=== PATIENT | female | born 1955 | race Caucasian/White ===

== ENCOUNTER 2016-04-16 09:50 | Emergency (ER) | payer BC ==
[~2016-04-16] VITALS: Ht 172.7 cm; Wt 95.0 kg
[~2016-04-16 09:50] MED LIST: ANT25 PO; GLC/500 PO; INSDGIPEN SQ; KETO10TA PO; MELO15TA4 PO; PANT40TA PO
[2016-04-16 09:58] VITALS: TEMP 36.5; Ht 172.7 cm; Wt 95.0 kg
[2016-04-16] MEDS ORDERED: SODIUM CHLORIDE 0.9% 1000ML 1,000 ML IV STA (10:21)
[2016-04-16] MEDS ORDERED: CEFTRIAXONE SOD INJ 1 GM ADDVIAL IV STA (10:22)
[2016-04-16] MEDS ORDERED: CEPHALEXIN MONOHYDRATE 250 MG CAP PO ONE (10:30)
[2016-04-16] MEDS ORDERED: BND25 PO (10:32)
--- NOTE | 2016-04-16 10:51 | DIAGNOSTIC IMAGING REPORT ---
CHEST ONE VIEW PORTABLE CLINICAL HISTORY: Altered mental status. Weakness. COMPARISON STUDY: Chest radiograph September 16, 2013. FINDINGS: Lung volumes are normal. There is no consolidation. No pneumothorax or pleural effusion is present. Cardiac size is normal. Mediastinal contours are normal. IMPRESSION: No acute cardiopulmonary findings. Electronically signed by: Fredrick Simmons M.D. 04/16/2016 10:49 AM Dictated Date/Time: 04/16/2016 10:46 AM
--- NOTE | 2016-04-16 11:06 | DIAGNOSTIC IMAGING REPORT ---
HEAD CT NONCONTRAST CT DOSE: 537.48 mGy.cm HISTORY: heard pop in back of head TECHNIQUE: Multiaxial CT images of the head were performed without the use of intravenous contrast. Automated exposure control was utilized for this study. Comparison: Head CT 09/16/2013. Findings: The paranasal sinuses and mastoid air cells are clear. The calvarium and skull base are intact. The ventricles and sulci are within normal limits. There is no mass, hematoma, midline shift, or acute infarct. Impression: No acute intracranial abnormality. Electronically signed by: Jostin Torres M.D. 04/16/2016 11:04 AM Dictated Date/Time: 04/16/2016 11:01 AM
[2016-04-16 11:09] LABS: BASO % 1.1 %; BASO ABS # 0.06 K/uL (0-0.2); COMPLETE YES; EOS % 4.1 %; LYMPH % 43.1 %; LYMPH ABS # 2.29 K/uL (1.2-3.4); MEAN CELL VOLUME 83.7 fL (80-100); MEAN CORPUSCULAR HEMOGLOBIN 27.5 pg (25-34); MEAN CORPUSCULAR HGB CONC 32.9 g/dl (32-36); MEAN PLATELET VOLUME 9.7 fL (7.4-10.4); MONO % 7.2 %; NEUT % 44.5 %; PLATELET COUNT 318 K/uL (130-400); RED BLOOD COUNT 4.54 M/uL (4.2-5.4); WHITE BLOOD COUNT 5.31 K/uL (4.8-10.8)
[2016-04-16 11:22] LABS: INR 0.9 (0.9-1.1); PROTHROMBIN TIME (PATIENT) 9.8 SECONDS (9.0-12.0)
[2016-04-16 11:26] LABS: BUN/CREATININE RATIO 14.8 (10-20)
[2016-04-16 11:30] LABS: CKMB/CK RATIO 1.4 (0-3.0)
[2016-04-16] MEDS ORDERED: CEPH500C PO (12:45)
--- NOTE | 2016-04-16 12:45 | EMERGENCY ROOM VISIT NOTE ---
History Report prepared by Deandra: Liliam Yañez Under the Supervision of: Dr. Bryan Hurtado D.O. First contact with patient: 10:12 Chief Complaint: REFERRED BY DOCTOR Stated Complaint: SENT BY SHAHRAM IBRAHIM,FELT POPPING IN EAR/FACE History of Present Illness The patient is a 60 year old female who presents to the Emergency Room with complaints of persistent generalized weakness that began this morning around 0500. The patient states that when she woke this morning she noticed that something popped in the back of her head. She states that she felt fatigued, but started to get up and get ready for work. The patient states that she noticed drooping in her right eye so she went back to bed. She states that she went to her PCP this morning and he referred her to the emergency department for further work up. The patient denies any recent cold, nausea, sore throat, or runny nose. The patient's notes swelling to the patient's right cheek. Source of History: patient Onset: 0500 Position: other (global) Quality: other (weakness) Timing: other (persistent) Associated Symptoms: + fatigue, No nausea, No sorethroat Note: Associated symptoms; right eye drooping, pop in head, swelling to right cheek Review of Systems See HPI for pertinent positives & negatives. A total of 10 systems reviewed and were otherwise negative. Past Medical & Surgical Medical Problems: (1) Breast cancer Surgical Problems: (1) H/O: hysterectomy (2) Hx of appendectomy (3) Hx of cholecystectomy Family History Diabetes mellitus FHx: heart disease Hypertension Social History Smoking Status: Never Smoker Alcohol Use: none Occupation Status: employed Current/Historical Medications Scheduled Cephalexin Monohydrate (Keflex), 500 MG PO QID Diphenhydramine Hcl (Benadryl), 1 CAP PO DAILY Insulin Glargine (Lantus Solostar), 25 UNITS SQ HS Metformin Hcl (Glucophage), 500 MG PO BID Pantoprazole (Protonix), 40 MG PO DAILY Scheduled PRN Meloxicam (Mobic), 15 MG PO DAILY PRN for Arthritis Allergies Coded Allergies: Propoxyphene (Verified Allergy, Unknown, ., 04/16/16) Physical Exam Vital Signs Date Time Temp Pulse Resp B/P Pulse Ox O2 Delivery O2 Flow Rate FiO2 04/16/16 11:07 75 16 153/99 98 Room Air 04/16/16 10:00 76 04/16/16 09:58 36.5 69 17 200/113 98 Room Air Physical Exam VITAL SIGNS: were reviewed as above. GENERAL:Non-toxic in appearance. SKIN: Warm dry and pink. HEAD: Normocephalic and atraumatic. EYES: Mild erythema and edema to the right upper eyelid. Mild edema to the right infraorbital area. EOMI without discomfort. OROPHARYNX: Is clear and moist NECK: Supple without lymphadenopathy or meningismus. LUNGS: clear. HEART: Regular rate and rhythm. ABDOMEN: Soft and nontender. EXTREMITIES: Warm and well perfused. NEUROLOGICALLY: Awake alert and oriented without focal deficit. Cranial nerves 2 -12 are intact. There is no pronator drift. Cerebellar testing is within normal limits. There is no nystagmus. There is no facial droop. Speech is clear. Vision is grossly normal. MUSCULOSKELETAL: Good muscle tone. No evidence of trauma. Medical Decision & Procedures ER Provider Diagnostic Interpretation: X ray results and stated below per my interpretation and radiologist interpretation. Other radiology results and stated below per my review and radiologist interpretation: HEAD CT NONCONTRAST CT DOSE: 537.48 mGy.cm HISTORY: heard pop in back of head TECHNIQUE: Multiaxial CT images of the head were performed without the use of intravenous contrast. Automated exposure control was utilized for this study. Comparison: Head CT 09/16/2013. Findings: The paranasal sinuses and mastoid air cells are clear. The calvarium and skull base are intact. The ventricles and sulci are within normal limits. There is no mass, hematoma, midline shift, or acute infarct. Impression: No acute intracranial abnormality. Electronically signed by: Jostin Torres M.D. 04/16/2016 11:04 AM Dictated Date/Time: 04/16/2016 11:01 AM CHEST ONE VIEW PORTABLE CLINICAL HISTORY: Altered mental status. Weakness. COMPARISON STUDY: Chest radiograph September 16, 2013. FINDINGS: Lung volumes are normal. There is no consolidation. No pneumothorax or pleural effusion is present. Cardiac size is normal. Mediastinal contours are normal. IMPRESSION: No acute cardiopulmonary findings. Electronically signed by: Fredrick Simmons M.D. 04/16/2016 10:49 AM Dictated Date/Time: 04/16/2016 10:46 AM Laboratory Results 04/16/16 10:40 Red Blood Count 4.54, Mean Corpuscular Volume 83.7, Mean Corpuscular Hemoglobin 27.5, Mean Corpuscular Hemoglobin Concent 32.9, Mean Platelet Volume 9.7, Neutrophils (%) (Auto) 44.5, Lymphocytes (%) (Auto) 43.1, Monocytes (%) (Auto) 7.2, Eosinophils (%) (Auto) 4.1, Basophils (%) (Auto) 1.1, Neutrophils # (Auto) 2.36, Lymphocytes # (Auto) 2.29, Monocytes # (Auto) 0.38, Eosinophils # (Auto) 0.22, Basophils # (Auto) 0.06 04/16/16 10:40 Test 04/16/16 10:40 White Blood Count 5.31 K/uL (4.8-10.8) Red Blood Count 4.54 M/uL (4.2-5.4) Hemoglobin 12.5 g/dL (12.0-16.0) Hematocrit 38.0 % (37-47) Mean Corpuscular Volume 83.7 fL (80-100) Mean Corpuscular Hemoglobin 27.5 pg (25-34) Mean Corpuscular Hemoglobin Concent 32.9 g/dl (32-36) Platelet Count 318 K/uL (130-400) Mean Platelet Volume 9.7 fL (7.4-10.4) Neutrophils (%) (Auto) 44.5 % Lymphocytes (%) (Auto) 43.1 % Monocytes (%) (Auto) 7.2 % Eosinophils (%) (Auto) 4.1 % Basophils (%) (Auto) 1.1 % Neutrophils # (Auto) 2.36 K/uL (1.4-6.5) Lymphocytes # (Auto) 2.29 K/uL (1.2-3.4) Monocytes # (Auto) 0.38 K/uL (0.11-0.59) Eosinophils # (Auto) 0.22 K/uL (0-0.5) Basophils # (Auto) 0.06 K/uL (0-0.2) RDW Standard Deviation 42.0 fL (36.4-46.3) RDW Coefficient of Variation 13.9 % (11.5-14.5) Immature Granulocyte % (Auto) 0.0 % Immature Granulocyte # (Auto) 0.00 K/uL (0.00-0.02) Erythrocyte Sedimentation Rate 23 mm/hr (0-21) Prothrombin Time 9.8 SECONDS (9.0-12.0) Prothromb Time International Ratio 0.9 (0.9-1.1) Activated Partial Thromboplast Time 26.4 SECONDS (21.0-31.0) Partial Thromboplastin Ratio 1.0 Anion Gap 9.0 mmol/L (3-11) Est Creatinine Clear Calc Drug Dose 72.1 ml/min Estimated GFR () 70.9 Estimated GFR (Non- 61.2 BUN/Creatinine Ratio 14.8 (10-20) Calcium Level 9.0 mg/dl (8.5-10.1) Total Creatine Kinase 77 U/L (26-192) Creatine Kinase MB 1.1 ng/ml (0.5-3.6) Creatine Kinase MB Ratio 1.4 (0-3.0) Laboratory results as stated above per my review. Medications Administered Medications (Trade) Dose Ordered Sig/Nelson Route Start Time Stop Time Status Last Admin Dose Admin Sodium Chloride (Nss 1000ml) 1,000 ml @ 999 mls/hr Q1H1M STAT IV 04/16/16 10:21 04/16/16 11:21 DC 04/16/16 10:21 999 MLS/HR Cephalexin Monohydrate (Keflex Cap) 500 mg NOW ONCE PO 04/16/16 10:30 04/16/16 10:31 DC 04/16/16 10:45 500 MG Ceftriaxone Sodium (Rocephin Inj) 1 gm NOW STAT IV 04/16/16 10:22 04/16/16 10:23 DC 04/16/16 10:44 1 GM ECG Indication: weakness Rate (beats per minute): 67 Rhythm: normal sinus Findings: no acute ischemic change, no ectopy ED Course 1013: Previous medical records were reviewed. The patient was evaluated in room A11B. A complete history and physical examination was performed. 1021: Ordered Sodium Chloride 1000 ml @ 999 mls/hr IV, Rocephin Inj 1 gm IV. 1030: Ordered Keflex Cap 500 mg PO. 1247: I reevaluated the patient and she is resting comfortably. I discussed the exam findings with her and I discussed the treatment plan. She verbalized complete understanding and agreement. She is ready to go home. Medical Decision Differential includes acute coronary syndrome, myocardial infarction, CVA, TIA, anemia, infection, pneumonia, UTI, pyelonephritis, poor nutrition, dehydration, electrolyte disturbance,hypoglycemia. This is a 66-year-old female who presents to the ED with a chief complaint of having a pop in her head around 5 AM. This was in the back of her head. She also states that she feels "blah". She states that her tongue feels a little weird. The patient was noted to have high blood pressure when she initially got here. She states that she was taken off her blood pressure medications because her blood pressure was going too low. She has a history of diabetes. The patient's physical exam was suggestive of some erythema and edema to the right upper eyelid and some edema inferior to the eye. There is no pain with EOM. This could be an early cellulitis. Her neurological exam was completely normal. She did not have any weakness to her face. EKG shows a sinus rhythm. Chest x-ray and head scan did not show any acute process. CBC was normal. Sedimentation rate was 23. PRP is normal. The patient's blood pressure improved to a reasonable level during her ED stay. She was treated with some IV Rocephin and by mouth Keflex for her right periorbital cellulitis. She is felt to be stable for discharge and outpatient follow-up. Impression Primary Impression: Blepharitis of eyelid of right eye Additional Impression: Periorbital cellulitis of right eye Scribe Attestation The scribe's documentation has been prepared under my direction and personally reviewed by me in its entirety. I confirm that the note above accurately reflects all work, treatment, procedures, and medical decision making performed by me. Departure Information Dispostion Home / Self-Care Prescriptions Cephalexin Monohydrate (Keflex) 500 Mg Cap 500 MG PO QID, #28 CAP Prov: Bryan Hurtado D.O. 04/16/16 Referrals No Doctor, Assigned (PCP) Forms HOME CARE DOCUMENTATION FORM, IMPORTANT VISIT INFORMATION Patient Instructions My [facility] Additional Instructions Keflex as prescribed. Follow-up with your doctor for recheck in 3-5 days. Return for worsening. Problem Qualifiers
[2016-04-16 12:57] VITALS: BP 147/84; PULSE 69; O2SAT 97
== END 2016-04-16 13:03 | disposition home or self-care (01) ==
LOC: C.EDB 09:51 → C.EDA 13:03
DX: H01.003 Unspecified blepharitis right eye, unspecified eyelid (principal); L03.213 Periorbital cellulitis; Z85.3 Personal history of malignant neoplasm of breast

== ENCOUNTER 2017-01-16 19:18 | Emergency (ER) | payer BC ==
[~2017-01-16] VITALS: Ht 172.7 cm; Wt 95.4 kg
[~2017-01-16 19:18] MED LIST changes: -ANT25 PO; +DIPH25CA5 PO; -KETO10TA PO
[2017-01-16 19:33] VITALS: TEMP 36.9; Ht 172.7 cm; Wt 95.4 kg
--- NOTE | 2017-01-16 20:19 | EMERGENCY ROOM VISIT NOTE ---
History Report prepared by Deandra: Britany Gordon Under the Supervision of: Dr. Noam Morel M.D. First contact with patient: 20:11 Chief Complaint: OTHER COMPLAINT Stated Complaint: SWELD RT HAND History of Present Illness The patient is a 61 year old female who presents to the Emergency Room with complaints of constant swelling in right arm that begun this morning. The patient denies hitting her hand, falling or getting bit by anything. She notes that she has two new lumps on her hand. She denies being in any pain. The patient has been sick with bronchitis for 4 months and notes that she just found black mold in her basement. She was told by her PCP to follow up with a lung specialist. The patient is not on any blood thinners and has a history of arthritis and diabetes. Source of History: patient Onset: this morning Position: arm (right) Quality: other (swelling) Timing: constant Modifying Factors (Relieving): other (none) Review of Systems See HPI for pertinent positives and negatives. A total of ten systems were reviewed and were otherwise negative. Past Medical & Surgical Medical Problems: (1) Breast cancer Surgical Problems: (1) H/O: hysterectomy (2) Hx of appendectomy (3) Hx of cholecystectomy Family History Diabetes mellitus FHx: heart disease Hypertension Social History Smoking Status: Never Smoker Alcohol Use: none Occupation Status: employed Current/Historical Medications Scheduled Glipizide (Glipizide Er), 5 MG PO DAILY Insulin Glargine (Lantus Solostar), 25 UNITS SQ HS Naproxen (Naproxen), 500 MG PO BID Pantoprazole Sodium (Protonix), 20 MG PO DAILY Scheduled PRN Meclizine HCl (Meclizine HCl), 12.5 MG PO TID PRN for Dizziness or Vertigo Tramadol HCl (Tramadol HCl), 50 MG PO BID PRN for Severe Pain Allergies Coded Allergies: Propoxyphene (Verified Allergy, Unknown, ., 04/16/16) Physical Exam Vital Signs Date Time Temp Pulse Resp B/P (MAP) Pulse Ox O2 Delivery O2 Flow Rate FiO2 01/16/17 21:51 77 18 149/90 98 01/16/17 19:33 36.9 74 18 148/92 97 Room Air Physical Exam GENERAL: Awake, alert, well-appearing, in no distress HENT: Normocephalic, atraumatic. Oropharynx unremarkable. EYES: Normal conjunctiva. Sclera non-icteric. NECK: Supple. No nuchal rigidity. FROM. No JVD. RESPIRATORY: Clear to auscultation. CARDIAC: Regular rate, normal rhythm. Extremities warm and well perfused. Pulses equal. ABDOMEN: Soft, non-distended. No tenderness to palpation. No rebound or guarding. No masses. RECTAL: Deferred. MUSCULOSKELETAL: Mild swelling with underlying contusion dorsum of right hand. Dorsal second metacarpal with 0.25cm cyst, nontender, mobile. No pain with passive stretch. PMS intact Chest examination reveals no tenderness. The back is symmetrical on inspection without obvious abnormality. There is no CVA tenderness to palpation. No joint edema. LOWER EXTREMITIES: Calves are equal size bilaterally and non-tender. No edema. No discoloration. NEURO: Normal sensorium. No sensory or motor deficits noted. SKIN: warm, dry Medical Decision & Procedures ER Provider Diagnostic Interpretation: Radiology results as stated below per my review and radiologist interpretation: R HAND MIN 3 VIEWS ROUTINE DISCUSSION: The bones are mildly osteopenic. There are no fractures. There is no erosive disease. There is a 3 mm cortical lucency involving the fourth metacarpal the junction of middle distal one third. This is of doubtful acute clinical significance. IMPRESSION: 1. Mild osteopenia 2. Mild soft tissue swelling 3. No acute fractures 4. No erosive disease 5. 3 mm cortical lucency involving the fourth metacarpal. This is of doubtful acute clinical significance. Electronically signed by: Guerrero Davidson M.D. Laboratory Results 01/16/17 20:25 Red Blood Count 4.49, Mean Corpuscular Volume 85.3, Mean Corpuscular Hemoglobin 28.1, Mean Corpuscular Hemoglobin Concent 32.9, Mean Platelet Volume 9.5, Neutrophils (%) (Auto) 42.3, Lymphocytes (%) (Auto) 43.6, Monocytes (%) (Auto) 6.4, Eosinophils (%) (Auto) 6.7, Basophils (%) (Auto) 0.9, Neutrophils # (Auto) 3.34, Lymphocytes # (Auto) 3.45, Monocytes # (Auto) 0.51, Eosinophils # (Auto) 0.53, Basophils # (Auto) 0.07 01/16/17 20:25 Test 01/16/17 20:25 White Blood Count 7.91 K/uL (4.8-10.8) Red Blood Count 4.49 M/uL (4.2-5.4) Hemoglobin 12.6 g/dL (12.0-16.0) Hematocrit 38.3 % (37-47) Mean Corpuscular Volume 85.3 fL (80-100) Mean Corpuscular Hemoglobin 28.1 pg (25-34) Mean Corpuscular Hemoglobin Concent 32.9 g/dl (32-36) Platelet Count 309 K/uL (130-400) Mean Platelet Volume 9.5 fL (7.4-10.4) Neutrophils (%) (Auto) 42.3 % Lymphocytes (%) (Auto) 43.6 % Monocytes (%) (Auto) 6.4 % Eosinophils (%) (Auto) 6.7 % Basophils (%) (Auto) 0.9 % Neutrophils # (Auto) 3.34 K/uL (1.4-6.5) Lymphocytes # (Auto) 3.45 K/uL (1.2-3.4) Monocytes # (Auto) 0.51 K/uL (0.11-0.59) Eosinophils # (Auto) 0.53 K/uL (0-0.5) Basophils # (Auto) 0.07 K/uL (0-0.2) RDW Standard Deviation 44.2 fL (36.4-46.3) RDW Coefficient of Variation 14.2 % (11.5-14.5) Immature Granulocyte % (Auto) 0.1 % Immature Granulocyte # (Auto) 0.01 K/uL (0.00-0.02) Prothrombin Time 9.9 SECONDS (9.0-12.0) Prothromb Time International Ratio 0.9 (0.9-1.1) Anion Gap 6.0 mmol/L (3-11) Est Creatinine Clear Calc Drug Dose 66.7 ml/min Estimated GFR () 64.9 Estimated GFR (Non- 56.0 BUN/Creatinine Ratio 16.7 (10-20) Calcium Level 9.1 mg/dl (8.5-10.1) Laboratory results reviewed by me Medications Administered Medications (Trade) Dose Ordered Sig/Nelson Route Start Time Stop Time Status Last Admin Dose Admin Dexamethasone (Decadron Tab) 10 mg NOW ONCE PO 01/16/17 21:30 01/16/17 21:33 DC 01/16/17 21:47 10 MG ED Course 2011: The patient was evaluated in room C6. A complete history and physical exam was performed. 2119: Bedside ultrasound of right hand: small amount of cobblestoning that is nonspecific and a 2.5 cm cyst without warmth or edema. 0: Decadron 10 mg PO. 2145: I reevaluated the patient. Discussed results and discharge instructions: She verbalized understanding and agreement. The patient is ready for discharge. Medical Decision I reviewed the patient's past medical history, medications, and the nursing notes as described above. Differential diagnoses: contusion, hematoma, localized allergic reaction, insect bite, tenosynovitis. The patient is a 61 y/o woman with pmhx of DM and arthritis who presents to the ED with right hand swelling per HPI. On arrival the patient is well appearing, in NAD, AFVSS. On exam has mild swelling with underlying contusion on dorsum of right hand. No warmth or erythema. No pain with passive stretch. Xray negative for fx. "3 mm cortical lucency involving the fourth metacarpal...doubtful acute clinical significance". WBC, platelets, INR wnl. Not on any AC or antiplatelet therapy. Bedside US of dorsal cyst shows 0.25cm cystic structure with thickened wall and adjacent to tendon making most c/w ganglion cyst. No FB appreciate. Given localized edema in setting of possible bite given dose of dexamethasone. No signs of infection at this time thus no indication for abx. GUANAKO bandage for compression. Plan for hand f/u with patient's hand surgeon who repaired her trigger finger on the same hand an happens to be the patient's cousin. Findings and plan for follow-up reviewed with patient. Patient agreeable and d/c'd per discharge instructions. Medication Reconcilliation Current Medication List: was personally reviewed by me Blood Pressure Screening Patient's blood pressure: Elevated blood pressure Blood pressure disposition: Referred to PCP Impression Primary Impression: Hand swelling Additional Impression: Ganglion cyst Scribe Attestation The scribe's documentation has been prepared under my direction and personally reviewed by me in its entirety. I confirm that the note above accurately reflects all work, treatment, procedures, and medical decision making performed by me. Departure Information Dispostion Home / Self-Care Referrals No Doctor, Assigned (PCP) Forms HOME CARE DOCUMENTATION FORM, IMPORTANT VISIT INFORMATION, WORK / SCHOOL INSTRUCTIONS Patient Instructions Cyst Ganglion Hand, ED Contusion Hand, My [facility] Additional Instructions Please follow up with your hand surgeon next week for re-evaluation. Guanako bandage to minimize swelling. Keep elevated. Otherwise, your exam, xray, ultrasound, and lab results did not show signs of an emergent condition at this time. Acetaminophen for pain as needed. Return to the emergency department for worsening symptoms as described in the accompanying instructions. Problem Qualifiers
[2017-01-16 20:35] LABS: BASO % 0.9 %; BASO ABS # 0.07 K/uL (0-0.2); COMPLETE YES; EOS % 6.7 %; HEMATOCRIT 38.3 % (37-47); IG% 0.1 %; LYMPH % 43.6 %; LYMPH ABS # 3.45 K/uL (1.2-3.4); MEAN CELL VOLUME 85.3 fL (80-100); MEAN CORPUSCULAR HEMOGLOBIN 28.1 pg (25-34); MEAN CORPUSCULAR HGB CONC 32.9 g/dl (32-36); MEAN PLATELET VOLUME 9.5 fL (7.4-10.4); MONO % 6.4 %; NEUT % 42.3 %; PLATELET COUNT 309 K/uL (130-400); RED BLOOD COUNT 4.49 M/uL (4.2-5.4); WHITE BLOOD COUNT 7.91 K/uL (4.8-10.8)
[2017-01-16 20:47] LABS: INR 0.9 (0.9-1.1); PROTHROMBIN TIME (PATIENT) 9.9 SECONDS (9.0-12.0)
--- NOTE | 2017-01-16 20:47 | DIAGNOSTIC IMAGING REPORT ---
R HAND MIN 3 VIEWS ROUTINE CLINICAL HISTORY: Soft tissue swelling COMPARISON: None. DISCUSSION: The bones are mildly osteopenic. There are no fractures. There is no erosive disease. There is a 3 mm cortical lucency involving the fourth metacarpal the junction of middle distal one third. This is of doubtful acute clinical significance. IMPRESSION: 1. Mild osteopenia 2. Mild soft tissue swelling 3. No acute fractures 4. No erosive disease 5. 3 mm cortical lucency involving the fourth metacarpal. This is of doubtful acute clinical significance. Electronically signed by: Guerrero Davidson M.D. 01/16/2017 8:45 PM Dictated Date/Time: 01/16/2017 8:43 PM
[2017-01-16 20:51] LABS: BUN/CREATININE RATIO 16.7 (10-20); CALCIUM 9.1 mg/dl (8.5-10.1); CREATININE 1.07 mg/dl (0.60-1.20); POTASSIUM 4.3 mmol/L (3.5-5.1)
[2017-01-16] MEDS ORDERED: ULT50 PO (21:15)
[2017-01-16] MEDS ORDERED: NAPR500T3 PO (21:15)
[2017-01-16] MEDS ORDERED: MECL1TAB40 PO (21:15)
[2017-01-16] MEDS ORDERED: GLIP-197 PO (21:15)
[2017-01-16] MEDS ORDERED: PANT20TA2 PO (21:15)
[2017-01-16] MEDS ORDERED: DEXAMETHASONE 4 MG TAB PO ONE (21:30)
[2017-01-16 21:51] VITALS: BP 149/90; PULSE 77; O2SAT 98
== END 2017-01-16 21:51 | disposition home or self-care (01) ==
LOC: C.EDB 19:20 → C.EDC 21:51
DX: M79.89 Other specified soft tissue disorders (principal); M67.40 Ganglion, unspecified site; Z83.3 Family history of diabetes mellitus; Z82.49 Family history of ischemic heart disease and other diseases of the circulatory system; Z79.4 Long term (current) use of insulin

== ENCOUNTER → 2017-05-31 | Outpatient (CLI) | payer OTHER, BC ==
[~2017-05-31] MED LIST changes: +CLR10 PO; -DIPH25CA5 PO; -GLC/500 PO; +GLIP-197 PO; +MECL1TAB40 PO; -MELO15TA4 PO; +NAPR500T3 PO; +PANT20TA2 PO; -PANT40TA PO; +ULT50 PO
--- NOTE | 2017-05-31 14:02 | DIAGNOSTIC IMAGING REPORT ---
ULTRASOUND L VENOUS DOPP LOWER EXT UNILAT CLINICAL HISTORY: I82.402 LEFT LEG SWELLING COMPARISON STUDY: No previous studies for comparison. FINDINGS: Real-time and color flow Doppler imaging were performed. Flow was seen within the femoral, popliteal and calf veins with no intraluminal thrombus demonstrated. The saphenous vein is patent. IMPRESSION: No evidence of left lower extremity DVT. Electronically signed by: Guerrero Davidson M.D. 05/31/2017 2:01 PM Dictated Date/Time: 05/31/2017 2:00 PM
== END | disposition home or self-care (01) ==
LOC: C.ULTR 12:58
PROVIDERS: ATTEND Orthopaedic Surgery Orthopaedic Surgery of the Spine
DX: I82.402 Acute embolism and thrombosis of unspecified deep veins of left lower extremity (principal)

== ENCOUNTER 2017-07-27 08:52 | Day surgery (SDC) | payer BC, OTHER ==
[2017-05-31 10:40] VITALS: BMI 32.0
[2017-05-31 10:57] VITALS: BMI 32.0
--- NOTE | 2017-05-31 11:11 | PAT Medication Instructions ---
Service Date May 31, 2017. Current Home Medication List Glipizide (Glipizide Er), 5 MG PO QPM Insulin Glargine (Lantus Solostar), 25 UNITS SQ QPM Loratadine (Claritin), 20 MG PO QAM Meclizine HCl (Meclizine HCl), 12.5 MG PO TID PRN for Dizziness or Vertigo Naproxen (Naproxen), 500 MG PO BID Pantoprazole Sodium (Protonix), 20 MG PO QAM Tramadol HCl (Tramadol HCl), 50 MG PO BID PRN for Severe Pain Medication Instructions For Your Scheduled Surgery - Check with surgeon for instructions: Naproxen (Naproxen), 500 MG PO BID - Hold the following medications the morning of surgery: Loratadine (Claritin), 20 MG PO QAM - Take the following medications the morning of surgery with a sip of water: Meclizine HCl (Meclizine HCl), 12.5 MG PO TID PRN for Dizziness or Vertigo (if needed) Pantoprazole Sodium (Protonix), 20 MG PO QAM Tramadol HCl (Tramadol HCl), 50 MG PO BID PRN for Severe Pain (okay to take up to 4 hours prior to surgery if needed) - Take the following medications as scheduled the night before surgery: Tramadol HCl (Tramadol HCl), 50 MG PO BID PRN for Severe Pain (if needed) Meclizine HCl (Meclizine HCl), 12.5 MG PO TID PRN for Dizziness or Vertigo (if needed) Insulin Glargine (Lantus Solostar), 25 UNITS SQ QPM Glipizide (Glipizide Er), 5 MG PO QPM If you have any questions please call us at [phone] or [phone] or [phone]
[2017-05-31 13:08] LABS: BASO % 1.1 %; BASO ABS # 0.08 K/uL (0-0.2); EOS % 5.5 %; HEMATOCRIT 36.6 % (37-47); HEMOGLOBIN 12.1 g/dL (12.0-16.0); IG# 0.02 K/uL (0.00-0.02); LYMPH % 38.7 %; LYMPH ABS # 2.81 K/uL (1.2-3.4); MEAN CELL VOLUME 83.2 fL (80-100); MEAN CORPUSCULAR HEMOGLOBIN 27.5 pg (25-34); MEAN CORPUSCULAR HGB CONC 33.1 g/dl (32-36); MEAN PLATELET VOLUME 9.5 fL (7.4-10.4); MONO % 6.5 %; MONO ABS # 0.47 K/uL (0.11-0.59); NEUT % 47.9 %; NEUT ABS # 3.49 K/uL (1.4-6.5); PLATELET COUNT 335 K/uL (130-400); RED CELL DISTRIBUTION WIDTH SD 42.7 fL (36.4-46.3); WHITE BLOOD COUNT 7.27 K/uL (4.8-10.8)
[2017-05-31 13:31] LABS: CALCIUM 9.4 mg/dl (8.5-10.1); CREATININE 0.88 mg/dl (0.60-1.20); POTASSIUM 4.8 mmol/L (3.5-5.1)
[2017-05-31 13:55] LABS: HEMOGLOBIN A1C 9.2 % (4.5-5.6)
[~2017-07-27] VITALS: Ht 172.7 cm; Wt 96.0 kg
[~2017-07-27 08:52] MED LIST changes: +ACETAMINOPHEN 500 MG TAB PO SCH; +CEFAZOLIN 2000MG IV PUSH 15 ML IV SCH; +CeleBREX 200 MG CAP PO SCH; +GABAPENTIN 600 MG PO SCH; +LACTATED RINGER'S 1000ML 1,000 ML IV SCH; +NAPR-1231 PO; -NAPR500T3 PO
[2017-07-27 09:20] VITALS: Ht 172.7 cm; Wt 96.0 kg
[2017-07-27] MEDS ORDERED: ONDANSETRON INJ 2 MG/ML 2 ML VIAL IV PRN (09:45)
[2017-07-27] MEDS ORDERED: ATROPINE SULFATE 0.1 MG/ML 5ML SYR IV PRN (09:45)
[2017-07-27] MEDS ORDERED: EpHEDrine SULFATE INJ 50 MG/ML AMP IV PRN (09:45)
[2017-07-27] MEDS ORDERED: HYDROmorphone INJ 2 MG/ML SYR/VIAL IV PRN ×2 (09:45→12:15)
[2017-07-27] MEDS ORDERED: FENTANYL CITRATE INJ 50 MCG/1 ML 2 ML VIAL IV PRN (09:45)
[2017-07-27] MEDS ORDERED: FENTANYL CITRATE INJ 50 MCG/1 ML 2 ML VIAL ONE ×2 (10:36→11:38)
[2017-07-27] MEDS ORDERED: MIDAZOLAM HCL 1 MG/ML 2ML VIAL ONE (10:36)
--- NOTE | 2017-07-27 10:49 | History & Physical Bridge Note ---
H&P Re-Evaluation Bridge Note: I have examined the patient, reviewed the History & Physical and in the interval since the performance of the History & Physical I have noted the following changes of clinical significance: No changes noted
--- NOTE | 2017-07-27 10:50 | History and Physical ---
History & Physical Date July 27, 2017. Chief Complaint Back and leg pain History of Present Illness The patient is a 61 year old female with complaints of back and leg pain Past Medical/Surgical History Medical Problems: (1) Breast cancer Surgical Problems: (1) H/O: hysterectomy (2) Hx of appendectomy (3) Hx of cholecystectomy Additional History Hepatic Disease: No Endocrine Disorder: No Kidney Disease: No Hypertension: No Heart Disease: No Bleeding Tendencies: No Infectious Diseases: No Other: Diabetes Allergies Coded Allergies: Propoxyphene (Verified Adverse Reaction, Unknown, GI UPSET, 07/27/17) Home Medications Scheduled Glipizide (Glipizide Er), 5 MG PO QPM Insulin Glargine (Lantus Solostar), 25 UNITS SQ QPM Loratadine (Claritin), 20 MG PO QAM Naproxen (Naproxen), 500 MG PO BID Pantoprazole Sodium (Protonix), 20 MG PO QAM Scheduled PRN Meclizine HCl (Meclizine HCl), 12.5 MG PO TID PRN for Dizziness or Vertigo Tramadol HCl (Tramadol HCl), 50 MG PO BID PRN for Severe Pain Physical Examination Skin: warm/dry, no rash Eyes: normal inspection, EOMI, sclerae normal ENT: normal ENT inspection, pharynx normal Head: normocephalic, atraumatic Neck: supple, no adenopathy, trachea midline Respiratory/Chest: lungs clear, normal breath sounds, no respiratory distress Cardiovascular: regular rate, rhythm, no edema, no murmur Abdomen / GI: normal bowel sounds, non tender Back: normal inspection Extremities: normal inspection, normal range of motion Neurologic/Psych: no motor/sensory deficits, alert, normal reflexes, oriented x 3 Diagnosis Lumbar spinal stenosis Plan of Treatment L4-5 laminectomy
[2017-07-27] MEDS ORDERED: NovoLIN-R INSULIN PER UNIT CHARGE ONE (10:58)
[2017-07-27] MEDS ORDERED: NURSING VERBAL MED ORDER ONE (11:00)
[2017-07-27] MEDS ORDERED: BACITRACIN 50000 UNIT VIAL ONE (11:09)
[2017-07-27] MEDS ORDERED: BUPIVACAINE/EPINEPHRINE 0.5% MPF 1:200,000 30 ML VIAL ONE (11:09)
[2017-07-27] MEDS ORDERED: HYDROmorphone INJ 2 MG/ML SYR/VIAL ONE (11:38)
[2017-07-27] MEDS ORDERED: PROPOFOL IV EMULSION 10 MG/ML 20 ML VIAL ONE (12:01)
[2017-07-27] MEDS ORDERED: DEXAMETHASONE SOD INJ 4 MG/ML VIAL ONE (12:01)
[2017-07-27] MEDS ORDERED: EpHEDrine SULFATE 50MG/5ML SYR ONE (12:01)
[2017-07-27] MEDS ORDERED: ONDANSETRON INJ 2 MG/ML 2 ML VIAL ONE (12:01)
[2017-07-27] MEDS ORDERED: LIDOCAINE HCL 2% 2 ML VIAL (20MG/ML) ONE (12:01)
[2017-07-27] MEDS ORDERED: LARYING-O-JET KIT (LTA) ONE (12:01)
[2017-07-27] MEDS ORDERED: FLOSEAL HEMOSTATIC MATRIX 5ML TOP ONE (12:06)
--- NOTE | 2017-07-27 12:11 | [facility] Operative Report ---
Operative Report Operative Date July 27, 2017. Pre-Operative Diagnosis Lumbar spinal stenosis Post-Operative Diagnosis Lumbar spinal stenosis Procedure(s) Performed L4-L5 Laminectomy with medial facetectomy on the left Surgeon Dr. Yves Pillai Window Display Designer Surgeon(s) Shamika Domingo PA-C Estimated Blood Loss 5ml Specimens None per surgeon Anesthesia Type General Description of Procedure Patient was met with preoperatively case discussed all questions addressed. After informed consent obtained patient was taken to the operative suite underwent intubation and placed in the prone position on the Margarito table on top of the Jose Elias frame. All bony prominences well-padded eyes inspected to ensure no external pressure placed upon them. This point the lumbar spine was prepped and draped in the normal sterile fashion. With the assistance of fluoroscopy identified the L4-5 disc space and midline incision was created overlying this region. Sharp dissection with the assistance of Bovie cautery was performed down to and exposing the interlaminar space at L4-5 and left. He suffered retractors placed. Then performed a laminotomy and medial facetectomy and was as well as excising the lateral portion of the ligamentum flavum to decompress the traversing L5 nerve root. At this complete the area was copiously irrigated and closed with 1 Vicryl fascia 2-0 Vicryl subtenons in 4 Monocryl for fashion closure Steri-Strips sterile dressings placed. Patient will continue PACU stable discrete please note Shamika Baldwin present throughout the entire procedure involved the patient positioning complex portions of the surgery and fashion closure. I attest to the content of the Intraoperative Record and any orders documented therein. Any exceptions are noted below.
[2017-07-27] MEDS ORDERED: ULT50 PO (12:13)
--- NOTE | 2017-07-27 12:14 | Discharge Instructions ---
Discharge Instructions Date of Service July 27, 2017. Admission Reason for Admission: Spinal Stenosis Discharge Discharge Diagnosis / Problem: lumbars stenosis Discharge Goals Goal(s): Improve function Activity Recommendations Activity Limitations: per Instructions/Follow-up section . Instructions / Follow-Up Instructions / Follow-Up ACTIVITY RECOMMENDATIONS: SELF CARE INSTRUCTIONS AFTER A LAMINECTOMY 1. No prolonged sitting (less than 30 minutes for the first 3 weeks after surgery). 2. No bending, lifting more than 5 pounds, or twisting (roll like a log when turning in bed). 3. You may shower 3 days after surgery if no drainage from wound. Thoroughly dry wound. Do not soak in the tub. 4. Please walk as much as you can for exercise. Gradually increase the distance that you walk as your endurance increases. 5. You may drive in 7-10 days if you are comfortable and no longer requiring pain medications. SPECIAL CARE INSTRUCTIONS: VERY IMPORTANT TO READ AND REVIEW A. Your surgical incision has been closed with a cosmetic suture under the skin that will dissolve in about 6 weeks. In 14 days, you can use a pair of clean scissors and cut the suture that is left outside of the skin at the ends of your incision. B. Complications are uncommon, but please contact us if you have any signs or symptoms of: 1. wound infection (fever higher than 102.5 degrees F, redness, separation of wound, drainage, or increasing pain from the incision) 2. blood clots in legs (pain, swelling, redness and warmth in legs) 3. urinary tract infection (fever higher than 102.5 degrees, burning upon urination or increased frequency of urination) 4. nerve problems (inability to walk on your toes or heels, numbness, loss of bowel or bladder control) 5. any other symptoms that concern you. C. Please call the office at if you have any concerns or questions about your operation or recovery. MANAGING PAIN AFTER SPINAL SURGERY 1. Narcotic medication is intended for short-term use and will be provided for surgical pain. Surgical pain usually lasts for a period of 4-6 weeks. Narcotic medication includes Percocet, Vicodin, Darvocet, Tylenol #3 or Lortab. 2. Longer-term pain is more appropriately treated with non-narcotic medication such as Tylenol ES. 3. Muscle spasm is not appropriately treated with narcotics. Muscle relaxers such as Soma, Flexeril or Skelaxin can be used along with Tylenol ES. 4. Remember that we all live with some "aches and pains". This is not unusual or uncommon after an injury or as we get older. 5. We will provide appropriate medication within the normal guidelines of their prescribed use. We will also be very cautious and aware of potential abuse and extended duration of patients' medication needs. 6. Please allow 2-3 days to process refills. Prescriptions will not be mailed but must be picked up at the office. FOLLOW UP VISIT: Keep your scheduled follow-up appointment. Any questions, please call the office at . Current Hospital Diet Patient's current hospital diet: Discharge Diet Recommended Diet: Regular Diet Procedures Procedures Performed: L4-L5 Laminectomy with medial facetectomy on the left Pending Studies Studies pending at discharge: no Laboratory Results Hemoglobin A1c Test 05/31/17 11:20 Range/Units Estimated Average Glucose 217 mg/dl Hemoglobin A1c 9.2 H 4.5-5.6 % Medical Emergencies . Who to Call and When: Medical Emergencies: If at any time you feel your situation is an emergency, please call 911 immediately. . Non-Emergent Contact Non-Emergency issues call your: Primary Care Provider . "Provider Documentation" section prepared by Yves Pillai. .
[2017-07-27] MEDS ORDERED: ACETAMINOPHEN 325 MG TAB PO PRN (12:15)
[2017-07-27] MEDS ORDERED: KETOROLAC TROMETHAMINE 30 MG/ML VIAL IV. PRN (12:15)
[2017-07-27] MEDS ORDERED: OXYCODONE HCL IR 5 MG TAB (IMMEDIATE RELEASE) PO PRN (12:15)
[2017-07-27] MEDS ORDERED: METOCLOPRAMIDE HCL INJ 5 MG/ML 2 ML VIAL ONE (12:20)
[2017-07-27] MEDS ORDERED: RANITIDINE HCL 25 MG/ML INJ ONE (12:20)
--- NOTE | 2017-07-27 13:48 | Anesthesiology Progress Note ---
Anesthesia Post Op Note Date & Time July 27, 2017 at 13:47 Vital Signs Pain Intensity: 0 Vital Signs Past 12 Hours Date Time Temp Pulse Resp B/P (MAP) Pulse Ox O2 Delivery O2 Flow Rate FiO2 07/27/17 13:44 90 18 151/72 96 Room Air 07/27/17 13:15 36.6 82 16 119/59 95 Room Air 07/27/17 13:05 79 19 145/80 94 Room Air 07/27/17 12:55 36.4 73 14 152/84 94 Room Air 07/27/17 12:45 72 22 153/76 100 Oxymask 10 07/27/17 12:35 76 16 152/72 100 Oxymask 10 07/27/17 12:25 36.1 85 25 159/81 99 Oxymask 10 Notes Mental Status: alert / awake / arousable, participated in evaluation Pt Amnestic to Procedure: Yes Nausea / Vomiting: adequately controlled Pain: adequately controlled Airway Patency, RR, SpO2: stable & adequate BP & HR: stable & adequate Hydration State: stable & adequate Anesthetic Complications: no major complications apparent
[2017-07-27 14:21] VITALS: BP 133/74; PULSE 82; TEMP 36.6; O2SAT 94
[2017-07-27 15:05] VITALS: BP 131/65; PULSE 73
[2017-07-27 15:45] VITALS: O2SAT 95
== END 2017-07-27 15:53 | disposition home or self-care (01) ==
LOC: C.ACU 08:52
PROVIDERS: ATTEND Orthopaedic Surgery Orthopaedic Surgery of the Spine
DX: M48.061 Spinal stenosis, lumbar region without neurogenic claudication (principal); G47.33 Obstructive sleep apnea (adult) (pediatric); E11.9 Type 2 diabetes mellitus without complications; Z90.710 Acquired absence of both cervix and uterus; Z90.89 Acquired absence of other organs; Z90.49 Acquired absence of other specified parts of digestive tract; Z79.4 Long term (current) use of insulin; Z79.899 Other long term (current) drug therapy; E66.9 Obesity, unspecified; Z68.32 Body mass index [BMI] 32.0-32.9, adult

== ENCOUNTER 2018-08-28 12:00 | Inpatient (IN) ==
[2018-08-28 12:42] LABS: Basophils # (auto) 0.03 K/uL (0-0.2); Basophils % (auto) 0.5 %; Eosinophils # (auto) 0.22 K/uL (0-0.5); Eosinophils % (auto) 3.6 %; Hemoglobin 11.8 g/dL (12.0-16.0); Lymphocytes # (auto) 2.51 K/uL (1.2-3.4); Lymphocytes % (auto) 40.9 %; Mean Corpuscular Hgb Conc 33.7 g/dL (32-36); Mean Corpuscular Volume 82.5 fL (80-100); Mean Platelet Volume 9.8 fL (7.4-10.4); Monocytes # (auto) 0.43 K/uL (0.11-0.59); Neutrophils # (auto) 2.95 K/uL (1.4-6.5); Platelet Count 288 K/uL (130-400); RDW Coefficient of Variation 15.1 % (11.5-14.5); RDW Standard Deviation 45.6 fL (36.4-46.3); Red Blood Count 4.24 M/uL (4.2-5.4); White Blood Count 6.14 K/uL (4.8-10.8)
[2018-08-28 12:50] LABS: Alanine Aminotransferase 18 U/L (12-78); Albumin Level 3.6 gm/dl (3.4-5.0); Aspartate Aminotransferase 14 U/L (15-37); Blood Urea Nitrogen 10 mg/dl (7-18); Calcium 9.5 mg/dl (8.5-10.1); Carbon Dioxide 25 mmol/L (21-32); Chloride 109 mmol/L (98-107); Creatinine Clr Calc Pharmacy 69.7 ml/min; Est GFR (African American) 74.8; Est GFR (Non-African American) 64.6; Glucose 187 mg/dl (70-99); Potassium 4.2 mmol/L (3.5-5.1); Sodium 142 mmol/L (136-145)
[2018-08-28 12:54] LABS: Alkaline Phosphatase 79 U/L (45-117); Bilirubin,Total 0.4 mg/dl (0.2-1); Globulin 3.7 gm/dl (2.5-4.0); Total Protein 7.3 gm/dl (6.4-8.2); Troponin I < 0.015 ng/ml (0-0.045)
--- NOTE | 2018-08-28 13:07 | XRay Report ---
XR chest 1V portable HISTORY: 63 years-old Female Chest Pain acute atypical chest pain COMPARISON: Chest radiograph 04/16/2016, CT abdomen and pelvis 07/21/2018. TECHNIQUE: Portable AP view of the chest FINDINGS: Eventration of the right hemidiaphragm. Cardiomediastinal and hilar silhouettes are unchanged. There is no pneumothorax, pleural effusion, focal airspace consolidation or overt pulmonary edema. Degenera tive changes of the shoulders and spine. IMPRESSION: No acute process. The above report was generated using voice recognition software. It may contain grammatical, syntax o r spelling errors. Electronically signed by: eHnok Lopes M.D. 08/28/2018 1:06 PM
[2018-08-28 13:08] LABS: Appearance Urine Cloudy (Clear); Bacteria Urine Automated 4+ (Negative); Bilirubin Urine Negative (Negative); Blood Urine Negative (Negative); Color Urine Yellow; Epithelial Cell Urine Auto >30 /lpf (0-5); Glucose Urine UA Negative (Negative); Ketones Urine Negative (Negative); Leukocyte Esterase Urine Negative (Negative); Nitrite Urine Positive (Negative); Protein Urine Negative (Negative); RBC Urine Automated 0-4 /hpf (0-4); Specific Gravity Urine 1.022 (1.000-1.030); Urobilinogen Urine Negative (Negative)
--- NOTE | 2018-08-28 13:15 | CT Scan Report ---
CT OF THE HEAD WITHOUT CONTRAST CLINICAL HISTORY: Left arm weakness. COMPARISON STUDY: MRI of the brain March 13, 2018. Head CT March 15, 2018. CT DOSE: 537.48 mGy.cm TECHNIQUE: Helical axial images of the head were obtained without IV contrast. Automated exposure con trol was utilized for the study. A dose lowering technique was utilized adhering to the principles o f ALARA. FINDINGS: No acute intracranial hemorrhage, midline shift or mass effect is present. Ventricular syst em is normal. The basilar cisterns are patent. There are no extra-axial collections. Old infarct with in the right thalamus is noted. There is equivocal loss of martinez-white differentiation within the righ t frontotemporal region. IMPRESSION: 1. No acute intracranial hemorrhage or mass effect. 2. Equivocal loss of martinez-white differentiation within the right frontotemporal region. This is likel y artifactual however an acute infarct could have this imaging appearance. Electronically signed by: Fredrick Simmons M.D. 08/28/2018 1:14 PM
[2018-08-28 13:21] LABS: Renal Epithelial Cells Urine 0-5 /lpf (0-5)
[2018-08-28] MEDS ORDERED: ASPIRIN CHEW 324 MG PO STA (14:42)
--- NOTE | 2018-08-28 15:04 | History & Physical Report ---
Date of Service August 28, 2018 Assessment & Plan (1) Paresthesia: Patient presents with reported increased left hand paresthesias over the last couple of days. Patient with history of left thalamic infarct in 02/2018 with residual left hand/left foot/perioral paresthesias Today in ER afebrile, P:81, R: 20, BP: 143/93, 100% on RA. Today CT head: No acute intracranial hemorrhage or mass effect. Equivocal loss of martinez-white differentiation within the right frontotemporal region. This is likely artifactual however an acute infarct could have this imaging appearance. H/O carotid Doppler 02/2018: No significant stenosis H/O echo 02/2018: Small PFO R/O acute stroke -Tele to monitor for arrhythmias -trend troponin -tox screen pending -lipids, A1C in AM -pending TSH, B12 -MRI brain -aspiration precautions -PT/OT consult -continue statin, Plavix, ASA -neurology consult (2) Possible urinary tract infection: UA: +nitrite, >30 epithelial, 4+ bacteria Denies urinary symptoms, fever/chills -pending urine culture -pending blood culture -Levaquin IV x 1 dose pending urine culture (3) CVA (cerebral vascular accident): H/O left thalamic infarct in 02/2018 with residual left hand/left foot/perioral paresthesias -Continue aspirin, Plavix, statin (4) Depression: H/O depression. Was started on duloxetine during admission 02/2018. Was taken off fluoxetine 3 weeks ago ago secondary to reported constipation. Past week patient reports increased depression, anger outbursts, daily episodes of crying and auditory hallucinations -Restart duloxetine -Psych consult (5) Diabetes mellitus: A1c: 10.3 in 02/2018 -Hold home metformin, Levemir -Lantus, NovoLog sliding scale per protocol -A1c in a.m. (6) HTN (hypertension): Stable -Not on BP meds at home (7) Hyperlipidemia: -Continue statin DVT Prophylaxis -Heparin SQ Full Code as per discussion with pt Follows with Dr Renteria for routine care Pt was seen with Dr Grover. See addendum History of Present Illness Chief Complaint: Increased L hand paresthesias Primary Care Provider: Praveen Renteria Pt is 63 y/o F with PMH CVA, DM II, HTN, HLD, CKD III, depression presented to ER with complaint of increased left hand paresthesias. Patient with history of left thalamic infarct in 02/2018 and was hospitalized at [facility] and was discharged to rehab. Patient reports residual left hand and foot paresthesias and mouth paresthesias. Patient states will have left hand weakness with prolonged use of hand. States past several days has noticed increased left hand paresthesias. She reports chronic blurry vision is unsure if this is increased, however denies other visual disturbance. During hospitalization in 02/2018 patient was started on duloxetine for depression. Patient states her moods had been stable. Pt reports 3 weeks ago was taken off duloxetine secondary to constipation. States for the past week has been feeling sad, increased anger, crying multiple times a day and having auditory hallucinations described as "pounding music sounds in head". Patient reports chronic intermittent neck pain and left shoulder pain which has continued. Had CT C-spine on 02/2018 which showed degenerative disc disease. Since in ER patient feels that she is having a headache but feels that she is getting herself "worked up". Reports chronic intermittent dizziness and uses meclizine. Denies fever/chills, diaphoresis, N/V/D, syncope, CP, SOB, orthopnea, palpitations, cough, sore throat, choking, otalgia, rhinorrhea, ab dominal pain, other extremity weakness, extremity edema, rashes, dysuria, hematuria, urinary frequency. Allergies Allergy/AdvReac Type Severity Reaction Status Date / Time propoxyphene AdvReac Unknown GI UPSET Verified 08/28/18 12:37 Home Medications Home Medications Medication Instructions Recorded Confirmed Type acetaminophen [Tylenol Arthritis 650 mg PO QAM PRN 07/21/18 08/28/18 History Pain] aspirin 81 mg PO QAM 07/21/18 08/28/18 History clopidogrel 75 mg PO QAM 07/21/18 08/28/18 History fluticasone propionate 2 spray INTRANASAL QAM PRN 07/21/18 08/28/18 History insulin detemir U-100 [Levemir 34 unit SUBCUT QAM 07/21/18 08/28/18 History FlexTouch U-100 Insuln] rosuvastatin 40 mg PO QAM 07/21/18 08/28/18 History meclizine 12.5 mg PO TID PRN 08/28/18 08/28/18 History metformin 1,000 mg PO BID 08/28/18 08/28/18 History pantoprazole 20 mg PO DAILY 08/28/18 08/28/18 History Past Med/Surg History Medical History CVA (cerebral vascular accident) (Chronic) Depression (Chronic) Hyperlipidemia (Chronic) HTN (hypertension) (Chronic) Diabetes mellitus (Chronic) Breast cancer (Chronic) Dizziness (Chronic) Vertigo (Chronic) No pertinent family history Surgical History Hx of cholecystectomy (Chronic) H/O: hysterectomy (Chronic) Hx of appendectomy (Chronic) Family History Other Coronary heart disease Diabetes Hypertension Social History Preferred Language: Polish Communication Ability: Effective Janitor And Cleaner Required: No Beliefs That Will Affect Care: None Current Living Situation: Family Current Living Situation Comment: grandson lives w/ pt Other Information That Helps Us Care for You: No Feels Safe at Home: Yes Safety Concerns: Feels Safe At This Time Smoking Status: Never smoker Hx Alcohol Use: No Hx Substance Use: No Review of Systems Review of Systems: All systems reviewed & are unremarkable except as noted in HPI & below Physical Exam Physical Exam: General: no acute distress, WDWN Head: normocephalic, atraumatic Eyes: PERRL, EOM's intact, conjunctiva non-injected, anicteric ENT: normal inspection external ears, nose, mucous membranes moist Neck: supple, trachea midline, ROM intact, mild tenderness Lungs: clear, no respiratory distress, no wheezing/rhonchi/rales CV: RRR, no murmur, no pretibial edema Abd: normal BS, soft, non-tender Ext: no cyanosis, no calf tenderness Neuro: A&O x 3, no facial drooping, tongue midline, inspector balance wheel motion strength equal bilaterally, strength 5/5 upper and lower extremities, no other deficits noted, somewhat flat affect Skin: warm, dry Results & Data Vital Signs (Past 12 Hours) Vital Signs Temp Pulse Pulse Resp BP BP Pulse Ox 08/28/18 14:09 77 22 132/90 99 08/28/18 13:28 76 20 123/72 96 08/28/18 12:53 98 08/28/18 12:03 36.5 C 81 20 143/93 H 100 Laboratory Results Short CBC 08/28/18 Range/Units 12:17 WBC 6.14 (4.8-10.8) K/uL Hgb 11.8 L (12.0-16.0) g/dL Hct 35.0 L (37-47) % Plt Count 288 (130-400) K/uL BMP 08/28/18 12:17 Sodium 142 Potassium 4.2 Chloride 109 H Carbon Dioxide 25 BUN 10 Creatinine 0.94 Glucose 187 H Calcium 9.5 Cardiac Enzymes 08/28/18 Range/Units 12:17 Troponin I < 0.015 (0-0.045) ng/ml Liver Function 08/28/18 Range/Units 12:17 Total Bilirubin 0.4 (0.2-1) mg/dl AST 14 L (15-37) U/L ALT 18 (12-78) U/L Alkaline Phosphatase 79 (45-117) U/L Albumin 3.6 (3.4-5.0) gm/dl Urine 08/28/18 Range/Units 12:55 Urine Color Yellow Urine Appearance Cloudy A (Clear) Urine pH 5.0 (4.5-7.5) Ur Specific [place] 1.022 (1.000-1.030) Urine Protein Negative (Negative) Urine Glucose (UA) Negative (Negative) Diagnostic Findings CT HEAD: IMPRESSION: 1. No acute intracranial hemorrhage or mass effect. 2. Equivocal loss of martinez-white differentiation within the right frontotemporal region. This is likely artifactual however an acute infarct could have this imaging appearance. CXR: IMPRESSION: No acute process. ECG Rate (beats per minute): 73 Rhythm: normal sinus Supervising Physician Co-Signing Physician Notes I saw this patient after the physician assistant foreman, I took my own history, physical, review of systems, and physical exam. I reviewed the medications with the patient and the physician assistant foreman and helped reconcile the medications. I took my own detailed family and social history as well. I formulated the assessment and plan personally with the physician assistant foreman and went over it with the patient. ROS-No Headache, No Visual Changes, No Nausea, No Vomiting, No Fever, No Chills, No Neck Pain or Stiffness, No Chest Pain, No Palpitations, No SOB, No BENSON, No Cough, No Sputum, No Wheezing, No Abdominal Pain, No Diarrhea, No Hematemesis, No Hemoptysis, No Unexpected Weight Loss, No Flank pain, No Melena, No Hematochezia, No Frequency, No Urgency, No Burning, No Hematuria, No Rashes, No Diaphoresis. Appetite is Normal, c/o tingling and paresthesias Physical Exam Gen-AAO x 3, NAD, Afebrile, Obese Head-NCAT, EOMI, PERRLA, Anicteric Sclera, No Posterior Pharyngeal Erythema Neck-Supple, No JVD, No Thyromegaly, No Masses, No LAD, No Bruits Lungs-Clear to Auscultation Bilaterally, No Rales, No Rhonchi, No Wheezing, No Crepitus Chest-No S4, +S1, +S2, No S3, No Murmurs, No Rubs, No Gallops, No Ectopy Abdomen-Soft, Bowel Sounds Present, Non Tender, Non Distended, No Hepatomegaly, No Splenomegaly, No Palpable Masses, No Rebound, No Rigidity, No Guarding Musculoskeletal-Full Range of Motion Bilaterally, No CVAT Extremities-No Cyanosis, No Clubbing, No Edema Nuero-Cranial Nerves II-XII grossly intact, Motor WNL, DTRs WNL, Strength WNL, Non Focal Psych-Normal Mood (1) CVA (cerebral vascular accident) CVA mechanism: unspecified Qualified Code(s): I63.9 - Cerebral infarction, unspecified
[2018-08-28] MEDS ORDERED: GLUCOSE 10 TABS/TUBE PO PRN (16:38)
[2018-08-28] MEDS ORDERED: CARBOHYDRATES FOR HYPOGLYCEMIA PO PRN (16:38)
[2018-08-28] MEDS ORDERED: DEXTROSE 50% 50 ML SYRINGE IV PRN (16:38)
[2018-08-28] MEDS ORDERED: FLUTICASONE PROPIONATE NA SPR 16 GM BTL NAE PRN (16:38)
[2018-08-28] MEDS ORDERED: GLUCOSE 40% GEL 15 GM TUBE PO PRN (16:38)
[2018-08-28] MEDS ORDERED: GLUCAGON FOR INJ 1 MG VIAL SQ PRN (16:38)
[2018-08-28] MEDS ORDERED: PHARMACIST DISCHARGE MED REC CONSULT PRN (16:38)
[2018-08-28] MEDS ORDERED: LEVOFLOXACIN/D5W 750 MG/150 ML BAG IV ONE (17:30)
[2018-08-28] MEDS: ACETAMINOPHEN 325 MG TAB PO PRN ×2 (17:39→22:27)
[2018-08-28] MEDS ORDERED: LORazepam 0.5 MG TAB PO ONE ×2 (17:41→20:45)
[2018-08-28] MEDS: INSULIN ASPART 100 UNITS/ML 3 ML PEN SC SCH ×2 (17:50→21:54)
[2018-08-28 18:20] LABS: Amphetamines+Metham, Urine Neg (Neg); Barbiturates, Urine Neg (Neg); Benzodiazepine, Urine Neg (Neg); Cocaine, Urine Neg (Neg); MDMA (Ecstacy), Urine Neg (Neg); Methadone, Urine Neg (Neg); Opiate, Urine Neg (Neg); Phencyclidine, Urine Neg (Neg)
--- NOTE | 2018-08-28 18:49 | Emergency Department Note ---
Entered by Lisa Poole acting as a scribe for History of Present Illness General Chief complaint: Cardiac Assessment Stated complaint: HEADACHE,EAR PAIN, POSSIBLE STROKE Source: patient Mode of arrival: ambulatory Limitations: no limitations History of Present Illness Onset (ago): week(s) 1 Location: head and chest Pain Consistency: + other (episode) Exacerbated By: + movement (She states that she has neck pain that is worsened with movement.) Associated symptoms: + confusion, + headaches (intermittent), + weakness (She notes that she has worsening left sided hand weakness of both sides of her hand that goes from her fingers to the base of her hand. She notes that her left hand is colder than normal. ) and + other (The patient complains of ear pain. She states that she has neck pain that is worsened with movement. The patient denies diarrhea and urinary symptoms. ); no chest pain, no nausea/vomiting and no shortness of breath The patient is a 63 year old female with a history of hyperlipidemia, hypertension, diabetes, CVA in 02/2019, breast cancer, appendectomy, h ysterectomy, cholecystectomy, and trigger finger who presents to the ED with complaints of an episode of a cardiac assessment that onset 1 week ago. The patient states that she has a colonoscopy 3 weeks ago for difficulty with bowel movements. Per family, the patient was taken off a medication for depression and her nerves afterwards. The patient complains of an intermittent headache for 1 week, ear pain, and confusion. She states that she has neck pain that is worsened with movement. She notes that she has worsening left sided hand weakness of both sides of her hand that goes from her fingers to the base of her hand. She notes that her left hand is colder than normal. She states that her hand has been weak with picking things up for 2 days. The patient notes that she is not steady with walking. She states that she is crying often and there is constant noise in her head. The patient denies chest pain, shortness of breath, nausea, vomiting, diarrhea, and urinary symptoms. She denies recent falls and trauma. Per prior note, the patient was on 20 mg of Duloxetine and had a right acute lacunar infarct of the left thalamus. Home Medications Home Medications Medication Instructions Recorded Confirmed Type acetaminophen [Tylenol Arthritis 650 mg PO QAM PRN 07/21/18 08/28/18 History Pain] aspirin 81 mg PO QAM 07/21/18 08/28/18 History clopidogrel 75 mg PO QAM 07/21/18 08/28/18 History fluticasone propionate 2 spray INTRANASAL QAM PRN 07/21/18 08/28/18 History insulin detemir U-100 [Levemir 34 unit SUBCUT QAM 07/21/18 08/28/18 History FlexTouch U-100 Insuln] rosuvastatin 40 mg PO QAM 07/21/18 08/28/18 History meclizine 12.5 mg PO TID PRN 08/28/18 08/28/18 History metformin 1,000 mg PO BID 08/28/18 08/28/18 History pantoprazole 20 mg PO DAILY 08/28/18 08/28/18 History Allergies Allergy/AdvReac Type Severity Reaction Status Date / Time propoxyphene AdvReac Unknown GI UPSET Verified 08/28/18 12:37 Past Med/Surg History Medical History CVA (cerebral vascular accident) (Chronic) Depression (Chronic) Hyperlipidemia (Chronic) HTN (hypertension) (Chronic) Diabetes mellitus (Chronic) Breast cancer (Chronic) Dizziness (Chronic) Vertigo (Chronic) No pertinent family history Surgical History Hx of cholecystectomy (Chronic) H/O: hysterectomy (Chronic) Hx of appendectomy (Chronic) Family History Other Coronary heart disease Diabetes Hypertension Social History Preferred Language: Portuguese Communication Ability: Effective Beliefs That Will Affect Care: Synagogue (Taoist, non-practicing) Current Living Situation: Family Current Living Situation Comment: grandson lives w/ pt Feels Safe at Home: Yes Smoking Status: Never smoker Hx Alcohol Use: No Hx Substance Use: No Review of Systems See HPI for pertinent positives & negatives. and A total of 10 systems reviewed and were otherwise negative Physical Exam Vital Signs Vital Signs - 24 hr 08/28/18 12:03 08/28/18 12:53 08/28/18 13:28 Temperature 36.5 C Temperature Source Oral Sepsis Recent Fever Within 48 Hours No Sepsis New/Unexplained Change in Mental Status No Sepsis Action Taken by Nursing No Action Required Pulse Rate 81 Pulse Rate [Left Finger] 76 Respiratory Rate 20 20 Blood Pressure 143/93 H Blood Pressure [Left Arm] 123/72 Blood Pressure Mean 109 Blood Pressure Mean [Left Arm] 89 Pulse Oximetry 100 98 96 Oxygen Delivery Method Room Air Room Air Room Air 08/28/18 14:09 Temperature Temperature Source Sepsis Recent Fever Within 48 Hours Sepsis New/Unexplained Change in Mental Status Sepsis Action Taken by Nursing Pulse Rate Pulse Rate [Left Finger] 77 Respiratory Rate 22 Blood Pressure Blood Pressure [Left Arm] 132/90 Blood Pressure Mean Blood Pressure Mean [Left Arm] 104 Pulse Oximetry 99 Oxygen Delivery Method Room Air GENERAL: Sitting up in bed. Tearful, disheveled, no distress, non-toxic. EYE EXAM: Normal conjunctiva. OROPHARYNX: no exudate, no erythema, lips, buccal mucosa, and tongue normal and mucous membranes are moist NECK: supple, no nuchal rigidity, no adenopathy, acute reproducible tenderness at the base of the left occiput. LUNGS: Clear to auscultation. Normal chest wall mechanics HEART: no murmurs, S1 normal and S2 normal ABDOMEN: abdomen soft, non-tender, normo-active bowel sounds, no masses, no rebound or guarding. BACK: Back is symmetrical on inspection and there is no deformity, no midline tenderness, no CVA tenderness. SKIN: no rashes and no bruising UPPER EXTREMITIES: upper extremities are grossly normal. LOWER EXTREMITIES: No pitting edema. NEURO EXAM: Normal sensorium, cranial nerves II-XII intact, normal speech, no gross weakness of arms, no gross weakness of legs. Residual left sided deficit in the left upper and lower extremities. Left upper extremity: 4/5 strength, slightly weak with grasp flexion extension of the UE at the shoulder and elbow all which is old with exception of grasp. Left lower extremity: slightly weak with flexion an extension of the hip, knee, and ankle. Right side: 5/5. No drift. [id number] intact. Course 1237: Past medical records reviewed. The patient was evaluated in room A10. A complete history and physical examination was performed. 1249: Per prior note, the patient was on 20 mg of Duloxetine and had a right acute lacunar infarct of the left thalamus. 1339: I updated the patient on the results of her scans. 1340: I reviewed the patient's case with Simran Adams for Dr. Grover She will evaluate the patient for further management. Consultations Consultation #1: [id number]: I reviewed the patient's case with Simran Adams for Dr. Grover She will evaluate the patient for further management. Time: 13:40 Administered Medications Acetaminophen (Tylenol) 650 mg PO Q4H PRN PRN Reason: Pain or Fever Stop: 09/27/18 16:37 Last Admin: 08/28/18 17:39 Dose: 650 mg Documented by: [id number] Levofloxacin/Dextrose (Levaquin/D5w) 750 mg in 150 mls @ 100 mls/hr IV ONE ONE Stop: 08/28/18 18:59 Last Admin: 08/28/18 17:40 Dose: 100 mls/hr Documented by: [id number] Insulin Aspart (Novolog Flexpen) 0 units SC ACHS JESUS Stop: 09/27/18 16:37 Last Admin: 08/28/18 17:50 Dose: Not Given Documented by: [id number] Cosigned by: [id number] Discontinued Medications Aspirin (Aspirin) 324 mg PO NOW STA Stop: 08/28/18 14:43 Last Admin: 08/28/18 15:03 Dose: 324 mg Documented by: [id number] Medical Decision Making Differential Diagnosis Differential diagnoses: Ischemic Stroke, hemorrhagic stroke, bells palsy, mass, neoplasm, migraine headache, seizure, subarachnoid hemorrhage, TIA, and transient global amnesia. Medical Records Attestation: I reviewed the patient's medical records. Home Medications Current Medication List: was personally reviewed by me Laboratory Data Attestation: I reviewed the patient's lab results. Result diagrams: 08/28/18 12:17 08/28/18 12:17 Lab Results 08/28/18 08/28/18 08/28/18 Range/Units 12:17 12:17 12:55 WBC 6.14 (4.8-10.8) K/uL RBC 4.24 (4.2-5.4) M/uL Hgb 11.8 L (12.0-16.0) g/dL Hct 35.0 L (37-47) % MCV 82.5 (80-100) fL MCH 27.8 (25-34) pg MCHC 33.7 (32-36) g/dL RDW Std Deviation 45.6 (36.4-46.3) fL RDW Coeff of Supriya 15.1 H (11.5-14.5) % Plt Count 288 (130-400) K/uL MPV 9.8 (7.4-10.4) fL Immature Gran % (Auto) 0.0 % Neut % (Auto) 48.0 % Lymph % (Auto) 40.9 % [place] % (Auto) 7.0 % Eos % (Auto) 3.6 % Baso % (Auto) 0.5 % Immature Gran # (Auto) 0.00 (0.00-0.02) K/uL Neut # (Auto) 2.95 (1.4-6.5) K/uL Lymph # (Auto) 2.51 (1.2-3.4) K/uL [place] # (Auto) 0.43 (0.11-0.59) K/uL Eos # (Auto) 0.22 (0-0.5) K/uL Baso # (Auto) 0.03 (0-0.2) K/uL Sodium 142 (136-145) mmol/L Potassium 4.2 (3.5-5.1) mmol/L Chloride 109 H (98-107) mmol/L Carbon Dioxide 25 (21-32) mmol/L Anion Gap 8.0 (3-11) BUN 10 (7-18) mg/dl Creatinine 0.94 (0.6-1.2) mg/dl Est Cr Clr Drug Dosing 69.7 ml/min Est GFR ( Amer) 74.8 Est GFR (Non-Af Amer) 64.6 BUN/Creatinine Ratio 11.0 (10-20) Glucose 187 H (70-99) mg/dl Calcium 9.5 (8.5-10.1) mg/dl Total Bilirubin 0.4 (0.2-1) mg/dl AST 14 L (15-37) U/L ALT 18 (12-78) U/L Alkaline Phosphatase 79 (45-117) U/L Troponin I < 0.015 (0-0.045) ng/ml Total Protein 7.3 (6.4-8.2) gm/dl Albumin 3.6 (3.4-5.0) gm/dl Globulin 3.7 (2.5-4.0) gm/dl Albumin/Globulin Ratio 1.0 (0.9-2) Lipase 114 (73-393) U/L Urine Color Yellow Urine Appearance Cloudy A (Clear) Urine pH 5.0 (4.5-7.5) Ur Specific [place] 1.022 (1.000-1.030) Urine Protein Negative (Negative) Urine Glucose (UA) Negative (Negative) Urine Ketones Negative (Negative) Urine Blood Negative (Negative) Urine Nitrite Positive A (Negative) Urine Bilirubin Negative (Negative) Urine Urobilinogen Negative (Negative) Ur Leukocyte Esterase Negative (Negative) Urine WBC (Auto) 1-5 (0-5) /hpf Urine RBC (Auto) 0-4 (0-4) /hpf U Hyaline Cast (Auto) 5-10 H (0-5) /lpf U Epithel Cells (Auto) >30 H (0-5) /lpf Urine Bacteria (Auto) 4+ H (Negative) Ur Renal Epithelial Cell 0-5 (0-5) /lpf Imaging Data Radiologist's Impression: Radiology results as stated below per my review and the radiologist's interpretation: CT OF THE HEAD WITHOUT CONTRAST CLINICAL HISTORY: Left arm weakness. COMPARISON STUDY: MRI of the brain March 13, 2018. Head CT March 15, 2018. CT DOSE: 537.48 mGy.cm TECHNIQUE: Helical axial images of the head were obtained without IV contrast. Automated exposure control was utilized for the study. A dose lowering technique was utilized adhering to the principles of ALARA. FINDINGS: No acute intracranial hemorrhage, midline shift or mass effect is pres ent. Ventricular system is normal. The basilar cisterns are patent. There are no extra-axial collections. Old infarct within the right thalamus is noted. There is equivocal loss of martinez-white differentiation within the right frontotemporal region. IMPRESSION: 1. No acute intracranial hemorrhage or mass effect. 2. Equivocal loss of martinez-white differentiation within the right frontotemporal region. This is likely artifactual however an acute infarct could have this imaging appearance. Electronically signed by: Fredrick Simmons M.D. 08/28/2018 1:14 PM Dictated: 08/28/18 1301 Transcribed: 08/28/18 1306 XR chest 1V portable HISTORY: 63 years-old Female Chest Pain acute atypical chest pain COMPARISON: Chest radiograph 04/16/2016, CT abdomen and pelvis 07/21/2018. TECHNIQUE: Portable AP view of the chest FINDINGS: Eventration of the right hemidiaphragm. Cardiomediastinal and hilar silhouettes are unchanged. There is no pneumothorax, pleural effusion, focal airspace consolidation or overt pulmonary edema. Degenerative changes of the shoulders and spine. IMPRESSION: No acute process. The above report was generated using voice recognition software. It may contain grammatical, syntax or spelling errors. Electronically signed by: Henok Lopes M.D. 08/28/2018 1:06 PM Dictated: 08/28/18 1255 Transcribed: 08/28/18 1255 ECG Data Attestation: I personally reviewed and interpreted this ECG as follows: Indication: other (cadiac assessment) Rate (beats per minute): 73 Rhythm: sinus rhythm Findings: + other (normal axis); no PVC Blood Pressure Blood Pressure Findings: Normal blood pressure MDM Narrative Patient is a 63-year-old female who presents the ER for feeling emotional and crying and tearful for the past 3 weeks after he stopped her depression medication. She also notes that in the past 24 hours she has noticed some we akness with grasp in her left wrist as well as paresthesias. She notes that it cuts off at her wrist and otherwise she has old left-sided deficit in her upper extremity and lower extremity. No other complaints from that standpoint. She is otherwise neurologically at her baseline with the exception of a faint weakness with grasp. Stroke alert not called due to timing. Labs were obtained and showed no significant leukocytosis or anemia. BMP with LFTs bilirubin and troponin was unremarkable. Lipase was normal. UA with large amount of epithelial cells suggesting contamination. CT of the head questioned a remote frontal infarct. Based on this I discussed case with the hospitalist. EKG was unremarkable. Patient and family were updated at bedside. Patient will be observed overnight. Discussed with Pt concerning signs and symptoms to watch out for. Pt was instructed to follow up with their PCP and discussed with the patient their option to return to the ED at anytime for persistent or worsening symptoms. The appropriate anticipatory guidance and out-patient management, including indications for return to the emergency department, were explained at length to the patient and understood. Impression & Plan CVA (cerebral vascular accident), Depression, Paresthesia, Possible urinary tract infection Discharge Plan Visit Data *Final* Discharge Date/Time: 08/28/18 16:11 Chief Complaint: Cardiac Assessment Stated Complaint: HEADACHE,EAR PAIN, POSSIBLE STROKE ED Provider: Reji Martinez Discharge Problem: CVA (cerebral vascular accident), Depression, Paresthesia, Possible urinary tract infection Patient Disposition: Admitted As Inpatient Discharge Instructions Interventions: ED Discharge Assessment Last Done: 08/28/18 16:11 The scribe's documentation has been prepared under my direction and personally reviewed by me in its entirety. I confirm that the note above accurately ref lects all work, treatment, procedures, and medical decision making performed by me.
[2018-08-28 19:16] LABS: INR 1.1 (0.9-1.1); Prothrombin Time 10.8 Seconds (9.0-12.0)
[2018-08-28] MEDS: INSULIN GLARGINE SOLOSTAR 100 UNITS/ML 3 ML PEN SC SCH (21:54)
[2018-08-28] MEDS ORDERED: GADOBUTROL 65ML VIAL IV PRN (21:56)
[2018-08-28] MEDS: HEPARIN SOD 5,000 UNIT/0.5 ML VIAL SQ SCH (22:26)
--- NOTE | 2018-08-28 22:33 | Magnetic Resonance Report ---
Brain MRI WITH AND WITHOUT CONTRAST HISTORY: r/o stroke; left hand paresthesias TECHNIQUE: Multiplanar multisequence MRI of the brain was performed both before and after the intrave nous administration of contrast. COMPARISON STUDY: Brain MRI 03/13/2018. FINDINGS: There is an old lacunar infarct within the right thalamus. There is also a small focus of e ncephalomalacia within the right lateral temporal lobe best seen on coronal image 15. This measures 1 3 mm and demonstrates minimal surrounding T2 signal. This is also consistent with an old infarct. Thi s remains unchanged. There is no mass, hematoma, midline shift, acute infarct. The ventricles and sul ci remain stable. The major vascular flow-voids at the skull base are well-maintained. No abnormal en hancement. The paranasal sinuses and mastoid air cells are clear. IMPRESSION: 1. No acute infarct. 2. Old right-sided small infarcts as described above. Electronically signed by: Jostin Torres M.D. 08/28/2018 10:32 PM
[2018-08-29 05:53] LABS: Basophils # (auto) 0.04 K/uL (0-0.2); Basophils % (auto) 0.7 %; Eosinophils # (auto) 0.23 K/uL (0-0.5); Eosinophils % (auto) 3.8 %; Hematocrit (blood only) 34.9 % (37-47); Hemoglobin 11.5 g/dL (12.0-16.0); Immature Granulocytes # (auto) 0.01 K/uL (0.00-0.02); Immature Granulocytes % (auto) 0.2 %; Lymphocytes # (auto) 2.96 K/uL (1.2-3.4); Lymphocytes % (auto) 48.9 %; Mean Corpuscular Volume 81.9 fL (80-100); Mean Platelet Volume 9.8 fL (7.4-10.4); Monocytes # (auto) 0.42 K/uL (0.11-0.59); Monocytes % (auto) 6.9 %; Neutrophils # (auto) 2.39 K/uL (1.4-6.5); Neutrophils % (auto) 39.5 %; Platelet Count 261 K/uL (130-400); RDW Standard Deviation 44.7 fL (36.4-46.3); Red Blood Count 4.26 M/uL (4.2-5.4); White Blood Count 6.05 K/uL (4.8-10.8)
[2018-08-29] MEDS: HEPARIN SOD 5,000 UNIT/0.5 ML VIAL SQ SCH (05:59)
[2018-08-29 06:34] LABS: BUN Creatinine Ratio 15.8 (10-20); Creatinine Clr Calc Pharmacy 76.2 ml/min; Est GFR (African American) 83.3; Est GFR (Non-African American) 71.9; Potassium 3.6 mmol/L (3.5-5.1)
[2018-08-29 06:35] LABS: Estimated Average Glucose 177 mg/dl; Hemoglobin A1C 7.8 % (4.5-5.6)
--- NOTE | 2018-08-29 07:07 | Hospitalist Progress Note ---
Date of Service August 29, 2018 Assessment & Plan (1) Paresthesia: Patient presents with reported increased left hand paresthesias over the last couple of days. Patient with history of left thalamic infarct in 02/2018 with residual left hand/left foot/perioral paresthesias Today in ER afebrile, P:81, R: 20, BP: 143/93, 100% on RA. Today CT head: No acute intracranial hemorrhage or mass effect. Equivocal loss of martinez-white differentiation within the right frontotemporal region. This is likely artifactual however an acute infarct could have this imaging appearance. H/O carotid Doppler 02/2018: No significant stenosis H/O echo 02/2018: Small PFO R/O acute stroke -Tele to monitor for arrhythmias -trend troponin -tox screen pending -lipids, A1C in AM -TSH, B12 are normal -MRI brain negative, all CTs negative -aspiration precautions -PT/OT consult -continue statin, Plavix, ASA -neurology consult (2) Possible urinary tract infection: UA: +nitrite, >30 epithelial, 4+ bacteria Denies urinary symptoms, fever/chills -urine culture gram neg bacilli -blood culture neg -Levaquin IV x 1 dose given (3) CVA (cerebral vascular accident): H/O left thalamic infarct in 02/2018 with residual left hand/left foot/perioral paresthesias -Continue aspirin, Plavix, statin -No new stroke on w/u (4) Depression: H/O depression. Wants to Start Zoloft c PCP -Psych consult done, agree c our plan (5) Diabetes mellitus: A1c: 10.3 in 02/2018 -Hold home metformin, Levemir -Lantus, NovoLog sliding scale per protocol -A1c in a.m. (6) HTN (hypertension): Stable -Not on BP meds at home (7) Hyperlipidemia: -Continue statin DVT Prophylaxis -Heparin SQ Full Code as per discussion with pt Follows with Dr Renteria for routine care ROS-No Headache, No Visual Changes, No Nausea, No Vomiting, No Fever, No Chills, No Neck Pain or Stiffness, No Chest Pain, No Palpitations, No SOB, No BENSON, No Cough, No Sputum, No Wheezing, No Abdominal Pain, No Diarrhea, No Hematemesis, No Hemoptysis, No Unexpected Weight Loss, No Flank pain, No Melena, No Hematochezia, No Frequency, No Urgency, No Burning, No Hematuria, No Rashes, No Diaphoresis. Appetite is Normal Physical Exam Gen-AAO x 3, NAD, Afebrile Head-NCAT, EOMI, PERRLA, Anicteric Sclera, No Posterior Pharyngeal Erythema Neck-Supple, No JVD, No Thyromegaly, No Masses, No LAD, No Bruits Lungs-Clear to Auscultation Bilaterally, No Rales, No Rhonchi, No Wheezing, No Crepitus Chest-No S4, +S1, +S2, No S3, No Murmurs, No Rubs, No Gallops, No Ectopy Abdomen-Soft, Bowel Sounds Present, Non Tender, Non Distended, No Hepatomegaly, No Splenomegaly, No Palpable Masses, No Rebound, No Rigidity, No Guarding Musculoskeletal-Full Range of Motion Bilaterally, No CVAT Extremities-No Cyanosis, No Clubbing, No Edema Nuero-Cranial Nerves II-XII grossly intact, Motor WNL, DTRs WNL, Strength WNL, Non Focal Psych-Normal Mood Results & Data Vital Signs (Past 12 Hours) Vital Signs Temp Pulse Pulse Resp BP Pulse Ox 08/29/18 04:29 36.3 C L 75 16 105/65 100 08/29/18 00:00 72 08/28/18 23:09 36.4 C L 83 18 109/69 94 08/28/18 19:09 36.3 C L 80 20 125/85 99 Labs checked (1) Depression Depression Type: unspecified Qualified Code(s): F32.9 - Major depressive disorder, single episode, unspecified (2) CVA (cerebral vascular accident) CVA mechanism: unspecified Qualified Code(s): I63.9 - Cerebral infarction, unspecified
[2018-08-29] MEDS: INSULIN GLARGINE SOLOSTAR 100 UNITS/ML 3 ML PEN SC SCH (08:06)
[2018-08-29] MEDS: INSULIN ASPART 100 UNITS/ML 3 ML PEN SC SCH (08:06)
[2018-08-29] MEDS ORDERED: SERTRALINE HCL 50 MG TABLET PO SCH (09:00)
[2018-08-29] MEDS ORDERED: ROSUVASTATIN CALCIUM 20 MG TAB PO SCH (09:00)
[2018-08-29] MEDS ORDERED: CLOPIDOGREL BISULFATE 75 MG TAB PO SCH (09:00)
[2018-08-29] MEDS ORDERED: ASPIRIN 81 MG ECTAB PO SCH (09:00)
[2018-08-29] MEDS ORDERED: PANTOprazole 40 MG TAB PO SCH (09:00)
[2018-08-29] MEDS ORDERED: DULOXETINE HCL 20 MG CAP PO SCH (09:00)
--- NOTE | 2018-08-29 10:16 | Psychiatric Consultation ---
Date of Consultation August 29, 2018 Impression / Recommendations Impression Pt is 63 y/o F with PMH CVA, DM II, HTN, HLD, CKD III, depression presented to ER with complaint of increased left hand paresthesias. She was also noted to have worsening depression symptoms since stopping her duloxetine 3 weeks ago. We were asked to see her in consultation. It sounds like the duloxetine was helping with her depression but she was having side effects from the medication. We agree with the primary teams decision to start zoloft at 50mg daily and to follow up with her PCP for further monitoring and prescribing of medication. Does not sound like the patient needs further counselling or therapy and should do well on this new regimen. Psych History Chief Complaint "I had just been crying all the time". History of Present Illness Pt is 63 y/o F with PMH CVA, DM II, HTN, HLD, CKD III, depression presented to ER with complaint of increased left hand paresthesias. She was started on duloxetine in February 2018 when she was admitted for a stroke. During that admission she was seen by Psychiatry and noted to have a low mood and decrease energy from baseline that had been ongoing for 7 months after she was put on disability from her [employer] job where she had worked for twenty years. She was started on duloxetine due to her depressive symptoms and was instructed to follow up with her PCP. She had been on 20mg of duloxetine; however 3 weeks ago she was weaned off of the duloxetine as the patient had noticed that she was very constipated since starting the medication. Within a few days of stopping duloxetine her constipation resolved; however, one week after stopping the duloxetine she noticed that her mood was very low, she was crying all time, had low energy and had a ringing in her ears. She had been planning to follow up with her PCP to start a new medication. Here in the hospital she has already been started on zoloft 50mg by the primary team. Patient notes she already feels better. She still feels tired but notes her mood is improved and she is no longer crying. She denies any other psychiatric symptoms. She denies any manic symptoms, hallucinations, insomnia, weight changes, SI or thoughts of self harm. Before being diagnosed with depression in February 2018 she had no hx of mental health problems prior to this. She has never seen a counsellor or a psychiatrist. She has never had any suicide attempts or psychiatric hospitalizations. She has no family hx of psychiatric illness or suicide. She is a non smoker, non drinker and does not use any illicit substances. She is and lives with her grandson. She has close to her siblings and notes she has very good family support. She plans on finding a new PCP in the next few months. Allergies Allergy/AdvReac Type Severity Reaction Status Date / Time propoxyphene AdvReac Unknown GI UPSET Verified 08/28/18 12:37 Home Medications Home Medications Medication Instructions Recorded Confirmed Type acetaminophen [Tylenol Arthritis 650 mg PO QAM PRN 07/21/18 08/28/18 History Pain] aspirin 81 mg PO QAM 07/21/18 08/28/18 History clopidogrel 75 mg PO QAM 07/21/18 08/28/18 History fluticasone propionate 2 spray INTRANASAL QAM PRN 07/21/18 08/28/18 History insulin detemir U-100 [Levemir 34 unit SUBCUT QAM 07/21/18 08/28/18 History FlexTouch U-100 Insuln] rosuvastatin 40 mg PO QAM 07/21/18 08/28/18 History meclizine 12.5 mg PO TID PRN 08/28/18 08/28/18 History metformin 1,000 mg PO BID 08/28/18 08/28/18 History pantoprazole 20 mg PO DAILY 08/28/18 08/28/18 History Personal History Born In: [place] Beliefs That Will Affect Care: None Patient History Medical History CVA (cerebral vascular accident) (Chronic) Depression (Chronic) Hyperlipidemia (Chronic) HTN (hypertension) (Chronic) Diabetes mellitus (Chronic) Breast cancer (Chronic) Dizziness (Chronic) Vertigo (Chronic) No pertinent family history Surgical History Hx of cholecystectomy (Chronic) H/O: hysterectomy (Chronic) Hx of appendectomy (Chronic) Family History Other Coronary heart disease Diabetes Hypertension Social History Preferred Language: Turkmen Communication Ability: Effective Blind Hooker Required: No Beliefs That Will Affect Care: None Current Living Situation: Family Current Living Situation Comment: grandson lives w/ pt Other Information That Helps Us Care for You: No Feels Safe at Home: Yes Safety Concerns: Feels Safe At This Time Smoking Status: Never smoker Hx Alcohol Use: No Hx Substance Use: No Physical Exam Mental Examination: Appearance: Well Groomed Eye Contact: Maintains Eye Contact Motor Behavior: Unremarkable Speech: Normal Mood: Euthymic and Calm Affect: Appropriate Thought Process: Intact Thought Content: Intact Hallucinations: None Insight: Good Judgement: Good Vital Signs (Past 24 Hours): Last Vital Signs Temp 36.8 C 08/29/18 08:09 Pulse 82 08/29/18 08:09 Resp 18 08/29/18 08:09 BP 125/73 08/29/18 08:09 Pulse Ox 97 08/29/18 08:09 Review of Systems All systems reviewed & are unremarkable except as noted in HPI & below Results & Data Medications Administered Acetaminophen (Tylenol) 650 mg PO Q4H PRN PRN Reason: Pain or Fever Stop: 09/27/18 16:37 Last Admin: 08/28/18 22:27 Dose: 650 mg Documented by: [id number] Admin: 08/28/18 17:39 Dose: 650 mg Documented by: [id number] Aspirin (Ecotrin Ectab) 81 mg PO [facility] Stop: 09/28/18 08:59 Last Admin: 08/29/18 08:05 Dose: 81 mg Documented by: [id number] Clopidogrel Bisulfate (Plavix) 75 mg PO [facility] Stop: 09/28/18 08:59 Last Admin: 08/29/18 08:05 Dose: 75 mg Documented by: [id number] Gadobutrol (Gadavist 65ml) 8 ml IV ONCE PRN PRN Reason: Interaction Checking Stop: 09/01/18 21:55 Last Admin: 08/28/18 21:57 Dose: 8 ml Documented by: [id number] Heparin Sodium (Porcine) (Heparin Sodium (Porcine)) 5,000 units SQ Q8 [facility] Stop: 09/27/18 21:59 Last Admin: 08/29/18 05:59 Dose: Not Given Documented by: [id number] Admin: 08/28/18 22:26 Dose: 5,000 units Documented by: [id number] Cosigned by: [id number] Insulin Aspart (Novolog Flexpen) 0 units SC ACHS [facility] Stop: 09/27/18 16:37 Last Admin: 08/29/18 08:06 Dose: 4 units Documented by: [id number] Cosigned by: [id number] Admin: 08/28/18 21:54 Dose: Not Given Documented by: [id number] Cosigned by: [id number] Admin: 08/28/18 17:50 Dose: Not Given Documented by: [id number] Cosigned by: [id number] Insulin Glargine (Lantus Solostar Pen) 0 - 17 units SC BID [facility] Stop: 09/27/18 20:59 Last Admin: 08/29/18 08:06 Dose: 8 units Documented by: [id number] Cosigned by: [id number] Admin: 08/28/18 21:54 Dose: Not Given Documented by: [id number] Cosigned by: [id number] Pantoprazole Sodium (Protonix) 40 mg PO DAILY [facility] Stop: 09/28/18 08:59 Last Admin: 08/29/18 08:05 Dose: 40 mg Documented by: [id number] Rosuvastatin Calcium (Crestor) [facility] [place]: 09/28/18 08:59 Last Admin: 08/29/18 08:05 Dose: 40 mg Documented by: [id number] Sertraline HCl (Zoloft) 50 mg PO QAM [facility] Stop: 09/28/18 08:59 Last Admin: 08/29/18 08:18 Dose: 50 mg Documented by: [id number]
--- NOTE | 2018-08-29 11:02 | Discharge Summary ---
Date of Service August 29, 2018 Admission HPI Per Admitting Provider Pt is 63 y/o F with PMH CVA, DM II, HTN, HLD, CKD III, depression presented to ER with complaint of increased left hand paresthesias. She was started on duloxetine in February 2018 when she was admitted for a stroke. During that admission she was seen by Psychiatry and noted to have a low mood and decrease energy from baseline that had been ongoing for 7 months after she was put on disability from her [employer] job where she had worked for twenty years. She was started on duloxetine due to her depressive symptoms and was instructed to follow up with her PCP. She had been on 20mg of duloxetine; however 3 weeks ago she was weaned off of the duloxetine as the patient had noticed that she was very constipated since starting the medication. Within a few days of stopping duloxetine her constipation resolved; however, one week after stopping the duloxetine she noticed that her mood was very low, she was crying all time, had low energy and had a ringing in her ears. She had been planning to follow up with her PCP to start a new medication. Here in the hospital she has already been started on zoloft 50mg by the primary team. Patient notes she already feels better. She still feels tired but notes her mood is improved and she is no longer crying. She denies any other psychiatric symptoms. She denies any manic symptoms, hallucinations, insomnia, weight changes, SI or thoughts of self harm. Before being diagnosed with depression in February 2018 she had no hx of mental health problems prior to this. She has never seen a counsellor or a psychiatrist. She has never had any suicide attempts or psychiatric hospitalizations. She has no family hx of psychiatric illness or suicide. She is a non smoker, non drinker and does not use any illicit substances. She is and lives with her grandson. She has close to her siblings and notes she has very good family support. She plans on finding a new PCP in the next few months. 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 Appetite is Normal Physical Exam Gen-AAO x 3, NAD, Afebrile Head-NCAT, EOMI, PERRLA, Anicteric Sclera, No Posterior Pharyngeal Erythema Neck-Supple, No JVD, No Thyromegaly, No Masses, No LAD, No Bruits Lungs-Clear to Auscultation Bilaterally, No Rales, No Rhonchi, No Wheezing, No Crepitus Chest-No S4, +S1, +S2, No S3, No Murmurs, No Rubs, No Gallops, No Ectopy Abdomen-Soft, Bowel Sounds Present, Non Tender, Non Distended, No Hepatomegaly, No Splenomegaly, No Palpable Masses, No Rebound, No Rigidity, No Guarding Musculoskeletal-Full Range of Motion Bilaterally, No CVAT Extremities-No Cyanosis, No Clubbing, No Edema Nuero-Cranial Nerves II-XII grossly intact, Motor WNL, DTRs WNL, Strength WNL, Non Focal Psych-Normal Mood Discharge Data Allergies Allergy/AdvReac Type Severity Reaction Status Date / Time propoxyphene AdvReac Unknown GI UPSET Verified 08/28/18 12:37 Consultations 08/28/18 13:41 ED Decision to Admit Stat 08/28/18 16:38 Consult Case Management - Discharge Planning Routine Consult Neurology Routine Consult Psychiatry Routine Ordered Studies 08/28/18 12:49 CT head/brain wo con Stat Negative 08/28/18 16:38 MR brain wo/w con Routine negative Labs checked TSH and B12 normal Hospital Course (1) Paresthesia: Patient presents with reported increased left hand paresthesias over the last couple of days. Patient with history of left thalamic infarct in 02/2018 with residual left hand/left foot/perioral paresthesias Today in ER afebrile, P:81, R: 20, BP: 143/93, 100% on RA. Today CT head: No acute intracranial hemorrhage or mass effect. Equivocal loss of martinez-white differentiation within the right frontotemporal region. This is likely artifactual however an acute infarct could have this imaging appearance. H/O carotid Doppler 02/2018: No significant stenosis H/O echo 02/2018: Small PFO Negative CVA -Tele to monitor for arrhythmias -Troponins negative DC home today and f/u c Dr Renteria (2) Possible urinary tract infection: UA: +nitrite, >30 epithelial, 4+ bacteria Denies urinary symptoms, fever/chills -urine culture gram neg bacilli only 60,000 CFU -blood culture neg -Levaquin IV x 1 dose given (3) CVA (cerebral vascular accident): H/O left thalamic infarct in 02/2018 with residual left hand/left foot/perioral paresthesias -Continue aspirin, Plavix, statin -No new stroke on w/u (4) Depression: H/O depression. Wants to Start Zoloft c PCP -Psych consult done, agree c our plan (5) Diabetes mellitus: A1c: 10.3 in 02/2018 -Hold home metformin, Levemir -Lantus, NovoLog sliding scale per protocol -A1c in a.m. (6) HTN (hypertension): Stable -Not on BP meds at home (7) Hyperlipidemia: -Continue statin DVT Prophylaxis -Heparin SQ Follows with Dr Renteria for routine care ROS-No Headache, No Visual Changes, No Nausea, No Vomiting, No Fever, No Chills, No Neck Pain or Stiffness, No Chest Pain, No Palpitations, No SOB, No BENSON, No Cough, No Sputum, No Wheezing, No Abdominal Pain, No Diarrhea, No Hematemesis, No Hemoptysis, No Unexpected Weight Loss, No Flank pain, No Melena, No Hematochezia, No Frequency, No Urgency, No Burning, No Hematuria, No Rashes, No Diaphoresis. Appetite is Normal Physical Exam Gen-AAO x 3, NAD, Afebrile Head-NCAT, EOMI, PERRLA, Anicteric Sclera, No Posterior Pharyngeal Erythema Neck-Supple, No JVD, No Thyromegaly, No Masses, No LAD, No Bruits Lungs-Clear to Auscultation Bilaterally, No Rales, No Rhonchi, No Wheezing, No Crepitus Chest-No S4, +S1, +S2, No S3, No Murmurs, No Rubs, No Gallops, No Ectopy Abdomen-Soft, Bowel Sounds Present, Non Tender, Non Distended, No Hepatomegaly, No Splenomegaly, No Palpable Masses, No Rebound, No Rigidity, No Guarding Musculoskeletal-Full Range of Motion Bilaterally, No CVAT Extremities-No Cyanosis, No Clubbing, No Edema Nuero-Cranial Nerves II-XII grossly intact, Motor WNL, DTRs WNL, Strength WNL, Non Focal Psych-Normal Mood Total Time Total Time Spent Total Time Spent (In Minutes): 45 mins Total Time Includes: Examination of the Patient, Discharge Planning, Medication Reconciliation and Communication With Other Providers Discharge Plan Discharge Items Patient Disposition: Home - Self-Care Reason For Visit: PARESTHESIAS Discharge Diagnosis: Parasthesias DM HTN HLD Old CVA Depression Condition: Good Discharge Goals: Diagnostic testing and Improve function Activity: Resume your previous activity Lifting: Gradually increase as tolerated Bathing: No limitations Sexual Activity: When tolerated Exercise/Sports: Gradually increase as tolerated Driving/Machine Use: No limitations Weightbearing: Left weightbearing and Right weightbearing Non-emergency contact: Primary Care Provider and Field Trainer Call non-emergency contact if: you have any medication questions Follow-up/Referrals: Praveen Renteria [Primary Care Provider] - Kaz Cobb MD [Physician] - (2-3 weeks) Diet: Carb Consistent or DM2 Addtl Provider Instructions: Start Zoloft or Med of choice per PCP Prescriptions: Continued clopidogrel 75 mg tablet 75 mg PO QAM RF: 0 acetaminophen [Tylenol Arthritis Pain] 650 mg Tablet Extended Release 650 mg PO QAM PRN (Reason: Pain) RF: 0 aspirin 81 mg tablet,chewable 81 mg PO QAM RF: 0 fluticasone propionate 50 mcg/actuation spray,suspension 2 spray intranasal QAM PRN (Reason: Nasal Congestion) RF: 0 Levemir FlexTouch U-100 Insuln 100 unit/mL (3 mL) insulin pen 34 unit subcut QAM RF: 0 rosuvastatin 40 mg tablet 40 mg PO QAM RF: 0 meclizine 12.5 mg tablet 12.5 mg PO TID PRN (Reason: Nausea) RF: 0 pantoprazole 20 mg tablet,delayed release (DR/EC) 20 mg PO DAILY RF: 0 metformin 500 mg tablet extended release 24 hr 1,000 mg PO BID RF: 0 Stand-Alone Forms: [facility] Discharge Orders: Discharge Order (Routine); Ordered 08/29/18 Ordered By: Brian Grover Admission Data Admit Date/Time: 08/28/18 14:42 Attending Provider: Brian Grover Admit Provider: Brian Grover Primary Care Provider: Praveen Renteria Other Providers: Crystal Wilson ; Kaz Cobb ; Brian Grover Service: Telemetry Medical
[2018-08-29] MEDS ORDERED: STROKE PATIENT DISCHARGE STA (11:18)
== END 2018-08-29 12:05 | disposition home or self-care (01) | DRG 57 ==
LOC: ED 12:00 → 2N 14:42

== ENCOUNTER 2019-03-06 00:41 | Inpatient (IN) ==
[2019-03-06 01:13] LABS: Hematocrit (blood only) 35.6 % (37-47); Hemoglobin 11.5 g/dL (12.0-16.0); Mean Corpuscular Hemoglobin 27.4 pg (25-34); Mean Corpuscular Hgb Conc 32.3 g/dL (32-36); Mean Corpuscular Volume 84.8 fL (80-100); Mean Platelet Volume 9.4 fL (7.4-10.4); Platelet Count 291 K/uL (130-400); RDW Coefficient of Variation 14.8 % (11.5-14.5); RDW Standard Deviation 46.1 fL (36.4-46.3); White Blood Count 6.95 K/uL (4.8-10.8)
[2019-03-06 01:24] LABS: Partial Thromboplastin Ratio 0.9; Partial Thromboplastin Time 24.1 Seconds (21.0-31.0)
[2019-03-06 01:36] LABS: Alanine Aminotransferase 19 U/L (12-78); Albumin Level 3.5 gm/dl (3.4-5.0); Aspartate Aminotransferase 12 U/L (15-37); BUN Creatinine Ratio 15.7 (10-20); Blood Urea Nitrogen 16 mg/dl (7-18); Carbon Dioxide 28 mmol/L (21-32); Chloride 107 mmol/L (98-107); Creatinine Clr Calc Pharmacy 61.8 ml/min; Est GFR (African American) 66.2; Est GFR (Non-African American) 57.1; Glucose 185 mg/dl (70-99); Potassium 3.6 mmol/L (3.5-5.1); Sodium 141 mmol/L (136-145)
[2019-03-06 01:41] LABS: Albumin Globulin Ratio 0.9 (0.9-2); Alkaline Phosphatase 104 U/L (45-117); Bilirubin,Total 0.3 mg/dl (0.2-1); Globulin 3.9 gm/dl (2.5-4.0); Total Protein 7.4 gm/dl (6.4-8.2); Troponin I < 0.015 ng/ml (0-0.045)
[2019-03-06 01:59] LABS: Basophils # (auto) 0.04 K/uL (0-0.2); Basophils % (auto) 0.6 %; Eosinophils # (auto) 0.29 K/uL (0-0.5); Eosinophils % (auto) 4.2 %; Immature Granulocytes # (auto) 0.01 K/uL (0.00-0.02); Immature Granulocytes % (auto) 0.1 %; Lymphocytes # (auto) 3.88 K/uL (1.2-3.4); Lymphocytes % (auto) 55.8 %; Monocytes # (auto) 0.55 K/uL (0.11-0.59); Monocytes % (auto) 7.9 %; Neutrophils # (auto) 2.18 K/uL (1.4-6.5); Neutrophils % (auto) 31.4 %
[2019-03-06] MEDS ORDERED: ASPIRIN 81 MG CHEW PO STA (01:59)
[2019-03-06 02:18] LABS: Appearance Urine Clear (Clear); Bilirubin Urine Negative (Negative); Blood Urine Negative (Negative); Color Urine Yellow; Glucose Urine UA Negative (Negative); Ketones Urine Negative (Negative); Leukocyte Esterase Urine 1+ (Negative); Nitrite Urine Negative (Negative); Protein Urine Negative (Negative); Specific Gravity Urine <= 1.005 (1.000-1.030); Urobilinogen Urine Negative (Negative); pH Urine 5.5 (4.5-7.5)
[2019-03-06 02:32] LABS: Hyaline Casts Urine 0-5 /lpf (0-5)
[2019-03-06 02:33] LABS: Bacteria Urine Negative (Negative); RBC Urine 0-4 /hpf (0-4); WBC Urine 0-5 /hpf (0-5)
[2019-03-06] MEDS ORDERED: LORazepam 0.5 MG/1 ML VIAL IV SCH (03:15)
--- NOTE | 2019-03-06 03:18 | Emergency Department Note ---
Entered by Janelle Issa acting as a scribe for Wyatt Boone MD ED Provider Note Name: Denise Ma Age: 63 F Arrives Via: Personal Transport Informant: Patient CC: Left sided weakness HPI: 63 year old female arrives for evaluation of left-sided weakness that started around 1900. The patient states that while she was lying down in her seat she felt a tingling sensation on her left side. The patient explains that she developed a headache just prior to arrival. The patient denies a fall or inj ury, shortness of breath, heart palpitations or diarrhea. The patient states that he had something to eat today but is unsure if she had dinner. The patient confirms that she had a stroke a year ago. The patient reports taking aspirin and denies the use of any blood thinners. ROS: See above HPI for pertinent positives & negatives. A total of 10 systems reviewed and were otherwise negative. Past Medical History: GERD, breast cancer, depression, CVA, hyperlipidemia, osteoporosis as well as others listed below Past Surgical History: Hysterectomy, appendectomy, cholecystectomy, mastectomy and laminectomy with spinal fusion Family History: breast cancer, coronary artery disease, diabetes, hypertension, as well as others listed below Social History: See list below Home Medications: See list below Allergies Propoxyphene Physical: Vitals: BP 142/81, P 83, R 18, O2 97% on RA , Temp 36.4 C Exam: GENERAL: Patient is anxious appearing and in no acute distress. EYES: No scleral icterus, unremarkable pupils. ENT: Mucous membranes moist, no nasal congestion. NECK: No masses appreciated, no meningismus, trachea is midline. RESPIRATORY: No dyspnea. Clear to auscultation and equal bilaterally. No wheeze, no rhonchi. CARDIOVASCULAR: Regular rate and rhythm. No murmurs, rubs, gallops appreciated. GASTROINTESTINAL: Abdomen soft, non-tender, no peritonitis. Bowel sounds positive. No masses appreciated. BACK: No midline tenderness, no CVA tenderness EXTREMITIES: Normal motion all extremities, no cyanosis, no edema. NEUROLOGIC: Alert and oriented, no acute motor or sensory deficits, no focal weakness, cranial nerves grossly intact. Vague pain with palpation to anywhere on the left side of body including face. SKIN: No rash, no jaundice, no diaphoresis. ED Course: Prior Medical Record, Triage/Nursing Notes, Medications, Allergies reviewed by Me Vital Signs: reviewed and remarkable for mild HTN Labs: Reviewed and remarkable for wnl Interventions: saline lock, asa 324mg pO Imaging: [facility] Radiologist interpretation reviewed by me: CT HEAD - no acute findings. Old lacunar infarct EKG: Per My Interpretation: Indication: Stroke Like Symptoms: NSR 76 bpm no ectopy no ischemia. QTC 420. Similar to EKG Nov 04, 2018. Blood pressure: Elevated - felt to be Situation. Course: 0051: Past medical records reviewed. The patient was evaluated in room A9. A complete history and physical exam was performed. 0143: I reassessed the patient who notes that her headache and left arm tingling are continuing to resolve. She admits to difficulty with walking starting a few weeks ago, which is now worsening. The patient does not think it has improved the last few days. I tried to perform an ambulatory test and she seems very unsteady. The patient notes this has been going on for the last few weeks. The patient is agreeable for inpatient treatment. 0159: I reviewed the patient's case with Dr. Samayoa, [facility]. He will evaluate the patient for further management. Consults: 0159: I reviewed the patient's case with Dr. Samayoa, [facility]. He will evaluate the patient for further management. Disposition: Hospitalization Differentials: Differential Diagnosis includes but is not limited to dehydration, stroke, anemia, hypoglycemia, hyponatremia, hypernatremia, urinary tract infection, pneumonia, bronchitis, sepsis, gastroenteritis, additional abdominal pathology, metabolic abnormalities and infections. Medical Decision Makin yr old female with left arm paresthesias that brings her in tonight. Complex history of cva, neuropathy, gerd, djd, htn, dmii, breast CA amongst others. Review chart appears paresthesias ongoing for some time. She is however a bit ataxic with difficulty just getting from bed. Admits this has been worsening re cently as well. While tonight's symptoms of paresthesias started 2 hrs [employer], the other symptoms have clearly been gradually worsening for last few days, if not the last few weeks. I do not feel she is a TPA candidate for this. CT head negative. Given ASA 324mg PO due to stroke concern. She did in the last few months stop plavix but has been on ASA. Hospitalists on board with plan. Impression: Ataxia Left arm paresthesia The scribe's documentation has been prepared under my direction and personally reviewed by me in its entirety. I confirm that the note above accurately reflects all work, treatment, procedures, and medical decision making performed by me. Wyatt Boone MD Impression & Plan Ataxia, Paresthesia of left arm Past Med/Surg History Medical History (Updated 03/06/19 @ 02:16 by Janelle Issa) Abnormal mouth sensation (Inactive) Breast cancer CVA (cerebral vascular accident) L thalamic infarct in 02/2018 Depression Diabetes mellitus A1c 7.8% August 2018 DJD (degenerative joint disease) GERD (gastroesophageal reflux disease) Goiter H/O: stroke with residual effects HTN (hypertension) Hyperlipidemia MCI (mild cognitive impairment) Osteoporosis Overweight (BMI 25.0-29.9) Paresthesia Periorbital ecchymosis of left eye (Inactive) Peripheral neuropathy Reactive airway disease Seasonal allergies Stage 3 chronic kidney disease Vertigo Surgical History H/O: hysterectomy Hx of appendectomy Hx of cholecystectomy S/P laminectomy with spinal fusion L4-[address] 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 Beliefs That Will Affect Care: None marital status: Current Living Situation: Family Current Living Situation Comment: grandson lives w/ pt current occupational status: retired Feels Safe at Home: Yes Smoking Status: Never smoker Hx Alcohol Use: No Hx Substance Use: No Childhood Exposure to Second-Hand Smoke: No caffeine: No Dental Care, Regularly: No Physical Activity Frequency: Does not Exercise Seatbelt Use: always Results & Data Vital Signs Vital Signs - 24 hr 03/06/19 00:44 03/06/19 01:19 03/06/19 01:30 Temperature 36.4 C L Temperature Source Oral Pulse Rate 83 74 82 Pulse Rate from SpO2 Sensor 74 84 Respiratory Rate 18 16 18 Respiratory Effort / Characteristics Non-Labored Spontaneous Respiratory Depth Normal Respiratory Pattern Regular Blood Pressure 142/81 H 128/84 120/93 Blood Pressure Mean 101 95 102 Blood Pressure Position Sitting Pulse Oximetry 97 97 97 Oxygen Delivery Method Room Air Sepsis Recent Fever Within 48 Hours No Sepsis Action Taken by Nursing No Action Required 03/06/19 01:47 Temperature Temperature Source Pulse Rate 74 Pulse Rate from SpO2 Sensor 74 Respiratory Rate 20 Respiratory Effort / Characteristics Respiratory Depth Respiratory Pattern Blood Pressure 127/89 Blood Pressure Mean 95 Blood Pressure Position Pulse Oximetry 98 Oxygen Delivery Method Sepsis Recent Fever Within 48 Hours Sepsis Action Taken by Nursing Laboratory Data Result diagrams: 03/06/19 01:04 03/06/19 01:04 Lab Results 03/06/19 03/06/19 03/06/19 Range/Units 01:04 01:04 01:04 WBC 6.95 (4.8-10.8) K/uL RBC 4.20 (4.2-5.4) M/uL Hgb 11.5 L (12.0-16.0) g/dL Hct 35.6 L (37-47) % MCV 84.8 (80-100) fL MCH 27.4 (25-34) pg MCHC 32.3 (32-36) g/dL RDW Std Deviation 46.1 (36.4-46.3) fL RDW Coeff of Supriya 14.8 H (11.5-14.5) % Plt Count 291 (130-400) K/uL MPV 9.4 (7.4-10.4) fL Immature Gran % (Auto) 0.1 % Neut % (Auto) 31.4 % Lymph % (Auto) 55.8 % [place] % (Auto) 7.9 % Eos % (Auto) 4.2 % Baso % (Auto) 0.6 % Immature Gran # (Auto) 0.01 (0.00-0.02) K/uL Neut # (Auto) 2.18 (1.4-6.5) K/uL Lymph # (Auto) 3.88 H (1.2-3.4) K/uL [place] # (Auto) 0.55 (0.11-0.59) K/uL Eos # (Auto) 0.29 (0-0.5) K/uL Baso # (Auto) 0.04 (0-0.2) K/uL PT 10.0 (9.0-12.0) Seconds INR 1.0 (0.9-1.1) APTT 24.1 (21.0-31.0) Seconds PTT Ratio 0.9 Sodium 141 (136-145) mmol/L Potassium 3.6 (3.5-5.1) mmol/L Chloride 107 (98-107) mmol/L Carbon Dioxide 28 (21-32) mmol/L Anion Gap 6.0 (3-11) BUN 16 (7-18) mg/dl Creatinine 1.04 (0.6-1.2) mg/dl Est Cr Clr Drug Dosing 61.8 ml/min Est GFR ( Amer) 66.2 Est GFR (Non-Af Amer) 57.1 BUN/Creatinine Ratio 15.7 (10-20) Glucose 185 H (70-99) mg/dl POC Glucose (70-99) Calcium 9.0 (8.5-10.1) mg/dl Magnesium 2.0 (1.8-2.4) mg/dl Total Bilirubin 0.3 (0.2-1) mg/dl AST 12 L (15-37) U/L ALT 19 (12-78) U/L Alkaline Phosphatase 104 (45-117) U/L Troponin I < 0.015 (0-0.045) ng/ml Total Protein 7.4 (6.4-8.2) gm/dl Albumin 3.5 (3.4-5.0) gm/dl Globulin 3.9 (2.5-4.0) gm/dl Albumin/Globulin Ratio 0.9 (0.9-2) Urine Color Urine Appearance (Clear) Urine pH (4.5-7.5) Ur Specific [place] (1.000-1.030) Urine Protein (Negative) Urine Glucose (UA) (Negative) Urine Ketones (Negative) Urine Blood (Negative) Urine Nitrite (Negative) Urine Bilirubin (Negative) Urine Urobilinogen (Negative) Ur Leukocyte Esterase (Negative) Urine RBC (0-4) /hpf Urine WBC (0-5) /hpf Ur Epithelial Cells (0-5) /lpf Urine Bacteria (Negative) Hyaline Casts (0-5) /lpf 03/06/19 03/06/19 Range/Units 01:23 01:48 WBC (4.8-10.8) K/uL RBC (4.2-5.4) M/uL Hgb (12.0-16.0) g/dL Hct (37-47) % MCV (80-100) fL MCH (25-34) pg MCHC (32-36) g/dL RDW Std Deviation (36.4-46.3) fL RDW Coeff of Supriya (11.5-14.5) % Plt Count (130-400) K/uL MPV (7.4-10.4) fL Immature Gran % (Auto) % Neut % (Auto) % Lymph % (Auto) % [place] % (Auto) % Eos % (Auto) % Baso % (Auto) % Immature Gran # (Auto) (0.00-0.02) K/uL Neut # (Auto) (1.4-6.5) K/uL Lymph # (Auto) (1.2-3.4) K/uL [place] # (Auto) (0.11-0.59) K/uL Eos # (Auto) (0-0.5) K/uL Baso # (Auto) (0-0.2) K/uL PT (9.0-12.0) Seconds INR (0.9-1.1) APTT (21.0-31.0) Seconds PTT Ratio Sodium (136-145) mmol/L Potassium (3.5-5.1) mmol/L Chloride (98-107) mmol/L Carbon Dioxide (21-32) mmol/L Anion Gap (3-11) BUN (7-18) mg/dl Creatinine (0.6-1.2) mg/dl Est Cr Clr Drug Dosing ml/min Est GFR ( Amer) Est GFR (Non-Af Amer) BUN/Creatinine Ratio (10-20) Glucose (70-99) mg/dl POC Glucose 202 H (70-99) Calcium (8.5-10.1) mg/dl Magnesium (1.8-2.4) mg/dl Total Bilirubin (0.2-1) mg/dl AST (15-37) U/L ALT (12-78) U/L Alkaline Phosphatase (45-117) U/L Troponin I (0-0.045) ng/ml Total Protein (6.4-8.2) gm/dl Albumin (3.4-5.0) gm/dl Globulin (2.5-4.0) gm/dl Albumin/Globulin Ratio (0.9-2) Urine Color Yellow Urine Appearance Clear (Clear) Urine pH 5.5 (4.5-7.5) Ur Specific [place] <= 1.005 (1.000-1.030) Urine Protein Negative (Negative) Urine Glucose (UA) Negative (Negative) Urine Ketones Negative (Negative) Urine Blood Negative (Negative) Urine Nitrite Negative (Negative) Urine Bilirubin Negative (Negative) Urine Urobilinogen Negative (Negative) Ur Leukocyte Esterase 1+ H (Negative) Urine RBC 0-4 (0-4) /hpf Urine WBC 0-5 (0-5) /hpf Ur Epithelial Cells 5-10 H (0-5) /lpf Urine Bacteria Negative (Negative) Hyaline Casts 0-5 (0-5) /lpf Administered Medications Discontinued Medications Aspirin (Aspirin Chew) 324 mg PO NOW STA Stop: 03/06/19 02:00 Last Admin: 03/06/19 02:11 Dose: 324 mg Documented by: [id number] Discharge Plan Visit Data Chief Complaint: Neuro Symptoms/Deficit Stated Complaint: WEAKNESS LFT SIDE,NUMB MOUTH,PAIN BACK OF NECK ED Provider: Wyatt Boone Discharge Problem: Ataxia, Paresthesia of left arm Patient Disposition: Being Evaluated by Hospitalist Forms Stand Alone Forms: My [facility] Prescriptions Prescriptions: No Action meclizine 12.5 mg tablet 12.5 mg PO TID PRN (Reason: dizziness or vertigo) Qty: 90 RF: 1 pantoprazole 20 mg tablet,delayed release (DR/EC) 20 mg PO DAILY Qty: 90 RF: 1 fluticasone propionate [Flonase Allergy Relief] 50 mcg/actuation spray,suspension 2 sprays INTNAS DAILY Qty: 9.9 RF: 2 aspirin 81 mg tablet,delayed release (DR/EC) 81 mg PO DAILY RF: 0 rosuvastatin 40 mg tablet 40 mg PO QAM Qty: 30 RF: 0 metformin 500 mg tablet extended release 24 hr 1,000 mg PO BID Qty: 60 RF: 0 multivitamin tablet 1 tab PO DAILY RF: 0 acetaminophen [Tylenol Arthritis Pain] 650 mg tablet extended release 650 - 1,300 mg PO ONCE PRN (Reason: Pain) RF: 0 sertraline 50 mg tablet 50 mg PO DAILY RF: 0 loratadine 10 mg tablet 10 mg PO DAILY RF: 0 Basaglar KwikPen U-100 Insulin 100 unit/mL (3 mL) insulin pen 32 unit SUBCUT QAM RF: 0 duloxetine 60 mg capsule,delayed release(DR/EC) 60 mg PO DAILY RF: 0 Referrals Referrals: Marleni Macias DO [Primary Care Provider] - The scribe's documentation has been prepared under my direction and personally reviewed by me in its entirety. I confirm that the note above accurately reflects all work, treatment, procedures, and medical decision making performed by me.
[2019-03-06] MEDS ORDERED: LORazepam 2 MG/4 ML VIAL ONE (03:19)
--- NOTE | 2019-03-06 03:39 | History & Physical Report ---
Date of Service March 06, 2019 Assessment & Plan (1) CVA (cerebral vascular accident): Patient presents to the emergency department with worsening of previous symptoms of left-sided paresthesias involving face, periorally, left arm and hand, and left foot. Due to ataxia she does walk with a walker, but has significant difficulties. The patient's initial injury was 03/11/2018, where she was seen by tele-stroke and at that time was thought to not be a TPA candidate, but advice was to have patient have aspirin and Plavix combination for 30 to 90 days. At a follow-up outpatient neurologic visit on 10/31/[address] Cobb, she was found to still be on aspirin and Plavix at that time, and the Plavix was discontinued. She was seen in the emergency department on 11/02/2018 with complaint of worsening memory dysfunction over the previous 6 weeks, and a transient worsening in her left sided paresthesias. She was continued on aspirin 81 mg daily for antiplatelet effect at that time. At the time of her presentation today, patient has continued on aspirin 81 mg daily for antiplatelet effect, and will have the addition of clopidogrel 75 mg p.o. daily. Patient was also noted to have a small PFO on echocardiogram on 03/12/2018. We will be ordering MRI of brain with and without contrast, MRA of head without contrast, and MRA of neck with and without contrast. Depending upon these results, a VERONICA may be a consideration. She was most recently seen by [facility] neurology on 02/15/2019, and they will be consulted. We will consult [facility] cardiology, as she now follows with [facility] PCP and neurology, and there are no outpatient cardiology follow up visits noted in [facility]. Present on Admission?: Yes (2) Paresthesia of left arm and leg: See above Present on Admission?: Yes (3) Ataxia: See above Present on Admission?: Yes (4) H/O: stroke with residual effects: As above. Present on Admission?: Yes (5) MCI (mild cognitive impairment): Does not seem to have progressed Present on Admission?: Yes (6) Stage 3 chronic kidney disease: Follow serial laboratories Present on Admission?: Yes (7) Hyperlipidemia: Continue rosuvastatin 40 mg in the morning. Check fasting lipid panel Present on Admission?: Yes (8) Diabetes mellitus: Decrease Lantus from 32 units to 14 units subcu every morning. Placed on Accu-Cheks before meals and at bedtime with NovoLog coverage per scale. Check hemoglobin A1c Hold metformin Present on Admission?: Yes (9) Breast cancer: Per outpatient setting Present on Admission?: Yes (10) GERD (gastroesophageal reflux disease): Continue pantoprazole 20 mg daily Present on Admission?: Yes History of Present Illness Chief Complaint: The patient presents to the emergency department with worsening of left facial abnormal sensation, and numbness involving left hand and left foot. Primary Care Provider: Marleni Macias DO The patient is a 63-year-old female with a past medical history including CVA with residual left-sided paresthesias and ambulatory dysfunction that occurred on 03/11/2018. Since that time, she has had intermittent worsening of symptoms, but over the past several days has had more significant worsening, and she was brought into the ED for further assessment. Allergies Allergy/AdvReac Type Severity Reaction Status Date / Time propoxyphene AdvReac Unknown GI UPSET Verified 03/06/19 02:12 Home Medications Home Medications Medication Instructions Recorded Confirmed Type acetaminophen 650 mg 650 - 1,300 mg PO ONCE PRN tab 10/04/18 03/06/19 History tablet,extended release aspirin 81 mg tablet,delayed 81 mg PO DAILY 10/04/18 03/06/19 History release metformin 500 mg tablet,extended 1,000 mg PO BID #60 tab 10/04/18 03/06/19 Rx release 24 hr multivitamin 1 tab PO DAILY 10/04/18 03/06/19 History rosuvastatin 40 mg tablet 40 mg PO QAM #30 tab 10/04/18 03/06/19 Rx meclizine 12.5 mg tablet 12.5 mg PO TID PRN #90 tab 12/25/18 03/06/19 Rx pantoprazole 20 mg tablet,delayed 20 mg PO DAILY #90 tab 12/25/18 03/06/19 Rx release fluticasone propionate 50 2 sprays INTNAS DAILY #9.9 gm 01/03/19 03/06/19 Rx mcg/actuation nasal spray,suspension duloxetine 60 mg PO DAILY 03/06/19 03/06/19 History insulin glargine [Basaglar KwikPen 32 unit SUBCUT QAM 03/06/19 03/06/19 History U-100 Insulin] loratadine 10 mg PO DAILY 03/06/19 03/06/19 History sertraline 50 mg PO DAILY 03/06/19 03/06/19 History Past Med/Surg History Medical History (Updated 03/06/19 @ 04:22 by Luis M Samayoa MD) Abnormal mouth sensation (Inactive) Breast cancer CVA (cerebral vascular accident) L thalamic infarct in 02/2018 Depression Diabetes mellitus A1c 7.8% August 2018 DJD (degenerative joint disease) GERD (gastroesophageal reflux disease) Goiter H/O: stroke with residual effects HTN (hypertension) Hyperlipidemia MCI (mild cognitive impairment) Osteoporosis Overweight (BMI 25.0-29.9) Paresthesia Paresthesia of left arm and leg Periorbital ecchymosis of left eye (Inactive) Peripheral neuropathy Reactive airway disease Seasonal allergies Stage 3 chronic kidney disease Vertigo Surgical History H/O: hysterectomy Hx of appendectomy Hx of cholecystectomy S/P laminectomy with spinal fusion L4-[address] Pillai 07/2017 S/P right mastectomy Social History Preferred Language: Kazakh Communication Ability: Effective Visual Impairment: No Limitations Hearing Ability: Normal Prep Manager Required: No Beliefs That Will Affect Care: None marital status: Current Living Situation: Family Current Living Situation Comment: grandson lives w/ pt current occupational status: retired Feels Safe at Home: Yes Smoking Status: Never smoker Hx Alcohol Use: No Hx Substance Use: No Childhood Exposure to Second-Hand Smoke: No caffeine: No Dental Care, Regularly: No Physical Activity Frequency: Does not Exercise Seatbelt Use: always Review of Systems Review of Systems: The patient denies chest pain, palpitations, shortness of breath, dyspnea on exertion, cough, lower extremity swelling, sore throat, fevers, chills, sweats, nausea, vomiting, diarrhea , constipation, abdominal pain, pelvic pain, blood in urine or stool, dysuria, urinary frequency or urgency, loss of consciousness, rash, abnormal bruising or bleeding, generalized arthralgias or myalgias, back or neck pain, or night sweats. The review of systems is otherwise negative other than for that already noted above, and at least 10 systems have been reviewed. Physical Exam Physical Exam: The patient is awake, alert and oriented 3, normocephalic and atraumatic, sitting upright in bed and in no acute distress. HEENT--PERRL, EOMI, mucous membranes and oropharynx normal. Neck--supple. No JVD. No bruits. Thyroid normal, trachea midline, no adenopa thy. Heart--normal S1 and S2. No murmurs, rubs or gallops. Lungs--clear bilaterally, no respiratory distress, no accessory muscle use. Abdomen--normal bowel sounds and soft. Nontender. Nondistended, no hernias or masses, no organomegaly. Extremities--no cyanosis or clubbing. No edema. There are good distal pulses b/l. Dermatologic--normal skin turgor, normal color, no abnormal lymph nodes, no ra sh. Neurologic--cranial nerves II through XII grossly intact. Left upper extremity motor strength 4+/5, left lower extremity 4/5. Decreased sensation upper and lower. Rheumatologic--decreased left side due to neurologic dysfunction Psychiatric--normal affect. Results & Data Vital Signs (Past 12 Hours) Vital Signs Temp Pulse Pulse Resp BP BP Pulse Ox 03/06/19 03:24 69 16 127/81 97 03/06/19 01:47 74 20 127/89 98 03/06/19 01:30 82 18 120/93 97 03/06/19 01:19 74 16 128/84 97 03/06/19 00:44 97.5 F L 83 18 142/81 H 97 Laboratory Results Laboratory Results WBC 6.95 K/uL (4.8-10.8) 03/06/19 01:04 RBC 4.20 M/uL (4.2-5.4) 03/06/19 01:04 Hgb 11.5 g/dL (12.0-16.0) L 03/06/19 01:04 Hct 35.6 % (37-47) L 03/06/19 01:04 MCV 84.8 fL (80-100) 03/06/19 01:04 MCH 27.4 pg (25-34) 03/06/19 01:04 MCHC 32.3 g/dL (32-36) 03/06/19 01:04 RDW Std Deviation 46.1 fL (36.4-46.3) 03/06/19 01:04 RDW Coeff of Supriya 14.8 % (11.5-14.5) H 03/06/19 01:04 Plt Count 291 K/uL (130-400) 03/06/19 01:04 MPV 9.4 fL (7.4-10.4) 03/06/19 01:04 Immature Gran % (Auto) 0.1 % 03/06/19 01:04 Neut % (Auto) 31.4 % 03/06/19 01:04 Lymph % (Auto) 55.8 % 03/06/19 01:04 [place] % (Auto) 7.9 % 03/06/19 01:04 Eos % (Auto) 4.2 % 03/06/19 01:04 Baso % (Auto) 0.6 % 03/06/19 01:04 Immature Gran # (Auto) 0.01 K/uL (0.00-0.02) 03/06/19 01:04 Neut # (Auto) 2.18 K/uL (1.4-6.5) 03/06/19 01:04 Lymph # (Auto) 3.88 K/uL (1.2-3.4) H 03/06/19 01:04 [place] # (Auto) 0.55 K/uL (0.11-0.59) 03/06/19 01:04 Eos # (Auto) 0.29 K/uL (0-0.5) 03/06/19 01:04 Baso # (Auto) 0.04 K/uL (0-0.2) 03/06/19 01:04 PT 10.0 Seconds (9.0-12.0) 03/06/19 01:04 INR 1.0 (0.9-1.1) 03/06/19 01:04 APTT 24.1 Seconds (21.0-31.0) 03/06/19 01:04 PTT Ratio 0.9 03/06/19 01:04 Sodium 141 mmol/L (136-145) 03/06/19 01:04 Potassium 3.6 mmol/L (3.5-5.1) 03/06/19 01:04 Chloride 107 mmol/L (98-107) 03/06/19 01:04 Carbon Dioxide 28 mmol/L (21-32) 03/06/19 01:04 Anion Gap 6.0 (3-11) 03/06/19 01:04 BUN 16 mg/dl (7-18) 03/06/19 01:04 Creatinine 1.04 mg/dl (0.6-1.2) 03/06/19 01:04 Est Cr Clr Drug Dosing 61.8 ml/min 03/06/19 01:04 Est GFR ( Amer) 66.2 03/06/19 01:04 Est GFR (Non-Af Amer) 57.1 03/06/19 01:04 BUN/Creatinine Ratio 15.7 (10-20) 03/06/19 01:04 Glucose 185 mg/dl (70-99) H 03/06/19 01:04 POC Glucose 202 (70-99) H 03/06/19 01:23 Calcium 9.0 mg/dl (8.5-10.1) 03/06/19 01:04 Magnesium 2.0 mg/dl (1.8-2.4) 03/06/19 01:04 Total Bilirubin 0.3 mg/dl (0.2-1) 03/06/19 01:04 AST 12 U/L (15-37) L 03/06/19 01:04 ALT 19 U/L (12-78) 03/06/19 01:04 Alkaline Phosphatase 104 U/L (45-117) 03/06/19 01:04 Troponin I < 0.015 ng/ml (0-0.045) 03/06/19 01:04 Total Protein 7.4 gm/dl (6.4-8.2) 03/06/19 01:04 Albumin 3.5 gm/dl (3.4-5.0) 03/06/19 01:04 Globulin 3.9 gm/dl (2.5-4.0) 03/06/19 01:04 Albumin/Globulin Ratio 0.9 (0.9-2) 03/06/19 01:04 Urine Color Yellow 03/06/19 01:48 Urine Appearance Clear (Clear) 03/06/19 01:48 Urine pH 5.5 (4.5-7.5) 03/06/19 01:48 Ur Specific Center [place] <= 1.005 (1.000-1.030) 03/06/19 01:48 Urine Protein Negative (Negative) 03/06/19 01:48 Urine Glucose (UA) Negative (Negative) 03/06/19 01:48 Urine Ketones Negative (Negative) 03/06/19 01:48 Urine Blood Negative (Negative) 03/06/19 01:48 Urine Nitrite Negative (Negative) 03/06/19 01:48 Urine Bilirubin Negative (Negative) 03/06/19 01:48 Urine Urobilinogen Negative (Negative) 03/06/19 01:48 Ur Leukocyte Esterase 1+ (Negative) H 03/06/19 01:48 Urine RBC 0-4 /hpf (0-4) 03/06/19 01:48 Urine WBC 0-5 /hpf (0-5) 03/06/19 01:48 Ur Epithelial Cells 5-10 /lpf (0-5) H 03/06/19 01:48 Urine Bacteria Negative (Negative) 03/06/19 01:48 Hyaline Casts 0-5 /lpf (0-5) 03/06/19 01:48 Code Status & VTE Plan Code Status full code VTE Prophylaxis Plan VTE Prophylaxis will be ordered: Yes PG Care Time/CCT Total # of Minutes Spent Total Time Spent with Patient: Total time spent is greater than 50% in coordination of care (as documented) at patient's floor/unit and/or counseling patient: (1) CVA (cerebral vascular accident) CVA mechanism: unspecified Qualified Code(s): I63.9 - Cerebral infarction, unspecified
[2019-03-06] MEDS ORDERED: ONDANSETRON INJ 2 MG/ML 2 ML VIAL IV PRN (04:54)
[2019-03-06] MEDS ORDERED: CARBOHYDRATES FOR HYPOGLYCEMIA PO PRN (04:54)
[2019-03-06] MEDS ORDERED: GLUCOSE 40% GEL 15 GM TUBE PO PRN (04:54)
[2019-03-06] MEDS ORDERED: MAGNESIUM HYDROXIDE SUSP 30 ML UDC PO PRN (04:54)
[2019-03-06] MEDS ORDERED: POLYETHYLENE (MIRALAX) 17 GM PACK PO PRN (04:54)
[2019-03-06] MEDS ORDERED: DEXTROSE 50% 50 ML SYRINGE IV PRN (04:54)
[2019-03-06] MEDS ORDERED: ACETAMINOPHEN 325 MG TAB PO PRN (04:54)
[2019-03-06] MEDS ORDERED: ALUMINUM/MAGNESIUM SUSP 30 ML UDC PO PRN (04:54)
[2019-03-06] MEDS ORDERED: MECLIZINE 12.5 MG TAB PO PRN (04:54)
[2019-03-06] MEDS ORDERED: GLUCAGON FOR INJ 1 MG VIAL SQ PRN (04:54)
[2019-03-06] MEDS ORDERED: GLUCOSE 10 TABS/TUBE PO PRN (04:54)
[2019-03-06] MEDS ORDERED: GADOBUTROL 65ML VIAL IV PRN (05:12)
--- NOTE | 2019-03-06 07:02 | CT Scan Report ---
CT OF THE HEAD WITHOUT CONTRAST CLINICAL HISTORY: Stroke evaluation, posterior headache COMPARISON STUDY: MRI of the brain August 28, 2018. Head CT November 02, 2018. CT DOSE: 537.48 mGy.cm TECHNIQUE: Helical axial images of the head were obtained without IV contrast. Automated exposure con trol was utilized for the study. A dose lowering technique was utilized adhering to the principles o f ALARA. FINDINGS: No acute intracranial hemorrhage, midline shift or mass effect is present. The ventricular system is unremarkable. The basilar cisterns are patent. No extra-axial collections are present. Ther e are no findings to suggest acute dural sinus thrombosis or acute territorial infarct. No significan t calvarial abnormalities are present. Visualized portions of the sinuses and mastoid air cells are c lear. The infarct within the right thalamus is noted. This is unchanged. The appearance of the brain is unchanged. IMPRESSION: No acute intracranial findings. Electronically signed by: Fredrick Simmons M.D. 03/06/2019 7:01 AM
--- NOTE | 2019-03-06 07:08 | Magnetic Resonance Report ---
MRI OF THE BRAIN WITHOUT AND WITH IV CONTRAST CLINICAL HISTORY: left side paresthesias COMPARISON STUDY: MRI of the brain August 28, 2018. Head CT March 06, 2019. TECHNIQUE: Utilizing a 1.5 Courtney magnet and dedicated coil, multiplanar, multiecho imaging of the br ain was performed pre and postcontrast administration. IV administration of 8 mL of Gadavist contras t was uneventful. FINDINGS: This exam is mildly compromised by motion artifact. There are no foci of restricted diffusi on to suggest acute infarct. No acute intracranial hemorrhage, midline shift or mass effect is presen t. Ventricular system is stable. Basilar cisterns are patent. There are no extra-axial collections. F low-voids for the major intracranial vessels are present. There is no intracranial mass or pathologic enhancement. An old lacunar infarct within the right thalamus is unchanged. The appearance of the br ain is unchanged since MRI of August 28, 2018. No suspicious calvarial lesions are noted. Orbits are unr emarkable. There is no evidence for sinusitis. There is minimal ethmoid sinus mucosal thickening. IMPRESSION: 1. No acute intracranial findings. 2. No intracranial mass or pathologic enhancement. 3. Old right thalamic lacunar infarct. Electronically signed by: Fredrick Simmons M.D. 03/06/2019 7:07 AM
--- NOTE | 2019-03-06 07:17 | Magnetic Resonance Report ---
Brain MRA HISTORY: left side paresthesias TECHNIQUE: 3-D [id number] MRA of the brain was performed without contrast. COMPARISON STUDY: Neck CTA 11/02/2018. FINDINGS: Significant motion artifact results in suboptimal evaluation. However, no significant steno sis or occlusion identified within the bilateral ACAs, MCAs, or scheduling manager.. Visualized intracranial news department intern al carotid arteries, distal vertebral arteries, and basilar artery appear to be patent. The left vert ebral artery appears to terminate in the left posterior inferior cerebellar artery. This is considere d to be a normal variant. IMPRESSION: Motion artifact. No definite stenosis, occlusion, or aneurysm within the [place]. Electronically signed by: Jostin Torres M.D. 03/06/2019 7:15 AM
--- NOTE | 2019-03-06 07:36 | Magnetic Resonance Report ---
MR angio neck wo/w con CLINICAL HISTORY: 63 years-old Female presenting with left hand numbness, left foot numbness, left-si ded facial numbness, history of stroke. TECHNIQUE: MR angiography of the neck was performed before and after the administration of intravenou s contrast. 3-D volumetric and/or maximum intensity projection (MIP) images were subsequently reconst ructed for review. IV contrast: 8 mL of Gadavist. Stenosis measurements were based on NASCET-like cri teria (distal lumen diameter as the denominator for stenosis measurement). COMPARISON: CTA from 11/02/2018. FINDINGS: Localizer images: Unremarkable. Aortic arch: Atherosclerosis of the three-vessel aortic arch. Innominate artery: Patent. Right subclavian artery: Patent. Right common carotid artery: Patent. Right internal and external carotid arteries: Right carotid bifurcation patent. Right internal and ex ternal carotid arteries widely patent. Left common carotid artery: Patent. Left internal and external carotid arteries: Left carotid bifurcation patent. Left internal and exter nal carotid arteries widely patent. Left subclavian artery: Patent. Vertebral arteries: Right dominant vertebral artery. Origins and courses of the bilateral vertebral a rteries patent. Other: Limited intracranial evaluation within normal limits. Soft tissues of the neck normal allowing for the phase of contrast. IMPRESSION: 1. No dissection, significant stenosis, or focal vessel occlusion. Electronically signed by: Clayton Boggs M.D. 03/06/2019 7:34 AM
[2019-03-06] MEDS ORDERED: PNEUMOCOCCAL Polysaccharide Vaccine 25mcg/0.5mL vial/Syr IM ONE (08:30)
[2019-03-06] MEDS ORDERED: SERTRALINE HCL 50 MG TABLET PO SCH (09:00)
[2019-03-06] MEDS ORDERED: CLOPIDOGREL BISULFATE 75 MG TAB PO SCH (09:00)
[2019-03-06] MEDS ORDERED: PANTOprazole 40 MG TAB PO SCH (09:00)
[2019-03-06] MEDS: INSULIN ASPART 100 UNITS/ML 3 ML PEN SC SCH ×4 (09:48→20:36)
[2019-03-06] MEDS: ROSUVASTATIN CALCIUM 20 MG TAB PO SCH (09:50)
[2019-03-06] MEDS: DULOXETINE HCL 60 MG CAP PO SCH (09:51)
[2019-03-06] MEDS: FLUTICASONE PROPIONATE NA SPR 16 GM BTL NAE SCH ×2 (09:51→10:28)
[2019-03-06] MEDS: LORATADINE 10 MG TAB PO SCH (09:51)
[2019-03-06] MEDS: INSULIN GLARGINE SOLOSTAR 100 UNITS/ML 3 ML PEN SQ SCH (09:51)
[2019-03-06] MEDS: MULTIVITAMIN TAB PO SCH (09:51)
[2019-03-06] MEDS: ASPIRIN 81 MG ECTAB PO SCH (09:51)
[2019-03-06] MEDS: PANTOprazole 40 MG TAB PO SCH (09:57)
--- NOTE | 2019-03-06 09:57 | Cardiology Consultation ---
Date of Consultation March 06, 2019 History of Present Illness Attending Physician: Jose Guadalupe Ragland MD Allergies Allergy/AdvReac Type Severity Reaction Status Date / Time propoxyphene AdvReac Unknown GI UPSET Verified 03/06/19 02:12 Home Medications Home Medications Medication Instructions Recorded Confirmed Type acetaminophen 650 mg 650 - 1,300 mg PO ONCE PRN tab 10/04/18 03/06/19 History tablet,extended release aspirin 81 mg tablet,delayed 81 mg PO DAILY 10/04/18 03/06/19 History release metformin 500 mg tablet,extended 1,000 mg PO BID #60 tab 10/04/18 03/06/19 Rx release 24 hr multivitamin 1 tab PO DAILY 10/04/18 03/06/19 History rosuvastatin 40 mg tablet 40 mg PO QAM #30 tab 10/04/18 03/06/19 Rx meclizine 12.5 mg tablet 12.5 mg PO TID PRN #90 tab 12/25/18 03/06/19 Rx pantoprazole 20 mg tablet,delayed 20 mg PO DAILY #90 tab 12/25/18 03/06/19 Rx release fluticasone propionate 50 2 sprays INTNAS DAILY #9.9 gm 01/03/19 03/06/19 Rx mcg/actuation nasal spray,suspension duloxetine 60 mg PO DAILY 03/06/19 03/06/19 History insulin glargine [Basaglar KwikPen 32 unit SUBCUT QAM 03/06/19 03/06/19 History U-100 Insulin] loratadine 10 mg PO DAILY 03/06/19 03/06/19 History sertraline 50 mg PO DAILY 03/06/19 03/06/19 History Patient History Medical History (Updated 03/06/19 @ 04:22 by Luis M Samayoa MD) Abnormal mouth sensation (Inactive) Breast cancer CVA (cerebral vascular accident) L thalamic infarct in 02/2018 Depression Diabetes mellitus A1c 7.8% August 2018 DJD (degenerative joint disease) GERD (gastroesophageal reflux disease) Goiter H/O: stroke with residual effects HTN (hypertension) Hyperlipidemia MCI (mild cognitive impairment) Osteoporosis Overweight (BMI 25.0-29.9) Paresthesia Paresthesia of left arm and leg Periorbital ecchymosis of left eye (Inactive) Peripheral neuropathy Reactive airway disease Seasonal allergies Stage 3 chronic kidney disease Vertigo Surgical History H/O: hysterectomy Hx of appendectomy Hx of cholecystectomy S/P laminectomy with spinal fusion L4-[address] 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 Supervisor Required: No Beliefs That Will Affect Care: None marital status: Current Living Situation: Family Current Living Situation Comment: grandson lives w/ pt current occupational status: retired Feels Safe at Home: Yes Smoking Status: Never smoker Hx Alcohol Use: No Hx Substance Use: No Childhood Exposure to Second-Hand Smoke: No caffeine: No Dental Care, Regularly: No Physical Activity Frequency: Does not Exercise Seatbelt Use: always Review of Systems Constitutional: no fever and no chills Respiratory: no cough, no dyspnea and no wheezing Cardiovascular: + syncope (often when sitting to standing has the sensation of tunneling and will have to sit down in order for it to pass.); no chest pain, no palpitations and no edema Gastrointestinal: no abdominal pain, no nausea and no vomiting Neurologic: + unsteadiness and + headache(s) (left eye associated with tearing of same eye, no pain in R eye, "achy", no photophobia or phonophobia, no nausea associated) Pt's daughter in room reports that pt seems to be "moving and speaking more slowly and with more slurred speech" as compared to her baseline for the last year since her stroke. Pt self-reports that she is more forgetful over the last year since her stroke. Physical Exam Constitutional: WD/WN, vitals as above Respiratory: normal respiratory effort, lungs clear to auscultation Cardiovascular: RRR, no murmur, no edema Skin: no rashes, warm and dry Neurologic: patellar DTR's 2+ bilat, sensation intact forgetful and sometimes during interview needed to be redirected to what she was saying. Psychiatric: A+Ox3, euthymic affect Results & Data Vital Signs (Past 12 Hours) Vital Signs Temp Pulse Pulse Resp BP BP Pulse Ox 03/06/19 07:32 36.6 C 63 17 132/67 100 03/06/19 05:23 36.6 C 79 16 129/69 98 03/06/19 03:24 69 16 127/81 97 03/06/19 01:47 74 20 127/89 98 03/06/19 01:30 82 18 120/93 97 03/06/19 01:19 74 16 128/84 97 03/06/19 00:44 36.4 C L 83 18 142/81 H 97 Laboratory Results Laboratory Results - last 24 hr 03/06/19 03/06/19 03/06/19 01:04 01:04 01:04 WBC 6.95 RBC 4.20 Hgb 11.5 L Hct 35.6 L MCV 84.8 MCH 27.4 MCHC 32.3 RDW Std Deviation 46.1 RDW Coeff of Supriya 14.8 H Plt Count 291 MPV 9.4 Immature Gran % (Auto) 0.1 Neut % (Auto) 31.4 Lymph % (Auto) 55.8 Lane % (Auto) 7.9 Eos % (Auto) 4.2 Baso % (Auto) 0.6 Immature Gran # (Auto) 0.01 Neut # (Auto) 2.18 Lymph # (Auto) 3.[address] # (Auto) 0.55 Eos # (Auto) 0.29 Baso # (Auto) 0.04 PT 10.0 INR 1.0 APTT 24.1 PTT Ratio 0.9 Sodium 141 Potassium 3.6 Chloride 107 Carbon Dioxide 28 Anion Gap 6.0 BUN 16 Creatinine 1.04 Est Cr Clr Drug Dosing 61.8 Est GFR ( Amer) 66.2 Est GFR (Non-Af Amer) 57.1 BUN/Creatinine Ratio 15.7 Glucose 185 H POC Glucose Calcium 9.0 Magnesium 2.0 Total Bilirubin 0.3 AST 12 L ALT 19 Alkaline Phosphatase 104 Troponin I < 0.015 Total Protein 7.4 Albumin 3.5 Globulin 3.9 Albumin/Globulin Ratio 0.9 Urine Color Urine Appearance Urine pH Ur Specific [place] Urine Protein Urine Glucose (UA) Urine Ketones Urine Blood Urine Nitrite Urine Bilirubin Urine Urobilinogen Ur Leukocyte Esterase Urine RBC Urine WBC Ur Epithelial Cells Urine Bacteria Hyaline Casts 03/06/19 03/06/19 03/06/19 01:23 01:48 07:40 WBC RBC Hgb Hct MCV MCH MCHC RDW Std Deviation RDW Coeff of Supriya Plt Count MPV Immature Gran % (Auto) Neut % (Auto) Lymph % (Auto) Lane % (Auto) Eos % (Auto) Baso % (Auto) Immature Gran # (Auto) Neut # (Auto) Lymph # (Auto) Lane # (Auto) Eos # (Auto) Baso # (Auto) PT INR APTT PTT Ratio Sodium Potassium Chloride Carbon Dioxide Anion Gap BUN Creatinine Est Cr Clr Drug Dosing Est GFR ( Amer) Est GFR (Non-Af Amer) BUN/Creatinine Ratio Glucose POC Glucose 202 H 90 Calcium Magnesium Total Bilirubin AST ALT Alkaline Phosphatase Troponin I Total Protein Albumin Globulin Albumin/Globulin Ratio Urine Color Yellow Urine Appearance Clear Urine pH 5.5 Ur Specific [place] <= 1.005 Urine Protein Negative Urine Glucose (UA) Negative Urine Ketones Negative Urine Blood Negative Urine Nitrite Negative Urine Bilirubin Negative Urine Urobilinogen Negative Ur Leukocyte Esterase 1+ H Urine RBC 0-4 Urine WBC 0-5 Ur Epithelial Cells 5-10 H Urine Bacteria Negative Hyaline Casts 0-[address]: No acute intracranial findings. Neck MRA: 1. No dissection, significant stenosis, or focal vessel occlusion. Brain MRI: 1. No acute intracranial findings. 2. No intracranial mass or pathologic enhancement. 3. Old right thalamic lacunar infarct. Head MRA: Motion artifact. No definite stenosis, occlusion, or aneurysm within the [place]. Medications Administered Current Medications Acetaminophen (Tylenol) 650 mg PO Q4H PRN PRN Reason: Pain or Fever Stop: 04/05/19 04:53 Al Hydrox/Mg Hydrox/Simethicone (Maalox) 15 ml PO Q4H PRN PRN Reason: Dyspepsia Stop: 04/05/19 04:53 Aspirin (Ecotrin Ectab) 81 mg PO DAILY [facility] Stop: 04/05/19 08:59 Last Admin: 03/06/19 09:51 Dose: 81 mg Documented by: Clopidogrel Bisulfate (Plavix) 75 mg PO QAM [facility] Stop: 04/05/19 08:59 Last Admin: 03/06/19 09:51 Dose: 75 mg Documented by: Dextrose (Dextrose 50%) 25 - 50 ml IV UD PRN; Protocol PRN Reason: Hypoglycemia Protocol Stop: 04/05/19 04:53 Duloxetine HCl (Cymbalta) 60 mg PO DAILY [facility] Stop: 04/05/19 08:59 Last Admin: 1210/19 09:51 Dose: 60 mg Documented by: Fluticasone Propionate (Flonase) 2 sprays MIRANDA DAILY [facility] Stop: 04/05/19 08:59 Last Admin: 03/06/19 09:51 Dose: 2 sprays Documented by: Gadobutrol (Gadavist 65ml) 8 ml IV ONCE PRN PRN Reason: Interaction Checking Stop: 03/10/19 05:11 Last Admin: 03/06/19 04:50 Dose: 8 ml Documented by: Glucagon (Glucagen) 1 mg SQ UD PRN; Protocol PRN Reason: Hypoglycemia Protocol Stop: 04/05/19 04:53 Glucose (Dex4 Glucose) 4 - 8 tabs PO UD PRN; Protocol PRN Reason: Hypoglycemia Protocol Stop: 04/05/19 04:53 Glucose (Glucose 40%) 15 - 30 gm PO UD PRN; Protocol PRN Reason: Hypoglycemia Protocol Stop: 04/05/19 04:53 Lorazepam (Ativan) 0.5 mg in 1 mls @ 0.5 mls/min IV TODAY@0315 [facility] Stop: 03/06/19 10:00 Last Admin: 03/06/19 03:23 Dose: 0.5 mls/min Documented by: Insulin Aspart (Novolog Flexpen) 0 units SC ACHS [facility] Stop: 04/05/19 07:29 Last Admin: 03/06/19 09:48 Dose: Not Given Documented by: Insulin Glargine (Lantus Solostar Pen) 14 units SQ QAM [facility] Stop: 04/05/19 08:59 Last Admin: 03/06/19 09:51 Dose: 14 units Documented by: Loratadine (Claritin) 10 mg PO DAILY [facility] Stop: 04/05/19 08:59 Last Admin: 03/06/19 09:51 Dose: 10 mg Documented by: Magnesium Hydroxide (Milk Of Magnesia) 30 ml PO Q12H PRN PRN Reason: Constipation Stop: 04/05/19 04:53 Meclizine HCl (Antivert) 12.5 mg PO TID PRN PRN Reason: dizziness or vertigo Stop: 04/05/19 04:53 Miscellaneous (Carbohydrates For Hypoglycemia) 15 - 30 gm PO UD PRN PRN Reason: Hypoglycemia Protocol Stop: 04/05/19 04:53 Multivitamins (Multivitamin Tab) 1 tab PO DAILY [facility] Stop: 04/05/19 08:59 Last Admin: 03/06/19 09:51 Dose: 1 tab Documented by: Ondansetron HCl (Zofran) 4 mg IV Q6H PRN PRN Reason: Nausea Stop: 04/05/19 04:53 Pantoprazole Sodium (Protonix) 40 mg PO DAILY [facility] Stop: 04/05/19 10:59 Last Admin: 03/06/19 09:57 Dose: 40 mg Documented by: Polyethylene Glycol (Miralax Powder Packet) 17 gm PO DAILY PRN PRN Reason: Constipation Stop: 04/05/19 04:53 Rosuvastatin Calcium (Crestor) 40 mg PO QAM [facility] Stop: 04/05/19 08:59 Last Admin: 03/06/19 09:50 Dose: 40 mg Documented by: Sertraline HCl (Zoloft) 50 mg PO DAILY [facility] Stop: 04/05/19 08:59 Last Admin: 03/06/19 09:51 Dose: 50 mg Documented by: PG Care Time/CCT Total # of Minutes Spent Total Time Spent with Patient: Total time spent is greater than 50% in coordination of care (as documented) at patient's floor/unit and/or counseling patient:
--- NOTE | 2019-03-06 10:28 | Neurology Consultation ---
Date of Consultation March 06, 2019 Assessment & Plan (1) Paresthesia of left arm and leg: (2) Ataxia: (3) Peripheral neuropathy: (4) MCI (mild cognitive impairment): (5) CVA (cerebral vascular accident): Patient has a history of small right thalamic stroke in February of 2018. She w as left with left-sided dysesthesias and numbness which have been persistent since the stroke. In October she had increased left-sided numbness and again late last evening March 05. There is no new stroke on MRI of the brain this hospitalization. I do not believe this patient had a TIA. She just had the exacerbation of her underlying stroke symptoms from last February from what ever stresses or fatigue is going on now. Clinically, she has no focal signs on exam. She has a sensory ataxia (arms and gait) from her polyneuropathy. CT angiography in October as well as MR angiography today reveals no vessel anomalies in the head or neck. She has fatigue and some chronic memory problems which predated her stroke. This is likely progressive. Recommendations: 1. Physical, speech, and occupational therapy consults would be beneficial for this patient. She may need these as an outpatient also. 2. Consider complete neuropsychological testing as an outpatient to further evaluate her cognitive function. 3. I have no further neurologic testing or treatment recommendations to make during this hospitalization otherwise. Follow-up with Dr. Saeed/Annetta Eason PA-C Overall, I spent a total of 75 minutes with this case including review of records, review of MRI films, direct evaluation the patient at bedside, and discussion of the case with the patient at bedside and her daughter who was present at bedside as well. History of Present Illness Reason for Consultation: Patient is a 63-year-old, who I was asked to see the request of Dr. Samayoa, for neurologic consultation regarding possible stroke Requesting Physician: Dr. Samayoa Attending Physician: Jose Guadalupe Ragland MD History of Present Illness This patient has a history of longstanding diabetes and dyslipidemia. About 4 years ago she had right breast cancer and underwent a right mastectomy with radiation therapy. There is no known recurrence. Patient underwent an L4-5 lumbar laminectomy in July of 2017. She still has low back pain. In February of 2018 the patient had the onset of left-sided weakness and paresthesias. MRI of the brain showed a right thalamic acute stroke of a small nature. She was put on aspirin and Plavix and then left on aspirin alone. She was also put on the statin. Echocardiogram revealed a PFO. Originally she was seen by Dr. Cobb. In October of 2018 she had some transient increase in left-sided pins and needle symptoms. CT scan of the head as well as CT angiography of the head and neck were unremarkable. She was actually sent home. Patient started seeing Annetta Eason PA-C, [facility] in November of 2018. Patient had some mild cognitive impairment which likely was going on since the time of (or before) the stroke. She also has a generalized polyneuropathy. Gabapentin gave side effects and she was initiated on Cymbalta. By January of 2019 the Cymbalta was increased to 60 milligrams a day. The patient feels that this is of questionable help for her symptoms. She is not having any pain in her feet currently. Over the last year the patient has had increased cervical spine pain and bioccipital headaches which radiate around bifrontally. There an achy pressure pain. There is no nausea, vomiting, photophobia, or sonophobia. They are frequent but not daily. The worst of the pressure could last 15 minutes. She does not take any additional medication for these. On March 05, she was cleaning her house. She would clean and then sit for a while pacing herself throughout but did do a lot of cleaning that day. By the late evening she lay down and woke up at 11 o'clock with left hand having worse numbness. There was no pain or weakness. There was some left eye burning pain and numbness of an increase nature in her left foot. Her speech may have been slurred. She had a headache develope on her way to the hospital. She ran to the emergency room March 06 at 0044 the temperature 36.4, pulse of 83, respiratory rate 18, blood pressure 142/81, and O2 saturation 97 percent. She had no focal findings on exam. She complained of a mild occipital headache. CBC showed mild anemia. Glucose was 185. Hemoglobin A1c was 7.8 and urinalysis was unremarkable. MRI of the brain showed no new stroke. The old right thalamic lacune was noted. She does not have any significant old small vessel ischemic disease. MR angiography of the head and neck were unremarkable with no vascular anomalies or stenoses. Currently, she has an intermittent stabbing headache behind her right eye which is somewhat improved and a bioccipital headache. She feels tired and achy in general. Allergies Allergy/AdvReac Type Severity Reaction Status Date / Time propoxyphene AdvReac Unknown GI UPSET Verified 03/06/19 02:12 Home Medications Home Medications Medication Instructions Recorded Confirmed Type acetaminophen 650 mg 650 - 1,300 mg PO ONCE PRN tab 10/04/18 03/06/19 History tablet,extended release aspirin 81 mg tablet,delayed 81 mg PO DAILY 10/04/18 03/06/19 History release metformin 500 mg tablet,extended 1,000 mg PO BID #60 tab 10/04/18 03/06/19 Rx release 24 hr multivitamin 1 tab PO DAILY 10/04/18 03/06/19 History rosuvastatin 40 mg tablet 40 mg PO QAM #30 tab 10/04/18 03/06/19 Rx meclizine 12.5 mg tablet 12.5 mg PO TID PRN #90 tab 12/25/18 03/06/19 Rx pantoprazole 20 mg tablet,delayed 20 mg PO DAILY #90 tab 12/25/18 03/06/19 Rx release fluticasone propionate 50 2 sprays INTNAS DAILY #9.9 gm 01/03/19 03/06/19 Rx mcg/actuation nasal spray,suspension duloxetine 60 mg PO DAILY 03/06/19 03/06/19 History insulin glargine [Basaglar KwikPen 32 unit SUBCUT QAM 03/06/19 03/06/19 History U-100 Insulin] loratadine 10 mg PO DAILY 03/06/19 03/06/19 History sertraline 50 mg PO DAILY 03/06/19 03/06/19 History Patient History Medical History Abnormal mouth sensation (Inactive) Breast cancer CVA (cerebral vascular accident) L thalamic infarct in 02/2018 Depression Diabetes mellitus A1c 7.8% August 2018 DJD (degenerative joint disease) GERD (gastroesophageal reflux disease) Goiter H/O: stroke with residual effects HTN (hypertension) Hyperlipidemia MCI (mild cognitive impairment) Osteoporosis Overweight (BMI 25.0-29.9) Paresthesia Paresthesia of left arm and leg Periorbital ecchymosis of left eye (Inactive) Peripheral neuropathy Reactive airway disease Seasonal allergies Stage 3 chronic kidney disease Vertigo Surgical History H/O: hysterectomy Hx of appendectomy Hx of cholecystectomy S/P laminectomy with spinal fusion L4-[address] 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 [employer] Feels Safe at Home: Yes Smoking Status: Never smoker Hx Alcohol Use: No Hx Substance Use: No Childhood Exposure to Second-Hand Smoke: No caffeine: No Dental Care, Regularly: No Physical Activity Frequency: Does not Exercise Seatbelt Use: always Review of Systems Constitutional: + fatigue; no fever and no weakness Eyes: no diplopia, no eye pain and no worsening vision Ear, Nose, Mouth, Throat: no ear pain, no tinnitus, no hearing loss, no dizziness, no snoring, no hoarseness and no dysphagia Respiratory: no cough and no dyspnea Cardiovascular: no chest pain, no palpitations and no lightheadedness Gastrointestinal: no abdominal pain, no nausea and no vomiting Genitourinary: no dysuria, no urinary frequency and no urinary incontinence Musculoskeletal: + back pain and + neck pain; no radicular pain, no joint pain and no myalgia Integumentary: no rash and no lesions Neurologic: + gait abnormality, + generalized weakness, + numbness, + headache(s) and + memory loss; no localized weakness, no tingling, no tremor(s), no abnormal movements, no abnormal speech and no confusion Psychiatric: no depression, no irritability, no anxiety, no difficulty concentrating, no confusion and no hallucinations Endocrine: + fatigue; no flushing Hematologic / Lymphatic: no easy bleeding and no easy bruising Allergy / Immunological: no urticaria and no problem reported Physical Exam Physical Exam: The patient is right-handed. The patient is awake, alert, and attentive. Speech is without any aphasia or dysarthria. She is hesitant some to formulate her answers at times. She can name objects, repeat phrases, and has normal spontaneous speech. Mentation and thought processes are mildly impaired with long and short-term memory. She knew her age the month and the day of the week but not the year. The discs are sharp with positive venous pulsations bilaterally. There are no exudates, hemorrhages, or blood vessel changes seen. Pupils are 4 mm bilaterally and reactive to light. Extraocular eye muscles are intact without nystagmus. Visual acuity and visual nguyen seem normal grossly to confrontation. She has subjective sensory loss in the right V2 distribution under the eye. Corneal reflexes are positive bilaterally. Facial strength and symmetry was normal bilaterally. Hearing seems normal to whisper and finger rub bilaterally. Palate moves well without asymmetry. There is normal sternocleidomastoid and trapezius (shoulder shrug) strength bilaterally. Tongue is midline with good strength bilaterally. Neck has a full range of motion without discomfort. There are no cervical bruits bilaterally. There are no cranial or ocular bruits. Heart is without murmur. There is a regular rhythm and rate. Cervical, thoracic, and lumbar spine are tender to palpation. Gait is narrow based, but she has difficulty standing with her feet together eyes open. It deteriorates worse with eyes closed. Walking is very hesitant/cautious With outstretched arms there is no drift. There are no resting, postural, or action tremors. There is some problems with [id number] testing eyes closed. This is not a problem eyes open. There is good facility in the hands. No other abnormal involuntary movements are noted. Motor strength is 5/5 diffusely in the arms bilaterally including deltoids, biceps, triceps, brachioradialis, wrist flexors and extensors, perinatal specialist, and intrinsic hand muscles. Motor strength is 5/5 diffusely in the legs bilaterally including hip flexors, quadriceps, hamstrings, gastrocnemius, tibialis anterior, tibialis posterior, and Peroneii muscles. Toe extensors are normal and there is good bulk in the extensor digitorum brevis muscles bilaterally. The limbs have good tone without rigidity or spasticity. There is no atrophy noted in the muscles. Muscle bulk is normal, there is no tenderness to palpation, no myotonia to percussion, and no fasciculations seen. Sensory examination some decreased sensation to touch in a stocking distribution in feet Reflexes are 2/4 in the biceps, triceps, brachioradialis, and quadriceps tendons bilaterally. Achilles tendon reflexes are absent bilaterally. There is no clonus bilaterally. Toes are downgoing with plantar stimulation bilaterally. Peripheral pulses are present and of normal quality distally in all 4 limbs. There is no peripheral edema noted in the limbs. Results & Data Vital Signs (Past 12 Hours) Vital Signs Temp Pulse Pulse Resp BP BP Pulse Ox 03/06/19 07:32 36.6 C 63 17 132/67 100 03/06/19 05:23 36.6 C 79 16 129/69 98 03/06/19 03:24 69 16 127/81 97 03/06/19 01:47 74 20 127/89 98 03/06/19 01:30 82 18 120/93 97 03/06/19 01:19 74 16 128/84 97 03/06/19 00:44 36.4 C L 83 18 142/81 H 97 Diagnostic Findings MRI OF THE BRAIN WITHOUT AND WITH IV CONTRAST CLINICAL HISTORY: left side paresthesias COMPARISON STUDY: MRI of the brain August 28, 2018. Head CT March 06, 2019. TECHNIQUE: Utilizing a 1.5 Courtney magnet and dedicated coil, multiplanar, multiecho imaging of the brain was performed pre and postcontrast administration. IV administration of 8 mL of Gadavist contrast was uneventful. FINDINGS: This exam is mildly compromised by motion artifact. There are no foci of restricted diffusion to suggest acute infarct. No acute intracranial hemorrhage, midline shift or mass effect is present. Ventricular system is stable. Basilar cisterns are patent. There are no extra-axial collections. Flow- voids for the major intracranial vessels are present. There is no intracranial mass or pathologic enhancement. An old lacunar infarct within the right thalamus is unchanged. The appearance of the brain is unchanged since MRI of August 28, 2018. No suspicious calvarial lesions are noted. Orbits are unremarkable. There is no evidence for sinusitis. There is minimal ethmoid sinus mucosal thickening. IMPRESSION: 1. No acute intracranial findings. 2. No intracranial mass or pathologic enhancement. 3. Old right thalamic lacunar infarct. Electronically signed by: Fredrick Simmons M.D. 03/06/2019 7:07 AM PG Care Time/CCT Total # of Minutes Spent Total Time Spent with Patient: Total time spent is greater than 50% in coordination of care (as documented) at patient's floor/unit and/or counseling patient: (1) CVA (cerebral vascular accident) CVA mechanism: unspecified Qualified Code(s): I63.9 - Cerebral infarction, unspecified
--- NOTE | 2019-03-06 15:46 | Communication Note ---
Date of Service: March 06, 2019 Patient was seen and examined by myself. She has already been seen by the cook fry today therefore I will not be billing for this encounter. Revisited history with patient and acknowledged long-standing symptoms of paresthesias in her left hand and left leg. Main reason for admission was acute worsening of this rather than any new symptoms. She reports the same symptoms when she had her stroke initially last year. Episode occurred while lying down on the sofa, no specific precipitating events and otherwise appeared to be well. She does report feeling tired all the time which is been progressive over the last month. Duloxetine has been started increased over a similar timeframe. No focal weakness on exam. No lower extremity numbness having tingling in her left foot. Subjective sensory deficit in stocking distribution in her left hand. Subjective sensory deficit in right maxillary distribution. Imaging today shows no acute process. Appreciate consultation from neurology - no acute CVA or TIA suspected. Assessment and plan Symptoms suspected to be due to old CVA. We will discontinue clopidogrel at this time. PT, OT. Tired all the time -routine labs appear unremarkable for this. TSH 0.873 in November. Repeat TSH in a.m. Concern for side effect of duloxetine in addition to sertraline -we will discontinue sertraline at this time. Unclear how often she is taking meclizine whether this could be contributory. B12 in a.m. labs Diabetes -pending HbA1c in a.m. 7.8 in August this year.
[2019-03-07 06:48] LABS: Estimated Average Glucose 174 mg/dl; Hemoglobin A1C 7.7 % (4.5-5.6)
[2019-03-07] MEDS: ROSUVASTATIN CALCIUM 20 MG TAB PO SCH (08:38)
[2019-03-07] MEDS: ASPIRIN 81 MG ECTAB PO SCH (08:38)
[2019-03-07] MEDS: DULOXETINE HCL 60 MG CAP PO SCH (08:38)
[2019-03-07] MEDS: PANTOprazole 40 MG TAB PO SCH (08:38)
[2019-03-07] MEDS: MULTIVITAMIN TAB PO SCH (08:38)
[2019-03-07] MEDS: LORATADINE 10 MG TAB PO SCH (08:38)
[2019-03-07] MEDS: FLUTICASONE PROPIONATE NA SPR 16 GM BTL NAE SCH (08:42)
[2019-03-07] MEDS: INSULIN ASPART 100 UNITS/ML 3 ML PEN SC SCH ×2 (08:44→12:12)
[2019-03-07] MEDS: INSULIN GLARGINE SOLOSTAR 100 UNITS/ML 3 ML PEN SQ SCH (08:44)
--- NOTE | 2019-03-07 10:54 | Neurology Progress Note ---
Date of Service March 07, 2019 Assessment & Plan (1) Paresthesia of left arm and leg: (2) Ataxia: (3) Peripheral neuropathy: (4) MCI (mild cognitive impairment): (5) CVA (cerebral vascular accident): Patient has a history of small right thalamic stroke in February of 2018. She was left with left-sided dysesthesias and numbness which have been persistent since the stroke. In October she had increased left-sided numbness and again late last evening March 05. There is no new stroke on MRI of the brain this hospitalization. I do not believe this patient had a TIA. She just had the exacerbation of her underlying stroke symptoms from last February from what ever stresses or fatigue is going on now. Clinically, she has no focal signs on exam. She has a sensory ataxia (arms and gait) from her polyneuropathy. CT angiography in October as well as MR angiography today reveals no vessel anomalies in the head or neck. She has fatigue and some chronic memory problems which predated her stroke. This is likely progressive. Recommendations: 1. Physical, speech, and occupational therapy consults would be beneficial for this patient. She may need these as an outpatient also. 2. Consider complete neuropsychological testing as an outpatient to further evaluate her cognitive function. 3. I have no further neurologic testing or treatment recommendations to make during this hospitalization otherwise. Follow-up with Dr. Saeed/Annetta Eason PA-C Overall, I spent a total of 25 minutes with this case including review of records, review of MRI films, direct evaluation the patient at bedside, and discussion of the case with the patient at bedside and her daughter who was present at bedside as well. Subjective Patient has no complaint of pain or headache. She feels better today. Nursing reports no new issues. Blood pressure was 127/76. Hemoglobin A1c is 7.7 B12 was 382. Physical Exam Physical Exam: The patient is awake, alert, and attentive, with normal speech and communication. The patient is fully oriented, has a normal mood and affect, and has intact long and short term memory to conversation. Extraocular eye muscles are intact without nystagmus. Facial strength and symmetry is normal bilaterally. Facial sensation is normal bilaterally in all 3 divisions of the fifth cranial nerve. Tongue is midline with normal strength bilaterally. Gait is tend. Her stance eyes open is somewhat unsteady and she deteriorates quickly with eyes closed. Coordination of the arms is normal eyes open, without tremor or ataxia bilaterally. Motor strength is 5/5 in all major muscle groups of the arms and legs bilaterally, both proximally and distally. Muscle tone is normal in the limbs, without rigidity or spasticity. Results & Data Vital Signs (Past 12 Hours) Vital Signs Temp Pulse Resp BP BP Pulse Ox 03/07/19 07:12 36.7 C 66 18 127/75 97 03/06/19 23:30 36.8 C 66 20 123/50 L 92 PG Care Time/CCT Total # of Minutes Spent Total Time Spent with Patient: Total time spent is greater than 50% in coordination of care (as documented) at patient's floor/unit and/or counseling patient: (1) CVA (cerebral vascular accident) CVA mechanism: unspecified Qualified Code(s): I63.9 - Cerebral infarction, unspecified
[2019-03-07] MEDS ORDERED: METFORMIN HCL ER 500 MG TABCR PO ONE (13:00)
--- NOTE | 2019-03-07 14:02 | Discharge Summary ---
Date of Service March 07, 2019 Admission HPI Per Admitting Provider The patient is a 63-year-old female with a past medical history including CVA with residual left-sided paresthesias and ambulatory dysfunction that occurred on 03/11/2018. Since that time, she has had intermittent worsening of symptoms, but over the past several days has had more significant worsening, and she was brought into the ED for further assessment. Admission Exam Per Admitting Provider The patient is awake, alert and oriented 3, normocephalic and atraumatic, sitting upright in bed and in no acute distress. HEENT--PERRL, EOMI, mucous membranes and oropharynx normal. Neck--supple. No JVD. No bruits. Thyroid normal, trachea midline, no adenopathy. Heart--normal S1 and S2. No murmurs, rubs or gallops. Lungs--clear bilaterally, no respiratory distress, no accessory muscle use. Abdomen--normal bowel sounds and soft. Nontender. Nondistended, no hernias or masses, no organomegaly. Extremities--no cyanosis or clubbing. No edema. There are good distal pulses b/l. Dermatologic--normal skin turgor, normal color, no abnormal lymph nodes, no rash. Neurologic--cranial nerves II through XII grossly intact. Left upper extremity motor strength 4+/5, left lower extremity 4/5. Decreased sensation upper and lower. Rheumatologic--decreased left side due to neurologic dysfunction Psychiatric--normal affect. Principal Diagnosis Residual paresthesias of old stroke Ruled out new acute cerebrovascular event Discharge Exam Constitutional WD/WN, vitals as above Eyes PERRL, conjunctivae normal, anicteric sclerae Respiratory normal respiratory effort, lungs clear to auscultation Cardiovascular RRR, no murmur, no edema Gastrointestinal (Abdomen) normal bowel sounds, soft, nontender, no hepatosplenomegaly Musculoskeletal no cyanosis or clubbing, extremities motor strength 5/5 Neurologic moves all extremities and awake; no focal motor deficits and not confused Speech / Cognition: normal speech Motor/Sensory: + sensory deficit (right upper > lower extremity); no tremor and no pronator drift Psychiatric A+Ox3, euthymic affect Discharge Data Allergies Allergy/AdvReac Type Severity Reaction Status Date / Time propoxyphene AdvReac Unknown GI UPSET Verified 03/14/19 10:01 Consultations 03/06/19 01:59 ED Decision to Admit Stat 03/06/19 04:54 Consult Case Management - Discharge Planning Routine 03/06/19 08:06 Consult Neurology Routine Ordered Studies 03/06/19 00:54 CT head/brain wo con Urgent 03/06/19 03:06 MR angio head wo con Urgent MR angio neck wo/w con Urgent MR brain wo/w con Urgent Hospital Course (1) CVA (cerebral vascular accident): Denise Ma is a 63 year old female admitted to [facility] from March 06 to 2018 due to concerns of worsening paresthesias in her left hand and foot. Imaging and neurology consult confirmed no new acute stroke at this time and her symptoms are suspected to be due to your old stroke likely acutely worse due to the amount of exertion she had on the day of admission. She was evaluated by physical therapy and recommended continuing outpatient physical therapy at this time. Due to her ongoing tiredness all the time and questionable diagnosis of vertigo I recommended stopping meclizine. Orthostatics vital signs were normal at this one point in time, but may be more prominent in the mornings from her history. Recommend she discusses her ongoing dizziness with position with her primary care provider if still persistent after stopping meclizine. Dr Pfeiffer (neurology) also recommended considering discussing a neuropsychiatry consult for her ongoing memory issues. (2) Paresthesia of left arm and leg: (3) Ataxia: (4) H/O: stroke with residual effects: (5) MCI (mild cognitive impairment): (6) Stage 3 chronic kidney disease: (7) Hyperlipidemia: (8) Diabetes mellitus: (9) Breast cancer: (10) GERD (gastroesophageal reflux disease): Total Time Total Time Spent Total Time Spent (In Minutes): 55 Total Time Includes: Examination of the Patient, Discharge Planning, Medication Reconciliation and Communication With Other Providers (Dr Pfeiffer) Discharge Plan Discharge Items Patient Disposition: Home - Self-Care Reason For Visit: CVA, WORSENING LEFT SIDE PARESTHESIAS Discharge Diagnosis: Residual paresthesias of old stroke Ruled out new acute cerebrovascular event Activity: Resume your previous activity Non-emergency contact: Primary Care Provider Call non-emergency contact if: you have any medication questions and your symptoms worsen Follow-up/Referrals: Marleni Macias DO [Primary Care Provider] - 03/14/19 10:15 am (Please, follow up at Dr. Macias's office with her associate, Tere Evans PA-C, on TuesdayMarch 14 at 10:15 am. If you need to change this appointment, call the office at [phone].) Diet: Carb Consistent or DM2 Addtl Attending Provider Instructions: You were admitted to [facility] from March 06 to 2018 due to concerns of worsening paresthesias (numbness and tingling) in your left hand and foot. Workup and neurology consult confirmed to new acute stroke at this time and your symptoms are suspected to be due to your old stroke likely acutely worse due to the amount of exertion you had that day. You were evaluated by physical therapy and recommended continuing outpatient physical therapy at this time. Due to your ongoing tiredness all the time and questionable diagnosis of vertigo I recommend stopping meclizine. Orthostatics vital signs were normal at this one point in time, but may be more prominent in the mornings. Recommend discussing your ongoing dizziness on standing with your primary care provider if still persistent after stopping meclizine. Dr Pfeiffer (neurology) also recommended considering discussing a neuropsychiatry consult for your ongoing memory issues. Pending Studies at Discharge: No Stand-Alone Forms: My [facility], Smoking Cessation Medications and DC Order Prescriptions: Continued pantoprazole 20 mg tablet,delayed release (DR/EC) 20 mg PO DAILY Qty: 90 RF: 1 fluticasone propionate [Flonase Allergy Relief] 50 mcg/actuation spray,suspension 2 sprays INTNAS DAILY Qty: 9.9 RF: 2 aspirin 81 mg tablet,delayed release (DR/EC) 81 mg PO DAILY RF: 0 rosuvastatin 40 mg tablet 40 mg PO QAM Qty: 30 RF: 0 metformin 500 mg tablet extended release 24 hr 1,000 mg PO BID Qty: 60 RF: 0 multivitamin tablet 1 tab PO DAILY RF: 0 acetaminophen [Tylenol Arthritis Pain] 650 mg tablet extended release 650 - 1,300 mg PO ONCE PRN (Reason: Pain) RF: 0 loratadine 10 mg tablet 10 mg PO DAILY RF: 0 Basaglar KwikPen U-100 Insulin 100 unit/mL (3 mL) insulin pen 32 unit SUBCUT QAM RF: 0 duloxetine 60 mg capsule,delayed release(DR/EC) 60 mg PO DAILY RF: 0 Discontinued meclizine 12.5 mg tablet 12.5 mg PO TID PRN (Reason: dizziness or vertigo) Qty: 90 RF: 1 Discharge Orders: Discharge Order (Routine); Ordered 03/07/19 Ordered By: Jose Guadalupe Ragland Admission Data Admit Date/Time: 03/06/19 03:38 Attending Provider: Jose Guadalupe Ragland Admit Provider: Luis M Samayoa Primary Care Provider: Marleni Macias Other Providers: Parminder Pfieffer III Other Interventions: Discharge Summary Assessment (RN) Last Done: 03/07/19 14:03 DC Date/Time DO NOT enter until pt leaves facility: 03/07/19 14:30
--- NOTE | 2019-03-14 17:00 | Emergency Department Note ---
ED Visit Note Name: CORINNE CURRIE Age: 63 Arrives Via: Walk-In Informant: [Patient] CC: [] HPI: 63F arrives for evaluation of []. [] ROS: See above HPI for pertinent positives & negatives. A total of 10 systems reviewed and were otherwise negative. Past Medical History:[See Below] Past Surgical History:[See Below] Family History:[See Below] Social History:[See Below] Home Medications:[See Below] Allergies:[See Below] Vitals:[See Below] Physical Exam: GENERAL: Patient is well appearing and in no acute distress. EYES: No scleral icterus, unremarkable pupils. ENT: Mucous membranes moist, no nasal congestion. NECK: No masses appreciated, nomeningismus, trachea is midline. RESPIRATORY: No dyspnea. Clear to auscultation and equal bilaterally. No wheeze, no rhonchi. CARDIOVASCULAR: Regular rate and rhythm.No murmurs, rubs, gallops appreciated. GASTROINTESTINAL: Abdomen soft, non-tender, no peritonitis.Bowel sounds positive.No masses appreciated. BACK: No midline tenderness, no CVA tenderness EXTREMITIES: Normal motion all extremities, no cyanosis, no edema. NEUROLOGIC: Alert and oriented, no acute motor or sensory deficits, no focal weakness, cranial nerves grossly intact. SKIN: No rash, no jaundice, no diaphoresis. ED Course: Prior Medical Record, Triage/Nursing Notes, Medications, Allergies reviewed by Me Vital Signs: reviewed and remarkable for [no significant abnormalities] Labs:Reviewed and remarkable for [no significant abnormalities] Interventions: [] Imaging:[] EKG:[] Consults:[] Reassessments/Times: [] Blood pressure:[Elevated - Referred to PCP - Lowman to be Situational.][Normal.No Referral necessary] Disposition:[Discharged.See plan for instructions.][Referred to: PCP.][] Condition: [Good].Disposition: [Home]. Prescriptions:[]. Differentials:[] amongst other pathologies. Medical Decision Making: [] Impression: [] Critical Care Time: [None]
== END 2019-03-07 14:30 | disposition home or self-care (01) | DRG 57 ==
LOC: ED 00:41 → 2E 03:38 → SUATTDRO 03:38 → 2E 04:34 → 4W 16:37

== ENCOUNTER 2019-10-19 19:58 | Inpatient (IN) ==
--- NOTE | 2019-10-19 20:18 | CT Scan Report ---
CT SCAN OF THE BRAIN WITHOUT IV CONTRAST CLINICAL HISTORY: Strokelike symptoms. COMPARISON STUDY: CT an MRI of the brain dated 06/28/2019. TECHNIQUE: Unenhanced axial CT scan of the brain is performed from the vertex to the skull base. A do se lowering technique was utilized adhering to the principles of ALARA. CT DOSE: 537.48 mGy.cm FINDINGS: Brain parenchyma: There is minimal subcortical and periventricular microangiopathic disease. A chroni c lacunar infarct is again seen in the right thalamus. There is no hemorrhage, mass effect, or eviden ce of acute territorial ischemia by CT criteria. Durbin-white matter differentiation is preserved. No e xtra-axial fluid collection is seen. Ventricles, sulci, cisterns: Normal in configuration. Intracranial vasculature: There is atherosclerotic calcification of the cavernous carotid and vertebr al arteries. Calvarium: Unremarkable. Sinuses and mastoids: The visualized paranasal sinuses are clear. The mastoid air cells are well pneu matized. Orbits: The bony orbits are grossly intact. IMPRESSION: There is no hemorrhage, mass effect, or evidence of acute territorial ischemia by CT mami ennis. ACT 112: Negative or not required by law. Electronically signed by: Jose Price M.D. 10/19/2019 8:17 PM
--- NOTE | 2019-10-19 20:30 | XRay Report ---
SINGLE VIEW CHEST CLINICAL HISTORY: Strokelike symptoms. FINDINGS: An AP, portable, upright chest radiograph is compared to study dated 11/02/2018. The examinat ion is degraded by portable technique, apical lordotic positioning, and patient rotation. The cardio mediastinal silhouette is unremarkable. Eventration of the right hemidiaphragm is similar to previous . There is mild bibasilar scarring/atelectasis. No airspace consolidation or large pleural effusion i s identified. No pneumothorax is seen. The skeletal structures are osteopenic. The bony thorax is ban ssly intact. Spondylotic change is noted in the thoracic spine. IMPRESSION: No active disease in the chest. ACT 112: Negative or not required by law. Electronically signed by: Jose Price M.D. 10/19/2019 8:29 PM
[2019-10-19 20:31] LABS: Hematocrit (blood only) 37.1 % (37-47); Hemoglobin 12.5 g/dL (12.0-16.0); Mean Corpuscular Hemoglobin 28.1 pg (25-34); Mean Corpuscular Hgb Conc 33.7 g/dL (32-36); Mean Corpuscular Volume 83.4 fL (80-100); Mean Platelet Volume 9.9 fL (7.4-10.4); Platelet Count 262 K/uL (130-400); RDW Coefficient of Variation 14.2 % (11.5-14.5); RDW Standard Deviation 43.2 fL (36.4-46.3); Red Blood Count 4.45 M/uL (4.2-5.4); White Blood Count 8.11 K/uL (4.8-10.8)
[2019-10-19 20:43] LABS: Partial Thromboplastin Ratio 0.9; Partial Thromboplastin Time 25.6 Seconds (21.0-31.0); Prothrombin Time 10.9 Seconds (9.0-12.0)
[2019-10-19] MEDS ORDERED: SODIUM CHLORIDE 0.9% 1000ML 1,000 ML IV SCH (20:45)
[2019-10-19 20:46] LABS: Alanine Aminotransferase 19 U/L (12-78); Albumin Level 3.6 gm/dl (3.4-5.0); Aspartate Aminotransferase 10 U/L (15-37); BUN Creatinine Ratio 14.8 (10-20); Blood Urea Nitrogen 18 mg/dl (7-18); Carbon Dioxide 25 mmol/L (21-32); Chloride 107 mmol/L (98-107); Est GFR (African American) 56.4; Est GFR (Non-African American) 48.7; Glucose 160 mg/dl (70-99); Magnesium 1.8 mg/dl (1.8-2.4); Potassium 3.9 mmol/L (3.5-5.1); Sodium 141 mmol/L (136-145)
--- NOTE | 2019-10-19 20:53 | Emergency Department Note ---
History of Present Illness General Chief complaint: TIA Symptoms Stated complaint: STROKELIKE SYMPTOMS Time Seen by Provider: 10/19/19 20:10 Source: patient and family History of Present Illness Provider complaint: Left leg weakness Onset (ago): hour(s) Location: lower extremity and left Radiation: non-radiation Severity: moderate Pain Consistency: + constant Quality: + other (Weakness in the left leg) Relieved By: + none Associated symptoms: + headaches (Frontal headache rating to the back of her head); no chest pain, no cough, no fever/chills, no nausea/vomiting and no shortness of breath Treatments prior to arrival: aspirin This is a 64-year-old female with a history of prior stroke presenting with left-sided weakness in the lower extremity. The patient states that the last time she felt at her baseline was at approximately 2 PM today. Her [id number] who is at the bedside states that the patient had mentioned to her that she was not feeling well this morning when she woke up. The patient states that she had difficulty walking due to weakness in her left leg. She did not fall to the ground. She also notes that she has numbness to left side of her face as well as her left hand which is much more pronounced than her baseline. She states that she normally has some numbness to the left side from her prior stroke. She does complain of a headache in the frontal region rating to the back of her head. She denies any fever, vomiting, chest pain, shortness of breath, abdominal pain, or cough or cold symptoms. She did take an aspirin prior to arrival and takes a baby aspirin every day. Home Medications Home Medications Medication Instructions Recorded Confirmed Type acetaminophen 650 mg 650 - 1,300 mg PO ONCE PRN tab 10/04/18 10/10/19 History tablet,extended release aspirin 81 mg tablet,delayed 81 mg PO DAILY 10/04/18 10/10/19 History release multivitamin 1 tab PO DAILY 10/04/18 10/10/19 History rosuvastatin 40 mg tablet 40 mg PO QAM #30 tab 10/04/18 10/10/19 Rx Basaglar KwikPen U-100 Insulin 32 unit SUBCUT QAM 03/06/19 10/10/19 History polymyxin B sulfate 10,000 1 drops OP QID 7 Days #10 ml 02/10/20 07/15/20 Rx unit-trimethoprim 1 mg/mL eye drops duloxetine 60 mg capsule,delayed 60 mg PO BID #60 cap 06/05/19 10/10/19 Rx release pantoprazole 20 mg tablet,delayed 20 mg PO DAILY #90 tab 06/20/19 10/10/19 Rx release cetirizine 10 mg tablet 10 mg PO DAILY #90 tab 06/29/19 10/10/19 Rx fluticasone propionate 50 2 sprays INTNAS DAILY #9.9 gm 07/25/19 10/10/19 Rx mcg/actuation nasal spray,suspension metformin 500 mg tablet,extended 1,000 mg PO BID #60 tab 09/19/19 10/10/19 Rx release 24 hr Allergies Allergy/AdvReac Type Severity Reaction Status Date / Time propoxyphene AdvReac Unknown GI UPSET Verified 10/10/19 13:01 Past Med/Surg History Medical History Abnormal mouth sensation (Inactive) Breast cancer CVA (cerebral vascular accident) R thalamic infarct in 02/2018 Depression Diabetes mellitus A1c 7.8% August 2018 DJD (degenerative joint disease) GERD (gastroesophageal reflux disease) Goiter H/O: stroke with residual effects HTN (hypertension) Hyperlipidemia MCI (mild cognitive impairment) Osteoporosis Overweight (BMI 25.0-29.9) Paresthesia of left arm and leg Periorbital ecchymosis of left eye (Inactive) Peripheral neuropathy Reactive airway disease Seasonal allergies Stage 3 chronic kidney disease Vertigo Surgical History H/O: hysterectomy Hx of appendectomy Hx of cholecystectomy S/P laminectomy with spinal fusion L4-[address] Pillai 07/2017 S/P right mastectomy Family History Mother , age 55 of an CO Myocardial infarction Heart disease Father , age 72 of an CO Heart disease Myocardial infarction Other Breast cancer Coronary heart disease Diabetes Hypertension Osteoporosis Stroke Denies family history of Ovarian cancer Prostate cancer Lung cancer Colorectal cancer Social History Smoking Status: Never smoker Hx Alcohol Use: No Hx Substance Use: No Preferred Language: [place] Communication Ability: Effective Visual Impairment: No Limitations Hearing Ability: Normal Resistor Inspector Required: No Beliefs That Will Affect Care: None marital status: Current Living Situation: Family Current Living Situation Comment: grandson lives w/ pt current occupational status: retired 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 and A total of 10 systems reviewed and were otherwise negative Physical Exam Vital Signs Vital Signs - 24 hr 10/19/19 20:02 10/19/19 20:21 10/19/19 20:25 Temperature 37 C Temperature Source Oral Pulse Rate 100 H 85 110 H Pulse Rate [Apical] Pulse Rate from SpO2 Sensor 108 H Respiratory Rate 14 18 21 Respiratory Effort / Characteristics Non-Labored Spontaneous Respiratory Depth Normal Blood Pressure 117/76 111/85 Blood Pressure [Right Arm] Blood Pressure Mean 89 106 Blood Pressure Mean [Right Arm] Pulse Oximetry 98 100 Oxygen Delivery Method Room Air Sepsis Recent Fever Within 48 Hours No Sepsis New/Unexplained Change in Mental Status No Sepsis Action Taken by Nursing No Action Required Pulse Oximetry Post Tiitration 10/19/19 20:28 10/19/19 20:31 10/19/19 21:15 Temperature Temperature Source Pulse Rate 89 78 Pulse Rate [Apical] Pulse Rate from SpO2 Sensor 89 76 Respiratory Rate 17 19 Respiratory Effort / Characteristics Respiratory Depth Blood Pressure 81/68 L Blood Pressure [Right Arm] Blood Pressure Mean 74 Blood Pressure Mean [Right Arm] Pulse Oximetry 100 100 100 Oxygen Delivery Method Room Air Room Air Sepsis Recent Fever Within 48 Hours Sepsis New/Unexplained Change in Mental Status Sepsis Action Taken by Nursing Pulse Oximetry Post Tiitration 100 10/19/19 21:19 10/19/19 21:30 Temperature Temperature Source Pulse Rate 72 Pulse Rate [Apical] 76 Pulse Rate from SpO2 Sensor 72 Respiratory Rate 23 16 Respiratory Effort / Characteristics Respiratory Depth Blood Pressure 121/73 Blood Pressure [Right Arm] 117/77 Blood Pressure Mean 89 Blood Pressure Mean [Right Arm] 90 Pulse Oximetry 97 99 Oxygen Delivery Method Room Air Room Air Sepsis Recent Fever Within 48 Hours Sepsis New/Unexplained Change in Mental Status Sepsis Action Taken by Nursing Pulse Oximetry Post Tiitration Constitutional: Vital signs reviewed. Eyes: Pupils are equal round reactive to light. Conjunctiva are noninjected. ENT: Pharynx is clear without erythema or exudate. Mucous membranes are moist. Neck supple without meningeal signs. Respiratory: Clear to auscultation bilaterally. Breath sounds are equal bilaterally. Cardiovascular: Regular rate and rhythm. No rubs or gallops. GI: Soft, nondistended and nontender. Bowel sounds are present. Musculoskeletal: No peripheral edema. No lower extremity tenderness. Integumentary: No cyanosis. or jaundice. Neurologic: The patient is awake and alert. Cranial nerves II-XII are intact, except for dysesthesia to the lower left half of the face. No facial droop is noted. She can puff out her cheeks without difficulty and maintain a seal with pressure. Motor is 3 out of 5 in the left lower extremity and 4 out of 5 in the left upper extremity. Sensation is intact to light touch all extremities with dysesthesia to the left hand over a glove distribution. She has some difficulty finding words at times. Left pronator drift and left upper limb ataxia. Psychiatric: Somewhat anxious appearing. Course Administered Medications Discontinued Medications Lorazepam (Ativan) 1 mg SL NOW STA Stop: 10/19/19 21:07 Last Admin: 10/19/19 21:43 Dose: 1 mg Documented by: [id number] Medical Decision Making Differential Diagnosis CVA, TIA, ICH, intracranial mass, metabolic derangement Medical Records Attestation: I reviewed the patient's medical records. The patient was seen here June 2023 strokelike symptoms including numbness to the left side of her body. She had a work-up here including CT of the head and CT angiogram of the head and neck. She was discharged with a diagnosis of paresthesias. She was admitted in 2018 for a right thalamic stroke. She was seen by neurology earlier this month for follow-up. She was noted to have residual symptoms of paresthesias to the left face and left hand. Home Medications Current Medication List: was personally reviewed by me Laboratory Data Attestation: I reviewed the patient's lab results. Result diagrams: 10/19/19 20:22 10/19/19 20:22 Lab Results 10/19/19 10/19/19 10/19/19 Range/Units 20:22 20:22 20:22 WBC 8.11 (4.8-10.8) K/uL RBC 4.45 (4.2-5.4) M/uL Hgb 12.5 (12.0-16.0) g/dL Hct 37.1 (37-47) % MCV 83.4 (80-100) fL MCH 28.1 (25-34) pg MCHC 33.7 (32-36) g/dL RDW Std Deviation 43.2 (36.4-46.3) fL RDW Coeff of Supriya 14.2 (11.5-14.5) % Plt Count 262 (130-400) K/uL MPV 9.9 (7.4-10.4) fL PT 10.9 (9.0-12.0) Seconds INR 1.0 (0.9-1.1) APTT 25.6 (21.0-31.0) Seconds PTT Ratio 0.9 Sodium 141 (136-145) mmol/L Potassium 3.9 (3.5-5.1) mmol/L Chloride 107 (98-107) mmol/L Carbon Dioxide 25 (21-32) mmol/L Anion Gap 9.0 (3-11) BUN 18 (7-18) mg/dl Creatinine 1.18 (0.6-1.2) mg/dl Est Cr Clr Drug Dosing Not Reportable Est GFR ( Amer) 56.4 Est GFR (Non-Af Amer) 48.7 BUN/Creatinine Ratio 14.8 (10-20) Glucose 160 H (70-99) mg/dl POC Glucose (70-99) mg/dl Calcium 10.0 (8.5-10.1) mg/dl Magnesium 1.8 (1.8-2.4) mg/dl Total Bilirubin 0.4 (0.2-1) mg/dl AST 10 L (15-37) U/L ALT 19 (12-78) U/L Alkaline Phosphatase 86 (45-117) U/L Total Protein 7.5 (6.4-8.2) gm/dl Albumin 3.6 (3.4-5.0) gm/dl Globulin 3.9 (2.5-4.0) gm/dl Albumin/Globulin Ratio 0.9 (0.9-2) /24/20 Range/Units 20:33 WBC (4.8-10.8) K/uL RBC (4.2-5.4) M/uL Hgb (12.0-16.0) g/dL Hct (37-47) % MCV (80-100) fL MCH (25-34) pg MCHC (32-36) g/dL RDW Std Deviation (36.4-46.3) fL RDW Coeff of Supriya (11.5-14.5) % Plt Count (130-400) K/uL MPV (7.4-10.4) fL PT (9.0-12.0) Seconds INR (0.9-1.1) APTT (21.0-31.0) Seconds PTT Ratio Sodium (136-145) mmol/L Potassium (3.5-5.1) mmol/L Chloride (98-107) mmol/L Carbon Dioxide (21-32) mmol/L Anion Gap (3-11) BUN (7-18) mg/dl Creatinine (0.6-1.2) mg/dl Est Cr Clr Drug Dosing Est GFR ( Amer) Est GFR (Non-Af Amer) BUN/Creatinine Ratio (10-20) Glucose (70-99) mg/dl POC Glucose 166 H (70-99) mg/dl Calcium (8.5-10.1) mg/dl Magnesium (1.8-2.4) mg/dl Total Bilirubin (0.2-1) mg/dl AST (15-37) U/L ALT (12-78) U/L Alkaline Phosphatase (45-117) U/L Total Protein (6.4-8.2) gm/dl Albumin (3.4-5.0) gm/dl Globulin (2.5-4.0) gm/dl Albumin/Globulin Ratio (0.9-2) Imaging Data Radiologist's Impression: CT SCAN OF THE BRAIN WITHOUT IV CONTRAST CLINICAL HISTORY: Strokelike symptoms. COMPARISON STUDY: CT an MRI of the brain dated 06/28/2019. TECHNIQUE: Unenhanced axial CT scan of the brain is performed from the vertex to the skull base. A dose lowering technique was utilized adhering to the principles of ALARA. CT DOSE: 537.48 mGy.cm FINDINGS: Brain parenchyma: There is minimal subcortical and periventricular microangiopathic disease. A chronic lacunar infarct is again seen in the right thalamus. There is no hemorrhage, mass effect, or evidence of acute territorial ischemia by CT criteria. Durbin-white matter differentiation is preserved. No extra-axial fluid collection is seen. Ventricles, sulci, cisterns: Normal in configuration. Intracranial vasculature: There is atherosclerotic calcification of the cavernous carotid and vertebral arteries. Calvarium: Unremarkable. Sinuses and mastoids: The visualized paranasal sinuses are clear. The mastoid air cells are well pneumatized. Orbits: The bony orbits are grossly intact. IMPRESSION: There is no hemorrhage, mass effect, or evidence of acute territorial ischemia by CT criteria. ACT 112: Negative or not required by law. Electronically signed by: Jose Price M.D. 10/19/2019 8:17 PM SINGLE VIEW CHEST CLINICAL HISTORY: Strokelike symptoms. FINDINGS: An AP, portable, upright chest radiograph is compared to study dated 11/02/2018. The examination is degraded by portable technique, apical lordotic positioning, and patient rotation. The cardiomediastinal silhouette is unremarkable. Eventration of the right hemidiaphragm is similar to previous. There is mild bibasilar scarring/atelectasis. No airspace consolidation or large pleural effusion is identified. No pneumothorax is seen. The skeletal structures are osteopenic. The bony thorax is grossly intact. Spondylotic change is noted in the thoracic spine. IMPRESSION: No active disease in the chest. ACT 112: Negative or not required by law. Electronically signed by: Jose Prcie M.D. 10/19/2019 8:29 PM Dictated: 10/19/192026 Transcribed: 10/19/192026 ECG Data Attestation: I personally reviewed and interpreted this ECG as follows: Indication: + other (Stroke symptoms) Rate (beats per minute): 84 Rhythm: + normal sinus ECG Brimson: + Normal ECG ST segments: no ST elevation ECG Findings: no PVCs Blood Pressure Blood Pressure Findings: Elevated blood pressure Blood Pressure Disposition: further management by hospitalist PRINCESS Still A stroke alert was called in triage. I did evaluate the patient as noted above. I did obtain history from the patient as well as her [id number]-[id number]. Ita chapa to the patient her last known well was at 2 PM. She is outside of the window for IV TPA. I did order a CT of the head. I did review the images myself as well as the radiology report as described above. There is no evidence of acute intracranial abnormality. I did discuss the case with the [place] stroke neurologist over the telephone Dr. Mas 1. He recommended getting an MRI and MRA of the head. He stated that if there is a new abnormality on MRI that we should load her with Plavix and add that to her antiplatelet regimen. Otherwise should she have stuttering symptoms we should consider EEG for the possibility of a partial simple seizure. IV access was established. Initial blood pressure was 81/68. Recheck without intervention showed a systolic blood pressure 140. She was started on normal saline IV. I did place an order for continuous cardiac monitoring. The monitor showed normal sinus rhythm with a rate of 86. I did order and personally review the patient's 12-lead EKG as described above. She has no acute ischemic changes on her twelve-lead EKG. I did order and review the patient's blood work as noted in the electronic medical record. There is no evidence of acute ischemia. I did discuss the test results with the patient and her family. She will be hospitalized for further care and evaluation. I did order an MRI of the brain and MRA of the head. This is currently pending. I did discuss case with Dr. Villatoro and the case operator. Impression & Plan CVA (cerebral vascular accident), Left leg weakness Discharge Plan Visit Data Chief Complaint: TIA Symptoms Stated Complaint: STROKELIKE SYMPTOMS ED Provider: Lennox Ledezma Discharge Problem: CVA (cerebral vascular accident), Left leg weakness Patient Disposition: Being Evaluated by Hospitalist Forms Stand Alone Forms: My [facility] Prescriptions Prescriptions: No Action pantoprazole 20 mg tablet,delayed release (DR/EC) 20 mg PO DAILY Qty: 90 RF: 1 cetirizine 10 mg tablet 10 mg PO DAILY Qty: 90 RF: 3 metformin 500 mg tablet extended release 24 hr 1,000 mg PO BID Qty: 60 RF: 5 polymyxin B sulf-trimethoprim 10,000 unit- 1 mg/mL drops 1 drops OP QID 7 Days Qty: 10 RF: 0 aspirin 81 mg tablet,delayed release (DR/EC) 81 mg PO DAILY RF: 0 rosuvastatin 40 mg tablet 40 mg PO QAM Qty: 30 RF: 0 multivitamin tablet 1 tab PO DAILY RF: 0 acetaminophen [Tylenol Arthritis Pain] 650 mg tablet extended release 650 - 1,300 mg PO ONCE PRN (Reason: Pain) RF: 0 duloxetine 60 mg capsule,delayed release(DR/EC) 60 mg PO BID Qty: 60 RF: 3 fluticasone propionate [Flonase Allergy Relief] 50 mcg/actuation spray,suspension 2 sprays INTNAS DAILY Qty: 9.9 RF: 5 Basaglar KwikPen U-100 Insulin 100 unit/mL (3 mL) insulin pen 32 unit SUBCUT QAM RF: 0 Referrals Referrals: Marleni Macias DO [Primary Care Provider] -
[2019-10-19 20:54] LABS: Albumin Globulin Ratio 0.9 (0.9-2); Alkaline Phosphatase 86 U/L (45-117); Bilirubin,Total 0.4 mg/dl (0.2-1); Globulin 3.9 gm/dl (2.5-4.0); Total Protein 7.5 gm/dl (6.4-8.2)
[2019-10-19] MEDS ORDERED: LORazepam 1 MG TAB SL STA (21:06)
--- NOTE | 2019-10-19 22:34 | History & Physical Report ---
Date of Service October 19, 2019 Assessment & Plan (1) CVA (cerebral vascular accident): New CVA/worsening paresthesia of left arm and leg/new weakness of left lower extremity and ataxia- Stroke without TPA protocol order set. Once able to pass dysphagia screen, will be placed on clopidogrel 75 mg daily. Consult PT/OT/speech therapy/neurology. Present on Admission?: Yes (2) Paresthesia of left arm and leg: See above Present on Admission?: Yes (3) Left leg weakness: See above Present on Admission?: Yes (4) Ataxia: See above Present on Admission?: Yes (5) H/O: stroke with residual effects: Patient with known previous stroke, with residual left upper lower extremity paresthesias. Present on Admission?: Yes (6) Stage 3 chronic kidney disease: Creatinine 1.18 upon admission, with range 0.86-1.06. Will be placed on IV fluids, and follow serially Present on Admission?: Yes (7) GERD (gastroesophageal reflux disease): Hold pantoprazole until passes dysphagia screen. Placed on famotidine 20 mg IV every 12 hours Present on Admission?: Yes (8) Hyperlipidemia: Hold rosuvastatin until patient passes dysphagia screen. Check fasting lipid panel Present on Admission?: Yes (9) Depression: Hold duloxetine until patient passes dysphagia screen Present on Admission?: Yes (10) Diabetes mellitus: Hold metformin and Basaglar insulin. Place Accu-Cheks before meals and at bedtime with NovoLog coverage per scale. Check hemoglobin A1c Present on Admission?: Yes History of Present Illness Chief Complaint: The patient presents to the emergency department with complaint of right facial numbness, worsening of her residual left upper extremity numbness and worsening of left lower extremity numbness and new weakness, that began at 2 PM earlier in the day prior to arrival. Primary Care Provider: Marleni Macias DO The patient is a 64-year-old female with a past medical history including history of stroke with residual left-sided numbness, peripheral neuropathy, mild cognitive impairment, seasonal allergies, goiter, reactive airway disease, CKD stage III, osteoporosis, CVA, depression, hyperlipidemia, hypertension, diabetes mellitus and breast cancer. She presents with symptoms as noted above. She did present as a stroke alert in the ED, and the ED physician spoke with [facility] tele-stroke regarding patient work-up. CT of the head was negative. MRI of brain combo was negative, and MR angiogram of the brain was unremarkable. Allergies Allergy/AdvReac Type Severity Reaction Status Date / Time propoxyphene AdvReac Unknown GI UPSET Verified 10/10/19 13:01 Home Medications Home Medications Medication Instructions Recorded Confirmed Type acetaminophen 650 mg 650 - 1,300 mg PO ONCE PRN tab 10/04/18 10/19/19 History tablet,extended release aspirin 81 mg tablet,delayed 81 mg PO DAILY 10/04/18 10/19/19 History release multivitamin 1 tab PO DAILY 10/04/18 10/19/19 History rosuvastatin 40 mg tablet 40 mg PO QAM #30 tab 10/04/18 10/19/19 Rx Basaglar KwikPen U-100 Insulin 32 unit SUBCUT QAM 03/06/19 10/19/19 History polymyxin B sulfate 10,000 1 drops OP QID 7 Days #10 ml 05/07/19 10/19/19 Rx unit-trimethoprim 1 mg/mL eye drops duloxetine 60 mg capsule,delayed 60 mg PO BID #60 cap 06/05/19 10/19/19 Rx release pantoprazole 20 mg tablet,delayed 20 mg PO DAILY #90 tab 06/20/19 10/19/19 Rx release cetirizine 10 mg tablet 10 mg PO DAILY #90 tab 06/29/19 10/19/19 Rx fluticasone propionate 50 2 sprays INTNAS DAILY #9.9 gm 07/25/19 10/19/19 Rx mcg/actuation nasal spray,suspension metformin 500 mg tablet,extended 1,000 mg PO BID #60 tab 09/19/19 10/19/19 Rx release 24 hr Past Med/Surg History Medical History Abnormal mouth sensation (Inactive) Breast cancer CVA (cerebral vascular accident) R thalamic infarct in 02/2018 Depression Diabetes mellitus A1c 7.8% August 2018 DJD (degenerative joint disease) GERD (gastroesophageal reflux disease) Goiter H/O: stroke with residual effects HTN (hypertension) Hyperlipidemia MCI (mild cognitive impairment) Osteoporosis Overweight (BMI 25.0-29.9) Paresthesia of left arm and leg Periorbital ecchymosis of left eye (Inactive) Peripheral neuropathy Reactive airway disease Seasonal allergies Stage 3 chronic kidney disease Vertigo Surgical History H/O: hysterectomy Hx of appendectomy Hx of cholecystectomy S/P laminectomy with spinal fusion L4-[address] Pillai 07/2017 S/P right mastectomy Family History Mother , age 55 of an MA Myocardial infarction Heart disease Father , age 72 of an MA Heart disease Myocardial infarction Other Breast cancer Coronary heart disease Diabetes Hypertension Osteoporosis Stroke Denies family history of Ovarian cancer Prostate cancer Lung cancer Colorectal cancer Social History Smoking Status: Never smoker Second Hand Exposure: No; Do You Dip or Chew Tobacco: No; Tobacco Cessation Education Requested by Patient: No Hx Alcohol Use: No Hx Substance Use: No Preferred Language: Citizen Of [place] Communication Ability: Effective Visual Impairment: No Limitations Hearing Ability: Normal Tile Erector Required: No Beliefs That Will Affect Care: None marital status: Current Living Situation: Alone Current Living Situation Comment: grandson lives w/ pt current occupational status: retired 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 Other Information That Helps Us Care for You: No Feels Safe at Home: Yes Safety Concerns: Feels Safe At This Time Childhood Exposure to Second-Hand Smoke: No caffeine: No during the past year weight has: remained stable Dental Care, Regularly: No Physical Activity Frequency: Does not Exercise Seatbelt Use: always Sunscreen Use: Yes Review of Systems Review of Systems: The patient is somewhat confused, more so than her baseline dementia versus pseudodementia, as not able to contribute significantly to her HPI and review of systems. Her niece who is with her, relays is much of the information that she can, but admits that she does not know the patient very well. Physical Exam Physical Exam: The patient is awake, confused, well developed and well nourished, normocephalic and atraumatic, lying in bed and in no acute distress. HEENT--PERRL, EOMI, mucous membranes and oropharynx normal. Neck--supple. No JVD. No bruits. Thyroid normal, trachea midline, no adenopathy. Heart--normal S1 and S2. No murmurs, rubs or gallops. Lungs--clear bilaterally, no respiratory distress, no accessory muscle use. Abdomen--normal bowel sounds and soft. Nontender. Nondistended. Extremities--no cyanosis or clubbing. No edema. There are good distal pulses b/l. Dermatologic--normal skin turgor, normal color, no abnormal lymph nodes, no rash. Neurologic--cranial nerves II through XII grossly intact. Decreased sensation left upper and lower extremities. Motor strength 4+/5 left lower extremity, otherwise normal. Psychiatric-cooperative Results & Data Results & Data ([facility]) Vital Signs (Past 12 Hours) Vital Signs Temp Pulse Pulse Resp BP BP Pulse Ox 10/19/19 21:30 72 16 121/73 99 10/19/19 21:19 76 23 117/77 97 10/19/19 21:15 78 19 100 10/19/19 20:31 89 17 81/68 L 100 10/19/19 20:28 100 10/19/19 20:25 110 H 21 111/85 100 10/19/19 20:21 85 18 10/19/19 20:02 98.6 F 100 H 14 117/76 98 Laboratory Results Laboratory Results WBC 8.11 K/uL (4.8-10.8) 10/19/19 20:22 RBC 4.45 M/uL (4.2-5.4) 10/19/19 20:22 Hgb 12.5 g/dL (12.0-16.0) 10/19/19 20:22 Hct 37.1 % (37-47) 10/19/19 20:22 MCV 83.4 fL (80-100) 10/19/19 20:22 MCH 28.1 pg (25-34) 10/19/19 20:22 MCHC 33.7 g/dL (32-36) 10/19/19 20:22 RDW Std Deviation 43.2 fL (36.4-46.3) 10/19/19 20: RDW Coeff of Supriya 14.2 % (11.5-14.5) 10/19/19 20:22 Plt Count 262 K/uL (130-400) 10/19/19 20:22 MPV 9.9 fL (7.4-10.4) 10/19/19 20:22 PT 10.9 Seconds (9.0-12.0) 10/19/19 20: INR 1.0 (0.9-1.1) 10/19/19 20: APTT 25.6 Seconds (21.0-31.0) 10/19/19 20: PTT Ratio 0.9 10/19/19 20:22 Sodium 141 mmol/L (136-145) 10/19/19 20: Potassium 3.9 mmol/L (3.5-5.1) 10/19/19 20: Chloride 107 mmol/L (98-107) 10/19/19 20: Carbon Dioxide 25 mmol/L (21-32) 10/19/19 20: Anion Gap 9.0 (3-11) 10/19/19 20: BUN 18 mg/dl (7-18) 10/19/19 20: Creatinine 1.18 mg/dl (0.6-1.2) 10/19/19 20: Est Cr Clr Drug Dosing Not Reportable 10/19/19 20: Est GFR ( Amer) 56.4 10/19/19 20: Est GFR (Non-Af Amer) 48.7 10/19/19 20: BUN/Creatinine Ratio 14.8 (10-20) 10/19/19 20: Glucose 160 mg/dl (70-99) H 10/19/19 20: POC Glucose 96 mg/dl (70-99) 10/20/19 00:54 Calcium 10.0 mg/dl (8.5-10.1) 10/19/19 20: Magnesium 1.8 mg/dl (1.8-2.4) 10/19/19 20: Total Bilirubin 0.4 mg/dl (0.2-1) 10/19/19 20: AST 10 U/L (15-37) L 10/19/19 20:22 ALT 19 U/L (12-78) 10/19/19 20:22 Alkaline Phosphatase 86 U/L (45-117) 10/19/19 20:22 Total Protein 7.5 gm/dl (6.4-8.2) 10/19/19 20:22 Albumin 3.6 gm/dl (3.4-5.0) 10/19/19 20:22 Globulin 3.9 gm/dl (2.5-4.0) 10/19/19 20:22 Albumin/Globulin Ratio 0.9 (0.9-2) 10/19/19 20:22 Diagnostic Findings [place], [place] [phone] CT Scan Report Patient: CORINNE CURRIE Date: 10/19/19 MR#: [id number]: [address] Acct ID:[id number]: [address] Date: [address] Zip: [place] [address] Age: 64Location: ED Sex: F Room/Bed: Att Phy:Diagnosis: STROKELIKE SYMPTOMS Alejandra Phy: Marleni Macias, DOService Date: 10/19/19 Fam Phy:Interpreting Phy: Jose Price MD Admit Phy: Ordering Phy: Lennox Ledezma MD cc: ~ CT SCAN OF THE BRAIN WITHOUT IV CONTRAST CLINICAL HISTORY: Strokelike symptoms. COMPARISON STUDY: CT an MRI of the brain dated 06/28/2019. TECHNIQUE: Unenhanced axial CT scan of the brain is performed from the vertex to the skull base. A dose lowering technique was utilized adhering to the principles of ALARA. CT DOSE: 537.48 mGy.cm FINDINGS: Brain parenchyma: There is minimal subcortical and periventricular microangiopathic disease. A chronic lacunar infarct is again seen in the right thalamus. There is no hemorrhage, mass effect, or evidence of acute territorial ischemia by CT criteria. Durbin-white matter differentiation is preserved. No extra-axial fluid collection is seen. Ventricles, sulci, cisterns: Normal in configuration. Intracranial vasculature: There is atherosclerotic calcification of the cavernous carotid and vertebral arteries. Calvarium: Unremarkable. Sinuses and mastoids: The visualized paranasal sinuses are clear. The mastoid air cells are well pneumatized. Orbits: The bony orbits are grossly intact. IMPRESSION: There is no hemorrhage, mass effect, or evidence of acute territorial ischemia by CT criteria. ACT 112: Negative or not required by law. Electronically signed by: Jose Price M.D. 10/19/2019 8:17 PM Dictated: 10/19/192014 Transcribed: 10/19/192014 [place], [place] [phone] Magnetic Resonance Report Patient: CORINNE CURRIE Date: 10/19/19 MR#: [id number]: [address] Acct ID:[id number]: [address] Date: [address] Zip: [place] [address] Age: 64Location: ED Sex: F Room/Bed: Att Phy:Diagnosis: STROKELIKE SYMPTOMS Alejandra Phy: Marleni Macias, DOService Date: 10/19/19 Fam Phy:Interpreting Phy: Jose Price MD Admit Phy: Ordering Phy: Lennox Ledezma MD cc: ~ MRI OF THE BRAIN COMBO CLINICAL HISTORY: Left leg weakness. Loss of balance. COMPARISON STUDY: CT of the brain dated 10/19/2019. MRI of the brain dated 06/28/2019. TECHNIQUE: MRI of the brain was performed utilizing various T1 and T2-weighted sequences in the axial, sagittal, and coronal planes. Contrast-enhanced sequences were acquired following the administration of 8 cc of Gadavist. FINDINGS: Brain parenchyma: A chronic lacunar infarct is noted in the right thalamus. There is no hemorrhage or mass effect. There is no restricted diffusion to suggest acute ischemia. No enhancing mass lesion is identified on the postcontrast images. Durbin-white matter differentiation is preserved. No extra- axial fluid collection is seen. The cerebellar tonsils are normal in configuration. Ventricles, sulci, and cisterns: Normal in configuration. Pituitary and sella: Unremarkable. Intracranial vasculature: Normal flow voids are maintained at the skull base. Orbits: The bony orbits are grossly intact. Orbital contents are normal in appearance. Sinuses and mastoids: There is trace fluid within the right sphenoid sinus. The remaining paranasal sinuses are clear. There are trace mastoid effusions. Calvarium: Unremarkable. Cervical cord: Partially visualized cervical spinal cord is normal in morphology and signal intensity. IMPRESSION: No acute intracranial abnormality. ACT 112: Negative or not required by law. Electronically signed by: Jose Price M.D. 10/19/2019 10:59 PM Dictated: 10/19/192254 Transcribed: 10/19/192254 [place], [place] [phone] Magnetic Resonance Report Patient: CORINNE CURRIE Date: 10/19/19 MR#: [id number]: [address] Acct ID:[id number]: [address] Date: [address] Zip: [place] [address] Age: 64Location: ED Sex: F Room/Bed: Att Phy:Diagnosis: STROKELIKE SYMPTOMS Alejandra Phy: Marleni Macias, DOService Date: 10/19/19 Fam Phy:Interpreting Phy: Jose Price MD Admit Phy: Ordering Phy: Lennox Ledezma MD cc: ~ MR ANGIOGRAM OF THE BRAIN CLINICAL HISTORY: Left leg weakness. Loss of balance. COMPARISON STUDY: MR angiogram of the brain dated 03/06/2019. CT angiogram of the brain dated 06/28/2019. TECHNIQUE: 3-D [id number] MR angiography of the intracranial circulation is performed. 3-D tumble views are created and assessed. IV contrast was not administered for this examination. The examination is degraded by motion artifact. FINDINGS: The point hope ira of [place] is developmentally complete.. The internal carotid arteries are widely patent bilaterally, as are the anterior and middle cerebral arteries. The vertebrobasilar system and posterior cerebral arteries are widely patent. The right vertebral artery is dominant. There is no aneurysm, high-grade stenosis, or focal vessel cutoff seen throughout the intracranial circulation. The brain parenchyma is normal as visualized. IMPRESSION: Unremarkable MR angiogram of the brain. ACT 112: Negative or not required by law. Electronically signed by: Jose Price M.D. 10/19/2019 11:01 PM Dictated: 10/19/192258 Transcribed: 10/19/192258 Code Status & VTE Plan Code Status Full code VTE Prophylaxis Plan VTE Prophylaxis will be ordered: Yes PG Care Time/CCT Total # of Minutes Spent Total Time Spent with Patient: Total time spent is greater than 50% in coordination of care (as documented) at patient's floor/unit and/or counseling patient: Coding Level of Care Code 03060 Initial Inpt Care Lvl 3 Diagnoses CVA (cerebral vascular accident) I63.9 CVA mechanism: unspecified Paresthesia of left arm and leg R20.2 Left leg weakness R29.898 Ataxia R27.0 H/O: stroke with residual effects I69.30 Stage 3 chronic kidney disease N18.3 GERD (gastroesophageal reflux disease) K21.9 Hyperlipidemia E78.5 Depression F32.9 Depression Type: unspecified Diabetes mellitus E11.9 (1) CVA (cerebral vascular accident) CVA mechanism: unspecified Qualified Code(s): I63.9 - Cerebral infarction, unspecified (2) Depression Depression Type: unspecified Qualified Code(s): F32.9 - Major depressive disorder, single episode, unspecified
[2019-10-19] MEDS ORDERED: GADOBUTROL 65ML VIAL IV PRN (22:41)
--- NOTE | 2019-10-19 23:00 | Magnetic Resonance Report ---
MRI OF THE BRAIN COMBO CLINICAL HISTORY: Left leg weakness. Loss of balance. COMPARISON STUDY: CT of the brain dated 10/19/2019. MRI of the brain dated 06/28/2019. TECHNIQUE: MRI of the brain was performed utilizing various T1 and T2-weighted sequences in the axial , sagittal, and coronal planes. Contrast-enhanced sequences were acquired following the administratio n of 8 cc of Gadavist. FINDINGS: Brain parenchyma: A chronic lacunar infarct is noted in the right thalamus. There is no hemorrhage or mass effect. There is no restricted diffusion to suggest acute ischemia. No enhancing mass lesion is identified on the postcontrast images. Durbin-white matter differentiation is preserved. No extra-axia l fluid collection is seen. The cerebellar tonsils are normal in configuration. Ventricles, sulci, and cisterns: Normal in configuration. Pituitary and sella: Unremarkable. Intracranial vasculature: Normal flow voids are maintained at the skull base. Orbits: The bony orbits are grossly intact. Orbital contents are normal in appearance. Sinuses and mastoids: There is trace fluid within the right sphenoid sinus. The remaining paranasal s inuses are clear. There are trace mastoid effusions. Calvarium: Unremarkable. Cervical cord: Partially visualized cervical spinal cord is normal in morphology and signal intensity . IMPRESSION: No acute intracranial abnormality. ACT 112: Negative or not required by law. Electronically signed by: Jose Price M.D. 10/19/2019 10:59 PM
--- NOTE | 2019-10-19 23:03 | Magnetic Resonance Report ---
MR ANGIOGRAM OF THE BRAIN CLINICAL HISTORY: Left leg weakness. Loss of balance. COMPARISON STUDY: MR angiogram of the brain dated 03/06/2019. CT angiogram of the brain dated 0. TECHNIQUE: 3-D [id number] MR angiography of the intracranial circulation is performed. 3-D tumble views are created and assessed. IV contrast was not administered for this examination. The examinati on is degraded by motion artifact. FINDINGS: The e[place]p of [place] is developmentally complete.. The internal carotid arteries are widely patent bilaterally, as are the anterior and middle cerebral arteries. The vertebrobasilar system and posterior cerebral arteries are widely patent. The right vertebral artery is dominant. There is no aneurysm, high-grade stenosis, or focal vessel cutoff seen throughout the intracranial circulation. T he brain parenchyma is normal as visualized. IMPRESSION: Unremarkable MR angiogram of the brain. ACT 112: Negative or not required by law. Electronically signed by: Jose Price M.D. 10/19/2019 11:01 PM
[2019-10-20] MEDS ORDERED: GLUCAGON FOR INJ 1 MG VIAL SQ PRN (00:40)
[2019-10-20] MEDS ORDERED: PHARMACIST DISCHARGE MED REC CONSULT PRN (00:40)
[2019-10-20] MEDS ORDERED: GLUCOSE 40% GEL 15 GM TUBE PO PRN (00:40)
[2019-10-20] MEDS ORDERED: CARBOHYDRATES FOR HYPOGLYCEMIA PO PRN (00:40)
[2019-10-20] MEDS ORDERED: GLUCOSE 10 TABS/TUBE PO PRN (00:40)
[2019-10-20] MEDS ORDERED: ONDANSETRON INJ 2 MG/ML 2 ML VIAL IV PRN (00:40)
[2019-10-20] MEDS ORDERED: DEXTROSE 50% 50 ML SYRINGE IV PRN (00:40)
[2019-10-20] MEDS: NSS + 20MEQ KCL 20 MEQ/1,000 ML BAG IV SCH ×2 (01:19→11:34)
[2019-10-20] MEDS ORDERED: Nursing to Pharmacy Communication SCH (01:45)
[2019-10-20] MEDS: INSULIN ASPART 100 UNITS/ML 3 ML PEN SC SCH ×2 (06:07→11:53)
[2019-10-20 06:08] LABS: Hematocrit (blood only) 34.1 % (37-47); Hemoglobin 11.3 g/dL (12.0-16.0); Mean Corpuscular Hemoglobin 28.2 pg (25-34); Mean Corpuscular Hgb Conc 33.1 g/dL (32-36); Platelet Count 262 K/uL (130-400); RDW Coefficient of Variation 14.5 % (11.5-14.5); RDW Standard Deviation 45.4 fL (36.4-46.3); Red Blood Count 4.01 M/uL (4.2-5.4); White Blood Count 7.49 K/uL (4.8-10.8)
[2019-10-20 06:18] LABS: Estimated Average Glucose 186 mg/dl; Hemoglobin A1C 8.1 % (4.5-5.6)
[2019-10-20 06:32] LABS: Basophils # (auto) 0.07 K/uL (0-0.2); Basophils % (auto) 0.9 %; Eosinophils # (auto) 0.28 K/uL (0-0.5); Eosinophils % (auto) 3.7 %; Lymphocytes # (auto) 3.82 K/uL (1.2-3.4); Monocytes # (auto) 0.62 K/uL (0.11-0.59); Monocytes % (auto) 8.3 %; Neutrophils % (auto) 36.1 %
[2019-10-20 06:52] LABS: BUN Creatinine Ratio 20.2 (10-20); Calcium 8.8 mg/dl (8.5-10.1); Creatinine Clr Calc Pharmacy 78.2 ml/min; Est GFR (African American) 90.3; Est GFR (Non-African American) 77.9; Potassium 4.3 mmol/L (3.5-5.1)
[2019-10-20] MEDS ORDERED: INSULIN ASPART 100 UNITS/ML 3 ML PEN SC SCH ×2 (07:30→11:30)
--- NOTE | 2019-10-20 08:48 | Neurology Consultation ---
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 # Left hand numbness: suspect recrudescence in the setting of recently feeling unwell as no new stroke seen on MRI brain, symptoms are in the same location as her prior residual stroke deficits and given ongoing symptoms more than 24 hours out, unlikely to represent a TIA. - check UA - would also check B12/TSH, if low (B12<400), recommend starting B12 1000mcg daily - continue to work with PCP on stroke optimization goals (BP<130/80, LDL<70, A1c<7); she is not currently at goal for BP or A1c which was 8.1 this admission; LDL 50, at goal) - continue home aspirin 81mg daily and rosuvastatin 40mg daily # Gait abnormality: pt unsteady when gotten up to walk around, so formal evaluation deferred - suspect that this is multifactorial as no true weakness seen on examination in bed - PT eval # Neuropathy: - continue home duloxetine 60mg bid Thank you for this interesting consult. Plan of care discussed with primary team. Please call or text with questions. (2) Peripheral neuropathy: (3) CVA (cerebral vascular accident): (4) Stage 3 chronic kidney disease: (5) Hyperlipidemia: (6) HTN (hypertension): (7) Diabetes mellitus: History of Present Illness Attending Physician: Reji Vanegas DO History of Present Illness Denise Ma is a 64 yo woman w/ PMH of hypertension, hyperlipidemia, diabetes, history of breast cancer, CKD 3, mild cognitive impairment, history of right thalamic stroke with residual left facial, left upper extremity numbness and depression who presented to [facility] with acute onset of left-sided weakness. Last seen around 2 PM on 10/19/2019. In the ED, patient afebrile, BP 117/76, heart rate 100, respiratory rate 14, satting 98% on room air. Labs notable for WBC 8.11, hemoglobin 12.5, platelets 262, creatinine 1.18, glucose 160, electrolytes within normal, INR 1.0, LFTs within normal, calcium 10.0, magnesium 1.8. Imaging independently reviewed. CT head shows stable encephalomalacia in the right thalamus with no new hypodensities or hemorrhage noted. MRI brain shows no acute infarct, small chronic infarct in the right thalamus and minimal small vessel disease. No contrast-enhancing lesion noted either. MRA of the head shows no LVO, high- grade stenosis or aneurysm. On examination today, she reports that she has not felt well for several days (general unwell). Has a mild headache yesterday and today. Continues to have worsened numbness in her left more than normal for her. She also endorsed having difficulty ambulating more than usual. Denied any recent infections, medication changes or injuries. Patient Features: Admission NIHSS: Admission Modified Hardy Scale: 1-2 Time patient last seen well: 2pm on 10/19/19 Wake up stroke: No Intubation status: Not intubated Stroke Risk Factors: Hypertension: Y Hyperlipidemia: Y Atrial Fib: N Tobacco: N Diabetes: Y Taking NOAC or warfarin: N Allergies Allergy/AdvReac Type Severity Reaction Status Date / Time propoxyphene AdvReac Unknown GI UPSET Verified 10/10/19 13:01 Home Medications Home Medications Medication Instructions Recorded Confirmed Type acetaminophen 650 mg 650 - 1,300 mg PO ONCE PRN tab 10/04/18 10/19/19 History tablet,extended release aspirin 81 mg tablet,delayed 81 mg PO DAILY 10/04/18 10/19/19 History release multivitamin 1 tab PO DAILY 10/04/18 10/19/19 History rosuvastatin 40 mg tablet 40 mg PO QAM #30 tab 10/04/18 10/19/19 Rx Basaglar KwikPen U-100 Insulin 32 unit SUBCUT QAM 03/06/19 10/19/19 History polymyxin B sulfate 10,000 1 drops OP QID 7 Days #10 ml 05/07/19 10/19/19 Rx unit-trimethoprim 1 mg/mL eye drops duloxetine 60 mg capsule,delayed 60 mg PO BID #60 cap 06/05/19 10/19/19 Rx release pantoprazole 20 mg tablet,delayed 20 mg PO DAILY #90 tab 06/20/19 10/19/19 Rx release cetirizine 10 mg tablet 10 mg PO DAILY #90 tab 06/29/19 10/19/19 Rx fluticasone propionate 50 2 sprays INTNAS DAILY #9.9 gm 07/25/19 10/19/19 Rx mcg/actuation nasal spray,suspension metformin 500 mg tablet,extended 1,000 mg PO BID #60 tab 09/19/19 10/19/19 Rx release 24 hr Patient History Medical History Abnormal mouth sensation (Inactive) Breast cancer CVA (cerebral vascular accident) (Acute) R thalamic infarct in 02/2018 Depression Diabetes mellitus A1c 7.8% August 2018 DJD (degenerative joint disease) GERD (gastroesophageal reflux disease) Goiter H/O: stroke with residual effects HTN (hypertension) Hyperlipidemia MCI (mild cognitive impairment) Osteoporosis Overweight (BMI 25.0-29.9) Paresthesia of left arm and leg Periorbital ecchymosis of left eye (Inactive) Peripheral neuropathy Reactive airway disease Seasonal allergies Stage 3 chronic kidney disease Vertigo Surgical History H/O: hysterectomy Hx of appendectomy Hx of cholecystectomy S/P laminectomy with spinal fusion L4-[address] Pillai 07/2017 S/P right mastectomy Family History Mother , age 55 of an PA Myocardial infarction Heart disease Father , age 72 of an PA Heart disease Myocardial infarction Other Breast cancer Coronary heart disease Diabetes Hypertension Osteoporosis Stroke Denies family history of Ovarian cancer Prostate cancer Lung cancer Colorectal cancer Social History Smoking Status: Never smoker Second Hand Exposure: No; Do You Dip or Chew Tobacco: No; Tobacco Cessation Education Requested by Patient: No Hx Alcohol Use: No Hx Substance Use: No Preferred Language: Cuban Communication Ability: Effective Visual Impairment: No Limitations Hearing Ability: Normal Manager Grant Required: No Beliefs That Will Affect Care: None marital status: Current Living Situation: Alone Current Living Situation Comment: grandson lives w/ pt current occupational status: retired 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 Exam (Neuro) Physical Exam: General Exam: GEN: NAD, sitting down in examination bed. HEENT: No conjunctival injection, no rhinorrhea CV: RRR on monitor, no significant edema. PULM: Nonlabored respirations on room air. Neuro Exam: MS: Awake and Alert. Oriented to person, place, and date. Speech fluent and appropriate without dysarthria or paraphasic errors. Language intact including naming, comprehension, repetition. Cognition and memory grossly intact. Attention intact. No neglect. CN: Visual bethea full, + blink to threat bilaterally. No extinction to double simultaneous stimuli. Normal fundoscopic exam. PERRLA OU. EOMI without nyst agmus. Facial sensation intact to LT. Facial muscles full and symmetric. Hearing intact to conversation. Uvula midline with symmetric palatal elevation. Shoulder shrug normal. Tongue midline. MOTOR: Normal bulk and tone. No pronator drift. BUE strength 5/5 at deltoids, biceps, triceps, wrist flexors and extensors, and finger flexors bilaterally. BLE strength 5/5 at iliopsoas, hamstrings, quadriceps, tibialis anterior, and gastrocnemius bilaterally. REFLEXES: 1+ at biceps, triceps, brachioradialis, 1+ patella, and absent Achilles bilaterally. Flexor plantar responses bilaterally. SENSORY: Intact to LT throughout, no extinction to double simultaneous stimuli. Decreased vibration in BLEs up to the knees and in the left hand. COORDINATION: No dysmetria or ataxia on [id number] bilaterally. Normal Lukas bilaterally. GAIT: Deferred due to physical status. NIH STROKE SCALE 1A. Level of Consciousness (0-3) = 0 1B. LOC Questions (0-2) = 0 1C. LOC Commands (0-2) = 0 2. Best Horizontal Gaze (0-2) = 0 3. Visual Bethea (0-3) = 0 4. Facial Palsy (0-3) = 0 5. Motor Arm Right (0-4) = 0 Left (0-4) = 0 6. Motor Leg Right (0-4) = 0 Left (0-4) = 0 7. Limb Ataxia (0-2) = 0 8. Sensory (0-2) = 1 9. Best Language (0-3) = 0 10. Dysarthria (0-2) = 0 11. Extinction and Inattention (0-2) = 0 NIHSS TOTAL = 1 (chronic numbness/tingling in left face/left hand) Results & Data ([facility]) Vital Signs (Past 12 Hours) Vital Signs Temp Pulse Pulse Resp BP BP Pulse Ox 10/20/19 07:22 36.5 C 62 19 112/63 92 10/20/19 03:35 36.3 C L 66 16 120/62 95 10/20/19 00:54 69 10/20/19 00:40 10/20/19 00:10 36.8 C 82 18 111/77 97 10/20/19 00:01 75 16 116/61 99 10/19/19 23:00 75 16 116/61 96 10/19/19 22:45 99 10/19/19 22:43 125/72 98 10/19/19 22:00 73 17 128/77 99 10/19/19 21:45 77 21 100 10/19/19 21:30 72 16 121/73 99 10/19/19 21:19 76 23 117/77 97 10/19/19 21:15 78 19 100 Pulse Ox 10/20/19 07:22 10/20/19 03:35 10/20/19 00:54 10/20/19 00:40 97 10/20/19 00:10 10/20/19 00:01 10/19/19 23:00 10/19/19 22:45 10/19/19 22:43 10/19/19 22:00 10/19/19 21:45 10/19/19 21:30 10/19/19 21:19 10/19/19 21:15 PG Care Time/CCT Total # of Minutes Spent Total Time Spent with Patient: Total time spent is greater than 50% in coordination of care (as documented) at patient's floor/unit and/or counseling patient: Coding Level of Care Code 90088 Initial Inpt Care Lvl 3 Diagnoses Left leg weakness R29.898 Peripheral neuropathy G62.9 CVA (cerebral vascular accident) I63.9 CVA mechanism: unspecified Stage 3 chronic kidney disease N18.3 Hyperlipidemia E78.5 HTN (hypertension) I10 Diabetes mellitus E11.9 (1) CVA (cerebral vascular accident) CVA mechanism: unspecified Qualified Code(s): I63.9 - Cerebral infarction, unspecified
[2019-10-20] MEDS ORDERED: HEPARIN SOD 5,000 UNIT/0.5 ML VIAL SQ SCH (09:00)
--- NOTE | 2019-10-20 10:56 | XCELERA ---
[id number] [id number]
--- NOTE | 2019-10-20 13:09 | Hospitalist Progress Note ---
Date of Service October 20, 2019 Assessment & Plan Admission and Anticipated Discharge Date Admission Date: October 19, 2019 64 yo f w/ pMHx. of CVA (cerebral vascular accident): New CVA/worsening paresthesia of left arm and leg/new weakness of left lower extremity and ataxia- Stroke without TPA protocol order set. Once able to pass dysphagia screen, will be placed on clopidogrel 75 mg daily. Consult PT/OT/speech therapy/neurology. Paresthesia of left arm and leg: See above Left leg weakness See above Ataxia See above H/O: stroke with residual effects: Patient with known previous stroke, with residual left upper lower extremity paresthesias. Present on Admission?: Yes Stage 3 chronic kidney disease: Creatinine 1.18 upon admission, with range 0.86-1.06. Will be placed on IV fluids, and follow serially Present on Admission?: Yes GERD (gastroesophageal reflux disease): Hold pantoprazole until passes dysphagia screen. Placed on famotidine 20 mg IV every 12 hours Present on Admission?: Yes Hyperlipidemia: Hold rosuvastatin until patient passes dysphagia screen. Check fasting lipid panel Present on Admission?: Yes Depression: Hold duloxetine until patient passes dysphagia screen Present on Admission?: Yes Diabetes mellitus: Hold metformin and Basaglar insulin. Place Accu-Cheks before meals and at bedtime with NovoLog coverage per scale. Check hemoglobin A1c Present on Admission?: Yes Results & Data Results & Data ([facility]) Vital Signs (Past 12 Hours) Vital Signs Temp Pulse Resp BP Pulse Ox 10/20/19 11:45 36.4 C L 65 19 115/73 94 10/20/19 07:22 36.5 C 62 19 112/63 92 10/20/19 03:35 36.3 C L 66 16 120/62 95 CBC Results Results Complete Blood Count Results: RBC 4.01 M/uL (4.2-5.4) L 10/20/19 WBC 7.49 K/uL (4.8-10.8) 10/20/19 Hgb 11.3 g/dL (12.0-16.0) L 10/20/19 Hct 34.1 % (37-47) L 10/20/19 Plt Count 262 K/uL (130-400) 10/20/19 Chemistry (BMP) Results BMP Results: Sodium 145 mmol/L (136-145) 10/20/19 Potassium 4.3 mmol/L (3.5-5.1) 10/20/19 Chloride 114 mmol/L (98-107) H 10/20/19 BUN 16 mg/dl (7-18) 10/20/19 Creatinine 0.80 mg/dl (0.6-1.2) 10/20/19 Glucose 70 mg/dl (70-99) 10/20/19
[2019-10-20] MEDS ORDERED: STROKE PATIENT DISCHARGE STA (17:14)
--- NOTE | 2019-10-20 18:24 | Discharge Summary ---
Date of Service October 20, 2019 Admission HPI Per Admitting Provider The patient is a 64-year-old female with a past medical history including history of stroke with residual left-sided numbness, peripheral neuropathy, mild cognitive impairment, seasonal allergies, goiter, reactive airway disease, CKD stage III, osteoporosis, CVA, depression, hyperlipidemia, hypertension, diabetes mellitus and breast cancer. She presents with symptoms as noted above. She did present as a stroke alert in the ED, and the ED physician spoke with [facility] tele-stroke regarding patient work-up. CT of the head was negative. MRI of brain combo was negative, and MR angiogram of the brain was unremarkable. Principal Diagnosis recrudescence of prior stroke- most likely due to dehydration Discharge Exam vitals noted nad heent nc at mmm breathing unlabored no accessory muscles good effort. see neurology note and exam for full details but no gross focal neuro deficits. Discharge Data Allergies Allergy/AdvReac Type Severity Reaction Status Date / Time propoxyphene AdvReac Unknown GI UPSET Verified 10/10/19 13:01 Consultations 10/19/19 20:42 ED Decision to Admit Stat 10/20/19 00:40 Consult Case Management - Discharge Planning Routine Consult Case Management - Discharge Planning Routine Consult Neurology Routine 10/20/19 17:15 Consult Case Management - Discharge Planning Routine Ordered Studies 10/19/19 20:06 CT head/brain wo con Stat 10/19/19 20:42 MR brain wo/w con Stat 10/19/19 20:53 MR angio head wo con Stat Hospital Course (1) H/O: stroke with residual effects: fortunately despite presentation appearing stroke or TIA like, after evaluation and resolution of sx, appears most c/w recudescence of prior CVA - more than likely provoked by dehydration. stable for home, no need for further acute management -A1c is elevated - to eval / address as outpt as secondary risk reduction -MRI no stroke, echo EF 60-65%, no RWMA, mild LVH; prior echo did note small PFO -CTA recently (not quite 4 months ago) showed no significant occlusive disease -A1c 8.1; cholesterol 105, HDL 39, LDL 50, TG 79 per neuro: # Left hand numbness: suspect recrudescence in the setting of recently feeling unwell as no new stroke seen on MRI brain, symptoms are in the same location as her prior residual stroke deficits and given ongoing symptoms more than 24 hours out, unlikely to represent a TIA. - check UA - would also check B12/TSH, if low (B12<400), recommend starting B12 1000mcg daily - continue to work with PCP on stroke optimization goals (BP<130/80, LDL<70, A1c<7); she is not currently at goal for BP or A1c which was 8.1 this admission; LDL 50, at goal) - continue home aspirin 81mg daily and rosuvastatin 40mg daily # Gait abnormality: pt unsteady when gotten up to walk around, so formal evaluation deferred - suspect that this is multifactorial as no true weakness seen on examination in bed - PT eval PT/OT did note weakness recommending rehab but in discussions w pt, she feels she is at her baseline level of function, lives in a supportive environment, never feels like she is at risk of falls, and did not really show much interest in inpatient rehab. she was reluctantly willing for home PT. otherwise stable for home Total Time Total Time Spent Total Time Spent (In Minutes): <30 Discharge Plan Discharge Items Patient Disposition: Home - Self-Care Reason For Visit: CVA Discharge Diagnosis: left sided weakness Activity: Per Instructions section Non-emergency contact: Primary Care Provider and Neurologist Call non-emergency contact if: your symptoms worsen Follow-up/Referrals: Marleni Macias, [Primary Care Provider] - Diet: Other - See Diet Comment Addtl Attending Provider Instructions: Weakness You came to the hospital for symptoms that were similar to your prior stroke. On imaging studies including MRI and MRA of your brain we did not see any abnormalities consistent with a stroke. There are several possible causes for your symptoms. What we think is most likely is that you have some area of your brain that were surrounding your prior stroke that may have temporarily had lower blood pressure or decreased oxygen temporarily. This could be caused by dehydration. You are on a statin and aspirin and you will need to continue these as they will decrease your risk of any repeat stroke. There will be no new medications, continue your prior medications. Diabetes Your A1c is 8.1 indicating that you may need to continue to work with your primary care doctor on improving your diabetes control. Follow up You will need to follow up with your primary doctor and you will also need to follow up with neurology. Return precautions If you have any recurrence of symptoms we will want to have you seen again right away Pending Studies at Discharge: No Stand-Alone Forms: My [facility], Smoking Cessation Medications and DC Order Prescriptions: Continued pantoprazole 20 mg tablet,delayed release (DR/EC) 20 mg PO DAILY Qty: 90 RF: 1 cetirizine 10 mg tablet 10 mg PO DAILY Qty: 90 RF: 3 metformin 500 mg tablet extended release 24 hr 1,000 mg PO BID Qty: 60 RF: 5 polymyxin B sulf-trimethoprim 10,000 unit- 1 mg/mL drops 1 drops OP QID 7 Days Qty: 10 RF: 0 aspirin 81 mg tablet,delayed release (DR/EC) 81 mg PO DAILY RF: 0 rosuvastatin 40 mg tablet 40 mg PO QAM Qty: 30 RF: 0 multivitamin tablet 1 tab PO DAILY RF: 0 acetaminophen [Tylenol Arthritis Pain] 650 mg tablet extended release 650 - 1,300 mg PO ONCE PRN (Reason: Pain) RF: 0 duloxetine 60 mg capsule,delayed release(DR/EC) 60 mg PO BID Qty: 60 RF: 3 fluticasone propionate [Flonase Allergy Relief] 50 mcg/actuation spray,suspension 2 sprays INTNAS DAILY Qty: 9.9 RF: 5 Basaglar KwikPen U-100 Insulin 100 unit/mL (3 mL) insulin pen 32 unit SUBCUT QAM RF: 0 Discharge Orders: Discharge Order (Routine); Ordered 10/20/19 Ordered By: Reji Vanegas Admission Data Admit Date/Time: 10/19/19 23:19 Attending Provider: Reji Vanegas Admit Provider: Luis M Samayoa Primary Care Provider: Marleni Macias Other Providers: Luis M Samayoa ; Leoncio Saeed Other Interventions: Discharge Summary Assessment (RN) Last Done: 10/20/19 17:08 DC Date/Time DO NOT enter until pt leaves facility: 10/20/19 18:04 Coding Level of Care Code D/C Day Management <30 mins Diagnoses H/O: stroke with residual effects I69.30
--- NOTE | 2019-10-22 12:38 | Electrocardiogram Report ---
Test Reason : Blood Pressure : / mmHG Vent. Rate : 084 BPM Atrial Rate : 084 BPM P-R Int : 160 ms QRS Dur : 070 ms QT Int : 344 ms P-R-T Axes : 038 013 025 degrees QTc Int : 406 ms Normal sinus rhythm Normal ECG When compared with ECG of 28-JUN-2019 02:27, No significant change was found Confirmed by Jesus Mccain ([id number]) on 10/22/2019 12:38:11 PM Referred By: REFERRED SELF Confirmed By:Jesus Mccain
--- NOTE | 2019-10-24 08:00 | Coding Query ---
CODING QUERY To promote full compliance with coding requirements relating to patient care, provider participation is requested in all cases of ground crewman uncertainty. Please assist us with the question(s) below: Coding Question(s): The Discharge Summary documents recrudescence of prior stroke with no new stroke seen on MRI and documentation of unlikely to represent a TIA. There is documentation in the record of left sided weakness of leg with the Discharge Summary documenting left sided weakness in the Discharge Plan area under Discharge Diagnosis, however, there is documentation as well of no true weakness seen on examination in bed and PT/OT did note weakness. Please clarify below, in your clinical opinion, regarding CVA/TIA and regarding the left sided weakness of left leg. 1. REGARDING ACUTE CVA AND TIA (documented as not seen on MRI and unlikely to represent a TIA) ( ) Possible CVA ( ) Possible TIA ( x ) NO CVA and NO TIA, only sequela/recrudescence of Prior Stroke ( ) Other: Please Specify 2. REGARDING LEFT SIDED WEAKNESS OF LEFT LEG ( x) Sequela/recrudescence of Prior Stroke ( ) No Left Sided Weakness of Left Leg - this was ruled-out ( ) Other: Please Specify Physician's Response(s): Thank you Ya Suarez Principal Diagnosis: "that condition established after study, to be chiefly responsible for occasioning the admission of the patient to the hospital for care." Co-Existing Principal Diagnosis: "when two or more diagnoses equally meet the criteria for principal diagnosis as determined by the circumstances of admission, diagnostic work up, and/or therapy provided, and the Alphabetic Index, Tabular List, or another coding guideline does not provide sequencing direction, any one of the diagnoses may be sequenced first." "When the physician has documented what appears to be a current diagnosis in the body of the record, but has not included the diagnosis in the final diagnostic statement, the physician should be asked whether the diagnosis should be added." (Source Coding [facility] 2 QTR90. p3-4) SARY
== END 2019-10-20 18:04 | disposition home or self-care (01) | DRG 57 ==
LOC: ED 19:58 → SUATTDRO 23:19 → 2S 23:19

== ENCOUNTER 2019-10-24 14:37 | Observation (INO) ==
--- NOTE | 2019-10-24 15:08 | Emergency Department Note ---
Impression & Plan Acute left-sided weakness, Left sided numbness, Acute hyperglycemia, History of CVA (cerebrovascular accident) ED Provider Note NAME: CORINNE CURRIE AGE: 64 SEX: F : 1955 ARRIVES VIA: Walk-In INFORMANT: [Patient][friend] ED PROVIDER(S): [Jose Voss MD] First contact with the patient was at 1450 CHIEF COMPLAINT: Left-sided numbness and weakness HISTORY OF PRESENT ILLNESS: The patient is a 64-year-old female who was discharged from the hospital 4 days ago for increased weakness and numbness on her left side. No new stroke was found. She has an old stroke which has affected her left side. It was felt that her symptoms were from some exhaustion/heat exposure. She currently is on aspirin. The patient states that about 2-1/2 hours ago, she began to notice increased weakness and numbness in her left arm, left leg. Her left face was more numb than it had been before. Her speech seemed slightly off. She also states that she developed a posterior headache that was a 7 on a scale of 1-10. Her friend with her states that her balance and gait were so poor today that she had to use a wheelchair to get her back to her room here at the hospital. She would not typically need a wheelchair. There has been no cough or congestion or shortness of breath. No urinary complaints. The patient feels that her left arm and left face are more numb than baseline. Her left leg numbness is about the same but the left leg seems more weak than baseline. REVIEW OF SYSTEMS: See HPI for pertinent positives and negatives. A total of ten systems were reviewed and were otherwise negative. PMHx/PSHx: See Below SOCIAL HISTORY: See Below. PHYSICAL EXAM: GENERAL: Patient is in no acute distress. HEENT: No acute trauma, normocephalic atraumatic, mucous membranes moist, no nasal congestion, no scleral icterus. NECK: No stridor, no adenopathy, no meningismus, trachea is midline. LUNGS: Clear to auscultation bilaterally, no wheeze, no rhonchi, breath sounds equal. HEART: Without murmurs gallops or rubs, regular rate and rhythm. ABDOMEN: Soft, nontender, bowel sounds positive, no hernias, no peritonitis. EXTREMITIES: No cyanosis or edema, full range of motion of all the joints without pain or difficulty, no signs for acute trauma. NEUROLOGIC: Oriented x 3, her left arm and left leg are weak. The left leg cannot really be lifted off the bed. There is cerebellar dysfunction in the left upper extremity. Speech slightly slurred at times. No facial droop. SKIN: No rash, no jaundice, no diaphoresis. DIFFERENTIAL DIAGNOSIS:Infection, dehydration, metabolic abnormality, hypo/hyperglycemia, electrolyte disturbance, anemia, hypoxia, cardiac sources, intracerebral event, CVA, TIA, toxicologic, neurologic, as well as other pathologies. EMERGENCY DEPARTMENT COURSE/PROCEDURES: ECG: Indication was possible stroke. The EKG shows a normal sinus rhythm with a rate of 72. There is no ST elevation, no PVCs. The QTc is 392. Continuous Cardiac Monitoring: An order was placed for continuous cardiac monitoring. The monitor shows a rate of 70 with normal sinus rhythm. Critical Care Note: I have personally spent greater than 44 minutes of critical care time in the direct management of this patient. This includes bedside care, interpretation of diagnostic studies, and testing, discussion with consultants, patient, and family members, and other required patient management activities. This 44 minutes is in excess of all separately billable procedures. MEDICAL DECISION MAKING: There is no leukocytosis or worrisome anemia. There is a normal platelet count. No coagulopathy. No renal failure. Glucose was quite high at 405. No liver enzyme elevation. Brain CT angiogram did not show acute bleeding or acute thrombosis. CT angiogram of the neck did not show any acute thrombosis. On exam, the patient did have left cerebellar dysfunction and some left leg weakness. No facial droop. It was difficult to discern new findings from her old stroke deficits. The patient was made a stroke alert given her presentation and complaints. I did speak with the [facility] neurology group over the phone. The patient is not a candidate for TPA given her history. Patient was just in our hospital recently for the same symptoms. No acute stroke was found. Today, she has the same symptoms and TPA was not indicated given the waxing and waning nature of her complaints. The neurologist from [facility] requested a stat noncontrast MRI. The patient was given IV saline for the high blood sugar. IV insulin was initially ordered but then canceled as her sugar had come down to the 200s with just time and fluid. The patient's MRI returned showing no acute CVA. No mass. The patient feels about the same as she did earlier. I do think a hospital stay, observation, neurology consult is warranted. At this point, this looks to be more of a metabolic issue than a new CVA. I did speak with case management. The on-call hospitalist has been consulted. Past Med/Surg History Medical History Abnormal mouth sensation (Inactive) Breast cancer CVA (cerebral vascular accident) (Acute) R thalamic infarct in 02/2018 Depression Diabetes mellitus A1c 7.8% August 2018 DJD (degenerative joint disease) GERD (gastroesophageal reflux disease) Goiter H/O: stroke with residual effects HTN (hypertension) Hyperlipidemia MCI (mild cognitive impairment) Osteoporosis Overweight (BMI 25.0-29.9) Paresthesia of left arm and leg Periorbital ecchymosis of left eye (Inactive) Peripheral neuropathy Reactive airway disease Seasonal allergies Stage 3 chronic kidney disease Vertigo Surgical History H/O: hysterectomy Hx of appendectomy Hx of cholecystectomy S/P laminectomy with spinal fusion L4-[address] 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 Beliefs That Will Affect Care: None marital status: Current Living Situation: Alone Current Living Situation Comment: grandson lives w/ pt current occupational status: retired 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 [employer] Feels Safe at Home: Yes Childhood Exposure to Second-Hand Smoke: No caffeine: No during the past year weight has: remained stable Dental Care, Regularly: No Physical Activity Frequency: Does not Exercise Seatbelt Use: always Sunscreen Use: Yes Allergies Allergies Allergy/AdvReac Type Severity Reaction Status Date / Time propoxyphene AdvReac Unknown GI UPSET Verified 10/24/19 16:25 Home Meds Home Medications Medication Instructions Recorded Confirmed acetaminophen 650 mg 650 - 1,300 mg PO ONCE PRN tab 10/04/18 10/24/19 tablet,extended release aspirin 81 mg tablet,delayed 81 mg PO DAILY 10/04/18 10/24/19 release multivitamin 1 tab PO DAILY 10/04/18 10/24/19 Kapil Aleman U-100 Insulin 32 unit SUBCUT QAM 03/06/19 10/24/19 Previous Rx's Medication Instructions Recorded rosuvastatin 40 mg tablet 40 mg PO QAM #30 tab 10/04/18 polymyxin B sulfate 10,000 1 drops OP QID 7 Days #10 ml 05/07/19 unit-trimethoprim 1 mg/mL eye drops duloxetine 60 mg capsule,delayed 60 mg PO BID #60 cap 06/05/19 release pantoprazole 20 mg tablet,delayed 20 mg PO DAILY #90 tab 06/20/19 release cetirizine 10 mg tablet 10 mg PO DAILY #90 tab 06/29/19 fluticasone propionate 50 2 sprays INTNAS DAILY #9.9 gm 07/25/19 mcg/actuation nasal spray,suspension metformin 500 mg tablet,extended 1,000 mg PO BID #60 tab 09/19/19 release 24 hr Results & Data (ED) Vital Signs Vital Signs - 24 hr 10/24/19 14:39 10/24/19 15:21 10/24/19 15:31 Temperature 36.7 C Temperature Source Oral Pulse Rate 122 H 73 Pulse Rate [Left Finger] 70 Pulse Rate from SpO2 Sensor 73 Respiratory Rate 16 12 20 Respiratory Effort / Characteristics Non-Labored Respiratory Depth Normal Blood Pressure 122/52 L 136/120 H Blood Pressure [Left Arm] 133/81 Blood Pressure Mean 75 123 Blood Pressure Mean [Left Arm] 98 Pulse Oximetry 97 97 96 Oxygen Delivery Method Room Air Room Air Sepsis Recent Fever Within 48 Hours No Sepsis New/Unexplained Change in Mental Status N/A Sepsis Action Taken by Nursing No Action Required 10/24/19 15:33 10/24/19 15:41 10/24/19 15:50 Temperature Temperature Source Pulse Rate 72 65 63 Pulse Rate [Left Finger] Pulse Rate from SpO2 Sensor 72 65 64 Respiratory Rate 21 17 15 Respiratory Effort / Characteristics Respiratory Depth Blood Pressure Blood Pressure [Left Arm] Blood Pressure Mean Blood Pressure Mean [Left Arm] Pulse Oximetry 95 94 96 Oxygen Delivery Method Sepsis Recent Fever Within 48 Hours Sepsis New/Unexplained Change in Mental Status Sepsis Action Taken by Nursing 10/24/19 17:13 10/24/19 17:14 10/24/19 18:00 Temperature Temperature Source Pulse Rate 65 68 Pulse Rate [Left Finger] 59 L Pulse Rate from SpO2 Sensor Respiratory Rate 19 18 18 Respiratory Effort / Characteristics Respiratory Depth Blood Pressure 124/63 Blood Pressure [Left Arm] 119/84 Blood Pressure Mean 74 Blood Pressure Mean [Left Arm] 95 Pulse Oximetry 97 Oxygen Delivery Method Room Air Sepsis Recent Fever Within 48 Hours Sepsis New/Unexplained Change in Mental Status Sepsis Action Taken by [facility] Medications Current Medication List: was personally reviewed by me Laboratory Data Attestation: I reviewed the patient's lab results. Result diagrams: 10/24/19 14:56 10/24/19 14:56 Lab Results 10/24/19 10/24/19 10/24/19 Range/Units 14:56 14:56 14:56 WBC 5.52 (4.8-10.8) K/uL RBC 4.15 L (4.2-5.4) M/uL Hgb 11.7 L (12.0-16.0) g/dL Hct 35.1 L (37-47) % MCV 84.6 (80-100) fL MCH 28.2 (25-34) pg MCHC 33.3 (32-36) g/dL RDW Std Deviation 44.1 (36.4-46.3) fL RDW Coeff of Supriya 14.2 (11.5-14.5) % Plt Count 256 (130-400) K/uL MPV 10.0 (7.4-10.4) fL Immature Gran % (Auto) 0.0 % Neut % (Auto) 60.7 % Lymph % (Auto) 29.2 % Jenkins % (Auto) 6.7 % Eos % (Auto) 2.9 % Baso % (Auto) 0.5 % Neut # (Auto) 3.35 (1.4-6.5) K/uL Lymph # (Auto) 1.61 (1.2-3.4) K/uL Jenkins # (Auto) 0.37 (0.11-0.59) K/uL Eos # (Auto) 0.16 (0-0.5) K/uL Baso # (Auto) 0.03 (0-0.2) K/uL Immature Gran # (Auto) 0.00 (0.00-0.02) K/uL PT 11.0 (9.0-12.0) Seconds INR 1.0 (0.9-1.1) APTT 26.7 (21.0-31.0) Seconds PTT Ratio 1.0 Sodium 138 (136-145) mmol/L Potassium 4.4 (3.5-5.1) mmol/L Chloride 107 (98-107) mmol/L Carbon Dioxide 26 (21-32) mmol/L Anion Gap 5.0 (3-11) BUN 13 (7-18) mg/dl Creatinine 1.06 (0.6-1.2) mg/dl Est Cr Clr Drug Dosing 58.5 ml/min Est GFR ( Amer) 64.3 Est GFR (Non-Af Amer) 55.4 BUN/Creatinine Ratio 12.5 (10-20) Glucose 405 H* (70-99) mg/dl POC Glucose (70-99) mg/dl Calcium 9.1 (8.5-10.1) mg/dl Magnesium 1.9 (1.8-2.4) mg/dl Total Bilirubin 0.3 (0.2-1) mg/dl AST 14 L (15-37) U/L ALT 18 (12-78) U/L Alkaline Phosphatase 84 (45-117) U/L Troponin I < 0.015 (0-0.045) ng/ml Total Protein 7.1 (6.4-8.2) gm/dl Albumin 3.4 (3.4-5.0) gm/dl Globulin 3.7 (2.5-4.0) gm/dl Albumin/Globulin Ratio 0.9 (0.9-2) Beta-Hydroxybutyric Acd 0.99 (0.2-2.81) mg/dl TSH (0.300-4.500) uIu/ml Free T4 (0.8-1.6) ng/dl Specimen Hemolysis 10/24/19 10/24/19 10/24/19 Range/Units 14:56 15:02 17:09 WBC (4.8-10.8) K/uL RBC (4.2-5.4) M/uL Hgb (12.0-16.0) g/dL Hct (37-47) % MCV (80-100) fL MCH (25-34) pg MCHC (32-36) g/dL RDW Std Deviation (36.4-46.3) fL RDW Coeff of Supriya (11.5-14.5) % Plt Count (130-400) K/uL MPV (7.4-10.4) fL Immature Gran % (Auto) % Neut % (Auto) % Lymph % (Auto) % Jenkins % (Auto) % Eos % (Auto) % Baso % (Auto) % Neut # (Auto) (1.4-6.5) K/uL Lymph # (Auto) (1.2-3.4) K/uL Jenkins # (Auto) (0.11-0.59) K/uL Eos # (Auto) (0-0.5) K/uL Baso # (Auto) (0-0.2) K/uL Immature Gran # (Auto) (0.00-0.02) K/uL PT (9.0-12.0) Seconds INR (0.9-1.1) APTT (21.0-31.0) Seconds PTT Ratio Sodium (136-145) mmol/L Potassium (3.5-5.1) mmol/L Chloride (98-107) mmol/L Carbon Dioxide (21-32) mmol/L Anion Gap (3-11) BUN (7-18) mg/dl Creatinine (0.6-1.2) mg/dl Est Cr Clr Drug Dosing ml/min Est GFR ( Amer) Est GFR (Non-Af Amer) BUN/Creatinine Ratio (10-20) Glucose (70-99) mg/dl POC Glucose 428 H* 224 H (70-99) mg/dl Calcium (8.5-10.1) mg/dl Magnesium (1.8-2.4) mg/dl Total Bilirubin (0.2-1) mg/dl AST (15-37) U/L ALT (12-78) U/L Alkaline Phosphatase (45-117) U/L Troponin I (0-0.045) ng/ml Total Protein (6.4-8.2) gm/dl Albumin (3.4-5.0) gm/dl Globulin (2.5-4.0) gm/dl Albumin/Globulin Ratio (0.9-2) Beta-Hydroxybutyric Acd (0.2-2.81) mg/dl TSH 0.177 L (0.300-4.500) uIu/ml Free T4 0.80 (0.8-1.6) ng/dl Specimen Hemolysis Administered Medications Duloxetine HCl (Cymbalta) 60 mg PO BID JESUS Stop: 11/23/19 20:59 Last Admin: 10/24/19 21:39 Dose: 60 mg Documented by: [id number] Enoxaparin Sodium (Lovenox) 40 mg SQ Q24H JESUS Stop: 11/23/19 20:59 Last Admin: 10/24/19 21:39 Dose: 40 mg Documented by: [id number] Insulin Aspart (Novolog Flexpen) 0 units SC ACHS JESUS Stop: 11/23/19 20:59 Last Admin: 10/24/19 20:50 Dose: Not Given Documented by: [id number] Ioversol (Optiray 320 125ml) 120 ml IV ONCE PRN PRN Reason: Interaction Checking Stop: 10/28/19 15:18 Last Admin: 10/24/19 15:19 Dose: 120 ml Documented by: [id number] Discontinued Medications Lorazepam (Ativan) 1 mg in 2 mls @ 2 mls/min IV NOW STA Stop: 10/24/19 15:36 Last Admin: 10/24/19 15:51 Dose: 2 mls/min Documented by: [id number] Sodium Chloride (Nss) 500 mls @ 999 mls/hr IV .Q31M ONE Stop: 10/24/19 16:16 Last Infusion: 10/24/19 17:42 Dose: 0 mls/hr Documented by: [id number] Admin: 10/24/19 17:10 Dose: 999 mls/hr Documented by: [id number] Insulin Human Regular (Novolin R U-100 Per Unit) 10 units IV NOW STA Stop: 10/24/19 15:47 Last Admin: 10/24/19 17:12 Dose: Not Given Documented by: [id number] Imaging Data Radiologist's Impression: CT head/brain wo con CLINICAL HISTORY: 64 years-old Female with Stroke evaluation . Acute strokelike symptoms TECHNIQUE: Multiple axial CT images of the head were obtained without contrast. A dose lowering technique was utilized adhering to the principles of ALARA. CT DOSE: 788.63 mGycm COMPARISON: Head CT 10/19/2019. FINDINGS: No acute intracranial hemorrhage, midline shift, intracranial mass, hydrocephalus, territorial ischemia or abnormal extra-axial collection. Remote right flank lacunar infarct. Minimal patchy white matter hypodensities suggest a component of chronic microvascular ischemic disease. Cerebral vascular calcifications. The calvarium is intact. The paranasal sinuses, mastoid air cells, and middle ear cavities are clear. IMPRESSION: No acute intracranial abnormality. CT angio head w con CLINICAL HISTORY: 64 years-old Female with Stroke evaluation . Acute stroke like symptoms COMPARISON STUDY: Head CT of same day TECHNIQUE: Following the IV administration of 120 cc of Optiray 320, CT angiogram of the brain was performed from the skull base to the vertex. Images are reviewed in the axial, sagittal, and coronal planes. 3-D MIPS images are created and assessed. IV contrast was administered without complication. All measurements were obtained according to NASCET criteria. A dose lowering technique was utilized adhering to the principles of ALARA. CT DOSE: 1125.35 mGycm FINDINGS: CT ANGIOGRAM OF THE BRAIN: There is calcified plaque of the cavernous and supraclinoid segments of the internal carotid arteries with resultant moderate luminal narrowing on the right (image 57 series 3) and mild luminal narrowing of the left (image 60 series 3). The bilateral anterior and middle cerebral arteries are also patent. The distal right vertebral artery is patent with mild calcified plaque of the V4 segment. Developmentally diminutive left vertebral artery. Moderate multifocal luminal narrowing of the V3 and V4 segments (please see bookmarks) with majority of the vessel terminate into the left PICA. Patent and normal-appearing basilar artery. The bilateral posterior cerebral arteries are patent. Mild to moderate luminal narrowing involves the left posterior cerebral artery on image 57 series 3. Cerebral venous sinuses are patent. There is no aneurysm or dissection. No abnormal enhancement. Soft tissues are unremarkable. Bones appear intact. IMPRESSION: 1. No aneurysm, dissection, high-grade stenosis or proximal branch occlusion. 2. Mild to moderate luminal narrowing of the intracranial arterial structures as above. CT angio neck with con CLINICAL HISTORY: Stroke evaluation COMPARISON STUDY: June 28, 2019 TECHNIQUE: CT angiography was performed from the aortic arch to the skull base. MIP imaging was performed. The patient was scanned in a dynamic helical fashion during intravenous administration of 120 cc of Optiray 320. A dose lowering technique was utilized adhering to the principles of ALARA. CT DOSE: Technique: CT angiogram of the carotid and vertebral arteries was obtained using intravenous contrast and 3-D reconstruction. NASCET criteria was utilized. Findings: The right carotid revealed no evidence of aneurysm and no evidence of dissection. There is no evidence of hemodynamic significant stenosis. The left carotid revealed no evidence of hemodynamic significant stenosis. There is no evidence of aneurysm. There is no evidence of dissection. There is no evidence of hemodynamically significant vertebral stenosis. There is no evidence of vertebral dissection. The right vertebral artery is dominant. Again evident is a multinodular thyroid gland. IMPRESSION: No evidence of hemodynamically significant carotid or vertebral artery stenosis. No evidence of dissection. MRI OF THE BRAIN WITHOUT CONTRAST CLINICAL HISTORY: Possible stroke. Left-sided weakness. COMPARISON STUDY: MRI of the brain October 19, 2019. Head CT and CTA of the head performed earlier today. TECHNIQUE: Utilizing a 1.5 Courtney magnet and dedicated coil, multiplanar, multiecho imaging of the brain was performed without IV contrast. FINDINGS: There are no foci of restricted diffusion to suggest acute infarct. No acute intracranial hemorrhage, midline shift or mass effect is present. Ventricular system is unremarkable. The basilar cisterns are patent. There are no extra-axial collections. Flow-voids for the major intracranial vessels are present. No intracranial masses identified on this unenhanced examination. There is a small old infarct within the right temporal lobe. There is a suspected old lacunar infarct within the right thalamus. The appearance of the brain is unchanged since MRI of October 19, 2019. Calvarial signal is normal. Orbits are unremarkable. IMPRESSION: No acute intracranial findings. No change in appearance of the brain. Blood Pressure Blood Pressure Findings: Elevated blood pressure Blood Pressure Disposition: further management by hospitalist Discharge Plan Visit Data *Final* Discharge Date/Time: 10/24/19 19:53 Chief Complaint: Neuro Symptoms/Deficit Stated Complaint: hands and lips numb, shakey, left side numb ED Provider: Jose Voss Discharge Problem: Acute left-sided weakness, Left sided numbness, Acute hyperglycemia, History of CVA (cerebrovascular accident) Patient Disposition: Admitted As Inpatient Discharge Instructions Interventions: ED Discharge Assessment Last Done: 10/24/19 19:53
--- NOTE | 2019-10-24 15:14 | CT Scan Report ---
CT head/brain wo con CLINICAL HISTORY: 64 years-old Female with Stroke evaluation . Acute strokelike symptoms TECHNIQUE: Multiple axial CT images of the head were obtained without contrast. A dose lowering tech nique was utilized adhering to the principles of ALARA. CT DOSE: 788.63 mGycm COMPARISON: Head CT 10/19/2019. FINDINGS: No acute intracranial hemorrhage, midline shift, intracranial mass, hydrocephalus, territorial ischem ia or abnormal extra-axial collection. Remote right flank lacunar infarct. Minimal patchy white matte r hypodensities suggest a component of chronic microvascular ischemic disease. Cerebral vascular calc ifications. The calvarium is intact. The paranasal sinuses, mastoid air cells, and middle ear cavities are clear . IMPRESSION: No acute intracranial abnormality. ACT 112: Negative or not required by law. The above report was generated using voice recognition software. It may contain grammatical, syntax o r spelling errors. Electronically signed by: Henok Lopes M.D. 10/24/2019 3:13 PM
[2019-10-24 15:18] LABS: Basophils # (auto) 0.03 K/uL (0-0.2); Basophils % (auto) 0.5 %; Eosinophils # (auto) 0.16 K/uL (0-0.5); Eosinophils % (auto) 2.9 %; Hematocrit (blood only) 35.1 % (37-47); Hemoglobin 11.7 g/dL (12.0-16.0); Lymphocytes # (auto) 1.61 K/uL (1.2-3.4); Lymphocytes % (auto) 29.2 %; Mean Corpuscular Hemoglobin 28.2 pg (25-34); Mean Corpuscular Hgb Conc 33.3 g/dL (32-36); Mean Corpuscular Volume 84.6 fL (80-100); Monocytes # (auto) 0.37 K/uL (0.11-0.59); Monocytes % (auto) 6.7 %; Neutrophils # (auto) 3.35 K/uL (1.4-6.5); Neutrophils % (auto) 60.7 %; Platelet Count 256 K/uL (130-400); RDW Coefficient of Variation 14.2 % (11.5-14.5); RDW Standard Deviation 44.1 fL (36.4-46.3); Red Blood Count 4.15 M/uL (4.2-5.4); White Blood Count 5.52 K/uL (4.8-10.8)
[2019-10-24] MEDS ORDERED: OPTIRAY 320 125ml IV PRN (15:19)
--- NOTE | 2019-10-24 15:24 | CT Scan Report ---
CT angio head w con CLINICAL HISTORY: 64 years-old Female with Stroke evaluation . Acute stroke like symptoms COMPARISON STUDY: Head CT of same day TECHNIQUE: Following the IV administration of 120 cc of Optiray 320, CT angiogram of the brain was pe rformed from the skull base to the vertex. Images are reviewed in the axial, sagittal, and coronal pl anes. 3-D MIPS images are created and assessed. IV contrast was administered without complication. Al l measurements were obtained according to NASCET criteria. A dose lowering technique was utilized adh ering to the principles of ALARA. CT DOSE: 1125.35 mGycm FINDINGS: CT ANGIOGRAM OF THE BRAIN: There is calcified plaque of the cavernous and supraclinoid segments of the internal carotid arteries with resultant moderate luminal narrowing on the right (image 57 series 3) and mild luminal narrowin g of the left (image 60 series 3). The bilateral anterior and middle cerebral arteries are also paten t. The distal right vertebral artery is patent with mild calcified plaque of the V4 segment. Developm entally diminutive left vertebral artery. Moderate multifocal luminal narrowing of the V3 and V4 segm ents (please see bookmarks) with majority of the vessel terminate into the left PICA. Patent and norm al-appearing basilar artery. The bilateral posterior cerebral arteries are patent. Mild to moderate l uminal narrowing involves the left posterior cerebral artery on image 57 series 3. Cerebral venous si nuses are patent. There is no aneurysm or dissection. No abnormal enhancement. Soft tissues are unremarkable. Bones appear intact. IMPRESSION: 1. No aneurysm, dissection, high-grade stenosis or proximal branch occlusion. 2. Mild to moderate luminal narrowing of the intracranial arterial structures as above. ACT 112: Negative or not required by law. The above report was generated using voice recognition software. It may contain grammatical, syntax o r spelling errors. Electronically signed by: Henok Lopes M.D. 10/24/2019 3:23 PM
--- NOTE | 2019-10-24 15:28 | CT Scan Report ---
CT angio neck with con CLINICAL HISTORY: Stroke evaluation COMPARISON STUDY: June 28, 2019 TECHNIQUE: CT angiography was performed from the aortic arch to the skull base. MIP imaging was perfo rmed. The patient was scanned in a dynamic helical fashion during intravenous administration of 120 c c of Optiray 320. A dose lowering technique was utilized adhering to the principles of ALARA. CT DOSE: Technique: CT angiogram of the carotid and vertebral arteries was obtained using intravenous contrast and 3-D reconstruction. NASCET criteria was utilized. Findings: The right carotid revealed no evidence of aneurysm and no evidence of dissection. There is no evidenc e of hemodynamic significant stenosis. The left carotid revealed no evidence of hemodynamic significant stenosis. There is no evidence of an eurysm. There is no evidence of dissection. There is no evidence of hemodynamically significant vertebral stenosis. There is no evidence of verte bral dissection. The right vertebral artery is dominant. Again evident is a multinodular thyroid gland. IMPRESSION: No evidence of hemodynamically significant carotid or vertebral artery stenosis. No evidence of disse ction. ACT 112: Negative or not required by law. Electronically signed by: Guerrero Davidson M.D. 10/24/2019 3:27 PM
[2019-10-24 15:32] LABS: Partial Thromboplastin Time 26.7 Seconds (21.0-31.0)
[2019-10-24] MEDS ORDERED: LORazepam 1 MG/2 ML VIAL IV STA (15:35)
[2019-10-24 15:43] LABS: Alanine Aminotransferase 18 U/L (12-78); Albumin Globulin Ratio 0.9 (0.9-2); Albumin Level 3.4 gm/dl (3.4-5.0); Alkaline Phosphatase 84 U/L (45-117); Aspartate Aminotransferase 14 U/L (15-37); BUN Creatinine Ratio 12.5 (10-20); Bilirubin,Total 0.3 mg/dl (0.2-1); Blood Urea Nitrogen 13 mg/dl (7-18); Calcium 9.1 mg/dl (8.5-10.1); Carbon Dioxide 26 mmol/L (21-32); Chloride 107 mmol/L (98-107); Creatinine Clr Calc Pharmacy 58.5 ml/min; Est GFR (African American) 64.3; Est GFR (Non-African American) 55.4; Globulin 3.7 gm/dl (2.5-4.0); Glucose 405 mg/dl (70-99); Magnesium 1.9 mg/dl (1.8-2.4); Potassium 4.4 mmol/L (3.5-5.1); Sodium 138 mmol/L (136-145); Total Protein 7.1 gm/dl (6.4-8.2)
[2019-10-24] MEDS ORDERED: SODIUM CHLORIDE 0.9% 500 ML IV ONE (15:46)
[2019-10-24] MEDS ORDERED: NovoLIN-R INSULIN PER UNIT CHARGE IV STA (15:46)
[2019-10-24 16:02] LABS: Beta-Hydroxybutyrate 0.99 mg/dl (0.2-2.81)
[2019-10-24 16:05] LABS: Troponin I < 0.015 ng/ml (0-0.045)
--- NOTE | 2019-10-24 16:55 | Magnetic Resonance Report ---
MRI OF THE BRAIN WITHOUT CONTRAST CLINICAL HISTORY: Possible stroke. Left-sided weakness. COMPARISON STUDY: MRI of the brain October 19, 2019. Head CT and CTA of the head performed earlier today . TECHNIQUE: Utilizing a 1.5 Courtney magnet and dedicated coil, multiplanar, multiecho imaging of the bra in was performed without IV contrast. FINDINGS: There are no foci of restricted diffusion to suggest acute infarct. No acute intracranial h emorrhage, midline shift or mass effect is present. Ventricular system is unremarkable. The basilar c isterns are patent. There are no extra-axial collections. Flow-voids for the major intracranial vesse ls are present. No intracranial masses identified on this unenhanced examination. There is a small ol d infarct within the right temporal lobe. There is a suspected old lacunar infarct within the right t halamus. The appearance of the brain is unchanged since MRI of October 19, 2019. Calvarial signal is nor mal. Orbits are unremarkable. IMPRESSION: No acute intracranial findings. No change in appearance of the brain. ACT 112: Negative or not required by law. Electronically signed by: Fredrick Simmons M.D. 10/24/2019 4:54 PM
[2019-10-24] MEDS ORDERED: ACETAMINOPHEN 325 MG TAB PO PRN (18:57)
--- NOTE | 2019-10-24 18:59 | History & Physical Report ---
Date of Service October 24, 2019 Assessment & Plan (1) Headache: Presents to the ER for the second time in the last week with left-sided weakness and numbness along with associated headache. This is the fourth presentation in the last 7 to 8 months at this hospital for the exact same symptoms. Previously, neurology suspected that this was a recrudescence of her old right thalamic infarct. Question if this is complex migraines? There is no mass or aneurysm noted on brain imaging -Admit on observation overnight for further work-up and neurology evaluation -Consult neurology -Tylenol as needed for headache (2) Left sided numbness: As noted above, with a history of old right thalamic infarct but no new stroke on brain MRI for the second time this week. No aneurysms or intracranial masses -Appreciate neurology consultation -Suspect complex migraine -During last admission, neurology recommended checking B12 and replacing if level is less than 400-we will check B12 level in the morning -Neurology also recommended checking TSH and urinalysis-ordered and pending (3) History of CVA (cerebrovascular accident): As noted above -Continue aspirin, statin, good blood pressure control and control of diabetes (4) Left leg weakness: PT/OT consults are placed Work-up as above (5) MCI (mild cognitive impairment): Review of outpatient neurology notes over the last 6 months reveal concerns for developing dementia She recently scored 19/30 on a Mini-Mental status exam and was possibly going to be started on Aricept -Appreciate neurology consultation -supportive care -Unclear if she should be living by herself especially with medication management (6) Stage 3 chronic kidney disease: CKD stage II-III Creatinine at baseline today -Avoid nephrotoxins -renally dose meds when appropriate -follow BMP (7) GERD (gastroesophageal reflux disease): Continue Protonix 40 mg daily (8) Depression: Stable -Continue Cymbalta 60 mg p.o. twice daily (9) Hyperlipidemia: Continue statin Recent lipid panel controlled (10) HTN (hypertension): Blood pressures are well controlled here She is not on any blood pressure medications at home (11) Diabetes mellitus: With hyperglycemia upon arrival-question if she did not take her insulin today as she is having cognitive impairment Blood sugar in the 400s and now improved with IV fluids -Continue home Lantus and add NovoLog sliding scale -Hold home metformin due to CT IV contrast dye load -Recent hemoglobin A1c was uncontrolled at 8.1% (12) DVT prophylaxis: SCD, Lovenox SQ Disposition-bring in on observation for recurrent left-sided weakness and headache, PT/OT evaluations placed, may need rehab placement-this was recommended on the day of discharge on 10/19 but she declined Case management consulted History of Present Illness Chief Complaint: Left-sided weakness, headache Primary Care Provider: Marleni Macias, This patient is a 64-year-old female who was recently discharged just 4 days ago for similar complaints to what she presents with today. She was also admitted to this hospital 4 times in the last 7 to 8 months for similar complaints of left-sided weakness and headache. Her history was difficult to obtain as the patient has some mild cognitive impairment and her sister was no longer at the bedside when I saw her. Attempts were made to call her sister on 4 occasions with no success. As per ER physician reports and what the patient can tell me, she had worsening of her left arm and left lower extremity weakness today around 1230 as well as onset of what she describes as a very bad headache. She also felt that the numbness in her face and left arm and leg were more than previous and perhaps her speech was slightly off. She was also having difficulty with balance and gait and had to use a wheelchair to get around. She has a history of stroke but had a brain MRI again today out of the ER that was unchanged from previous-she continues to only have an old lacunar infarct in the right thalamus. A CT angiogram of the head neck was again repeated today in the ER which showed no hemodynamically significant carotid or vertebral artery stenosis or dissection and no aneurysm, dissection, or high-grade stenosis or proximal branch occlusion in the brain. Her blood sugar was in the 400s upon arrival. There are reports noted in the chart that her family thinks that perhaps the patient does not take her medications as prescribed. Her blood sugar came down to the mid 200s with rec eiving IV fluids in the ER and her symptoms did not improve at all. She will be admitted for observation for headache with left-sided symptoms- perhaps a complex migraine as this is a recurrent symptom pattern. She may need rehab placement which was indeed recommended for her 4 days ago when she left the hospital but she declined at that time. Allergies Allergy/AdvReac Type Severity Reaction Status Date / Time propoxyphene AdvReac Unknown GI UPSET Verified 10/24/19 16:25 Home Medications Home Medications Medication Instructions Recorded Confirmed Type acetaminophen 650 mg 650 - 1,300 mg PO ONCE PRN tab 10/04/18 10/24/19 History tablet,extended release aspirin 81 mg tablet,delayed 81 mg PO DAILY 10/04/18 10/24/19 History release multivitamin 1 tab PO DAILY 10/04/18 10/24/19 History rosuvastatin 40 mg tablet 40 mg PO QAM #30 tab 10/04/18 10/24/19 Rx Basaglar HaseebikPen U-100 Insulin 32 unit SUBCUT QAM 03/06/19 10/24/19 History polymyxin B sulfate 10,000 1 drops OP QID 7 Days #10 ml 05/07/19 10/24/19 Rx unit-trimethoprim 1 mg/mL eye drops duloxetine 60 mg capsule,delayed 60 mg PO BID #60 cap 06/05/19 10/24/19 Rx release pantoprazole 20 mg tablet,delayed 20 mg PO DAILY #90 tab 06/20/19 10/24/19 Rx release cetirizine 10 mg tablet 10 mg PO DAILY #90 tab 06/29/19 10/24/19 Rx fluticasone propionate 50 2 sprays INTNAS DAILY #9.9 gm 07/25/19 10/24/19 Rx mcg/actuation nasal spray,suspension metformin 500 mg tablet,extended 1,000 mg PO BID #60 tab 09/19/19 10/24/19 Rx release 24 hr Past Med/Surg History Medical History Abnormal mouth sensation (Inactive) Breast cancer CVA (cerebral vascular accident) (Acute) R thalamic infarct in 02/2018 Depression Diabetes mellitus A1c 7.8% August 2018 DJD (degenerative joint disease) GERD (gastroesophageal reflux disease) Goiter H/O: stroke with residual effects HTN (hypertension) Hyperlipidemia MCI (mild cognitive impairment) Osteoporosis Overweight (BMI 25.0-29.9) Paresthesia of left arm and leg Periorbital ecchymosis of left eye (Inactive) Peripheral neuropathy Reactive airway disease Seasonal allergies Stage 3 chronic kidney disease Vertigo Surgical History H/O: hysterectomy Hx of appendectomy Hx of cholecystectomy S/P laminectomy with spinal fusion L4-[address] Pillai 07/2017 S/P right mastectomy Family History Mother , age 55 of an [place] Myocardial infarction Heart disease Father , age 72 of an [place] Heart disease Myocardial infarction Other Breast cancer Coronary heart disease Diabetes Hypertension Osteoporosis Stroke Denies family history of Ovarian cancer Prostate cancer Lung cancer Colorectal cancer Social History Smoking Status: Never smoker Second Hand Exposure: No; Do You Dip or Chew Tobacco: No; Tobacco Cessation Education Requested by Patient: No Hx Alcohol Use: No Hx Substance Use: No Preferred Language: Polish Communication Ability: Effective Communication Ability Comment: Patient is slow to understand Visual Impairment: No Limitations Hearing Ability: Normal Stone Polisher Required: No Beliefs That Will Affect Care: None marital status: Current Living Situation: Alone Current Living Situation Comment: Stays with sister most of the day then sister takes her back home current occupational status: retired 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 [employer] Other Information That Helps Us Care for You: No Feels Safe at Home: Yes Safety Concerns: Feels Safe At This Time Childhood Exposure to Second-Hand Smoke: No caffeine: No during the past year weight has: remained stable Dental Care, Regularly: No Physical Activity Frequency: Does not Exercise Seatbelt Use: always Sunscreen Use: Yes Review of Systems Review of Systems: All systems reviewed & are unremarkable except as noted in HPI & below Physical Exam Constitutional: WD/WN, vitals as above Eyes: PERRL, conjunctivae normal, anicteric sclerae ENMT: external ear and nose normal, oropharynx normal Neck: trachea midline, no thyromegaly Respiratory: normal respiratory effort, lungs clear to auscultation Cardiovascular: RRR, no murmur, no edema Chest (Breasts): Chest: normal inspection of chest Gastrointestinal (Abdomen): normal bowel sounds, soft, nontender, no hepatosplenomegaly Musculoskeletal: Extremities: extremities normal to inspection; no cyanosis and no clubbing Skin: no rashes, warm and dry Neurologic: moves all extremities, + focal motor deficit (Was perhaps very slightly weaker on the left upper and lower extremity than the right, 5-/5) and awake Speech / Cognition: normal speech and no expressive aphasia Motor/Sensory: no tremor, no pronator drift and no sensory deficit Coord ination: normal rapid alternating movements She had great difficulty following complex commands and even some simple commands Her short-term memory was very poor. She could not tell me what her address was or where she lived, but noted it to be "1 of those places where old people get taking care of." Psychiatric: Orientation: alert, oriented to person and cooperative Affect: + flat affect Lymphatic: no lymphedema Results & Data Results & Data ([facility]) Vital Signs (Past 12 Hours) Vital Signs Temp Pulse Pulse Resp BP BP Pulse Ox 10/24/19 18:00 59 L 18 119/84 97 10/24/19 17:14 68 18 124/63 10/24/19 17:13 65 19 10/24/19 15:50 63 15 96 10/24/19 15:41 65 17 94 10/24/19 15:33 72 21 95 10/24/19 15:31 73 20 136/120 H 96 10/24/19 15:21 70 12 133/81 97 10/24/19 14:39 36.7 C 122 H 16 122/52 L 97 Laboratory Results 10/24/19 10/24/19 10/24/19 Range/Units 20:42 17:09 15:02 WBC (4.8-10.8) K/uL RBC (4.2-5.4) M/uL Hgb (12.0-16.0) g/dL Hct (37-47) % MCV (80-100) fL MCH (25-34) pg MCHC (32-36) g/dL RDW Std Deviation (36.4-46.3) fL RDW Coeff of Supriya (11.5-14.5) % Plt Count (130-400) K/uL MPV (7.4-10.4) fL Immature Gran % (Auto) % Neut % (Auto) % Lymph % (Auto) % Rich % (Auto) % Eos % (Auto) % Baso % (Auto) % Neut # (Auto) (1.4-6.5) K/uL Lymph # (Auto) (1.2-3.4) K/uL Rich # (Auto) (0.11-0.59) K/uL Eos # (Auto) (0-0.5) K/uL Baso # (Auto) (0-0.2) K/uL Immature Gran # (Auto) (0.00-0.02) K/uL PT (9.0-12.0) Seconds INR (0.9-1.1) APTT (21.0-31.0) Seconds PTT Ratio Sodium (136-145) mmol/L Potassium (3.5-5.1) mmol/L Chloride (98-107) mmol/L Carbon Dioxide (21-32) mmol/L Anion Gap (3-11) BUN (7-18) mg/dl Creatinine (0.6-1.2) mg/dl Est Cr Clr Drug Dosing ml/min Est GFR ( Amer) Est GFR (Non-Af Amer) BUN/Creatinine Ratio (10-20) Glucose (70-99) mg/dl POC Glucose 107 H 224 H 428 H* (70-99) mg/dl Calcium (8.5-10.1) mg/dl Magnesium (1.8-2.4) mg/dl Total Bilirubin (0.2-1) mg/dl AST (15-37) U/L ALT (12-78) U/L Alkaline Phosphatase (45-117) U/L Troponin I (0-0.045) ng/ml Total Protein (6.4-8.2) gm/dl Albumin (3.4-5.0) gm/dl Globulin (2.5-4.0) gm/dl Albumin/Globulin Ratio (0.9-2) Beta-Hydroxybutyric Acd (0.2-2.81) mg/dl TSH (0.300-4.500) uIu/ml Free T4 (0.8-1.6) ng/dl Specimen Hemolysis 10/24/19 10/24/19 10/24/19 Range/Units 14:56 14:56 14:56 WBC (4.8-10.8) K/uL RBC (4.2-5.4) M/uL Hgb (12.0-16.0) g/dL Hct (37-47) % MCV (80-100) fL MCH (25-34) pg MCHC (32-36) g/dL RDW Std Deviation (36.4-46.3) fL RDW Coeff of Supriya (11.5-14.5) % Plt Count (130-400) K/uL MPV (7.4-10.4) fL Immature Gran % (Auto) % Neut % (Auto) % Lymph % (Auto) % Rich % (Auto) % Eos % (Auto) % Baso % (Auto) % Neut # (Auto) (1.4-6.5) K/uL Lymph # (Auto) (1.2-3.4) K/uL Rich # (Auto) (0.11-0.59) K/uL Eos # (Auto) (0-0.5) K/uL Baso # (Auto) (0-0.2) K/uL Immature Gran # (Auto) (0.00-0.02) K/uL PT 11.0 (9.0-12.0) Seconds INR 1.0 (0.9-1.1) APTT 26.7 (21.0-31.0) Seconds PTT Ratio 1.0 Sodium 138 (136-145) mmol/L Potassium 4.4 (3.5-5.1) mmol/L Chloride 107 (98-107) mmol/L Carbon Dioxide 26 (21-32) mmol/L Anion Gap 5.0 (3-11) BUN 13 (7-18) mg/dl Creatinine 1.06 (0.6-1.2) mg/dl Est Cr Clr Drug Dosing 58.5 ml/min Est GFR ( Amer) 64.3 Est GFR (Non-Af Amer) 55.4 BUN/Creatinine Ratio 12.5 (10-20) Glucose 405 H* (70-99) mg/dl POC Glucose (70-99) mg/dl Calcium 9.1 (8.5-10.1) mg/dl Magnesium 1.9 (1.8-2.4) mg/dl Total Bilirubin 0.3 (0.2-1) mg/dl AST 14 L (15-37) U/L ALT 18 (12-78) U/L Alkaline Phosphatase 84 (45-117) U/L Troponin I < 0.015 (0-0.045) ng/ml Total Protein 7.1 (6.4-8.2) gm/dl Albumin 3.4 (3.4-5.0) gm/dl Globulin 3.7 (2.5-4.0) gm/dl Albumin/Globulin Ratio 0.9 (0.9-2) Beta-Hydroxybutyric Acd 0.99 (0.2-2.81) mg/dl TSH 0.177 L (0.300-4.500) uIu/ml Free T4 0.80 (0.8-1.6) ng/dl Specimen Hemolysis 10/24/19 Range/Units 14:56 WBC 5.52 (4.8-10.8) K/uL RBC 4.15 L (4.2-5.4) M/uL Hgb 11.7 L (12.0-16.0) g/dL Hct 35.1 L (37-47) % MCV 84.6 (80-100) fL MCH 28.2 (25-34) pg MCHC 33.3 (32-36) g/dL RDW Std Deviation 44.1 (36.4-46.3) fL RDW Coeff of Supriya 14.2 (11.5-14.5) % Plt Count 256 (130-400) K/uL MPV 10.0 (7.4-10.4) fL Immature Gran % (Auto) 0.0 % Neut % (Auto) 60.7 % Lymph % (Auto) 29.2 % Rich % (Auto) 6.7 % Eos % (Auto) 2.9 % Baso % (Auto) 0.5 % Neut # (Auto) 3.35 (1.4-6.5) K/uL Lymph # (Auto) 1.61 (1.2-3.4) K/uL Rich # (Auto) 0.37 (0.11-0.59) K/uL Eos # (Auto) 0.16 (0-0.5) K/uL Baso # (Auto) 0.03 (0-0.2) K/uL Immature Gran # (Auto) 0.00 (0.00-0.02) K/uL PT (9.0-12.0) Seconds INR (0.9-1.1) APTT (21.0-31.0) Seconds PTT Ratio Sodium (136-145) mmol/L Potassium (3.5-5.1) mmol/L Chloride (98-107) mmol/L Carbon Dioxide (21-32) mmol/L Anion Gap (3-11) BUN (7-18) mg/dl Creatinine (0.6-1.2) mg/dl Est Cr Clr Drug Dosing ml/min Est GFR ( Amer) Est GFR (Non-Af Amer) BUN/Creatinine Ratio (10-20) Glucose (70-99) mg/dl POC Glucose (70-99) mg/dl Calcium (8.5-10.1) mg/dl Magnesium (1.8-2.4) mg/dl Total Bilirubin (0.2-1) mg/dl AST (15-37) U/L ALT (12-78) U/L Alkaline Phosphatase (45-117) U/L Troponin I (0-0.045) ng/ml Total Protein (6.4-8.2) gm/dl Albumin (3.4-5.0) gm/dl Globulin (2.5-4.0) gm/dl Albumin/Globulin Ratio (0.9-2) Beta-Hydroxybutyric Acd (0.2-2.81) mg/dl TSH (0.300-4.500) uIu/ml Free T4 (0.8-1.6) ng/dl Specimen Hemolysis Diagnostic Findings MRI OF THE BRAIN WITHOUT CONTRAST CLINICAL HISTORY: Possible stroke. Left-sided weakness. COMPARISON STUDY: MRI of the brain October 19, 2019. Head CT and CTA of the head performed earlier today. TECHNIQUE: Utilizing a 1.5 Courtney magnet and dedicated coil, multiplanar, multiecho imaging of the brain was performed without IV contrast. FINDINGS: There are no foci of restricted diffusion to suggest acute infarct. No acute intracranial hemorrhage, midline shift or mass effect is present. Ventricular system is unremarkable. The basilar cisterns are patent. There are no extra-axial collections. Flow-voids for the major intracranial vessels are present. No intracranial masses identified on this unenhanced examination. There is a small old infarct within the right temporal lobe. There is a suspected old lacunar infarct within the right thalamus. The appearance of the brain is unchanged since MRI of October 19, 2019. Calvarial signal is normal. Orbits are unremarkable. IMPRESSION: No acute intracranial findings. No change in appearance of the brain. CT angio neck with con CLINICAL HISTORY: Stroke evaluation COMPARISON STUDY: June 28, 2019 TECHNIQUE: CT angiography was performed from the aortic arch to the skull base. MIP imaging was performed. The patient was scanned in a dynamic helical fashion during intravenous administration of 120 cc of Optiray 320. A dose lowering technique was utilized adhering to the principles of ALARA. CT DOSE: Technique: CT angiogram of the carotid and vertebral arteries was obtained using intravenous contrast and 3-D reconstruction. NASCET criteria was utilized. Findings: The right carotid revealed no evidence of aneurysm and no evidence of dis section. There is no evidence of hemodynamic significant stenosis. The left carotid revealed no evidence of hemodynamic significant stenosis. There is no evidence of aneurysm. There is no evidence of dissection. There is no evidence of hemodynamically significant vertebral stenosis. There is no evidence of vertebral dissection. The right vertebral artery is dominant. Again evident is a multinodular thyroid gland. IMPRESSION: No evidence of hemodynamically significant carotid or vertebral artery stenosis. No evidence of dissection. CT angio head w con CLINICAL HISTORY: 64 years-old Female with Stroke evaluation . Acute stroke like symptoms COMPARISON STUDY: Head CT of same day TECHNIQUE: Following the IV administration of 120 cc of Optiray 320, CT angiogram of the brain was performed from the skull base to the vertex. Images are reviewed in the axial, sagittal, and coronal planes. 3-D MIPS images are created and assessed. IV contrast was administered without complication. All measurements were obtained according to NASCET criteria. A dose lowering technique was utilized adhering to the principles of ALARA. CT DOSE: 1125.35 mGycm FINDINGS: CT ANGIOGRAM OF THE BRAIN: There is calcified plaque of the cavernous and supraclinoid segments of the internal carotid arteries with resultant moderate luminal narrowing on the right (image 57 series 3) and mild luminal narrowing of the left (image 60 series 3). The bilateral anterior and middle cerebral arteries are also patent. The distal right vertebral artery is patent with mild calcified plaque of the V4 segment. Developmentally diminutive left vertebral artery. Moderate multifocal luminal narrowing of the V3 and V4 segments (please see bookmarks) with majority of the vessel terminate into the left PICA. Patent and normal-appearing basilar artery. The bilateral posterior cerebral arteries are patent. Mild to moderate luminal narrowing involves the left posterior cerebral artery on image 57 series 3. Cerebral venous sinuses are patent. There is no aneurysm or dissection. No abnormal enhancement. Soft tissues are unremarkable. Bones appear intact. IMPRESSION: 1. No aneurysm, dissection, high-grade stenosis or proximal branch occlusion. 2. Mild to moderate luminal narrowing of the intracranial arterial structures as above. CT angio head w con CLINICAL HISTORY: 64 years-old Female with Stroke evaluation . Acute stroke like symptoms COMPARISON STUDY: Head CT of same day TECHNIQUE: Following the IV administration of 120 cc of Optiray 320, CT angiogram of the brain was performed from the skull base to the vertex. Images are reviewed in the axial, sagittal, and coronal planes. 3-D MIPS images are created and assessed. IV contrast was administered without complication. All measurements were obtained according to NASCET criteria. A dose lowering technique was utilized adhering to the principles of ALARA. CT DOSE: 1125.35 mGycm FINDINGS: CT ANGIOGRAM OF THE BRAIN: There is calcified plaque of the cavernous and supraclinoid segments of the internal carotid arteries with resultant moderate luminal narrowing on the right (image 57 series 3) and mild luminal narrowing of the left (image 60 series 3). The bilateral anterior and middle cerebral arteries are also patent. The distal right vertebral artery is patent with mild calcified plaque of the V4 segment. Developmentally diminutive left vertebral artery. Moderate multifocal luminal narrowing of the V3 and V4 segments (please see bookmarks) with majority of the vessel terminate into the left PICA. Patent and normal-appearing basilar artery. The bilateral posterior cerebral arteries are patent. Mild to moderate luminal narrowing involves the left posterior cerebral artery on image 57 series 3. Cerebral venous sinuses are patent. There is no aneurysm or dissection. No abnormal enhancement. Soft tissues are unremarkable. Bones appear intact. IMPRESSION: 1. No aneurysm, dissection, high-grade stenosis or proximal branch occlusion. 2. Mild to moderate luminal narrowing of the intracranial arterial structures as above. ECG Additional Comments: ECG on 10/24/2019 at 1451 with normal sinus rhythm, rate 72, no ischemic changes Code Status & VTE Plan Code Status Full code VTE Prophylaxis Plan VTE Prophylaxis will be ordered: Yes PG Care Time/CCT Total # of Minutes Spent Total Time Spent with Patient: Total time spent is greater than 50% in coordination of care (as documented) at patient's floor/unit and/or counseling patient: Coding Level of Care Code 82059 OBS Care - Level 3 Diagnoses Headache R51 Left sided numbness R20.0 History of CVA (cerebrovascular accident) Z86.73 Left leg weakness R29.898 MCI (mild cognitive impairment) G31.84 Stage 3 chronic kidney disease N18.3 GERD (gastroesophageal reflux disease) K21.9 Depression F32.9 Depression Type: unspecified Hyperlipidemia E78.5 HTN (hypertension) I10 Diabetes mellitus E11.9 DVT prophylaxis Z29.9 (1) Depression Depression Type: unspecified Qualified Code(s): F32.9 - Major depressive disorder, single episode, unspecified
[2019-10-24 19:27] LABS: Thyroid Stimulating Hormone 0.177 uIu/ml (0.300-4.500)
[2019-10-24 19:39] LABS: T4 Free Thyroxine 0.8 ng/dl (0.8-1.6)
[2019-10-24] MEDS ORDERED: DEXTROSE 50% 50 ML SYRINGE IV PRN (20:26)
[2019-10-24] MEDS ORDERED: GLUCOSE 40% GEL 15 GM TUBE PO PRN (20:26)
[2019-10-24] MEDS ORDERED: GLUCOSE 10 TABS/TUBE PO PRN (20:26)
[2019-10-24] MEDS ORDERED: ONDANSETRON INJ 2 MG/ML 2 ML VIAL IV PRN (20:26)
[2019-10-24] MEDS ORDERED: GLUCAGON FOR INJ 1 MG VIAL SQ PRN (20:26)
[2019-10-24] MEDS ORDERED: CARBOHYDRATES FOR HYPOGLYCEMIA PO PRN (20:26)
[2019-10-24] MEDS ORDERED: PHARMACIST DISCHARGE MED REC CONSULT PRN (20:26)
[2019-10-24] MEDS ORDERED: ALUMINUM/MAGNESIUM SUSP 30 ML UDC PO PRN (20:26)
[2019-10-24] MEDS ORDERED: POLYETHYLENE (MIRALAX) 17 GM PACK PO PRN (20:26)
[2019-10-24] MEDS: INSULIN ASPART 100 UNITS/ML 3 ML PEN SC SCH (20:50)
[2019-10-24] MEDS ORDERED: ENOXAPARIN INJ 40 MG/0.4 ML SYR SQ SCH (21:00)
[2019-10-24] MEDS: DULOXETINE HCL 60 MG CAP PO SCH (21:39)
[2019-10-25 07:43] LABS: Basophils # (auto) 0.04 K/uL (0-0.2); Basophils % (auto) 0.7 %; Eosinophils # (auto) 0.25 K/uL (0-0.5); Eosinophils % (auto) 4.3 %; Hematocrit (blood only) 34.9 % (37-47); Hemoglobin 11.4 g/dL (12.0-16.0); Immature Granulocytes # (auto) 0.01 K/uL (0.00-0.02); Immature Granulocytes % (auto) 0.2 %; Lymphocytes # (auto) 2.62 K/uL (1.2-3.4); Lymphocytes % (auto) 44.6 %; Mean Corpuscular Hemoglobin 27.9 pg (25-34); Mean Corpuscular Hgb Conc 32.7 g/dL (32-36); Mean Corpuscular Volume 85.3 fL (80-100); Mean Platelet Volume 9.8 fL (7.4-10.4); Monocytes # (auto) 0.47 K/uL (0.11-0.59); Neutrophils # (auto) 2.48 K/uL (1.4-6.5); Neutrophils % (auto) 42.2 %; Platelet Count 247 K/uL (130-400); RDW Coefficient of Variation 14.4 % (11.5-14.5); RDW Standard Deviation 45.2 fL (36.4-46.3); Red Blood Count 4.09 M/uL (4.2-5.4); White Blood Count 5.87 K/uL (4.8-10.8)
[2019-10-25] MEDS: DULOXETINE HCL 60 MG CAP PO SCH (08:03)
[2019-10-25 08:30] LABS: BUN Creatinine Ratio 13.8 (10-20); Calcium 8.7 mg/dl (8.5-10.1); Creatinine Clr Calc Pharmacy 82.7 ml/min; Est GFR (African American) 97.6; Est GFR (Non-African American) 84.2; Potassium 3.8 mmol/L (3.5-5.1)
[2019-10-25] MEDS: INSULIN ASPART 100 UNITS/ML 3 ML PEN SC SCH ×2 (08:32→12:31)
--- NOTE | 2019-10-25 08:51 | Electrocardiogram Report ---
Test Reason : Blood Pressure : / mmHG Vent. Rate : 072 BPM Atrial Rate : 072 BPM P-R Int : 158 ms QRS Dur : 084 ms QT Int : 358 ms P-R-T Axes : 027 007 016 degrees QTc Int : 392 ms Normal sinus rhythm Normal ECG When compared with ECG of 19-OCT-2019 20:38, No significant change was found Confirmed by Sergo Edwards ([id number]) on 10/25/2019 8:50:47 AM Referred By: Confirmed By:Sergo Edwards
[2019-10-25] MEDS ORDERED: FLUTICASONE PROPIONATE NA SPR 16 GM BTL NAE SCH (09:00)
[2019-10-25] MEDS ORDERED: MULTIVITAMIN TAB PO SCH (09:00)
[2019-10-25] MEDS ORDERED: ROSUVASTATIN CALCIUM 20 MG TAB PO SCH (09:00)
[2019-10-25] MEDS ORDERED: INSULIN GLARGINE SOLOSTAR 100 UNITS/ML 3 ML PEN SQ SCH (09:00)
[2019-10-25] MEDS ORDERED: PANTOprazole 40 MG TAB PO SCH ×2 (09:00)
[2019-10-25] MEDS ORDERED: CETIRIZINE HCL 10 MG TABLET PO SCH (09:00)
[2019-10-25] MEDS ORDERED: ASPIRIN 81 MG ECTAB PO SCH (09:00)
[2019-10-25 09:16] LABS: Appearance Urine Clear (Clear); Bacteria Urine Automated Negative (Negative); Bilirubin Urine Negative (Negative); Blood Urine Negative (Negative); Cast Urine Automated 0 /lpf (0-5); Color Urine Yellow; Glucose Urine UA Negative (Negative); Ketones Urine Negative (Negative); Leukocyte Esterase Urine 1+ (Negative); Nitrite Urine Negative (Negative); Protein Urine Negative (Negative); RBC Urine Automated 0-4 /hpf (0-4); Specific Gravity Urine 1.019 (1.000-1.030); Urobilinogen Urine Negative (Negative)
--- NOTE | 2019-10-25 11:33 | Neurology Consultation ---
Date of Consultation October 25, 2019 Assessment & Plan (1) Acute left-sided weakness: (2) Left sided numbness: (3) Headache: (4) History of CVA (cerebrovascular accident): (5) MCI (mild cognitive impairment): (6) Peripheral neuropathy: (7) Depression: the patient has a history of right thalamic stroke in February of 2018 with residual left-sided dysesthesias. These are stable/ chronic. The patient has multiple episodes over time of increasing symptoms ( usually the same types of symptoms as her original stroke plus or minus some extra symptoms such as headache or a sense of weakness ). Certainly she seemed weak when she came to the ER yesterday but is back to baseline today. I do not believe she is having any strokes or TIAs or even vasospasms such as would be with a complicated migraine. I think this time she has had symptoms secondary to significant hyperglycemia (which can give focal neurologic signs ) as well as some relative hypotension which would bring out some of her old symptoms. She has mild cognitive impairment which is getting worse over time. She has peripheral neuropathy with a sensory ataxia as well. Finally, she has depression which is seemingly stable currently. Recommendations: 1. I have no further neurologic testing or treatment recommendations to make at this time. 2. We can follow up as an outpatient. Overall, I spent a total of 45 minutes with this case including review of records, review of MRI films, direct evaluation patient's bedside, and discussing the case with the patient at bedside, RN at bedside, and Dr. Mancini, including differential diagnosis treatment options. History of Present Illness Reason for Consultation: patient is a 64-year-old who I was asked to see the request of Dr. Melendrez, for neurologic consultation regarding possible stroke Requesting Physician: Dr. Melendrez Attending Physician: Conner Mancini History of Present Illness this patient had a small right thalamic stroke in February of 2018. She was left with some numbness and dysesthesias in her left side which has been persistent ever since. I saw her in February of 2019 when she had a significant increase in the left-sided numbness , but MRI of the brain was unremarkable for any new process. MR angiography of February was unremarkable as well. I felt that rather than a TIA this was just an exacerbation of her underlying stroke symptoms secondary to fatigue /stress. She also carries a diagnosis of polyneuropathy with a sensory ataxia as well as mild cognitive impairment which has been chronic. She has a history of hypertension , diabetes, and dyslipidemia. The patient saw Annetta garcia PA-C, Neurology, on October 09 as an outpatient. A mini-mental status examination was performed and she scored 19/30 points. There is also a concern regarding pseudodementia from depression. She has neuropathic pain from her neuropathy which is helped some by duloxetine. On October 18, the patient was admitted with increasing numbness and weakness of her left arm and leg. An MRI of the brain showed no new stroke. She saw Dr. Medina who felt this was not a TIA but just exacerbation of her previous symptoms due to feeling unwell. She was discharged October 19 in improved condition . On October 19, triglyceride was 79, total cholesterol 105, and hemoglobin A1c 8.1. B12 was normal at 424. The patient return to the emergency room yesterday following 2 and 0.5 hours of increased symptoms, including increased weakness and numbness of her left arm and leg, face numbness on the left which was increased, possible speech problems, a posterior headache, and worse balance. She arrived to the emergency room October 23 at 1439, with a temperature of 36.7, pulse 122, respiratory rate 16, blood pressure 122/52, and O2 saturation 97%. She had some weakness in her arm and leg and some slightly slurred speech. Laboratory studies revealed a mild anemia but unremarkable Chem profile except for a glucose of 403. TSH was 0.177. Blood pressure remained relatively low. CT scan of the head was unremarkable. CT angiography of the head and neck were unremarkable as well for any significant vessel stenoses or anomalies. MRI of the brain revealed the old right thalamic lacune unchanged from previous study. There was old small vessel ischemic disease unchanged as well. This morning the patient feels "good". She has no weakness in her left arm or leg and no speech problems. She does say that her speech gets slurred because she is missing some teeth. She is back to her old numbness in the face arm and leg as before. She has no headache. Blood pressure is 130/80. Allergies Allergy/AdvReac Type Severity Reaction Status Date / Time propoxyphene AdvReac Unknown GI UPSET Verified 10/24/19 16:25 Home Medications Home Medications Medication Instructions Recorded Confirmed Type acetaminophen 650 mg 650 - 1,300 mg PO ONCE PRN tab 10/04/18 10/24/19 History tablet,extended release aspirin 81 mg tablet,delayed 81 mg PO DAILY 10/04/18 10/24/19 History release multivitamin 1 tab PO DAILY 10/04/18 10/24/19 History rosuvastatin 40 mg tablet 40 mg PO QAM #30 tab 10/04/18 10/24/19 Rx Basaglbouchra KangPen U-100 Insulin 32 unit SUBCUT QAM 03/06/19 10/24/19 History polymyxin B sulfate 10,000 1 drops OP QID 7 Days #10 ml 05/07/19 10/24/19 Rx unit-trimethoprim 1 mg/mL eye drops duloxetine 60 mg capsule,delayed 60 mg PO BID #60 cap 06/05/19 10/24/19 Rx release pantoprazole 20 mg tablet,delayed 20 mg PO DAILY #90 tab 06/20/19 10/24/19 Rx release cetirizine 10 mg tablet 10 mg PO DAILY #90 tab 06/29/19 10/24/19 Rx fluticasone propionate 50 2 sprays INTNAS DAILY #9.9 gm 07/25/19 10/24/19 Rx mcg/actuation nasal spray,suspension metformin 500 mg tablet,extended 1,000 mg PO BID #60 tab 09/19/19 10/24/19 Rx release 24 hr Patient History Medical History Abnormal mouth sensation (Inactive) Breast cancer CVA (cerebral vascular accident) (Acute) R thalamic infarct in 02/2018 Depression Diabetes mellitus A1c 7.8% August 2018 DJD (degenerative joint disease) GERD (gastroesophageal reflux disease) Goiter H/O: stroke with residual effects HTN (hypertension) Hyperlipidemia MCI (mild cognitive impairment) Osteoporosis Overweight (BMI 25.0-29.9) Paresthesia of left arm and leg Periorbital ecchymosis of left eye (Inactive) Peripheral neuropathy Reactive airway disease Seasonal allergies Stage 3 chronic kidney disease Vertigo Surgical History H/O: hysterectomy Hx of appendectomy Hx of cholecystectomy S/P laminectomy with spinal fusion L4-[address] Pillai 07/2017 S/P right mastectomy Family History Mother , age 55 of an [place] Myocardial infarction Heart disease Father , age 72 of an [place] Heart disease Myocardial infarction Other Breast cancer Coronary heart disease Diabetes Hypertension Osteoporosis Stroke Denies family history of Ovarian cancer Prostate cancer Lung cancer Colorectal cancer Social History Smoking Status: Never smoker Second Hand Exposure: No; Do You Dip or Chew Tobacco: No; Tobacco Cessation Education Requested by Patient: No Hx Alcohol Use: No Hx Substance Use: No Preferred Language: Czech Communication Ability: Effective Communication Ability Comment: Patient is slow to understand Visual Impairment: No Limitations Hearing Ability: Normal Php Architect Required: No Beliefs That Will Affect Care: None marital status: Current Living Situation: Alone Current Living Situation Comment: Stays with sister most of the day then sister takes her back home current occupational status: retired 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 [employer] Other Information That Helps Us Care for You: No Feels Safe at Home: Yes Safety Concerns: Feels Safe At This Time Childhood Exposure to Second-Hand Smoke: No caffeine: No during the past year weight has: remained stable Dental Care, Regularly: No Physical Activity Frequency: Does not Exercise Seatbelt Use: always Sunscreen Use: Yes Review of Systems Constitutional: + fatigue; no fever and no weakness Eyes: no diplopia, no eye pain and no worsening vision Ear, Nose, Mouth, Throat: no ear pain, no tinnitus, no hearing loss, no dizziness, no hoarseness and no dysphagia Respiratory: no cough and no dyspnea Cardiovascular: no chest pain, no palpitations and no lightheadedness Gastrointestinal: no abdominal pain, no nausea and no vomiting Genitourinary: no dysuria, no urinary frequency and no urinary incontinence Musculoskeletal: no back pain, no neck pain, no radicular pain, no joint pain and no myalgia Integumentary: no rash and no lesions Neurologic: + gait abnormality and + numbness; no localized weakness, no generalized weakness, no tingling, no tremor(s), no abnormal movements, no headache(s), no abnormal speech, no confusion and no memory loss Psychiatric: no depression, no irritability, no anxiety, no difficulty concentrating, no confusion and no hallucinations Endocrine: no fatigue and no flushing Hematologic / Lymphatic: no easy bleeding and no easy bruising Allergy / Immunological: no urticaria and no problem reported Exam (Neuro) Physical Exam: The patient is right-handed. The patient is awake, alert, and attentive. Speech is normal without any aphasia or dysarthria. She does have some slight lisp being because of some missing teeth in the front but I would not call this dysarthria. She can name objects, repeat phrases, and has normal spontaneous speech. Mood and affect are normal appropriate. Thought processes are somewhat poor for short and long-term. Pupils are 3 mm bilaterally and reactive to light. Extraocular eye muscles are intact without nystagmus. Visual acuity and visual nguyen seem normal grossly to confrontation. There are no deficits to sensation in the face in all 3 distributions of the fifth cranial nerve bilaterally. Corneal reflexes are positive bilaterally. Facial strength and symmetry was normal bilaterally. Hearing seems normal to whisper and finger rub bilaterally. Palate moves well without asymmetry. There is normal sternocleidomastoid and trapezius (shoulder shrug) strength bilaterally. Tongue is midline with good strength bilaterally. Neck has a full range of motion without discomfort. Cervical, thoracic, and lumbar spine are nontender to palpation. Gait is not tested but stance sitting up in chair is quite normal. With outstretched arms there is no drift. There are no resting, postural, or action tremors. There is no ataxia with finger to nose testing. There is good facility in the Right hand but decreased on the left. No other abnormal involuntary movements are noted. Motor strength is 5/5 diffusely in the arms bilaterally including deltoids, biceps, triceps, brachioradialis, wrist flexors and extensors, associate software application engineer, and intrinsic hand muscles. Motor strength is 5/5 diffusely in the legs bilaterally including hip flexors, quadriceps, hamstrings, gastrocnemius, tibialis anterior, tibialis posterior, and Peroneii muscles. Toe extensors are normal and there is good bulk in the extensor digitorum brevis muscles bilaterally. The limbs have good tone without rigidity or spasticity. There is no atrophy noted in the muscles. Muscle bulk is normal, there is no tenderness to p alpation, no myotonia to percussion, and no fasciculations seen. Sensory examination is intact to touch and pin throughout all 4 limbs diffusely. Reflexes are 1/4 in the biceps, triceps, brachioradialis, quadriceps, and Achilles tendons bilaterally. There is no clonus bilaterally. Toes are downgoing with plantar stimulation bilaterally. Peripheral pulses are present and of normal quality distally in all 4 limbs. There is no peripheral edema noted in the limbs. Results & Data ([facility]) Vital Signs (Past 12 Hours) Vital Signs Temp Pulse Resp BP BP Pulse Ox 10/25/19 11:28 36.8 C 77 18 130/80 100 10/25/19 07:09 36.6 C 67 18 126/77 93 10/25/19 04:27 36.6 C 58 L 18 121/75 97 Diagnostic Findings MRI OF THE BRAIN WITHOUT CONTRAST CLINICAL HISTORY: Possible stroke. Left-sided weakness. COMPARISON STUDY: MRI of the brain October 19, 2019. Head CT and CTA of the head performed earlier today. TECHNIQUE: Utilizing a 1.5 Courtney magnet and dedicated coil, multiplanar, multiecho imaging of the brain was performed without IV contrast. FINDINGS: There are no foci of restricted diffusion to suggest acute infarct. No acute intracranial hemorrhage, midline shift or mass effect is present. Ventricular system is unremarkable. The basilar cisterns are patent. There are no extra-axial collections. Flow-voids for the major intracranial vessels are present. No intracranial masses identified on this unenhanced examination. There is a small old infarct within the right temporal lobe. There is a suspected old lacunar infarct within the right thalamus. The appearance of the brain is unchanged since MRI of October 19, 2019. Calvarial signal is normal. Orbits are unremarkable. IMPRESSION: No acute intracranial findings. No change in appearance of the brain. ACT 112: Negative or not required by law. Electronically signed by: Fredrick Simmons M.D. 10/24/2019 4:54 PM PG Care Time/CCT Total # of Minutes Spent Total Time Spent with Patient: Total time spent is greater than 50% in coordination of care (as documented) at patient's floor/unit and/or counseling patient: Coding Level of Care Code 51419 OBS Care - Level 3 Diagnoses Acute left-sided weakness R53.1 Left sided numbness R20.0 Headache R51 History of CVA (cerebrovascular accident) Z86.73 MCI (mild cognitive impairment) G31.84 Peripheral neuropathy G62.9 Depression F32.9 Depression Type: unspecified Time Spent (min) 45 (1) Depression Depression Type: unspecified Qualified Code(s): F32.9 - Major depressive disorder, single episode, unspecified
[2019-10-25] MEDS ORDERED: STROKE PATIENT DISCHARGE STA (14:32)
--- NOTE | 2019-10-31 23:34 | Discharge Summary ---
Date of Service October 25, 2019 Admission HPI Per Admitting Provider This patient is a 64-year-old female who was recently discharged just 4 days ago for similar complaints to what she presents with today. She was also admitted to this hospital 4 times in the last 7 to 8 months for similar complaints of left-sided weakness and headache. Her history was difficult to obtain as the patient has some mild cognitive impairment and her sister was no longer at the bedside when I saw her. Attempts were made to call her sister on 4 occasions with no success. As per ER physician reports and what the patient can tell me, she had worsening of her left arm and left lower extremity weakness today around 1230 as well as onset of what she describes as a very bad headache. She also felt that the numbness in her face and left arm and leg were more than previous and perhaps her speech was slightly off. She was also having difficulty with balance and gait and had to use a wheelchair to get around. She has a history of stroke but had a brain MRI again today out of the ER that was unchanged from previous-she continues to only have an old lacunar infarct in the right thalamus. A CT angiogram of the head neck was again repeated today in the ER which showed no hemodynamically significant carotid or vertebral artery stenosis or dissection and no aneurysm, dissection, or high-grade stenosis or proximal branch occlusion in the brain. Her blood sugar was in the 400s upon arrival. There are reports noted in the chart that her family thinks that perhaps the patient does not take her medications as prescribed. Her blood sugar came down to the mid 200s with receiving IV fluids in the ER and her symptoms did not improve at all. She will be admitted for observation for headache with left-sided symptoms- perhaps a complex migraine as this is a recurrent symptom pattern. She may need rehab placement which was indeed recommended for her 4 days ago when she left the hospital but she declined at that time. Principal Diagnosis acute left sided weakness Discharge Exam Constitutional: WD/WN, vitals as above Eyes: PERRL, conjunctivae normal, anicteric sclerae ENMT: external ear and nose normal, oropharynx normal Neck: trachea midline, no thyromegaly Respiratory: normal respiratory effort, lungs clear to auscultation Cardiovascular: RRR, no murmur, no edema Chest (Breasts): Chest: normal inspection of chest Gastrointestinal (Abdomen): normal bowel sounds, soft, nontender, no hepatosplenomegaly Musculoskeletal: Extremities: extremities normal to inspection; no cyanosis and no clubbing Skin: no rashes, warm and dry Neurologic: moves all extremities, + focal motor deficit (Was perhaps very slightly weaker on the left upper and lower extremity than the right, 5-/5) and awake Speech / Cognition: normal speech and no expressive aphasia Motor/Sensory: no tremor, no pronator drift and no sensory deficit Coordination: normal rapid alternating movements She had great difficulty following complex commands and even some simple commands Her short-term memory was very poor. She could not tell me what her address was or where she lived Psychiatric: Orientation: alert, oriented to person and cooperative Affect: + flat affect Lymphatic: no lymphedema Discharge Data Allergies Allergy/AdvReac Type Severity Reaction Status Date / Time propoxyphene AdvReac Unknown GI UPSET Verified 10/30/19 09:09 Consultations 10/24/19 17:26 ED Decision to Admit Stat 10/24/19 20:26 Consult Case Management - Discharge Planning Routine Consult Neurology Routine Ordered Studies 10/24/19 15:01 CT angio head w con Stat CT angio neck with con Stat CT head/brain wo con Stat 10/24/19 15:24 MR brain wo con Stat Hospital Course (1) Headache: Presents to the ER for the second time in the last week with left-sided weakness and numbness along with associated headache. This is the fourth presentation in the last 7 to 8 months at this hospital for the exact same symptoms. Previously, neurology suspected that this was a recrudescence of her old right thalamic infarct. Question if this is complex migraines? There is no mass or aneurysm noted on brain imaging -Admit on observation overnight for further work-up and neurology evaluation -Consult neurology: the patient has a history of right thalamic stroke in February of 2018 with residual left-sided dysesthesias. These are stable/ chronic. The patient has multiple episodes over time of increasing symptoms ( usually the same types of symptoms as her original stroke plus or minus some extra symptoms such as headache or a sense of weakness ). Certainly she seemed weak when she came to the ER yesterday but is back to baseline today. I do not believe she is having any strokes or TIAs or even vasospasms such as would be with a complicated migraine. I think this time she has had symptoms secondary to significant hyperglycemia (which can give focal neurologic signs ) as well as some relative hypotension which would bring out some of her old symptoms. She has mild cognitive impairment which is getting worse over time. She has peripheral neuropathy with a sensory ataxia as well. Finally, she has depression which is seemingly stable currently. Recommendations: 1. I have no further neurologic testing or treatment recommendations to make at this time. 2. We can follow up as an outpatient. -Tylenol as needed for headache (2) Left sided numbness: As noted above, with a history of old right thalamic infarct but no new stroke on brain MRI for the second time this week. No aneurysms or intracranial masses -Appreciate neurology consultation -Suspect complex migraine -During last admission, neurology recommended checking B12 and replacing if level is less than 400-we will check B12 level in the morning -Neurology also recommended checking TSH and urinalysis-ordered and pending (3) History of CVA (cerebrovascular accident): As noted above -Continue aspirin, statin, good blood pressure control and control of diabetes (4) Left leg weakness: PT/OT consults are placed Work-up as above (5) MCI (mild cognitive impairment): Review of outpatient neurology notes over the last 6 months reveal concerns for developing dementia She recently scored 19/30 on a Mini-Mental status exam and was possibly going to be started on Aricept -Appreciate neurology consultation -supportive care -Unclear if she should be living by herself especially with medication management (6) Stage 3 chronic kidney disease: CKD stage II-III Creatinine at baseline today -Avoid nephrotoxins -renally dose meds when appropriate -follow BMP (7) GERD (gastroesophageal reflux disease): Continue Protonix 40 mg daily (8) Depression: Stable -Continue Cymbalta 60 mg p.o. twice daily (9) Hyperlipidemia: Continue statin Recent lipid panel controlled (10) HTN (hypertension): Blood pressures are well controlled here She is not on any blood pressure medications at home (11) Diabetes mellitus: With hyperglycemia upon arrival-question if she did not take her insulin today as she is having cognitive impairment Blood sugar in the 400s and now improved with IV fluids -Continue home Lantus and add NovoLog sliding scale -Hold home metformin due to CT IV contrast dye load -Recent hemoglobin A1c was uncontrolled at 8.1% will defer ti (12) DVT prophylaxis: SCD, Lovenox SQ Total Time Total Time Spent Total Time Spent (In Minutes): 32 Total Time Includes: Examination of the Patient, Discharge Planning and Med ication Reconciliation Discharge Plan Discharge Items Patient Disposition: Home - Self-Care Reason For Visit: LEFT SIDED WEAKNESS,HEADACHE Discharge Diagnosis: left sided weakness, headache Activity: Resume your previous activity Non-emergency contact: Primary Care Provider Call non-emergency contact if: you have any medication questions Follow-up/Referrals: Marleni Macias DO [Primary Care Provider] - (Please call [phone] to schedule a discharge follow up appt with your PCP. ) Diet: Regular Addtl Attending Provider Instructions: You have a a history of right thalamic stroke in February of 2018 with residual left-sided dysesthesias. These are stable/ chronic. You were evaluated by Neurology Dr. Pfeiffer, who states that you are back to your baseline today. He does not believe you are having any strokes or TIAs or even vasospasms such as would be with a complicated migraine. Perhaps your symptoms secondary to significant hyperglycemia (which can give focal neurologic signs ) as well as some relative hypotension which would bring out some of her old symptoms. Neurology can followup as an outpatient. Recommend close followup with PCP in regards to blood sugar control Pending Studies at Discharge: No Stand-Alone Forms: My [employer], Smoking Cessation Medications and DC Order Prescriptions: Continued pantoprazole 20 mg tablet,delayed release (DR/EC) 20 mg PO DAILY Qty: 90 RF: 1 cetirizine 10 mg tablet 10 mg PO DAILY Qty: 90 RF: 3 metformin 500 mg tablet extended release 24 hr 1,000 mg PO BID Qty: 60 RF: 5 polymyxin B sulf-trimethoprim 10,000 unit- 1 mg/mL drops 1 drops OP QID 7 Days Qty: 10 RF: 0 aspirin 81 mg tablet,delayed release (DR/EC) 81 mg PO DAILY RF: 0 rosuvastatin 40 mg tablet 40 mg PO QAM Qty: 30 RF: 0 multivitamin tablet 1 tab PO DAILY RF: 0 acetaminophen [Tylenol Arthritis Pain] 650 mg tablet extended release 650 - 1,300 mg PO ONCE PRN (Reason: Pain) RF: 0 fluticasone propionate [Flonase Allergy Relief] 50 mcg/actuation sp ray,suspension 2 sprays INTNAS DAILY Qty: 9.9 RF: 5 No Action Basaglar KwikPen U-100 Insulin 100 unit/mL (3 mL) insulin pen 27 units SUBCUT QAM RF: 0 duloxetine 60 mg capsule,delayed release(DR/EC) 60 mg PO BID Qty: 60 RF: 3 Discharge Orders: Discharge Order (Routine); Ordered 10/25/19 Ordered By: Conner Mancini Admission Data Admit Date/Time: 10/24/19 18:57 Attending Provider: Conner Mancini Admit Provider: Helen Melendrez Primary Care Provider: Marleni Macias Other Providers: Helen Melendrez ; Parminder Pfeiffer Other Interventions: Discharge Summary Assessment (RN) Last Done: 10/25/19 14:49 DC Date/Time DO NOT enter until pt leaves facility: 10/25/19 15:20 Coding Level of Care Code 53316 OBS Care - Discharge Diagnoses Headache R51 Left sided numbness R20.0 History of CVA (cerebrovascular accident) Z86.73 Left leg weakness R29.898 MCI (mild cognitive impairment) G31.84 Stage 3 chronic kidney disease N18.3 GERD (gastroesophageal reflux disease) K21.9 Depression F32.9 Depression Type: unspecified Hyperlipidemia E78.5 HTN (hypertension) I10 Diabetes mellitus E11.9 DVT prophylaxis Z29.9
== END 2019-10-25 15:20 | disposition home or self-care (01) ==
LOC: 2W 14:37 → ED 14:37 → SUATTDRO 18:57 → 2W 19:53

== ENCOUNTER 2020-01-17 10:17 | Inpatient (IN) ==
[2020-01-17] MEDS ORDERED: OPTIRAY 320 125ml IV ONE (10:28)
--- NOTE | 2020-01-17 10:38 | Emergency Department Note ---
History of Present Illness General Chief complaint: Stroke/CVA Symptoms Source: patient, EMS, RN notes reviewed and old records reviewed Mode of arrival: EMS Limitations: no limitations History of Present Illness This patient comes in after having slurred speech right-sided weakness and facial droop as per EMS. She had a headache as well they thought she was a little confused. She said no fever chills or trauma. They thought that her last known well was on Tuesday although she lives by herself and there is nobody to confirm this. Apparently home health saw her today and called the ambulance. She has had multiple strokes and strokelike presentations to the hospital. The last time she was here was in September and Dr. Pfeiffer thought this may be related to complicated migraine. Apparently she has no deficits at baseline. When I talked her she is very vague in answering her symptoms and it sounds like these have been going on for couple days. She denies chest pain or shortness of breath she does not leave the house and has had no exposure to Covid. No abdominal pain occasional urinary symptoms. No chest pain. Home Medications Home Medications Medication Instructions Recorded Confirmed Type aspirin 81 mg tablet,delayed 81 mg PO DAILY 10/04/18 01/17/20 History release multivitamin 1 tab PO DAILY 10/04/18 01/17/20 History cetirizine 10 mg tablet 10 mg PO DAILY #90 tab 06/29/19 01/17/20 Rx fluticasone propionate 50 2 sprays INTNAS DAILY #9.9 gm 07/25/19 01/17/20 Rx mcg/actuation nasal spray,suspension duloxetine 60 mg capsule,delayed 60 mg PO BID #60 cap 10/30/19 01/17/20 Rx release insulin glargine 100 unit/mL (3 27 units SUBCUT QAM ml 10/30/19 01/17/20 History mL) subcutaneous pen rosuvastatin 40 mg tablet 40 mg PO QAM #30 tab 11/06/19 01/17/20 Rx docusate sodium 100 mg capsule 100 mg PO BID #60 cap 12/04/19 01/17/20 Rx pantoprazole 20 mg tablet,delayed 20 mg PO DAILY #90 tab 12/07/19 01/17/20 Rx release 2 wheeled walker #1 ea 12/18/19 Rx metformin 500 mg tablet,extended 1,000 mg PO BID #360 tab 01/09/20 01/17/20 Rx release 24 hr polymyxin B sulf-trimethoprim 1 drops OP QID PRN 01/17/20 01/17/20 History Allergies Allergy/AdvReac Type Severity Reaction Status Date / Time propoxyphene AdvReac Unknown GI UPSET Verified 01/17/20 12:33 Past Med/Surg History Medical History (Updated 01/17/20 @ 15:52 by Leoncio Hayden MD) Abnormal mouth sensation Breast cancer CVA (cerebral vascular accident) (02/2018) R thalamic infarct in 02/2018 Depression Diabetes mellitus DJD (degenerative joint disease) GERD (gastroesophageal reflux disease) Goiter H/O: stroke with residual effects HTN (hypertension) Hyperlipidemia MCI (mild cognitive impairment) Osteoporosis Paresthesia of left arm and leg Periorbital ecchymosis of left eye Peripheral neuropathy Reactive airway disease Seasonal allergies Stage 3 chronic kidney disease Vertigo Surgical History H/O: hysterectomy Hx of appendectomy Hx of cholecystectomy S/P laminectomy with spinal fusion L4-[address] Pillai 07/2017 S/P right mastectomy Family History Mother , age 55 of an NC Myocardial infarction Heart disease Father , age 72 of an NC Heart disease Myocardial infarction Other Breast cancer Coronary heart disease Diabetes Hypertension Osteoporosis Stroke Denies family history of Ovarian cancer Prostate cancer Lung cancer Colorectal cancer Social History Smoking Status: Never smoker Second Hand Exposure: No; Hx Alcohol Use: No Hx Substance Use: No Preferred Language: Ukrainian Communication Ability: Effective Visual Impairment: No Limitations Hearing Ability: Normal Mechanic'S Assistant Required: No Beliefs That Will Affect Care: None marital status: Current Living Situation: Alone Current Living Situation Comment: Stays with sister most of the day then sister takes her back home current occupational status: retired 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 [employer] Feels Safe at Home: Yes Childhood Exposure to Second-Hand Smoke: No caffeine: No during the past year weight has: remained stable Dental Care, Regularly: No Physical Activity Frequency: Does not Exercise Seatbelt Use: always Sunscreen Use: Yes Assistive Devices: None Review of Systems A total of 10 systems reviewed and were otherwise negative Physical Exam Vital Signs Vital Signs - 24 hr 01/17/20 10:20 01/17/20 10:31 01/17/20 10:47 Temperature 36.6 C Temperature Source Oral Pulse Rate 86 76 76 Pulse Rate [Finger] 76 Pulse Rate from SpO2 Sensor 76 77 Respiratory Rate 16 19 16 Respiratory Effort / Characteristics Non-Labored Non-Labored Respiratory Depth Normal Normal Blood Pressure 119/63 119/63 119/57 L Blood Pressure [Right Arm] 119/57 L Blood Pressure Mean 81 83 86 Blood Pressure Mean [Right Arm] 77 Pulse Oximetry 97 96 95 Oxygen Delivery Method Room Air Room Air Sepsis Recent Fever Within 48 Hours No Sepsis New/Unexplained Change in Mental Status No Sepsis Action Taken by Nursing No Action Required 01/17/20 11:00 01/17/20 11:34 Temperature Temperature Source Pulse Rate 75 Pulse Rate [Finger] 75 Pulse Rate from SpO2 Sensor 75 Respiratory Rate 15 16 Respiratory Effort / Characteristics Respiratory Depth Blood Pressure 117/75 Blood Pressure [Right Arm] 111/62 Blood Pressure Mean 85 Blood Pressure Mean [Right Arm] 78 Pulse Oximetry 94 97 Oxygen Delivery Method Room Air Sepsis Recent Fever Within 48 Hours Sepsis New/Unexplained Change in Mental Status Sepsis Action Taken by Nursing General: Well developed well nourished in no acute distress, breathing comfortably on room air. Normal speech and she is alert and oriented times person place and year she got the month wrong and said it was November HEENT: Normal cephalic atraumatic. Pupils are equal round and reactive to light. Extraocular movements are intact. Oropharynx is pink with moist mucous membranes. No swelling of the mouth lips or tongue. Neck: Supple with a midline trachea. No meningeal signs or stiffness, no JVD or bruits. No Stridor. No facial droop Chest: Clear to auscultation bilaterally. No wheezes or rhonchi. No increased work of breathing. Heart: Regular rate and rhythm without murmurs or gallops. Abdomen: Soft nontender, nondistended without rebound guarding or rigidity. Extremities: No cyanosis clubbing or edema. No calf tenderness or assymetry Spine/Back. Non tender to palpation. No CVA tenderness Skin: Good turgor without rashes. Neurologic exam: Cranial nerves two through 12 are intact. Motor and sensation are intact and symmetrical throughout. No asymmetry Course Administered Medications Discontinued Medications Ioversol (Optiray 320 125ml) 120 ml IV ONCE ONE Stop: 01/17/20 10:29 Last Admin: 01/17/20 10:28 Dose: 120 ml Documented by: [id number] Medical Decision Making Differential Diagnosis Stroke, intracranial hemorrhage, TIA, migraine, infection, diabetic emergency, anemia, electrolyte or metabolic abnormal Medical Records Attestation: I reviewed the patient's medical records. Home Medications Current Medication List: was personally reviewed by me Laboratory Data Attestation: I reviewed the patient's lab results. Result diagrams: 01/17/20 10:17 01/17/20 10:17 Lab Results 01/17/20 01/17/20 01/17/20 Range/Units 10: 10: 10:17 WBC 5.82 (4.8-10.8) K/uL RBC 3.80 L (4.2-5.4) M/uL Hgb 10.6 L (12.0-16.0) g/dL Hct 32.1 L (37-47) % MCV 84.5 (80-100) fL MCH 27.9 (25-34) pg MCHC 33.0 (32-36) g/dL RDW Std Deviation 47.1 H (36.4-46.3) fL RDW Coeff of Supriya 15.2 H (11.5-14.5) % Plt Count 282 (130-400) K/uL MPV 9.5 (7.4-10.4) fL Immature Gran % (Auto) 0.2 % Neut % (Auto) 53.0 % Lymph % (Auto) 35.1 % Alpine % (Auto) 6.9 % Eos % (Auto) 4.3 % Baso % (Auto) 0.5 % Neut # (Auto) 3.09 (1.4-6.5) K/uL Lymph # (Auto) 2.04 (1.2-3.4) K/uL Alpine # (Auto) 0.40 (0.11-0.59) K/uL Eos # (Auto) 0.25 (0-0.5) K/uL Baso # (Auto) 0.03 (0-0.2) K/uL Immature Gran # (Auto) 0.01 (0.00-0.02) K/uL Ovalocytes 1+ Acanthocytes (Spur) 1+ PT 10.9 (9.0-12.0) Seconds INR 1.0 (0.9-1.1) APTT 27.9 (21.0-31.0) Seconds PTT Ratio 1.0 Sodium (136-145) mmol/L Potassium (3.5-5.1) mmol/L Chloride (98-107) mmol/L Carbon Dioxide (21-32) mmol/L Anion Gap (3-11) BUN (7-18) mg/dl Creatinine (0.6-1.2) mg/dl Est Cr Clr Drug Dosing ml/min Est GFR ( Amer) Est GFR (Non-Af Amer) BUN/Creatinine Ratio (10-20) Glucose (70-99) mg/dl Calcium (8.5-10.1) mg/dl Magnesium (1.8-2.4) mg/dl Total Bilirubin (0.2-1) mg/dl AST (15-37) U/L ALT (12-78) U/L Alkaline Phosphatase (45-117) U/L Troponin I (0-0.045) ng/ml Total Protein (6.4-8.2) gm/dl Albumin (3.4-5.0) gm/dl Globulin (2.5-4.0) gm/dl Albumin/Globulin Ratio (0.9-2) Blood Type O Positive Antibody Screen NEGATIVE 01/17/20 Range/Units 10:17 WBC (4.8-10.8) K/uL RBC (4.2-5.4) M/uL Hgb (12.0-16.0) g/dL Hct (37-47) % MCV (80-100) fL MCH (25-34) pg MCHC (32-36) g/dL RDW Std Deviation (36.4-46.3) fL RDW Coeff of Supriya (11.5-14.5) % Plt Count (130-400) K/uL MPV (7.4-10.4) fL Immature Gran % (Auto) % Neut % (Auto) % Lymph % (Auto) % [place]pine % (Auto) % Eos % (Auto) % Baso % (Auto) % Neut # (Auto) (1.4-6.5) K/uL Lymph # (Auto) (1.2-3.4) K/uL Alpine # (Auto) (0.11-0.59) K/uL Eos # (Auto) (0-0.5) K/uL Baso # (Auto) (0-0.2) K/uL Immature Gran # (Auto) (0.00-0.02) K/uL Ovalocytes Acanthocytes (Spur) PT (9.0-12.0) Seconds INR (0.9-1.1) APTT (21.0-31.0) Seconds PTT Ratio Sodium 139 (136-145) mmol/L Potassium 4.4 (3.5-5.1) mmol/L Chloride 107 (98-107) mmol/L Carbon Dioxide 26 (21-32) mmol/L Anion Gap 6.0 (3-11) BUN 15 (7-18) mg/dl Creatinine 0.90 (0.6-1.2) mg/dl Est Cr Clr Drug Dosing 63.7 ml/min Est GFR ( Amer) 78.3 Est GFR (Non-Af Amer) 67.6 BUN/Creatinine Ratio 16.7 (10-20) Glucose 81 (70-99) mg/dl Calcium 8.7 (8.5-10.1) mg/dl Magnesium 2.0 (1.8-2.4) mg/dl Total Bilirubin 0.5 (0.2-1) mg/dl AST 15 (15-37) U/L ALT 17 (12-78) U/L Alkaline Phosphatase 70 (45-117) U/L Troponin I < 0.015 (0-0.045) ng/ml Total Protein 6.2 L (6.4-8.2) gm/dl Albumin 3.0 L (3.4-5.0) gm/dl Globulin 3.2 (2.5-4.0) gm/dl Albumin/Globulin Ratio 0.9 (0.9-2) Blood Type Antibody Screen Imaging Data Attestation: I personally reviewed and interpreted this imaging study as follows: Radiologist's Impression: NONCONTRAST HEAD CT, HEAD & NECK CTA HISTORY: Stroke symptoms. Stroke evaluation TECHNIQUE: Multiaxial CT images of the head were performed both before and after the intravenous administration of contrast to evaluate the major cerebral vessels. Multiaxial CT images of the neck were also performed following the intravenous administration of contrast to evaluate the major cervical vessels. Maximum intensity projection images were also obtained. A dose lowering technique was utilized adhering to the principles of ALARA. COMPARISON: Head CT and head and neck CTA 10/24/2019. FINDINGS: Head CT: The calvarium and skull base are intact. The paranasal sinuses and mastoid air cells are clear. Old lacunar infarct within the right thalamus, unchanged. The ventricles and sulci demonstrate mild age-related involutional changes. There is no mass, hematoma, midline shift. Head CTA: Hypoplastic distal left vertebral artery with a dominant right vertebral artery. Mild multifocal narrowing within the distal left vertebral artery. The basilar artery is widely patent. Calcified plaque within the bilateral supraclinoid ICAs resulting in mild to moderate stenosis. This remains unchanged. No significant stenosis, occlusion, or aneurysm seen within the bilateral ACAs, MCAs, residential life director. The major dural venous sinuses appear widely patent. Neck CTA: The aortic arch and proximal great vessels are widely patent. There is no significant stenosis, occlusion, or dissection identified within the bilateral common carotid, internal carotid, or vertebral arteries. Hypoplastic left vertebral artery. Mild calcified plaque within the bilateral carotid locations. IMPRESSION: 1. No change compared the prior study. No acute intracranial abnormality. 2. Mild to moderate focal narrowing within the bilateral supraclinoid ICAs, unchanged. Otherwise, no significant stenosis, occlusion, or aneurysm within the [place]. 2. No significant stenosis, occlusion, or dissection identified within the carotid or vertebral arteries. XR chest 1V portable CLINICAL HISTORY: Encephalopathy. Possible pneumonia COMPARISON STUDY: 10/19/2019 FINDINGS: There is mild elevation/eventration right hemidiaphragm similar to the prior study. The heart is normal in size. There is no failure. There is no focal pulmonary consolidation. There are no pleural effusions.[ IMPRESSION: No active disease in the chest. ECG Data Attestation: I personally reviewed and interpreted this ECG as follows: Indication: + weakness Rate (beats per minute): 79 Rhythm: + normal sinus ECG Intervals/blocks: + Normal QRS, + Normal QT and + Normal WA ECG [place]: + Normal ECG ST segments: + Normal ST segments ECG Findings: no PACs and no PVCs Comparison ECG Date: from (10/24/19) Change: no significant change MDM Narrative This patient comes in as described above. I did talk to EMS prior to her arriving and given her strokelike symptoms we did make her stroke alert to expedite her care she was taken straight to the CAT scan. The last known well sounds like it was probably multiple days ago and I have nothing at this point to say otherwise. She is very vague about her symptoms although seems to be d oing better. She has no obvious deficits on exam. I did discuss the case with the stroke neurologist Dr. Larose, Reviewing her chart she has been here several times for similar type issues. She did have a CT of the head as well as CTA of the head and neck. She was reassessed frequently. IV access had been established multiple blood testing was obtained. Prior to arrival her blood sugar was normal at 112 and she had stable vital signs when I reviewed them. Her exam seems to be doing better. CAT scan of the head including CT of the head neck was negative. Chest x-ray is unremarkable. EKG does not suggest acute ischemic changes or ectopy. She has no sign of electrolyte or metabolic abnormalities. She is still very vague about her symptoms and says she just does not feel well and she just feels weak. I did consult Dr. Gonzáles to see her for likely admission/observation. Continuous cardiac technician: An order was placed in the EMR for continuous cardiac monitoring and she was found to be in normal sinus rhythm with a rate of 75 Impression & Plan Stroke-like symptoms, Diabetes mellitus, Headache, Weakness Discharge Plan Visit Data Chief Complaint: Stroke/CVA Symptoms ED Provider: Leoncio Hayden Discharge Problem: Stroke-like symptoms, Diabetes mellitus, Headache, Weakness Patient Disposition: Admitted As Inpatient Discharge Instructions Interventions: ED Discharge Assessment Last Done: 01/17/20 14:32 Discharge Problem: Diabetes mellitus Qualifiers: Diabetes mellitus type: type 2 Diabetes mellitus assisted insulin use: unspecified roasterman insulin use status Diabetes mellitus complication status: without complication Qualified Code(s): E11.9 - Type 2 diabetes mellitus without complications Headache Qualifiers: Headache type: unspecified Headache chronicity pattern: acute headache Intractability: not intractable Qualified Code(s): R51.9 - Headache, unspecified
--- NOTE | 2020-01-17 10:49 | CT Scan Report ---
NONCONTRAST HEAD CT, HEAD & NECK CTA HISTORY: Stroke symptoms. Stroke evaluation TECHNIQUE: Multiaxial CT images of the head were performed both before and after the intravenous admi nistration of contrast to evaluate the major cerebral vessels. Multiaxial CT images of the neck were also performed following the intravenous administration of contrast to evaluate the major cervical ve ssels. Maximum intensity projection images were also obtained. A dose lowering technique was utilized adhering to the principles of ALARA. COMPARISON: Head CT and head and neck CTA 10/24/2019. FINDINGS: Head CT: The calvarium and skull base are intact. The paranasal sinuses and mastoid air cells are mehrdad ar. Old lacunar infarct within the right thalamus, unchanged. The ventricles and sulci demonstrate mi ld age-related involutional changes. There is no mass, hematoma, midline shift. Head CTA: Hypoplastic distal left vertebral artery with a dominant right vertebral artery. Mild multi focal narrowing within the distal left vertebral artery. The basilar artery is widely patent. Calcifi ed plaque within the bilateral supraclinoid ICAs resulting in mild to moderate stenosis. This remains unchanged. No significant stenosis, occlusion, or aneurysm seen within the bilateral ACAs, MCAs, MOSAIC FLOOR LAYER s. The major dural venous sinuses appear widely patent. Neck CTA: The aortic arch and proximal great vessels are widely patent. There is no significant sten osis, occlusion, or dissection identified within the bilateral common carotid, internal carotid, or v ertebral arteries. Hypoplastic left vertebral artery. Mild calcified plaque within the bilateral mota tid locations. IMPRESSION: 1. No change compared the prior study. No acute intracranial abnormality. 2. Mild to moderate focal narrowing within the bilateral supraclinoid ICAs, unchanged. Otherwise, no significant stenosis, occlusion, or aneurysm within the [place]. 2. No significant stenosis, occlusion, or dissection identified within the carotid or vertebral arter ies. ACT 112: Negative or not required by law. Electronically signed by: Jostin Torres M.D. 01/17/2020 10:48 AM
--- NOTE | 2020-01-17 10:49 | CT Scan Report ---
NONCONTRAST HEAD CT, HEAD & NECK CTA HISTORY: Stroke symptoms. Stroke evaluation TECHNIQUE: Multiaxial CT images of the head were performed both before and after the intravenous admi nistration of contrast to evaluate the major cerebral vessels. Multiaxial CT images of the neck were also performed following the intravenous administration of contrast to evaluate the major cervical ve ssels. Maximum intensity projection images were also obtained. A dose lowering technique was utilized adhering to the principles of ALARA. COMPARISON: Head CT and head and neck CTA 10/24/2019. FINDINGS: Head CT: The calvarium and skull base are intact. The paranasal sinuses and mastoid air cells are mehrdad ar. Old lacunar infarct within the right thalamus, unchanged. The ventricles and sulci demonstrate mi ld age-related involutional changes. There is no mass, hematoma, midline shift. Head CTA: Hypoplastic distal left vertebral artery with a dominant right vertebral artery. Mild multi focal narrowing within the distal left vertebral artery. The basilar artery is widely patent. Calcifi ed plaque within the bilateral supraclinoid ICAs resulting in mild to moderate stenosis. This remains unchanged. No significant stenosis, occlusion, or aneurysm seen within the bilateral ACAs, MCAs, LAST DIPPER s. The major dural venous sinuses appear widely patent. Neck CTA: The aortic arch and proximal great vessels are widely patent. There is no significant sten osis, occlusion, or dissection identified within the bilateral common carotid, internal carotid, or v ertebral arteries. Hypoplastic left vertebral artery. Mild calcified plaque within the bilateral mota tid locations. IMPRESSION: 1. No change compared the prior study. No acute intracranial abnormality. 2. Mild to moderate focal narrowing within the bilateral supraclinoid ICAs, unchanged. Otherwise, no significant stenosis, occlusion, or aneurysm within the [place]. 2. No significant stenosis, occlusion, or dissection identified within the carotid or vertebral arter ies. ACT 112: Negative or not required by law. Electronically signed by: Jostin Torres M.D. 01/17/2020 10:48 AM
--- NOTE | 2020-01-17 10:49 | CT Scan Report ---
NONCONTRAST HEAD CT, HEAD & NECK CTA HISTORY: Stroke symptoms. Stroke evaluation TECHNIQUE: Multiaxial CT images of the head were performed both before and after the intravenous admi nistration of contrast to evaluate the major cerebral vessels. Multiaxial CT images of the neck were also performed following the intravenous administration of contrast to evaluate the major cervical ve ssels. Maximum intensity projection images were also obtained. A dose lowering technique was utilized adhering to the principles of ALARA. COMPARISON: Head CT and head and neck CTA 10/24/2019. FINDINGS: Head CT: The calvarium and skull base are intact. The paranasal sinuses and mastoid air cells are mehrdad ar. Old lacunar infarct within the right thalamus, unchanged. The ventricles and sulci demonstrate mi ld age-related involutional changes. There is no mass, hematoma, midline shift. Head CTA: Hypoplastic distal left vertebral artery with a dominant right vertebral artery. Mild multi focal narrowing within the distal left vertebral artery. The basilar artery is widely patent. Calcifi ed plaque within the bilateral supraclinoid ICAs resulting in mild to moderate stenosis. This remains unchanged. No significant stenosis, occlusion, or aneurysm seen within the bilateral ACAs, MCAs, GAS ENGINE OPERATOR s. The major dural venous sinuses appear widely patent. Neck CTA: The aortic arch and proximal great vessels are widely patent. There is no significant sten osis, occlusion, or dissection identified within the bilateral common carotid, internal carotid, or v ertebral arteries. Hypoplastic left vertebral artery. Mild calcified plaque within the bilateral mota tid locations. IMPRESSION: 1. No change compared the prior study. No acute intracranial abnormality. 2. Mild to moderate focal narrowing within the bilateral supraclinoid ICAs, unchanged. Otherwise, no significant stenosis, occlusion, or aneurysm within the [place]. 2. No significant stenosis, occlusion, or dissection identified within the carotid or vertebral arter ies. ACT 112: Negative or not required by law. Electronically signed by: Jostin Torres M.D. 01/17/2020 10:48 AM
[2020-01-17 11:10] LABS: Partial Thromboplastin Time 27.9 Seconds (21.0-31.0); Prothrombin Time 10.9 Seconds (9.0-12.0)
[2020-01-17 11:23] LABS: Alanine Aminotransferase 17 U/L (12-78); Aspartate Aminotransferase 15 U/L (15-37); BUN Creatinine Ratio 16.7 (10-20); Blood Urea Nitrogen 15 mg/dl (7-18); Calcium 8.7 mg/dl (8.5-10.1); Carbon Dioxide 26 mmol/L (21-32); Chloride 107 mmol/L (98-107); Creatinine Clr Calc Pharmacy 63.7 ml/min; Est GFR (African American) 78.3; Est GFR (Non-African American) 67.6; Glucose 81 mg/dl (70-99); Potassium 4.4 mmol/L (3.5-5.1); Sodium 139 mmol/L (136-145)
[2020-01-17 11:28] LABS: Acanthocytes 1+; Albumin Globulin Ratio 0.9 (0.9-2); Alkaline Phosphatase 70 U/L (45-117); Basophils # (auto) 0.03 K/uL (0-0.2); Basophils % (auto) 0.5 %; Bilirubin,Total 0.5 mg/dl (0.2-1); Eosinophils # (auto) 0.25 K/uL (0-0.5); Eosinophils % (auto) 4.3 %; Globulin 3.2 gm/dl (2.5-4.0); Hematocrit (blood only) 32.1 % (37-47); Hemoglobin 10.6 g/dL (12.0-16.0); Immature Granulocytes # (auto) 0.01 K/uL (0.00-0.02); Immature Granulocytes % (auto) 0.2 %; Lymphocytes # (auto) 2.04 K/uL (1.2-3.4); Lymphocytes % (auto) 35.1 %; Mean Corpuscular Hemoglobin 27.9 pg (25-34); Mean Corpuscular Volume 84.5 fL (80-100); Mean Platelet Volume 9.5 fL (7.4-10.4); Monocytes % (auto) 6.9 %; Neutrophils # (auto) 3.09 K/uL (1.4-6.5); Ovalocytes 1+; Platelet Count 282 K/uL (130-400); RDW Coefficient of Variation 15.2 % (11.5-14.5); RDW Standard Deviation 47.1 fL (36.4-46.3); Total Protein 6.2 gm/dl (6.4-8.2); Troponin I < 0.015 ng/ml (0-0.045); White Blood Count 5.82 K/uL (4.8-10.8)
--- NOTE | 2020-01-17 12:11 | History & Physical Report ---
Date of Service January 17, 2020 Assessment & Plan (1) Encephalopathy: Patient was brought in as a stroke alert for altered mental status encephalopathy. She was last seen well days ago and fell out of criteria for time. To find etiology of her altered state cannot be ascertained by the em ergency room physician which included imaging of her head and routine laboratories. she does have a history of a stroke, she is on aspirin and statin CT head CTA head and neck IMPRESSION: 1. No change compared the prior study. No acute intracranial abnormality. 2. Mild to moderate focal narrowing within the bilateral supraclinoid ICAs, unchanged. Otherwise, no significant stenosis, occlusion, or aneurysm within the [place]. 2. No significant stenosis, occlusion, or dissection identified within the carotid or vertebral arteies Pt did have cold symptoms, but resolved, negative covid, urine culture pending and negative cxr will dose thiamine tid for now and check B12, await clinical re evaluation and neurology imput her family feels this is neglect from depression and requests psychiatry evaluation for medicine recommendations we will not order this on admission but will wait till neurology see the patient first PT/OT evaluation (2) Stage 3 chronic kidney disease: this appears to be stable will appropriately dose medicines (3) GERD (gastroesophageal reflux disease): continue ppi (4) Depression: family is concerned that she is "starving" herself due to her depression cymbalta, he sister believes she is taking her medicines (5) Diabetes mellitus: pt will be placed on basal bolus treatment and check A1c, hold metformin (6) DVT prophylaxis: use lovenox History of Present Illness Primary Care Provider: Malreni Macias DO 64-year-old female brought in with altered sensorium with concern for slurred speech right-sided weakness and facial droop. However her last time known well was Thursday 01/11. Patient does not have any focal weakness or facial droop upon my evaluation. However patient's family whom I spoke to feels that she is severely depressed and because of her disability from her previous stroke has been declining and not been providing her self with proper nutrition. Her sister who is my source of information also is unclear whether the patient's been taking her medications at home reliably or not. Allergies Allergy/AdvReac Type Severity Reaction Status Date / Time propoxyphene AdvReac Unknown GI UPSET Verified 01/17/20 12:33 Home Medications Home Medications Medication Instructions Recorded Confirmed Type aspirin 81 mg tablet,delayed 81 mg PO DAILY 10/04/18 01/17/20 History release multivitamin 1 tab PO DAILY 10/04/18 01/17/20 History cetirizine 10 mg tablet 10 mg PO DAILY #90 tab 06/29/19 01/17/20 Rx fluticasone propionate 50 2 sprays INTNAS DAILY #9.9 gm 07/25/19 01/17/20 Rx mcg/actuation nasal spray,suspension duloxetine 60 mg capsule,delayed 60 mg PO BID #60 cap 10/30/19 01/17/20 Rx release insulin glargine 100 unit/mL (3 27 units SUBCUT QAM ml 10/30/19 01/17/20 History mL) subcutaneous pen rosuvastatin 40 mg tablet 40 mg PO QAM #30 tab 11/06/19 01/17/20 Rx docusate sodium 100 mg capsule 100 mg PO BID #60 cap 12/04/19 01/17/20 Rx pantoprazole 20 mg tablet,delayed 20 mg PO DAILY #90 tab 12/07/19 01/17/20 Rx release 2 wheeled walker #1 ea 12/18/19 Rx metformin 500 mg tablet,extended 1,000 mg PO BID #360 tab 01/09/20 01/17/20 Rx release 24 hr polymyxin B sulf-trimethoprim 1 drops OP QID PRN 01/17/20 01/17/20 History Past Med/Surg History Medical History (Updated 01/17/20 @ 15:52 by Leoncio Hayden MD) Abnormal mouth sensation Breast cancer CVA (cerebral vascular accident) (02/2018) R thalamic infarct in 02/2018 Depression Diabetes mellitus DJD (degenerative joint disease) GERD (gastroesophageal reflux disease) Goiter H/O: stroke with residual effects HTN (hypertension) Hyperlipidemia MCI (mild cognitive impairment) Osteoporosis Paresthesia of left arm and leg Periorbital ecchymosis of left eye Peripheral neuropathy Reactive airway disease Seasonal allergies Stage 3 chronic kidney disease Vertigo Surgical History H/O: hysterectomy Hx of appendectomy Hx of cholecystectomy S/P laminectomy with spinal fusion L4-[address] Pillai 07/2017 S/P right mastectomy Family History Mother , age 55 of an DC Myocardial infarction Heart disease Father , age 72 of an DC Heart disease Myocardial infarction Other Breast cancer Coronary heart disease Diabetes Hypertension Osteoporosis Stroke Denies family history of Ovarian cancer Prostate cancer Lung cancer Colorectal cancer Social History Smoking Status: Never smoker Second Hand Exposure: No; Hx Alcohol Use: No Hx Substance Use: No Preferred Language: Italian Communication Ability: Effective Visual Impairment: No Limitations Hearing Ability: Normal Mushroom Sorter Grader Required: No Beliefs That Will Affect Care: None marital status: Current Living Situation: Alone Current Living Situation Comment: Stays with sister most of the day then sister takes her back home current occupational status: retired 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 [employer] Other Information That Helps Us Care for You: No Feels Safe at Home: Yes Safety Concerns: Feels Safe At This Time Childhood Exposure to Second-Hand Smoke: No caffeine: No during the past year weight has: remained stable Dental Care, Regularly: No Physical Activity Frequency: Does not Exercise Seatbelt Use: always Sunscreen Use: Yes Assistive Devices: None Review of Systems Review of Systems: Mild distress and significant fatigue no headache, blurry or double vision no speech or swallowing issues per her own regard no chest pain, pressure or palpitations no shortness of breath, cough or wheezes no abdominal pain, nausea or vomiting, diarrhea or constipation no dysuria, hematuria or frequency no focal joint pain or swelling no back pain, CVA tenderness or radicular pain no bruising, bleeding or rashes no focal signs of weakness or numbness or altered sensation Patient does states she is feeling slightly depressed. Physical Exam Physical Exam: The patient appeared to kinetic difficult eye contact appears depressed Vital signs as documented. Head exam is normocephalic atraumatic no scleral icterus Neck is without JVD, thyromegaly, or carotid bruits. Lungs are clear to auscultation, no focal loss of breath sounds Cardiac exam, Rhythm is regular.. No murmurs, rubs or gallops. Abdominal exam reveals normal bowel sounds, soft non tender, no masses Extremities are nonedematous and both pedal pulses are present Neurologic exam is alert and does respond to vocal commands, no focal loss of strength or sensation Alex is very weak Skin is without bruises or rashes Psychologically is with concerns for depression. Results & Data Results & Data ([facility]) Vital Signs (Past 12 Hours) Vital Signs Temp Pulse Pulse Resp BP BP Pulse Ox 01/17/20 11:34 75 16 111/62 97 01/17/20 11:00 75 15 117/75 94 01/17/20 10:47 76 76 16 119/57 L 119/57 L 95 01/17/20 10:31 76 19 119/63 96 01/17/20 10:20 97.9 F 86 16 119/63 97 PG Care Time/CCT Total # of Minutes Spent Total Time Spent with Patient: Total time spent is greater than 50% in coordination of care (as documented) at patient's floor/unit and/or counseling patient: Coding Level of Care Code 38042 Initial Inpt Care Lvl 3 Diagnoses Encephalopathy G93.40 Stage 3 chronic kidney disease N18.3 GERD (gastroesophageal reflux disease) K21.9 Depression F32.9 Depression Type: unspecified Diabetes mellitus E11.9 DVT prophylaxis Z29.9 (1) Depression Depression Type: unspecified Qualified Code(s): F32.9 - Major depressive disorder, single episode, unspecified
--- NOTE | 2020-01-17 12:57 | Electrocardiogram Report ---
Test Reason : Blood Pressure : / mmHG Vent. Rate : 079 BPM Atrial Rate : 079 BPM P-R Int : 152 ms QRS Dur : 076 ms QT Int : 382 ms P-R-T Axes : 042 033 044 degrees QTc Int : 438 ms Normal sinus rhythm Normal ECG When compared with ECG of 24-OCT-2019 14:51, No significant change was found Confirmed by Sergo Edwards ([id number]) on 01/17/2020 12:57:45 PM Referred By: REFERRED SELF Confirmed By:Sergo Edwards
--- NOTE | 2020-01-17 13:20 | XRay Report ---
XR chest 1V portable CLINICAL HISTORY: Encephalopathy. Possible pneumonia COMPARISON STUDY: 10/19/2019 FINDINGS: There is mild elevation/eventration right hemidiaphragm similar to the prior study. The hea rt is normal in size. There is no failure. There is no focal pulmonary consolidation. There are no pl eural effusions.[ IMPRESSION: No active disease in the chest. ACT 112: Negative or not required by law. Electronically signed by: Guerrero Davidson M.D. 01/17/2020 1:19 PM
[2020-01-17] MEDS ORDERED: ONDANSETRON INJ 2 MG/ML 2 ML VIAL IV PRN (15:22)
[2020-01-17] MEDS ORDERED: GLUCOSE 40% GEL 15 GM TUBE PO PRN (15:22)
[2020-01-17] MEDS ORDERED: DEXTROSE 50% 50 ML SYRINGE IV PRN (15:22)
[2020-01-17] MEDS ORDERED: GLUCOSE 10 TABS/TUBE PO PRN (15:22)
[2020-01-17] MEDS ORDERED: GLUCAGON FOR INJ 1 MG VIAL SQ PRN (15:22)
[2020-01-17] MEDS ORDERED: CARBOHYDRATES FOR HYPOGLYCEMIA PO PRN (15:22)
[2020-01-17] MEDS ORDERED: PHARMACIST DISCHARGE MED REC CONSULT PRN (15:22)
[2020-01-17] MEDS ORDERED: POLYETHYLENE (MIRALAX) 17 GM PACK PO PRN (15:22)
[2020-01-17] MEDS ORDERED: ACETAMINOPHEN 325 MG TAB PO PRN (15:22)
[2020-01-17] MEDS ORDERED: PHARMACY GLYCEMIC MGMT CONSULT SCH (15:33)
[2020-01-17] MEDS ORDERED: SODIUM CHLORIDE 0.9% 1000ML 1,000 ML IV SCH (15:45)
[2020-01-17] MEDS: THIAMINE HCL 200 MG in SODIUM CHLORIDE 0.9% 50 ML IV SCH (16:10)
[2020-01-17] MEDS: TRIMETHOPRIM/POLYMYXIN B OP SCH ×3 (16:10→21:21)
[2020-01-17] MEDS: INSULIN ASPART 100 UNITS/ML 3 ML PEN SC SCH ×2 (16:10→21:18)
[2020-01-17 17:08] LABS: Appearance Urine Clear (Clear); Bacteria Urine Automated Negative (Negative); Bilirubin Urine Negative (Negative); Blood Urine Negative (Negative); Color Urine Yellow; Epithelial Cell Urine Auto 20-30 /lpf (0-5); Glucose Urine UA Negative (Negative); Ketones Urine Negative (Negative); Leukocyte Esterase Urine Negative (Negative); Nitrite Urine Negative (Negative); Protein Urine Trace (Negative); RBC Urine Automated 0-4 /hpf (0-4); Urobilinogen Urine Negative (Negative)
[2020-01-17 17:14] LABS: Specific Gravity Urine > 1.045 (1.000-1.030)
[2020-01-17 17:45] LABS: Cast Urine Automated 0 /lpf (0-5)
[2020-01-17] MEDS ORDERED: INSULIN GLARGINE SOLOSTAR 100 UNITS/ML 3 ML PEN SC SCH (21:00)
[2020-01-17] MEDS: POLYETHYLENE (MIRALAX) 17 GM PACK PO SCH (21:18)
[2020-01-17] MEDS: DOCUSATE SODIUM 100 MG CAP PO SCH (21:18)
[2020-01-17] MEDS: DULoxetine HCL 60 MG CAP PO SCH (21:21)
[2020-01-17] MEDS ORDERED: LORazepam 1 MG/2 ML VIAL IV STA (21:30)
--- NOTE | 2020-01-17 22:28 | Magnetic Resonance Report ---
MRI OF THE BRAIN WITHOUT CONTRAST CLINICAL HISTORY: encephalopathy COMPARISON STUDY: MRI the brain dated 10/24/2019, CT scan dated 01/17/2020 FINDINGS: Sagittal T1, axial diffusion, proton density and T2 weighted axial, coronal FLAIR, and axial T1-weigh carlos eduardo images were acquired. No intra or extra-axial mass lesions are visualized Axial diffusion-weighted images reveal no evidence of acute or subacute infarction. There is no evidence of ventricular dilatation. Proton density T2-weighted and FLAIR images reveal stable increased FLAIR signal within the right tem poral lobe. There is an old right thalamic lacunar infarct versus dilated perivascular space There are no abnormal flow voids. The examination is degraded due to motion artifact. IMPRESSION: 1. No acute intracranial findings 2. No evidence of acute or subacute infarction 3. No evidence of intracranial mass on this noncontrast study 4. Stable signal abnormality within the right temporal lobe, likely secondary to an old small infarct ACT 112: Negative or not required by law. Electronically signed by: Guerrero Davidson M.D. 01/17/2020 10:27 PM
[2020-01-18] MEDS: THIAMINE HCL 200 MG in SODIUM CHLORIDE 0.9% 50 ML IV SCH ×4 (00:11→23:48)
[2020-01-18 04:57] LABS: Basophils # (auto) 0.05 K/uL (0-0.2); Basophils % (auto) 0.8 %; Eosinophils % (auto) 4.9 %; Hematocrit (blood only) 34.1 % (37-47); Hemoglobin 10.8 g/dL (12.0-16.0); Lymphocytes # (auto) 2.88 K/uL (1.2-3.4); Mean Corpuscular Hemoglobin 27.4 pg (25-34); Mean Corpuscular Hgb Conc 31.7 g/dL (32-36); Mean Corpuscular Volume 86.5 fL (80-100); Mean Platelet Volume 9.8 fL (7.4-10.4); Monocytes # (auto) 0.61 K/uL (0.11-0.59); Neutrophils # (auto) 2.29 K/uL (1.4-6.5); Neutrophils % (auto) 37.3 %; Platelet Count 318 K/uL (130-400); RDW Coefficient of Variation 15.4 % (11.5-14.5); RDW Standard Deviation 49.8 fL (36.4-46.3); Red Blood Count 3.94 M/uL (4.2-5.4); White Blood Count 6.13 K/uL (4.8-10.8)
[2020-01-18 05:19] LABS: BUN Creatinine Ratio 18.2 (10-20); Calcium 8.8 mg/dl (8.5-10.1); Creatinine Clr Calc Pharmacy 57.9 ml/min; Est GFR (African American) 69.8; Est GFR (Non-African American) 60.2
[2020-01-18 07:47] LABS: Estimated Average Glucose 154 mg/dl
--- NOTE | 2020-01-18 07:55 | Neurology Consultation ---
Date of Consultation January 18, 2020 Assessment & Plan (1) Stroke-like symptoms: (2) Encephalopathy: (3) Peripheral neuropathy: (4) Depression: This patient has a history of right thalamic stroke in February of 2018. this has given her some residual left-sided dysesthesias which are stable/ chronic. The patient has been admitted 3 or 4 times since February of 2019 for "stroke- like symptoms". Each time with evaluation we have not found any new stroke or changes in cerebral vasculature. That includes this admission as well. This patient has no encephalopathy of an acute nature ( or delirium ). She does have a dementia which seems to be getting worse and a significant depression which can give pseudodementia as well. She is scheduled for complete neuropsychological testing next month , in order to determine dementia versus pseudodementia. after a lengthy discussion with her older sister who is her primary contact, it seems clear this patient is not doing well caring for herself at home. She is not eating and losing weight, and is quite depressed. Her memory is getting worse over time. On neurologic examination she has no significant focal signs or meningeal signs. She does have a polyneuropathy which is mild and stable. Recommendations: 1. I have no further neurologic testing or treatment recommendations to make at this time specifically referable to her central nervous system. 2. she needs complete neuropsychological testing (keep these appointments as an outpatient that are already set up apparently ). 3. Social service consult. We need to coordinate home health aides and nursing to make sure she is taking her medication correctly and is taking care of herself properly. 4. I am not certain she has a GI tract problem but she is losing weight because she is not eating. This may be psychological. 5. she might benefit from a psychiatry consultation but I would be more interested in a complete neuropsychological evaluation on her to distinguish dementia versus pseudodementia before initiating new medication. 6. Increase activity as able. Overall, I spent a total 100 minutes with this case including review of records, review of MRI films, direct evaluation patient bedside, and discussing the case with the patient at bedside, her sister via the telephone, and Dr. Jarvis including differential diagnosis and treatment options. History of Present Illness Reason for Consultation: patient is a 64 year, who I was asked to see at the request of Dr. Gonzáles, for neurologic evaluation regarding altered mental status and other issues. Requesting Physician: Dr. Gonzáles Attending Physician: Lennox Gonzáles MD History of Present Illness The patient had a small right thalamic stroke in February of 2018. She was left with some numbness and dysesthesias in her left side which has been persistent ever since. I saw her in February of 2019 when she had a significant increase in the left-sided numbness , but MRI of the brain was unremarkable for any new process. MR angiography of February was unremarkable as well. I felt that rather than a TIA this was just an exacerbation of her underlying stroke symptoms secondary to fatigue /stress. She also carries a diagnosis of polyneuropathy with a sensory ataxia as well as mild cognitive impairment which has been chronic. She has a history of hypertension , diabetes, and dyslipidemia. The patient saw Annetta garcia PA-C, Neurology, on October 09 as an outpatient. A mini-mental status examination was performed and she scored 19/30 points. There is also a concern regarding pseudodementia from depression. She has neuropathic pain from her neuropathy which is helped some by duloxetine. On October 18, the patient was admitted with increasing numbness and weakness of her left arm and leg. An MRI of the brain showed no new stroke. She saw Dr. Ryland salazar who felt this was not a TIA but just exacerbation of her previous symptoms due to feeling unwell. She was discharged October 19 in improved condition . On October 19, triglyceride was 79, total cholesterol 105, and hemoglobin A1c 8.1. B12 was normal at 424. Patient was next admitted October 23 with some weakness of her left arm and leg and slurred speech. Glucose was 403. Other labs were unremarkable and blood pressure was relatively low. CT scan of the head and CT angiography of the head neck were unremarkable And showed no change from previous. MRI of the brain revealed an old right thalamic lacunar infarct unchanged from the previous study with no new strokes. In the end, I am was not even sure this patient will had a TIA. I do not believe she was even having vasospasms such as would be could with a complicated migraine (she had no headache). I believe her new symptoms were due to hyperglycemia (which can give temporary focal neurologic issues). Hypotension could bring out some of her old symptoms as well. Patient has remained on 81 milligram and rosuvastatin. There have been some concerns that the patient has had increased depression and/or memory issues. I had a discussion with the patient's older sister who his her primary contact, who says the patient has been extremely depressed because she lives alone and her memory is getting much worse. She is not eating and has had weight loss. She says that her stomach hurts but she refuses to eat and will high the fact that she is not eating. She will not move into a shelter or a skilled care facility because of issues with her house that she promised to her grandson. She had a retic driving and her car was taken away from her so she has not been driving anymore. Apparently she is supposed to get neuropsychological testing in January. Patient was admitted January 16 for slurred speech, right-sided weakness, headache and confusion. When she got to the emergency room yesterday te mperature was 36.1, pulse 86, respiratory rate 16, blood pressure 119/63, and O2 saturation 97 percent. Her speech was considered normal and she was not having any focal neurologic deficits. She did not know the month but did know the year and her name. CBC showed mild anemia the glucose was 81. CT angiography of the head neck plus a CT scan of the head were unremarkable for acute changes and no change compared to previous studies. MRI of the brain showed no new stroke and old issues only. The patient herself felt that she has not had any pain or headaches dizziness numbness or weakness. She feels fatigued ( had Ativan last evening to get through the MRI). Allergies Allergy/AdvReac Type Severity Reaction Status Date / Time propoxyphene AdvReac Unknown GI UPSET Verified 01/17/20 12:33 Home Medications Home Medications Medication Instructions Recorded Confirmed Type aspirin 81 mg tablet,delayed 81 mg PO DAILY 10/04/18 01/17/20 History release multivitamin 1 tab PO DAILY 10/04/18 01/17/20 History cetirizine 10 mg tablet 10 mg PO DAILY #90 tab 06/29/19 01/17/20 Rx fluticasone propionate 50 2 sprays INTNAS DAILY #9.9 gm 07/25/19 01/17/20 Rx mcg/actuation nasal spray,suspension duloxetine 60 mg capsule,delayed 60 mg PO BID #60 cap 10/30/19 01/17/20 Rx release insulin glargine 100 unit/mL (3 27 units SUBCUT QAM ml 10/30/19 01/17/20 History mL) subcutaneous pen rosuvastatin 40 mg tablet 40 mg PO QAM #30 tab 11/06/19 01/17/20 Rx docusate sodium 100 mg capsule 100 mg PO BID #60 cap 12/04/19 01/17/20 Rx pantoprazole 20 mg tablet,delayed 20 mg PO DAILY #90 tab 12/07/19 01/17/20 Rx release 2 wheeled walker #1 ea 12/18/19 Rx metformin 500 mg tablet,extended 1,000 mg PO BID #360 tab 01/09/20 01/17/20 Rx release 24 hr polymyxin B sulf-trimethoprim 1 drops OP QID PRN 01/17/20 01/17/20 History Patient History Medical History Abnormal mouth sensation Breast cancer CVA (cerebral vascular accident) (02/2018) R thalamic infarct in 02/2018 Depression Diabetes mellitus DJD (degenerative joint disease) GERD (gastroesophageal reflux disease) Goiter H/O: stroke with residual effects HTN (hypertension) Hyperlipidemia MCI (mild cognitive impairment) Osteoporosis Paresthesia of left arm and leg Periorbital ecchymosis of left eye Peripheral neuropathy Reactive airway disease Seasonal allergies Stage 3 chronic kidney disease Vertigo Surgical History H/O: hysterectomy Hx of appendectomy Hx of cholecystectomy S/P laminectomy with spinal fusion L4-[address] 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 Required: No Beliefs That Will Affect Care: None marital status: Current Living Situation: Alone Current Living Situation Comment: Stays with sister most of the day then sister takes her back home current occupational status: retired 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 Constitutional: + fatigue; no fever and no weakness Eyes: no diplopia, no eye pain and no worsening vision Ear, Nose, Mouth, Throat: no ear pain, no tinnitus, no hearing loss, no dizziness, no hoarseness and no dysphagia Respiratory: no cough and no dyspnea Cardiovascular: no chest pain, no palpitations and no lightheadedness Gastrointestinal: no abdominal pain, no nausea and no vomiting Genitourinary: no dysuria, no urinary frequency and no urinary incontinence Musculoskeletal: no back pain, no neck pain, no radicular pain, no joint pain and no myalgia Integumentary: no rash and no lesions Neurologic: + numbness; no gait abnormality, no localized weakness, no generalized weakness, no tingling, no tremor(s), no abnormal movements, no headache(s), no abnormal speech, no confusion and no memory loss Psychiatric: no depression, no irritability, no anxiety, no difficulty concentrating, no confusion and no hallucinations Endocrine: + fatigue; no flushing Hematologic / Lymphatic: no easy bleeding and no easy bruising Allergy / Immunological: no urticaria and no problem reported Exam (Neuro) Physical Exam: The patient is right-handed. The patient was sleepy but easily aroused and became alert and attentive. Speech is normal without any aphasia or dysarthria. She can name objects, repeat phrases, and has normal spontaneous speech. Mood and affect seem normal appropriate. Thought processes are somewhat slow and she has somewhat poor memory for long and short-term. She knew her name and the year but did not know her age the date, the month, the day, or the president. She did simple calculations fairly well and she followed one-step commands fairly. The discs are sharp with positive venous pulsations bilaterally. There are no exudates, hemorrhages, or blood vessel changes seen. Pupils are 4 mm bilaterally and reactive to light. Extraocular eye muscles are intact without nystagmus. Visual acuity and visual nguyen seem normal grossly to confrontation. There are no deficits to sensation in the face in all 3 distributions of the fifth cranial nerve bilaterally. Corneal reflexes are positive bilaterally. Facial strength and symmetry was normal bilaterally. Hearing seems normal to whisper and finger rub bilaterally. Palate moves well without asymmetry. There is normal sternocleidomastoid and trapezius (shoulder shrug) strength bilaterally. Tongue is midline with good strength bilaterally. Neck has a full range of motion without discomfort. There are no cervical bruits bilaterally. There are no cranial or ocular bruits. Heart is without murmur. There is a regular rhythm and rate. Cervical, thoracic, and lumbar spine are nontender to palpation. Gait was not tested but stands sitting up in bed is reasonable. With outstretched arms there is no drift. There are no resting, postural, or action tremors. There is no ataxia with finger to nose testing. There is good facility in the hands. No other abnormal involuntary movements are noted. Motor strength is 5/5 diffusely in the arms bilaterally including deltoids, bic eps, triceps, brachioradialis, wrist flexors and extensors, account support specialist, and intrinsic hand muscles. Motor strength is 5/5 diffusely in the legs bilaterally including hip flexors, quadriceps, hamstrings, gastrocnemius, tibialis anterior, tibialis posterior, and Peroneii muscles. Toe extensors are normal and there is good bulk in the extensor digitorum brevis muscles bilaterally. The limbs have good tone without rigidity or spasticity. There is no atrophy noted in the muscles. Muscle bulk is normal, there is no tenderness to palpation, no myotonia to percussion, and no fasciculations seen. Sensory examination is intact to touch and pin throughout all 4 limbs diffusely. Reflexes are 2/4 in the biceps, triceps, brachioradialis, quadriceps, and Achilles tendons bilaterally. There is no clonus bilaterally. Toes are downgoing with plantar stimulation bilaterally. Peripheral pulses are present and of normal quality distally in all 4 limbs. There is no peripheral edema noted in the limbs. Results & Data ([facility]) Vital Signs (Past 12 Hours) Vital Signs Temp Pulse Resp BP Pulse Ox 01/18/20 07:12 36.7 C 72 18 140/85 94 01/18/20 03:47 36.3 C L 65 18 119/67 93 01/17/20 23:54 36.7 C 72 18 106/60 96 PG Care Time/CCT Total # of Minutes Spent Total Time Spent with Patient: Total time spent is greater than 50% in coordination of care (as documented) at patient's floor/unit and/or counseling patient: Coding Level of Care Code 63540 Initial Inpt Care Lvl 3 Diagnoses Stroke-like symptoms R29.90 Encephalopathy G93.40 Peripheral neuropathy G62.9 Depression F32.9 Depression Type: unspecified Time Spent (min) 100 Comment add [id number] to the [id number] (1) Depression Depression Type: unspecified Qualified Code(s): F32.9 - Major depressive disorder, single episode, unspecified
[2020-01-18] MEDS: PANTOprazole 40 MG TAB PO SCH (08:58)
[2020-01-18] MEDS: ROSUVASTATIN CALCIUM 20 MG TAB PO SCH (08:58)
[2020-01-18] MEDS: DULoxetine HCL 60 MG CAP PO SCH ×2 (08:58→20:42)
[2020-01-18] MEDS: ASPIRIN 81 MG ECTAB PO SCH (08:58)
[2020-01-18] MEDS: DOCUSATE SODIUM 100 MG CAP PO SCH ×2 (08:59→20:41)
[2020-01-18] MEDS: ENOXAPARIN INJ 40 MG/0.4 ML SYR SQ SCH (08:59)
[2020-01-18] MEDS: FLUTICASONE PROPIONATE NA SPR 16 GM BTL SCH (08:59)
[2020-01-18] MEDS ORDERED: INSULIN GLARGINE SOLOSTAR 100 UNITS/ML 3 ML PEN SC SCH (09:00)
[2020-01-18] MEDS: TRIMETHOPRIM/POLYMYXIN B OP SCH ×4 (09:00→20:43)
[2020-01-18] MEDS: POLYETHYLENE (MIRALAX) 17 GM PACK PO SCH ×2 (09:00→20:40)
[2020-01-18 09:34] LABS: Thyroid Stimulating Hormone 0.122 uIu/ml (0.300-4.500)
[2020-01-18 09:47] LABS: T4 Free Thyroxine 0.91 ng/dl (0.8-1.6)
[2020-01-18] MEDS ORDERED: INSULIN GLARGINE SOLOSTAR 100 UNITS/ML 3 ML PEN SC STA (10:33)
[2020-01-18] MEDS: INSULIN ASPART 100 UNITS/ML 3 ML PEN SC SCH ×4 (11:06→20:42)
--- NOTE | 2020-01-18 14:23 | Pharmacy Report ---
Pharmacy Glycemic Short Note 2 - Date of Service January 18, 2020 - Glycemic Short BSG Results (Last 24 hours): 01/17/20 01/17/20 01/17/20 16:10 20:09 22:37 Glucose POC Glucose 77 101 H 125 H 01/18/20 01/18/20 01/18/20 04:09 07:07 10:28 Glucose 84 POC Glucose 94 97 OUTPATIENT ANTIDIABETIC REGIMEN: * Lantus 27 units qam * Metformin 1000 BID ASSESSMENT: * Patient admitted for stroke like symptoms * It was reported that she took her home lantus dose yesterday prior to arrival, however patient with questionable mental status * PO intake has been poor today with only 12 g CHO consumed * Lantus was dosed conservatively this morning, with a conservative scale ordered this evening. Blood sugars have been well controlled thus far PLAN FOR INPATIENT GLYCEMIC CONTROL: * Hold outpatient oral diabetes medications * Basal insulin * Lantus 10 units SQ this morning * Lantus scale to start this evening 0,5,or 10 units (see MAR for details) * Bolus insulin * NovoLog per scale ACHS or Q6hrs while NPO * Goal Range: Low 110 mg/dL - High 140 mg/dL * Correction Factor: 35 mg/dL/unit * Nutritional / Prandial insulin per carb ratio of 1 unit per 12 grams CHO consumed
--- NOTE | 2020-01-18 19:10 | XRay Report ---
ABDOMEN 2 VIEWS HISTORY: abd pain, lower quadrants; eval constipation, ileus COMPARISON: Abdomen and pelvis CT 07/21/2018. FINDINGS: No pneumoperitoneum. No pneumatosis. No dilated loops of small bowel to suggest an obstruct ion. Large amount well-formed stool seen throughout the majority of the colon consistent with constip ation. Mildly dilated gas-filled redundant sigmoid colon measuring up to 7.3 cm in diameter. This cou ld be due to the constipation or ileus. There is also a large amount well-formed stool within the dis connie sigmoid colon and rectum. IMPRESSION: 1. Large amount of well-formed stool within the colon and rectum consistent with constipation. 2. Mildly dilated gas-filled redundant sigmoid colon which could be due to the constipation or a mild ileus. ACT 112: Negative or not required by law. Electronically signed by: Jostin Torres M.D. 01/18/2020 7:09 PM
[2020-01-18] MEDS ORDERED: bisacodyL 5 MG TABEC PO ONE (19:50)
--- NOTE | 2020-01-18 19:51 | Hospitalist Progress Note ---
Date of Service January 18, 2020 Assessment & Plan (1) Encephalopathy: Brought to hospital by family due to altered MS. Large w/u thus far - CT head/MRI brain, u/a, COVID-19 testing, cxr, etc -- all negative/normal. I am uncertain of her baseline but during the visit today she was oriented x [address] Gonzáles placed her on empiric thiamine IV - will continue for now. B12 noted to be normal. TSH mildly depressed but FT4 wnl. Seen by Dr Pfeiffer from neurology - TIA not suspected. He feels she has underlying mild cognitive impairment/dementia. Lastly, by report family have expressed concern about depression. She is on a rather high dose of cymbalta (60mg BID). Could consider psych consult while here for med assistance. (2) Severe protein-calorie malnutrition: Significant weight loss over the last 2 years. Nearly 30kg of weight loss since 02/2018. Her main complaint is that of abdominal pain. Family reported to nursing staff that she often c/o abdominal pain. Will start with abdominal x-rays and go from there. Consider CT abd/pelvis. Check Fe studies to r/o Fe deficiency. (3) Abnormal CBC: For several years the patient has had a lymphocyte-predominant diffe rential. Given the weight loss will check a peripheral smear to check for features of brewing leukemic/bone marrow process, etc. (4) Anemia: B12/folate wnl. Check Fe studies in am. Obtain peripheral smear (see above). (5) Abdominal pain: Concerning given her anemia, weight loss, etc. Start with x-rays. Check Fe studies. Fecal occult blood. Consider CT abd/pelvis. (6) GERD (gastroesophageal reflux disease): continue PPI (7) Depression: is on cymbalta 60mg BID. I do not believe the severe weight loss is from depression. see above. (8) Diabetes mellitus: Pharmacy glycemic management appreciated. a1c 7% holding metformin cont lantus-novolog (9) MCI (mild cognitive impairment): per history. noted. (10) Abnormal involuntary movements: The movements during my visit looked like restless legs. It did not appear to be chorea or tremors. Check Fe studies. (11) DVT prophylaxis: lovenox daily await PT/OT evals Admission and Anticipated Discharge Date Admission Date: January 17, 2020 Subjective patient states that she is frustrated. when asked why she says "people need to stay out of my affairs." she is referring to her family. she is quite upset about her family but didn't go into further detail. her only complaint was that of abdominal pain. she points to the lower quadrants, especially the left side. states it has been present for "months". she admits to poor appetite and loss of weight. she states she has lost 60 pounds but can't tell me over what period of time that was. looking at the record - she was about 100kg in 02/2018; now she is 72kg. Review of Systems Constitutional: no fever and no chills Respiratory: no cough and no dyspnea Cardiovascular: no chest pain Gastrointestinal: as per Subjective / HPI, + abdominal pain and + constipation; no nausea and no vomiting Neurologic: no localized weakness Psychiatric: no depression Physical Exam Constitutional: no acute distress and no altered mental status (surprisingly oriented x 3 ) constantly moving her arms/legs and shifting during the visit ENMT: external ear and nose normal, oropharynx normal Respiratory: normal respiratory effort, lungs clear to auscultation Cardiovascular: Rate/Rhythm: regular rate and regular rhythm Heart Sounds: normal S1 and normal S2; no murmur Vessels: posterior tibial pulses present and dorsalis pedis pulses present; no JVD Extremities: no edema Gastrointestinal (Abdomen): Inspection/Auscultation: normal bowel sounds; abdomen not distended Percussion/Palpation: + abdomen tender (LLQ - mild ); no guarding and no hepatosplenomegaly Skin: no rashes, warm and dry Psychiatric: Orientation: alert and oriented x 3 (knew the year, month and day of week ) Results & Data Results & Data ([facility]) Vital Signs (Past 12 Hours) Vital Signs Pulse 01/18/20 16:00 70 01/18/20 08:00 70 Laboratory Results Laboratory Results - last 24 hr 01/17/20 01/17/20 01/18/20 20:09 22:37 04:09 WBC 6.13 RBC 3.94 L Hgb 10.8 L Hct 34.1 L MCV 86.5 MCH 27.4 MCHC 31.7 L RDW Std Deviation 49.8 H RDW Coeff of Supriya 15.4 H Plt Count 318 MPV 9.8 Immature Gran % (Auto) 0.0 Neut % (Auto) 37.3 Lymph % (Auto) 47.0 Walker % (Auto) 10.0 Eos % (Auto) 4.9 Baso % (Auto) 0.8 Neut # (Auto) 2.29 Lymph # (Auto) 2.88 Walker # (Auto) 0.61 H Eos # (Auto) 0.30 Baso # (Auto) 0.05 Immature Gran # (Auto) 0.00 Sodium Potassium Chloride Carbon Dioxide Anion Gap BUN Creatinine Est Cr Clr Drug Dosing Est GFR ( Amer) Est GFR (Non-Af Amer) BUN/Creatinine Ratio Glucose POC Glucose 101 H 125 H Estimat Average Glucose Hemoglobin A1c Calcium Triglycerides Cholesterol LDL Cholesterol, Calc VLDL Cholesterol, Calc HDL Cholesterol Cholesterol/HDL Ratio TSH Free T4 01/18/20 01/18/20 01/18/20 04:09 04:09 04:09 WBC RBC Hgb Hct MCV MCH MCHC RDW Std Deviation RDW Coeff of Supriya Plt Count MPV Immature Gran % (Auto) Neut % (Auto) Lymph % (Auto) Walker % (Auto) Eos % (Auto) Baso % (Auto) Neut # (Auto) Lymph # (Auto) Walker # (Auto) Eos # (Auto) Baso # (Auto) Immature Gran # (Auto) Sodium 143 Potassium 4.0 Chloride 112 H Carbon Dioxide 28 Anion Gap 3.0 BUN 18 Creatinine 0.99 Est Cr Clr Drug Dosing 57.9 Est GFR ( Amer) 69.8 Est GFR (Non-Af Amer) 60.2 BUN/Creatinine Ratio 18.2 Glucose 84 POC Glucose Estimat Average Glucose 154 Hemoglobin A1c 7.0 H Calcium 8.8 Triglycerides 137 Cholesterol 92 LDL Cholesterol, Calc 31 VLDL Cholesterol, Calc 27 HDL Cholesterol 34 Cholesterol/HDL Ratio 3 TSH 0.122 L Free T4 0.91 01/18/20 01/18/20 01/18/20 07:07 10:28 16:12 WBC RBC Hgb Hct MCV MCH MCHC RDW Std Deviation RDW Coeff of Supriya Plt Count MPV Immature Gran % (Auto) Neut % (Auto) Lymph % (Auto) Walker % (Auto) Eos % (Auto) Baso % (Auto) Neut # (Auto) Lymph # (Auto) Walker # (Auto) Eos # (Auto) Baso # (Auto) Immature Gran # (Auto) Sodium Potassium Chloride Carbon Dioxide Anion Gap BUN Creatinine Est Cr Clr Drug Dosing Est GFR ( Amer) Est GFR (Non-Af Amer) BUN/Creatinine Ratio Glucose POC Glucose 94 97 114 H Estimat Average Glucose Hemoglobin A1c Calcium Triglycerides Cholesterol LDL Cholesterol, Calc VLDL Cholesterol, Calc HDL Cholesterol Cholesterol/HDL Ratio TSH Free T4 MRI brain - no acute CVA CTA head/neck - findings noted PG Care Time/CCT Total # of Minutes Spent Total Time Spent with Patient: Total time spent is greater than 50% in coordination of care (as documented) at patient's floor/unit and/or counseling patient: Coding Level of Care Code 84101 Subseq Hosp Care Lvl 3 Diagnoses Encephalopathy G93.40 Severe protein-calorie malnutrition E43 Abnormal CBC R79.89 Anemia D64.9 Abdominal pain R10.9 GERD (gastroesophageal reflux disease) K21.9 Depression F32.9 Depression Type: unspecified Diabetes mellitus E11.9 Diabetes mellitus complication status: without complication Diabetes mellitus longterm insulin use: unspecified terminal superintendent insulin use status Diabetes mellitus type: type 2 MCI (mild cognitive impairment) G31.84 Abnormal involuntary movements R25.9 DVT prophylaxis Z29.9 (1) Diabetes mellitus Diabetes mellitus complication status: without complication Diabetes mellitus terminal superintendent insulin use: unspecified terminal superintendent insulin use status Diabetes mellitus type: type 2 Qualified Code(s): E11.9 - Type 2 diabetes mellitus without complications (2) Depression Depression Type: unspecified Qualified Code(s): F32.9 - Major depressive disorder, single episode, unspecified
[2020-01-18] MEDS ORDERED: POLYETHYLENE (MIRALAX) 17 GM PACK PO SCH (20:00)
[2020-01-18] MEDS: INSULIN GLARGINE SOLOSTAR 100 UNITS/ML 3 ML PEN SC SCH (20:42)
[2020-01-19 05:09] LABS: BUN Creatinine Ratio 16.4 (10-20); Calcium 9.1 mg/dl (8.5-10.1); Creatinine Clr Calc Pharmacy 59.7 ml/min; Est GFR (African American) 72.4; Est GFR (Non-African American) 62.5; Potassium 3.9 mmol/L (3.5-5.1)
[2020-01-19 05:14] LABS: Ferritin 116.9 ng/ml (8-388)
[2020-01-19] MEDS: INSULIN ASPART 100 UNITS/ML 3 ML PEN SC SCH ×4 (08:51→20:50)
[2020-01-19] MEDS: INSULIN GLARGINE SOLOSTAR 100 UNITS/ML 3 ML PEN SC SCH ×2 (08:53→20:50)
[2020-01-19] MEDS: ENOXAPARIN INJ 40 MG/0.4 ML SYR SQ SCH (08:53)
[2020-01-19] MEDS: FLUTICASONE PROPIONATE NA SPR 16 GM BTL SCH (08:54)
[2020-01-19] MEDS: POLYETHYLENE (MIRALAX) 17 GM PACK PO SCH ×2 (08:54→20:50)
[2020-01-19] MEDS: DOCUSATE SODIUM 100 MG CAP PO SCH ×2 (08:55→20:47)
[2020-01-19] MEDS: DULoxetine HCL 60 MG CAP PO SCH ×2 (08:55→20:47)
[2020-01-19] MEDS: SENNA 8.6 MG TAB PO SCH (08:55)
[2020-01-19] MEDS: ROSUVASTATIN CALCIUM 20 MG TAB PO SCH (08:55)
[2020-01-19] MEDS: PANTOprazole 40 MG TAB PO SCH (08:55)
[2020-01-19] MEDS: ASPIRIN 81 MG ECTAB PO SCH (08:56)
[2020-01-19] MEDS: THIAMINE HCL 200 MG in SODIUM CHLORIDE 0.9% 50 ML IV SCH ×3 (09:43→23:38)
[2020-01-19] MEDS: TRIMETHOPRIM/POLYMYXIN B OP SCH ×4 (09:44→20:48)
--- NOTE | 2020-01-19 14:44 | Hospitalist Progress Note ---
Date of Service January 19, 2020 Assessment & Plan (1) Encephalopathy: Brought to hospital by family due to altered MS. - Large w/u thus far - CT head/MRI brain, u/a, COVID-19 testing, cxr, etc -- all negative/normal. B12 was normal; TSH/FT4 largely within normal. - Continue thiamine, but switch to oral. - Seen by Dr Pfeiffer from neurology - TIA not suspected. He feels she has underlying mild cognitive impairment/dementia. - Refer her to her outpatient provider regarding her duloxetine dosing as it is quite high. - Plan for outpatient work-up of her dementia. (2) Severe protein-calorie malnutrition: Significant weight loss over the last 2 years. Nearly 30kg of weight loss since 02/2018. Fe was 115 this admission. - Family reported to nursing staff that she often c/o abdominal pain. (3) Abnormal CBC: For several years the patient has had a lymphocyte-predominant differential. - Given the weight loss will check a peripheral smear to check for features of brewing leukemic/bone marrow process, etc. -> Pending (4) Anemia: B12/folate wnl. Iron studies show low-normal iron. - Obtain peripheral smear (see above). (5) Abdominal pain: Concerning given her anemia, weight loss, etc. - X-rays from 01/17 only showing constipation. - Start bowel regimen (6) GERD (gastroesophageal reflux disease): - Continue PPI (7) Depression: Is on cymbalta 60mg BID. - See above. (8) Diabetes mellitus: A1c was 7% on 01/17. - Holding metformin - Cont lantus-novolog - Glyemic pharmacy following. (9) MCI (mild cognitive impairment): Per history. - Neurology notes prior appointment for cognitive testing. (10) Abnormal involuntary movements: The movements during my visit looked like restless legs. It did not appear to be chorea or tremors. - As above - Fe was 115 this admission with low-normal other iron studies. (11) DVT prophylaxis: Lovenox daily Admission and Anticipated Discharge Date Admission Date: January 17, 2020 Subjective Very confused today. She can barely even tell me her own name (uses her maiden name twice, then has to think about her name). Review of Systems Review of Systems: Unobtainable due to cognitive status Physical Exam Constitutional: WD/WN, vitals as above Eyes: EOM intact bilaterally; no conjunctival abnormality ENMT: external ear and nose normal, oropharynx normal Neck: trachea midline, no thyromegaly normal visual inspection Respiratory: normal respiratory effort, lungs clear to auscultation no respiratory distress Cardiovascular: RRR, no murmur, no edema Gastrointestinal (Abdomen): Inspection/Auscultation: abdomen normal to inspection; abdomen not distended Musculoskeletal: no cyanosis or clubbing, extremities motor strength 5/5 Skin: no rashes, warm and dry Neurologic: moves all extremities and awake Psychiatric: Orientation: alert, oriented to person (After 2 tries) and + guarded; + not oriented to place and + not oriented to time Results & Data Results & Data ([facility]) Vital Signs (Past 12 Hours) Vital Signs Temp Pulse Pulse Pulse Resp BP BP 01/19/20 12:00 36.7 C 89 20 130/76 01/19/20 07:00 93 H 01/19/20 06:45 37.0 C 97 H 18 156/82 H 01/19/20 03:29 36.9 C 79 16 129/71 Pulse Ox 01/19/20 12:00 95 01/19/20 07:00 01/19/20 06:45 98 01/19/20 03:29 95 PG Care Time/CCT Total # of Minutes Spent Total Time Spent with Patient: Total time spent is greater than 50% in coordination of care (as documented) at patient's floor/unit and/or counseling patient: Coding Level of Care Code 79052 Subseq Hosp Care Lvl 2 Diagnoses Encephalopathy G93.40 Severe protein-calorie malnutrition E43 Abnormal CBC R79.89 Anemia D64.9 Abdominal pain R10.9 GERD (gastroesophageal reflux disease) K21.9 Depression F32.9 Depression Type: unspecified Diabetes mellitus E11.9 Diabetes mellitus complication status: without complication Diabetes mellitus long wall shear operator insulin use: unspecified long wall shear operator insulin use status Diabetes mellitus type: type 2 MCI (mild cognitive impairment) G31.84 Abnormal involuntary movements R25.9 DVT prophylaxis Z29.9 (1) Depression Depression Type: unspecified Qualified Code(s): F32.9 - Major depressive disorder, single episode, unspecified (2) Diabetes mellitus Diabetes mellitus complication status: without complication Diabetes mellitus halfway insulin use: unspecified halfway insulin use status Diabetes mellitus type: type 2 Qualified Code(s): E11.9 - Type 2 diabetes mellitus without complications
[2020-01-20 08:16] LABS: Hematocrit (blood only) 34.5 % (37-47); Hemoglobin 11.4 g/dL (12.0-16.0); Mean Corpuscular Hemoglobin 27.9 pg (25-34); Mean Corpuscular Volume 84.4 fL (80-100); Mean Platelet Volume 9.6 fL (7.4-10.4); Platelet Count 303 K/uL (130-400); RDW Coefficient of Variation 15.5 % (11.5-14.5); RDW Standard Deviation 47.5 fL (36.4-46.3); Red Blood Count 4.09 M/uL (4.2-5.4); White Blood Count 6.51 K/uL (4.8-10.8)
[2020-01-20 08:42] LABS: BUN Creatinine Ratio 19.1 (10-20); Calcium 9.1 mg/dl (8.5-10.1); Creatinine Clr Calc Pharmacy 79.6 ml/min; Est GFR (African American) 102.6; Est GFR (Non-African American) 88.5; Magnesium 2.1 mg/dl (1.8-2.4); Phosphorus 3.1 mg/dl (2.5-4.9); Potassium 3.4 mmol/L (3.5-5.1)
[2020-01-20] MEDS: THIAMINE HCL 200 MG in SODIUM CHLORIDE 0.9% 50 ML IV SCH (09:16)
[2020-01-20] MEDS: INSULIN ASPART 100 UNITS/ML 3 ML PEN SC SCH ×4 (09:23→21:11)
[2020-01-20] MEDS: SENNA 8.6 MG TAB PO SCH (09:24)
[2020-01-20] MEDS: ROSUVASTATIN CALCIUM 20 MG TAB PO SCH (09:24)
[2020-01-20] MEDS: ASPIRIN 81 MG ECTAB PO SCH (09:24)
[2020-01-20] MEDS: DULoxetine HCL 60 MG CAP PO SCH ×2 (09:26→19:51)
[2020-01-20] MEDS: ENOXAPARIN INJ 40 MG/0.4 ML SYR SQ SCH (09:27)
[2020-01-20] MEDS: PANTOprazole 40 MG TAB PO SCH (09:27)
[2020-01-20] MEDS: POLYETHYLENE (MIRALAX) 17 GM PACK PO SCH (09:27)
[2020-01-20] MEDS: FLUTICASONE PROPIONATE NA SPR 16 GM BTL SCH (09:27)
[2020-01-20] MEDS: INSULIN GLARGINE SOLOSTAR 100 UNITS/ML 3 ML PEN SC SCH ×2 (09:28→21:08)
[2020-01-20] MEDS: TRIMETHOPRIM/POLYMYXIN B OP SCH ×4 (09:29→19:51)
[2020-01-20] MEDS: DOCUSATE SODIUM 100 MG CAP PO SCH (09:33)
--- NOTE | 2020-01-20 10:49 | Pharmacy Report ---
Pharmacy Glycemic Short Note 2 - Date of Service January 20, 2020 - Glycemic Short BSG Results (Last 24 hours): 01/19/20 01/19/20 01/19/20 11:33 16:05 20:32 Glucose POC Glucose 196 H 144 H 151 H 01/20/20 01/20/20 07:30 09:18 Glucose 133 H POC Glucose 144 H OUTPATIENT ANTIDIABETIC REGIMEN: * Lantus 27 units qam * Metformin 1000 BID ASSESSMENT: 01/19 * Patient received total of 13 units of insulin yesterday, of which 10 were basal insulin * Fasting BSG 133 mg/dL - continue scale for basal * Continue same CF/CR for now. PO intake very poor/limited PLAN FOR INPATIENT GLYCEMIC CONTROL: * Hold outpatient oral diabetes medications * Basal insulin * Lantus 0,5,or 10 units BID based upon BSG value(see MAR for details) * Bolus insulin * NovoLog per scale ACHS or Q6hrs while NPO * Goal Range: Low 110 mg/dL - High 140 mg/dL * Correction Factor: 35 mg/dL/unit * Nutritional / Prandial insulin per carb ratio of 1 unit per 12 grams CHO consumed PLAN FOR DISCHARGE: * A1c 7% on admission, at goal * Would recommend continuation of home diabetic medications at discharge as long as PO intake improves. Would recommend dosage decrease in insulin if PO intake continues to be poor on discharge
--- NOTE | 2020-01-20 15:27 | Hospitalist Progress Note ---
Date of Service January 20, 2020 Assessment & Plan (1) Encephalopathy: Brought to hospital by family due to altered MS. - Large work-up thus far - CT head/MRI brain, u/a, COVID-19 testing, CXR, etc -- all negative/normal. B12 was normal; TSH/FT4 largely within normal. - Continue thiamine, but switch to oral. - Seen by Dr Pfeiffer from neurology - TIA not suspected. He feels she has underlying mild cognitive impairment/dementia. - Refer her to her outpatient provider regarding her duloxetine dosing as it is quite high. - Plan for outpatient work-up of her dementia. - Stable today. No change in vital signs to indicate acute issue. (2) Severe protein-calorie malnutrition: Significant weight loss over the last 2 years. Nearly 30kg of weight loss since 02/2018. Fe was 115 this admission. - Family reported to nursing staff that she often c/o abdominal pain. (3) Abnormal CBC: For several years the patient has had a lymphocyte-predominant differential. - Given the weight loss will check a peripheral smear to check for features of brewing leukemic/bone marrow process, etc. -> Pending (4) Anemia: B12/folate wnl. Iron studies show low-normal iron. - Obtain peripheral smear (see above). (5) Abdominal pain: Concerning given her anemia, weight loss, etc. - X-rays from 01/17 only showing large stool burden. - Started bowel regimen -> Now going too much; will taper slightly. (6) GERD (gastroesophageal reflux disease): - Continue PPI (7) Depression: Is on cymbalta 60mg BID. - See above. (8) Diabetes mellitus: A1c was 7% on 01/17. - Holding metformin - Cont lantus-novolog - Glycemic pharmacy following. - Sugars stable in last 24 hours. (9) MCI (mild cognitive impairment): Per history. - Neurology notes prior appointment for cognitive testing. (10) Abnormal involuntary movements: The movements during my visit looked like restless legs. It did not appear to be chorea or tremors. - As above - Fe was 115 this admission with low-normal other iron studies. (11) DVT prophylaxis: Lovenox 40 mg SQ daily Admission and Anticipated Discharge Date Admission Date: January 17, 2020 Subjective Very tearful today. She reports that both Fredrick, SANJEEV and I are "part of [her] dream." She reports this is not bad, but that it is somewhat upsetting. Reports no fevers/chills, chest pain, shortness of breath, abdominal pain, nausea, or vomiting. Physical Exam Constitutional: WD/WN, vitals as above + acute distress Eyes: EOM intact bilaterally; no conjunctival abnormality ENMT: external ear and nose normal, oropharynx normal Neck: trachea midline, no thyromegaly normal visual inspection Respiratory: normal respiratory effort, lungs clear to auscultation no respiratory distress Cardiovascular: RRR, no murmur, no edema Gastrointestinal (Abdomen): Inspection/Auscultation: abdomen normal to inspection; abdomen not distended Musculoskeletal: no cyanosis or clubbing, extremities motor strength 5/5 Skin: no rashes, warm and dry Neurologic: moves all extremities and awake Psychiatric: Orientation: alert and oriented to person (After 2 tries); + not oriented to place and + not oriented to time Affect: + tearful affect Results & Data Results & Data ([facility]) Vital Signs (Past 12 Hours) Vital Signs Temp Pulse Resp BP BP Pulse Ox 01/20/20 14:52 37 C 89 16 119/76 98 01/20/20 07:36 36.5 C 84 18 137/82 94 PG Care Time/CCT Total # of Minutes Spent Total Time Spent with Patient: Total time spent is greater than 50% in coordination of care (as documented) at patient's floor/unit and/or counseling patient: Coding Level of Care Code 84185 Subseq Hosp Care Lvl 2 Diagnoses Encephalopathy G93.40 Severe protein-calorie malnutrition E43 Abnormal CBC R79.89 Anemia D64.9 Abdominal pain R10.9 GERD (gastroesophageal reflux disease) K21.9 Depression F32.9 Depression Type: unspecified Diabetes mellitus E11.9 Diabetes mellitus complication status: without complication Diabetes mellitus longterm insulin use: unspecified ferry terminal agent insulin use status Diabetes mellitus type: type 2 MCI (mild cognitive impairment) G31.84 Abnormal involuntary movements R25.9 DVT prophylaxis Z29.9 (1) Depression Depression Type: unspecified Qualified Code(s): F32.9 - Major depressive disorder, single episode, unspecified (2) Diabetes mellitus Diabetes mellitus complication status: without complication Diabetes mellitus ferry terminal agent insulin use: unspecified ferry terminal agent insulin use status Diabetes mellitus type: type 2 Qualified Code(s): E11.9 - Type 2 diabetes mellitus without complications
[2020-01-21] MEDS: INSULIN ASPART 100 UNITS/ML 3 ML PEN SC SCH ×4 (08:25→21:22)
[2020-01-21] MEDS: INSULIN GLARGINE SOLOSTAR 100 UNITS/ML 3 ML PEN SC SCH ×2 (08:27→21:24)
[2020-01-21] MEDS: THIAMINE HCL 100 MG TAB PO SCH (08:28)
[2020-01-21] MEDS: FLUTICASONE PROPIONATE NA SPR 16 GM BTL SCH (08:28)
[2020-01-21] MEDS: DULoxetine HCL 60 MG CAP PO SCH ×2 (08:28→21:25)
[2020-01-21] MEDS: PANTOprazole 40 MG TAB PO SCH (08:28)
[2020-01-21] MEDS: ASPIRIN 81 MG ECTAB PO SCH (08:28)
[2020-01-21] MEDS: ROSUVASTATIN CALCIUM 20 MG TAB PO SCH (08:28)
[2020-01-21] MEDS: ENOXAPARIN INJ 40 MG/0.4 ML SYR SQ SCH (08:29)
[2020-01-21] MEDS: TRIMETHOPRIM/POLYMYXIN B OP SCH ×4 (08:29→21:52)
--- NOTE | 2020-01-21 15:56 | Hospitalist Progress Note ---
Date of Service January 21, 2020 Assessment & Plan (1) Encephalopathy: Brought to hospital by family due to altered MS. - Large work-up thus far - CT head/MRI brain, u/a, COVID-19 testing, CXR, etc -- all negative/normal. B12 was normal; TSH/FT4 largely within normal. - Continue thiamine, but switched to oral on 01/19. - Seen by Dr Pfeiffer from neurology - TIA not suspected. He feels she has underlying mild cognitive impairment/dementia. - Refer her to her outpatient provider regarding her duloxetine dosing as it is quite high. - Plan for outpatient work-up of her dementia. - Stable today. No change in vital signs to indicate acute issue. Mood improved today. (2) Severe protein-calorie malnutrition: Significant weight loss over the last 2 years. Nearly 30kg of weight loss since 02/2018. Fe was 115 this admission. - Family reported to nursing staff that she often c/o abdominal pain. None today on my interview. (3) Abnormal CBC: For several years the patient has had a lymphocyte-predominant differential. - Given the weight loss will check a peripheral smear to check for features of brewing leukemic/bone marrow process, etc. -> Normal smear on 01/19/2020. (4) Anemia: B12/folate wnl. Iron studies show low-normal iron. - Obtained peripheral smear (see above) - Normal. (5) Abdominal pain: Concerning given her anemia, weight loss, etc. - X-rays from 01/17 only showing large stool burden. - Started bowel regimen -> Now going too much; will taper slightly. (6) GERD (gastroesophageal reflux disease): - Continue PPI (7) Depression: Is on Cymbalta 60mg BID. - See above. (8) Diabetes mellitus: A1c was 7% on 01/17. - Holding metformin - Cont lantus-novolog - Glycemic pharmacy following. - Sugars stable in last 24 hours. Generally 130-200. (9) MCI (mild cognitive impairment): Per history. - Neurology notes prior appointment for cognitive testing. (10) Abnormal involuntary movements: The movements during my visit looked like restless legs. It did not appear to be chorea or tremors. - As above - Fe was 115 this admission with low-normal other iron studies. (11) DVT prophylaxis: Lovenox 40 mg SQ daily Admission and Anticipated Discharge Date Admission Date: January 17, 2020 Subjective Much improved today. She is in a much better mood today. No reference to the "dream" issues yesterday. Just wants to go home. Reports no fevers/chills, chest pain, shortness of breath, abdominal pain, nausea, or vomiting. Physical Exam Constitutional: WD/WN, vitals as above no acute distress Eyes: EOM intact bilaterally; no conjunctival abnormality ENMT: external ear and nose normal, oropharynx normal Neck: trachea midline, no thyromegaly normal visual inspection Respiratory: normal respiratory effort, lungs clear to auscultation no respiratory distress Cardiovascular: RRR, no murmur, no edema Gastrointestinal (Abdomen): Inspection/Auscultation: abdomen normal to inspection; abdomen not distended Musculoskeletal: no cyanosis or clubbing, extremities motor strength 5/5 Skin: no rashes, warm and dry Neurologic: moves all extremities and awake Psychiatric: Orientation: alert and oriented to person; + not oriented to place (Knows [place], but not what state it is in.) and + not oriented to time (Knows year. When asked the season, she replies December.) Affect: euthymic affect Results & Data Results & Data ([facility]) Vital Signs (Past 12 Hours) Vital Signs Temp Pulse Pulse Resp BP Pulse Ox 01/21/20 15:36 36.7 C 98 H 18 117/75 99 01/21/20 08:29 36.7 C 98 H 18 108/69 99 PG Care Time/CCT Total # of Minutes Spent Total Time Spent with Patient: Total time spent is greater than 50% in coordination of care (as documented) at patient's floor/unit and/or counseling patient: Coding Level of Care Code 84232 Subseq Hosp Care Lvl 2 Diagnoses Encephalopathy G93.40 Severe protein-calorie malnutrition E43 Abnormal CBC R79.89 Anemia D64.9 Abdominal pain R10.9 GERD (gastroesophageal reflux disease) K21.9 Depression F32.9 Depression Type: unspecified Diabetes mellitus E11.9 Diabetes mellitus complication status: without complication Diabetes mellitus finish cleaner insulin use: unspecified alf insulin use status Diabetes mellitus type: type 2 MCI (mild cognitive impairment) G31.84 Abnormal involuntary movements R25.9 DVT prophylaxis Z29.9 (1) Depression Depression Type: unspecified Qualified Code(s): F32.9 - Major depressive disorder, single episode, unspecified (2) Diabetes mellitus Diabetes mellitus complication status: without complication Diabetes mellitus finish cleaner insulin use: unspecified finish cleaner insulin use status Diabetes mellitus type: type 2 Qualified Code(s): E11.9 - Type 2 diabetes mellitus without complications
[2020-01-22] MEDS: ASPIRIN 81 MG ECTAB PO SCH (08:08)
[2020-01-22] MEDS: DULoxetine HCL 60 MG CAP PO SCH ×2 (08:08→20:51)
[2020-01-22] MEDS: THIAMINE HCL 100 MG TAB PO SCH (08:08)
[2020-01-22] MEDS: PANTOprazole 40 MG TAB PO SCH (08:08)
[2020-01-22] MEDS: ROSUVASTATIN CALCIUM 20 MG TAB PO SCH (08:08)
[2020-01-22] MEDS: TRIMETHOPRIM/POLYMYXIN B OP SCH ×4 (08:09→20:51)
[2020-01-22] MEDS: ENOXAPARIN INJ 40 MG/0.4 ML SYR SQ SCH (08:09)
[2020-01-22] MEDS: FLUTICASONE PROPIONATE NA SPR 16 GM BTL SCH (08:09)
[2020-01-22] MEDS: INSULIN ASPART 100 UNITS/ML 3 ML PEN SC SCH ×4 (09:02→21:50)
[2020-01-22] MEDS: INSULIN GLARGINE SOLOSTAR 100 UNITS/ML 3 ML PEN SC SCH ×2 (09:05→20:51)
--- NOTE | 2020-01-22 13:57 | Hospitalist Progress Note ---
Date of Service January 22, 2020 Assessment & Plan (1) Encephalopathy: Brought to hospital by family due to altered MS. - Large work-up thus far - CT head/MRI brain, u/a, COVID-19 testing, CXR, etc -- all negative/normal. B12 was normal; TSH/FT4 largely within normal. - Continue thiamine, but switched to oral on 01/19. - Seen by Dr Pfeiffer from neurology - TIA not suspected. He feels she has underlying mild cognitive impairment/dementia. - Refer her to her outpatient provider regarding her duloxetine dosing as it is quite high. - Plan for outpatient work-up of her dementia. - Stable today. No change in vital signs to indicate acute issue. Mood improved today. Still doing well. (2) Severe protein-calorie malnutrition: Significant weight loss over the last 2 years. Nearly 30kg of weight loss since 02/2018. Fe was 115 this admission. - Family reported to nursing staff that she often c/o abdominal pain. None today on my interview. (3) Abnormal CBC: For several years the patient has had a lymphocyte-predominant differential. - Given the weight loss will check a peripheral smear to check for features of brewing leukemic/bone marrow process, etc. -> Normal smear on 01/19/2020. (4) Anemia: B12/folate wnl. Iron studies show low-normal iron. - Obtained peripheral smear (see above) - Normal. (5) Abdominal pain: Concerning given her anemia, weight loss, etc. - X-rays from 01/17 only showing large stool burden. - Started bowel regimen -> Restart senna/Doc (6) GERD (gastroesophageal reflux disease): - Continue PPI (7) Depression: Is on Cymbalta 60mg BID. - See above. (8) Diabetes mellitus: A1c was 7% on 01/17. - Holding metformin - Cont lantus-novolog - Glycemic pharmacy following. - Sugars stable in last 24 hours. Generally still 125-200. (9) MCI (mild cognitive impairment): Per history. - Neurology notes prior appointment for cognitive testing. (10) Abnormal involuntary movements: The movements during my visit looked like restless legs. It did not appear to be chorea or tremors. - As above - Fe was 115 this admission with low-normal other iron studies. (11) DVT prophylaxis: Lovenox 40 mg SQ daily Admission and Anticipated Discharge Date Admission Date: January 17, 2020 Subjective Continue to improve slightly day by day. She reports she wants to go home, but then segues into discussing how her family wants her to go to [facility]. Despite the lucidity, she still does not know what state we are in unless I give her options and sometimes gives me non-sequitur answers to questions. Reports no fevers/chills, chest pain, shortness of breath, abdominal pain, nausea, or vomiting. Physical Exam Constitutional: WD/WN, vitals as above no acute distress Eyes: EOM intact bilaterally; no conjunctival abnormality ENMT: external ear and nose normal, oropharynx normal Neck: trachea midline, no thyromegaly normal visual inspection Respiratory: normal respiratory effort, lungs clear to auscultation no respiratory distress Cardiovascular: RRR, no murmur, no edema Gastrointestinal (Abdomen): Inspection/Auscultation: abdomen normal to inspection; abdomen not distended Musculoskeletal: no cyanosis or clubbing, extremities motor strength 5/5 Skin: no rashes, warm and dry Neurologic: moves all extremities and awake Psychiatric: Orientation: alert and oriented to person; + not oriented to place (Knows [place], but not what state it is in.) and + not oriented to time (Knows year. When asked the season, she replies December.) Affect: euthymic affect Results & Data Results & Data ([facility]) Vital Signs (Past 12 Hours) Vital Signs Temp Pulse Resp BP Pulse Ox 01/22/20 07:37 36.5 C 69 18 104/69 96 PG Care Time/CCT Total # of Minutes Spent Total Time Spent with Patient: Total time spent is greater than 50% in coordination of care (as documented) at patient's floor/unit and/or counseling patient: Coding Level of Care Code 61481 Subseq Hosp Care Lvl 2 Diagnoses Encephalopathy G93.40 Severe protein-calorie malnutrition E43 Abnormal CBC R79.89 Anemia D64.9 Abdominal pain R10.9 GERD (gastroesophageal reflux disease) K21.9 Depression F32.9 Depression Type: unspecified Diabetes mellitus E11.9 Diabetes mellitus complication status: without complication Diabetes mellitus mcc insulin use: unspecified mcc insulin use status Diabetes mellitus type: type 2 MCI (mild cognitive impairment) G31.84 Abnormal involuntary movements R25.9 DVT prophylaxis Z29.9 (1) Depression Depression Type: unspecified Qualified Code(s): F32.9 - Major depressive disorder, single episode, unspecified (2) Diabetes mellitus Diabetes mellitus complication status: without complication Diabetes mellitus terminal operator insulin use: unspecified terminal operator insulin use status Diabetes mellitus type: type 2 Qualified Code(s): E11.9 - Type 2 diabetes mellitus without complications
[2020-01-23] MEDS: TRIMETHOPRIM/POLYMYXIN B OP SCH ×4 (08:35→21:11)
[2020-01-23] MEDS: FLUTICASONE PROPIONATE NA SPR 16 GM BTL SCH (08:35)
[2020-01-23] MEDS: ROSUVASTATIN CALCIUM 20 MG TAB PO SCH (08:36)
[2020-01-23] MEDS: ASPIRIN 81 MG ECTAB PO SCH (08:36)
[2020-01-23] MEDS: DULoxetine HCL 60 MG CAP PO SCH ×2 (08:36→21:10)
[2020-01-23] MEDS: PANTOprazole 40 MG TAB PO SCH (08:36)
[2020-01-23] MEDS: THIAMINE HCL 100 MG TAB PO SCH (08:36)
[2020-01-23] MEDS: ENOXAPARIN INJ 40 MG/0.4 ML SYR SQ SCH (08:36)
[2020-01-23] MEDS: INSULIN ASPART 100 UNITS/ML 3 ML PEN SC SCH ×4 (09:04→21:11)
[2020-01-23] MEDS: INSULIN GLARGINE SOLOSTAR 100 UNITS/ML 3 ML PEN SC SCH (09:05)
--- NOTE | 2020-01-23 09:07 | Pharmacy Report ---
Pharmacy Glycemic Short Note 2 - Date of Service January 23, 2020 - Glycemic Short BSG Results (Last 24 hours): OUTPATIENT ANTIDIABETIC REGIMEN: * Lantus 27 units qam * Metformin 1000 BID ASSESSMENT: 01/22: * Denise received 23 units of insulin yesterday * 10 units basal + 13 units bolus * BSGs were controlled at [id number] mg/dL * Patient has not required any changes to insulin regimen since 01/18. However, her fasting BSG was 159 mg/dL this morning. * Fasting BSG has continued to trend upward over the past 3 days, most likely due to increased PO intake. * Will increase basal insulin regimen today. * No changes to novolog parameters at this time. 01/19 * Patient received total of 13 units of insulin yesterday, of which 10 were basal insulin * Fasting BSG 133 mg/dL - continue scale for basal * Continue same CF/CR for now. PO intake very poor/limited PLAN FOR INPATIENT GLYCEMIC CONTROL: * Hold outpatient oral diabetes medications * Basal insulin - increased * Lantus 8 units SQ x 1 qAM + 5 units qPM * Lantus 7 units SQ BID starting tomorrow morning * Bolus insulin - no change * NovoLog per scale ACHS or Q6hrs while NPO * Goal Range: Low 110 mg/dL - High 140 mg/dL * Correction Factor: 35 mg/dL/unit * Nutritional / Prandial insulin per carb ratio of 1 unit per 12 grams CHO consumed PLAN FOR DISCHARGE: * A1c 7% on admission, at goal * Would recommend continuation of home diabetic medications at discharge as long as PO intake improves. Would recommend dosage decrease in insulin if PO intake continues to be poor on discharge.
[2020-01-23] MEDS ORDERED: INSULIN GLARGINE SOLOSTAR 100 UNITS/ML 3 ML PEN SC ONE ×2 (09:15→21:00)
--- NOTE | 2020-01-23 15:10 | Hospitalist Progress Note ---
Date of Service January 23, 2020 Assessment & Plan (1) Encephalopathy: Brought to hospital by family due to altered MS. - Large work-up thus far - CT head/MRI brain, u/a, COVID-19 testing, CXR, etc -- all negative/normal. B12 was normal; TSH/FT4 largely within normal. - Continue thiamine, but switched to oral on 01/19. - Seen by Dr Pfeiffer from neurology - TIA not suspected. He feels she has underlying mild cognitive impairment/dementia. - Refer her to her outpatient provider regarding her duloxetine dosing as it is quite high. - Plan for outpatient work-up of her dementia. - Stable today. No change in vital signs to indicate acute issue. Mood worse today. Says she will give us two more days. Hopeful placement at [facility] tomorrow. (2) Severe protein-calorie malnutrition: Significant weight loss over the last 2 years. Nearly 30kg of weight loss since 02/2018. Fe was 115 this admission. - Family reported to nursing staff that she often c/o abdominal pain. No mention to me at any point while in the hospital. (3) Abnormal CBC: For several years the patient has had a lymphocyte-predominant differential. - Given the weight loss will check a peripheral smear to check for features of brewing leukemic/bone marrow process, etc. -> Normal smear on 01/19/2020. (4) Anemia: B12/folate wnl. Iron studies show low-normal iron. - Obtained peripheral smear (see above) - Normal. (5) Abdominal pain: Concerning given her anemia, weight loss, etc. - X-rays from 01/17 only showing large stool burden. - Started bowel regimen -> Restart senna/Doc (6) GERD (gastroesophageal reflux disease): - Continue PPI (7) Depression: Is on Cymbalta 60mg BID. - See above. (8) Diabetes mellitus: A1c was 7% on 01/17. - Holding metformin - Cont lantus-novolog - Glycemic pharmacy following. - Sugars stable in last 24 hours. Generally still 125-200. (9) MCI (mild cognitive impairment): Per history. - Neurology notes prior appointment for cognitive testing. (10) Abnormal involuntary movements: The movements during my visit looked like restless legs. It did not appear to be chorea or tremors. - As above - Fe was 115 this admission with low-normal other iron studies. (11) DVT prophylaxis: Lovenox 40 mg SQ daily Admission and Anticipated Discharge Date Admission Date: January 17, 2020 Subjective Very discouraged today. Just wants to go home and get out of the hospital. Reports no fevers/chills, chest pain, shortness of breath, abdominal pain, nausea, or vomiting. Physical Exam Constitutional: WD/WN, vitals as above no acute distress Eyes: EOM intact bilaterally; no conjunctival abnormality ENMT: external ear and nose normal, oropharynx normal Neck: trachea midline, no thyromegaly normal visual inspection Respiratory: normal respiratory effort, lungs clear to auscultation no respiratory distress Cardiovascular: RRR, no murmur, no edema Gastrointestinal (Abdomen): Inspection/Auscultation: abdomen normal to inspection; abdomen not distended Musculoskeletal: no cyanosis or clubbing, extremities motor strength 5/5 Skin: no rashes, warm and dry Neurologic: moves all extremities and awake Psychiatric: Orientation: alert and oriented to person; + not oriented to place (Knows [place], but not what state it is in.) and + not oriented to time (Knows year. When asked the season, she replies December.) Affect: euthymic affect Results & Data Results & Data ([facility]) Vital Signs (Past 12 Hours) Vital Signs Temp Pulse Resp BP Pulse Ox 01/23/20 07:38 36.7 C 71 16 122/78 97 PG Care Time/CCT Total # of Minutes Spent Total Time Spent with Patient: Total time spent is greater than 50% in coordination of care (as documented) at patient's floor/unit and/or counseling patient: Coding Level of Care Code 16100 Subseq Hosp Care Lvl 2 Diagnoses Encephalopathy G93.40 Severe protein-calorie malnutrition E43 Abnormal CBC R79.89 Anemia D64.9 Abdominal pain R10.9 GERD (gastroesophageal reflux disease) K21.9 Depression F32.9 Depression Type: unspecified Diabetes mellitus E11.9 Diabetes mellitus complication status: without complication Diabetes mellitus half-way insulin use: unspecified terminal press operator insulin use status Diabetes mellitus type: type 2 MCI (mild cognitive impairment) G31.84 Abnormal involuntary movements R25.9 DVT prophylaxis Z29.9 (1) Depression Depression Type: unspecified Qualified Code(s): F32.9 - Major depressive di sorder, single episode, unspecified (2) Diabetes mellitus Diabetes mellitus complication status: without complication Diabetes mellitus half-way insulin use: unspecified half-way insulin use status Diabetes mellitus type: type 2 Qualified Code(s): E11.9 - Type 2 diabetes mellitus without complications
[2020-01-23] MEDS ORDERED: INSULIN GLARGINE SOLOSTAR 100 UNITS/ML 3 ML PEN SC SCH (21:00)
[2020-01-24] MEDS: ROSUVASTATIN CALCIUM 20 MG TAB PO SCH (09:16)
[2020-01-24] MEDS: PANTOprazole 40 MG TAB PO SCH (09:16)
[2020-01-24] MEDS: THIAMINE HCL 100 MG TAB PO SCH (09:16)
[2020-01-24] MEDS: ASPIRIN 81 MG ECTAB PO SCH (09:16)
[2020-01-24] MEDS: DOCUSATE SODIUM/SENNA 50/8.6MG TAB PO SCH (09:20)
[2020-01-24] MEDS: INSULIN GLARGINE SOLOSTAR 100 UNITS/ML 3 ML PEN SC SCH ×2 (09:21→21:10)
[2020-01-24] MEDS: ENOXAPARIN INJ 40 MG/0.4 ML SYR SQ SCH (09:21)
[2020-01-24] MEDS: FLUTICASONE PROPIONATE NA SPR 16 GM BTL SCH (09:22)
[2020-01-24] MEDS: DULoxetine HCL 60 MG CAP PO SCH ×2 (09:23→21:12)
[2020-01-24] MEDS: INSULIN ASPART 100 UNITS/ML 3 ML PEN SC SCH ×4 (09:26→21:10)
[2020-01-24] MEDS: TRIMETHOPRIM/POLYMYXIN B OP SCH ×4 (09:27→21:12)
--- NOTE | 2020-01-24 21:51 | Hospitalist Progress Note ---
Date of Service January 24, 2020 Assessment & Plan (1) Encephalopathy: Brought to hospital by family due to altered MS. - Large work-up thus far - CT head/MRI brain, u/a, COVID-19 testing, CXR, etc -- all negative/normal. B12 was normal; TSH/FT4 largely within normal. - Continue thiamine, but switched to oral on 01/19. - Seen by Dr Pfeiffer from neurology - TIA not suspected. He feels she has underlying mild cognitive impairment/dementia. - Refer her to her outpatient provider regarding her duloxetine dosing as it is quite high. - Plan for outpatient work-up of her dementia. - Stable on 01/23. No change in vital signs to indicate acute issue. Hopeful placement tomorrow. (2) Severe protein-calorie malnutrition: Significant weight loss over the last 2 years. Nearly 30kg of weight loss since 02/2018. Fe was 115 this admission. - Family reported to nursing staff that she often c/o abdominal pain. No mention to me at any point while in the hospital. (3) Abnormal CBC: For several years the patient has had a lymphocyte-predominant differential. - Given the weight loss will check a peripheral smear to check for features of brewing leukemic/bone marrow process, etc. -> Normal smear on 01/19/2020. (4) Anemia: B12/folate wnl. Iron studies show low-normal iron. - Obtained peripheral smear (see above) - Normal. (5) Abdominal pain: Concerning given her anemia, weight loss, etc. - X-rays from 01/17 only showing large stool burden. - Started bowel regimen -> Restart senna/Doc (6) GERD (gastroesophageal reflux disease): - Continue PPI (7) Depression: Is on Cymbalta 60mg BID. - See above. (8) Diabetes mellitus: A1c was 7% on 01/17. - Holding metformin - Cont lantus-novolog - Glycemic pharmacy following. - Sugars stable in last 24 hours. Generally still 125-200. (9) MCI (mild cognitive impairment): Per history. - Neurology notes prior appointment for cognitive testing. (10) Abnormal involuntary movements: The movements during my visit looked like restless legs. It did not appear to be chorea or tremors. - As above - Fe was 115 this admission with low-normal other iron studies. (11) DVT prophylaxis: Lovenox 40 mg SQ daily Admission and Anticipated Discharge Date Admission Date: January 17, 2020 Subjective Patient reports feeling well. She has no new complaints. Review of Systems Review of Systems: All systems reviewed & are unremarkable except as noted in HPI & below Physical Exam Physical Exam: Constitutional: \WD/WN, vitals as above no acute distress Eyes: EOM intact bilaterally; no conjunctival abnormality ENMT: external ear and nose normal, oropharynx normal Neck: trachea midline, no thyromegaly normal visual inspection Respiratory: normal respiratory effort, lungs clear to auscultation no respiratory distress Cardiovascular: RRR, no murmur, no edema Gastrointestinal (Abdomen): Inspection/Auscultation: abdomen normal to inspection; abdomen not distended Musculoskeletal: no cyanosis or clubbing, extremities motor strength 5/5 Skin: no rashes, warm and dry Neurologic: moves all extremities and awake Psychiatric: Orientation: alert and oriented to person; + not oriented to place (Knows [place], but not what state it is in.) and + not oriented to time (Knows year. When asked the season, she replies December.) Affect: euthymic affect Results & Data Results & Data ([facility]) Vital Signs (Past 12 Hours) Vital Signs Temp Pulse Resp BP Pulse Ox 01/24/20 16:16 36.6 C 68 17 119/59 L 94 PG Care Time/CCT Total # of Minutes Spent Total Time Spent with Patient: Total time spent is greater than 50% in coordination of care (as documented) at patient's floor/unit and/or counseling patient: Coding Level of Care Code 64055 Subseq Hosp Care Lvl 3 Diagnoses Encephalopathy G93.40 Severe protein-calorie malnutrition E43 Abnormal CBC R79.89 Anemia D64.9 Abdominal pain R10.9 GERD (gastroesophageal reflux disease) K21.9 Depression F32.9 Depression Type: unspecified Diabetes mellitus E11.9 Diabetes mellitus complication status: without complication Diabetes mellitus assistant terminal manager insulin use: unspecified assistant terminal manager insulin use status Diabetes mellitus type: type 2 MCI (mild cognitive impairment) G31.84 Abnormal involuntary movements R25.9 DVT prophylaxis Z29.9 Time Spent (min) 35 Comment First encounter with patient. (1) Diabetes mellitus Diabetes mellitus complication status: without complication Diabetes mellitus chcf insulin use: unspecified assistant terminal manager insulin use status Diabetes mellitus type: type 2 Qualified Code(s): E11.9 - Type 2 diabetes mellitus without complications (2) Depression Depression Type: unspecified Qualified Code(s): F32.9 - Major depressive disorder, single episode, unspecified
[2020-01-25 07:53] LABS: Hematocrit (blood only) 33.4 % (37-47); Hemoglobin 10.9 g/dL (12.0-16.0); Mean Corpuscular Hemoglobin 27.9 pg (25-34); Mean Corpuscular Hgb Conc 32.6 g/dL (32-36); Mean Corpuscular Volume 85.4 fL (80-100); Mean Platelet Volume 9.7 fL (7.4-10.4); Platelet Count 273 K/uL (130-400); RDW Coefficient of Variation 15.8 % (11.5-14.5); RDW Standard Deviation 48.8 fL (36.4-46.3); Red Blood Count 3.91 M/uL (4.2-5.4); White Blood Count 4.79 K/uL (4.8-10.8)
[2020-01-25 08:19] LABS: BUN Creatinine Ratio 20.3 (10-20); Calcium 9.1 mg/dl (8.5-10.1); Creatinine Clr Calc Pharmacy 60.4 ml/min; Est GFR (African American) 73.4; Est GFR (Non-African American) 63.3; Magnesium 2.1 mg/dl (1.8-2.4); Potassium 3.8 mmol/L (3.5-5.1)
[2020-01-25 08:20] LABS: Phosphorus 3.5 mg/dl (2.5-4.9)
[2020-01-25] MEDS: INSULIN GLARGINE SOLOSTAR 100 UNITS/ML 3 ML PEN SC SCH (08:43)
[2020-01-25] MEDS: INSULIN ASPART 100 UNITS/ML 3 ML PEN SC SCH (08:43)
[2020-01-25] MEDS: PANTOprazole 40 MG TAB PO SCH (08:54)
[2020-01-25] MEDS: THIAMINE HCL 100 MG TAB PO SCH (08:55)
[2020-01-25] MEDS: ASPIRIN 81 MG ECTAB PO SCH (08:55)
[2020-01-25] MEDS: FLUTICASONE PROPIONATE NA SPR 16 GM BTL SCH (08:55)
[2020-01-25] MEDS: DULoxetine HCL 60 MG CAP PO SCH (08:56)
[2020-01-25] MEDS: ROSUVASTATIN CALCIUM 20 MG TAB PO SCH (08:56)
[2020-01-25] MEDS: ENOXAPARIN INJ 40 MG/0.4 ML SYR SQ SCH (08:57)
[2020-01-25] MEDS: TRIMETHOPRIM/POLYMYXIN B OP SCH (08:57)
[2020-01-25] MEDS: DOCUSATE SODIUM/SENNA 50/8.6MG TAB PO SCH (08:59)
[2020-01-25] MEDS ORDERED: INSULIN GLARGINE SOLOSTAR 100 UNITS/ML 3 ML PEN SC SCH (09:00)
--- NOTE | 2020-02-01 00:35 | Discharge Summary ---
Date of Service January 25, 2020 Admission HPI Per Admitting Provider 64-year-old female brought in with altered sensorium with concern for slurred speech right-sided weakness and facial droop. However her last time known well was Thursday 01/11. Patient does not have any focal weakness or facial droop upon my evaluation. However patient's family whom I spoke to feels that she is severely depressed and because of her disability from her previous stroke has been declining and not been providing her self with proper nutrition. Her sister who is my source of information also is unclear whether the patient's been taking her medications at home reliably or not. Principal Diagnosis Encephalopathy Discharge Exam Constitutional: \WD/WN, vitals as above no acute distress Eyes: EOM intact bilaterally; no conjunctival abnormality ENMT: external ear and nose normal, oropharynx normal Neck: trachea midline, no thyromegaly normal visual inspection Respiratory: normal respiratory effort, lungs clear to auscultation no respiratory distress Cardiovascular: RRR, no murmur, no edema Gastrointestinal (Abdomen): Inspection/Auscultation: abdomen normal to inspection; abdomen not distended Musculoskeletal: no cyanosis or clubbing, extremities motor strength 5/5 Skin: no rashes, warm and dry Neurologic: moves all extremities and awake Psychiatric: Orientation: alert and oriented to person; + not oriented to place (Knows [place], but not what state it is in.) and + not oriented to time (Knows year. When asked the season, she replies December.) Affect: euthymic affect Discharge Data Allergies Allergy/AdvReac Type Severity Reaction Status Date / Time propoxyphene AdvReac Unknown GI UPSET Verified 01/17/20 12:33 Consultations 01/17/20 12:05 ED Decision to Admit Stat 01/17/20 15:22 Consult Case Management - Discharge Planning Routine Consult Neurology Routine Ordered Studies 01/17/20 10:17 CT angio head w con Stat CT angio neck with con Stat CT head/brain wo con Stat 01/17/20 15:22 MR brain wo con Routine Hospital Course (1) Encephalopathy: Brought to hospital by family due to altered MS. - Large work-up thus far - CT head/MRI brain, u/a, COVID-19 testing, CXR, etc -- all negative/normal. B12 was normal; TSH/FT4 largely within normal. - Continue thiamine, but switched to oral on 01/19. - Seen by Dr Pfeiffer from neurology - TIA not suspected. He feels she has underlying mild cognitive impairment/dementia. - Refer her to her outpatient provider regarding her duloxetine dosing as it is quite high. - Plan for outpatient work-up of her dementia. - Stable on 01/23. No change in vital signs to indicate acute issue. Placement today. (2) Severe protein-calorie malnutrition: Significant weight loss over the last 2 years. Nearly 30kg of weight loss since 02/2018. Fe was 115 this admission. - Family reported to nursing staff that she often c/o abdominal pain. No mention to me at any point while in the hospital. (3) Abnormal CBC: For several years the patient has had a lymphocyte-predominant differential. - Given the weight loss will check a peripheral smear to check for features of brewing leukemic/bone marrow process, etc. -> Normal smear on 01/19/2020. (4) Anemia: B12/folate wnl. Iron studies show low-normal iron. - Obtained peripheral smear (see above) - Normal. (5) Abdominal pain: Concerning given her anemia, weight loss, etc. - X-rays from 01/17 only showing large stool burden. - Started bowel regimen -> Restart senna/Doc (6) GERD (gastroesophageal reflux disease): - Continue PPI (7) Depression: Is on Cymbalta 60mg BID. - See above. (8) Diabetes mellitus: A1c was 7% on 01/17. - Holding metformin - Cont lantus-novolog - Glycemic pharmacy following. - Sugars stable in last 24 hours. Generally still 125-200. (9) MCI (mild cognitive impairment): Per history. - Neurology notes prior appointment for cognitive testing. (10) Abnormal involuntary movements: The movements during my visit looked like restless legs. It did not appear to be chorea or tremors. - As above - Fe was 115 this admission with low-normal other iron studies. (11) DVT prophylaxis: Lovenox 40 mg SQ daily Total Time Total Time Spent Total Time Spent (In Minutes): 32 Total Time Includes: Examination of the Patient, Discharge Planning and Medication Reconciliation Discharge Plan Discharge Items Patient Disposition: Transfer Long Term Fac Reason For Visit: ENCEPHALOPATHY Discharge Diagnosis: Encephalopathy Activity: Resume your previous activity Non-emergency contact: Primary Care Provider Call non-emergency contact if: you have any medication questions Follow-up/Referrals: Marleni Macias DO [Primary Care Provider] - Diet: Carb Consistent or DM2 Diet Texture: Easy to Chew Addtl Attending Provider Instructions: You have been hospitalized for an acute medical problem. During your stay at [facility], we have made an effort to correct the problem that brought you to the hospital while keeping you as comfortable as possible. Medications were used to bring your condition under control and your discharge instructions will include directions for any medications you should take after leaving the hospital. Please make sure you see your Primary Care Provider as part of your follow up plan. Will contiue thiamine as outpatient. - Seen by Dr Pfeiffer from neurology - TIA not suspected. He feels she has underlying mild cognitive impairment/dementia. - Recommend her to follow up with her outpatient provider regarding her duloxetine dosing as it is quite high. - Recommend outpatient work-up of her dementia. -Needs complete neuropsychological testing (keep these appointments as an outpatient that are already set up apparently ). Pending Studies at Discharge: No Stand-Alone Forms: My [facility] Skilled Items Patient informed of condition?: No DNR: No Discharge Level of Care: Other Communicable Disease: No Discharge Prognosis: Stable Lines: None Urinary Catheter: No Medications and DC Order Prescriptions: New acetaminophen 325 mg Tablet 650 mg PO Q4H PRN (Reason: pain) Qty: 30 RF: 0 sennosides-docusate sodium [Senokot-S] 8.6-50 mg Tablet 1 tab PO QAM Qty: 30 RF: 0 thiamine HCl (vitamin B1) [Vitamin B-1] 100 mg Tablet 100 mg PO QAM Qty: 30 RF: 0 Continued rosuvastatin 40 mg tablet 40 mg PO QAM Qty: 30 RF: 5 pantoprazole 20 mg tablet,delayed release (DR/EC) 20 mg PO DAILY Qty: 90 RF: 1 metformin 500 mg tablet extended release 24 hr 1,000 mg PO BID Qty: 360 RF: 1 duloxetine 60 mg capsule,delayed release(DR/EC) 60 mg PO BID Qty: 60 RF: 3 Basaglar KwikPen U-100 Insulin 100 unit/mL (3 mL) insulin pen 27 units SUBCUT QAM RF: 0 aspirin 81 mg tablet,delayed release (DR/EC) 81 mg PO DAILY RF: 0 multivitamin tablet 1 tab PO DAILY RF: 0 fluticasone propionate [Flonase Allergy Relief] 50 mcg/actuation spray,suspension 2 sprays INTNAS DAILY Qty: 9.9 RF: 5 polymyxin B sulf-trimethoprim 10,000 unit- 1 mg/mL drops 1 drops OP QID PRN (Reason: Dry Eye(S)) RF: 0 Discontinued cetirizine 10 mg tablet 10 mg PO DAILY Qty: 90 RF: 3 docusate sodium [Colace] 100 mg capsule 100 mg PO BID Qty: 60 RF: 3 No Action (DME) 2 wheeled walker See Rx Instructions .Route .MEDSUPPLY Qty: 1 RF: 0 Discharge Orders: Discharge Order (Routine); Ordered 01/25/20 Ordered By: Conner Mancini Admission Data Admit Date/Time: 01/17/20 12:36 Attending Provider: Conner Mancini Admit Provider: Lennox Gonzáles Primary Care Provider: Marleni Macias Other Providers: Rashid Kirby ; Lennox Gonzáles ; Parminder Pfeiffer ; [facility] Other Interventions: Discharge Summary Assessment (RN) Last Done: 01/25/20 11:03 Coding Level of Care Code D/C Day Management >30 mins Diagnoses Encephalopathy G93.40 Severe protein-calorie malnutrition E43 Abnormal CBC R79.89 Anemia D64.9 Abdominal pain R10.9 GERD (gastroesophageal reflux disease) K21.9 Depression F32.9 Depression Type: unspecified Diabetes mellitus E11.9 Diabetes mellitus complication status: without complication 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
== END 2020-01-25 11:17 | DRG 70 ==
LOC: ED 10:17 → 1E 12:36 → SUATTDRO 12:36 → 1E 14:32 → 2S 01-19 06:53 → 3W 01-19 17:56